=== PATIENT | female | born 1975 | race Caucasian/White ===

== ENCOUNTER 2021-01-04 06:41 | Emergency (ER) | payer BC, SELFPAY ==
--- NOTE | ~2021-01-04 | XR_ITS ---
EXAMINATION: CHEST 2 VIEWS CLINICAL INFORMATION: l sided pain . COMPARISON: 05/11/2015. TECHNIQUE: PA and lateral views of the chest obtained. FINDINGS: The lungs are well expanded. No focal infiltrate, effusion, edema, or pneumothorax. Cardiac and mediastinal silhouettes are within normal limits for technique. No acute bony abnormality seen XR/XR chest 2V IMPRESSION: No evidence of acute disease
[2021-01-04 07:05] VITALS: BP 138/81; PULSE 90; RESP 16; TEMP 36.8; O2SAT 100; BMI 29.2
--- NOTE | 2021-01-04 07:18 | ECG_ITS ---
Test Reason : PAIN Blood Pressure : / mmHG Vent. Rate : 074 BPM Atrial Rate : 074 BPM P-R Int : 132 ms QRS Dur : 086 ms QT Int : 368 ms P-R-T Axes : 061 -04 052 degrees QTc Int : 408 ms Normal sinus rhythm Normal ECG When compared with ECG of 31-MAR-2017 19:27, Vent. rate has decreased BY [address] no longer depressed in Inferior leads Referred By: Desiree Olivera Electronically Signed By:TOBY KAPLAN MD
--- NOTE | 2021-01-04 07:19 | ED.NECK ---
HPI - Neck Pain/Injury General Chief Complaint: Neck Pain/Injury Stated Complaint: neck/left side pain Time Seen by Provider: 01/04/21 07:18 Source: patient Mode of arrival: ambulatory Limitations: no limitations History of Present Illness HPI Narrative: 45 yo female hx of fibromyalgi and herniated disc in neck treated at [facility] pain management actually due for an injection today comes in with c/o L sided neck/shoulder going into chest pain that is reproduceable with palpation and movements, normally takes gabapentin denies new injury or trauma has had this pain before but it has not spread so far in the past MD complaint: neck pain and upper back pain Onset (ago): day(s) (last night) Place: home Radiation: left lateral, left shoulder, upper back and chest Severity: moderate Quality: aching and spasming Duration: constant Relieving factors: none Exacerbating factors: movement of extremity and movement of neck Context: other (hx of chronic neck pain) Associated symptoms: none Treatments prior to arrival: other (gabapentin) Related Data Previous Rx's Medication Instructions Recorded diazepam [Valium] 5 mg PO TID PRN #10 tab 01/04/21 lidocaine 1 patch TOPICAL DAILY PRN #10 ea 01/04/21 Allergies Allergy/AdvReac Type Severity Reaction Status Date / Time citalopram [CITALOPRAM] Allergy Intermediate BLOODY Unverified 06/17/20 15:05 STOOLS amoxicillin [AMOXICILLIN] Allergy Unknown PAIN Unverified 06/17/20 15:05 Review of Systems Review of Systems: Constitutional : No Weight loss, No Fever, No Chills, No Fatigue, No Malaise ENT/Mouth : No sore throat, No Rhinorrhea Eyes: No Eye Pain, No Swelling, No Redness Cardiovascular : pos Chest Pain, No SOB, No Dyspnea on Exertion, No Orthopnea, No Edema, No Palpitations Respiratory : No Cough, No Sputum, No Wheezing Gastrointestinal : No Nausea, No Vomiting, No Diarrhea, No Constipation, No abdominal Pain, No Hematochezia, No Melena Genitourinary : No Dysuria, No Urinary Frequency, No Hematuria, Musculoskeletal : pos joint pain, No Myalgias, No Joint Swelling Skin : No Skin Lesions, No rash Neuro : No Weakness, No Numbness, No Dizziness, No Headache Psych : No Anxiety/Panic, No Depression All other systems reviewed and are negative [facility] Past Medical History Attestation statement: The following information was validated with the patient. Medical History Fibromyalgia Herniated disc, cervical Social History Social History (Updated 01/04/21 @ 07:24 by Desiree Olivera DO) Use of substances other than those prescribed or required for medical reasons: No Advance Directives: Yes Advance Directives Information Provided: No Advance Directives on File: No Physical Exam Vital Signs: Vital Signs: Last Vital Signs Temp 98.2 F 01/04/21 07:05 Pulse 90 01/04/21 07:05 Resp 16 01/04/21 07:05 BP 138/81 01/04/21 07:05 Pulse Ox 100 01/04/21 07:05 Body Mass Index 29.2 Appearance: Alert. Oriented X3. No acute distress. Eyes: Pupils equal, round and reactive to light. ENT: Pharynx normal. Neck: Spasm and ttp along L trapezius and left lateral cervical area, + spurling maneuver L side CVS: Normal heart rate and rhythm. Pulses normal. Chest wall ttp along L ribs Respiratory: No respiratory distress. Breath sounds normal. Abdomen: Soft and nontender. Skin: Skin warm and dry. Normal skin color. Normal skin turgor. Extremities: No lower extremity edema. No calf ttp LUE NV intact, SILT throughout, 2+ radial pulse pain with ROM of arm Neuro: Oriented X 3. No motor deficit. No sensory deficit. Course Course Course Narrative: patient feels much better stable for DC MDM - Neck Pain/Injury MDM Narrative Medical decision making narrative: 45 yo female with fibromyalgia and cervical spine herniated disc here with L sided neck pain radiating down into the arm and chest - no associated dyspnea, n/v all of the pain is reproduceable and she is NV intact grossly in LUE - likely spasm - PO valium, EKG and CXR ordered, if negative stable for DC has clinic appointment for injection today at [facility] ECG Data Attestation: I personally reviewed and interpreted this ECG as follows: ECG interpretation date: 01/04/21 ECG interpretation time: 07:41 Interpretation: Rate: 74 Rhythm: NSR [place]: normal Normal P waves. Normal ZOE. Normal QRS complex. ST T wave : normal no ROMAIN qTC: normal prior studies: no acute ischemia The study has been interpreted contemporaneously by me. . Discharge Plan Discharge Clinical Impression: Cervical radiculopathy Strain of neck muscle Qualifiers: Encounter type: initial encounter Qualified Code(s): S16.1XXA - Strain of muscle, fascia and tendon at neck level, initial encounter Patient Disposition: Home, Self-Care Instructions: Cervical Radiculopathy (ED), Muscle Spasm (ED) Additional Instructions: return to ED for any worsening symptoms or concerns Prescriptions: New lidocaine 4 % adhesive patch,medicated 1 patch topical DAILY PRN (Reason: pain) Qty: 10 RF: 0 diazepam [Valium] 5 mg tablet 5 mg PO TID PRN (Reason: muscle spasm) Qty: 10 RF: 0
[2021-01-04] MEDS: Lidocaine 4 % Patch ADH..PATCH 1 PATCH TRANSDERMA (07:24)
[2021-01-04] MEDS: diazePAM 5 MG TABLET PO (07:25)
== END 2021-01-04 08:23 | disposition home or self-care (01) ==
PROVIDERS: Emergency Provider Emergency Medicine; PCP Internal Medicine
DX: S16.1XXA Strain of muscle, fascia and tendon at neck level, initial encounter (principal); M25.512 Pain in left shoulder; M54.12 Radiculopathy, cervical region; M54.5 Low back pain; M54.2 Cervicalgia; X58.XXXA Exposure to other specified factors, initial encounter; Y93.9 Activity, unspecified; Y92.9 Unspecified place or not applicable; Y99.9 Unspecified external cause status; Z79.899 Other long term (current) drug therapy
CPT/HCPCS: 71046; 93005; 99283

== ENCOUNTER 2021-09-05 11:11 | Outpatient (REF) | payer BC, SELFPAY ==
[2021-09-05 11:58] LABS: COVID-19 Test Negative (Negative); IDNOW Serial# 9DD0AD1C
== END 2021-09-05 11:12 | disposition home or self-care (01) ==
LOC: HO.LAB 11:11
PROVIDERS: Visit Provider Internal Medicine
DX: Z20.822 Contact with and (suspected) exposure to COVID-19 (principal)
CPT/HCPCS: 36415; 87635; C9803

== ENCOUNTER 2021-09-14 19:21 | Emergency (ER) | payer OTHER, SELFPAY ==
[2021-09-14 19:44] VITALS: BP 144/91; PULSE 91; RESP 18; TEMP 36.6; O2SAT 98; BMI 29.0
--- NOTE | 2021-09-14 20:43 | ED_ITS ---
HPI - URI/Sore Throat General Chief Complaint: Upper Respiratory Symptoms Stated Complaint: Covid symptoms Time Seen by Provider: 09/14/21 20:36 Source: patient Mode of arrival: ambulatory Limitations: no limitations History of Present Illness HPI Narrative: 46 y/o female with history of migraines presents to the ER with generalized headache, body aches and nausea that started today. She lives at home with her 2 sons who were just found to be COVID positive. Her headache today started like her regular migraine headaches and she took her subcutaneous migraine medication. There was no improvement in her headache and continued to get worse. She then developed some upper body aches and nausea and had chills. She is worried that she may have COVID. She is fully vaccinated. She has no respiratory symptoms or fevers. She denies any vision changes but she reports some photophobia which is typical of her regular migraines. She has not vomited and has no abdominal pain. MD elicited complaint: other (headache) Pertinent past history: other (History of migraines) Onset (ago): hour(s) Consistency: constant Severity: severe Able to tolerate fluids by mouth: Yes Exacerbating factors: changing head position and other (In light) Relieving factors: nothing Context: sick contacts Associated symptoms: chills, myalgias, headache and nausea Treatments prior to arrival: other (Prescription migraine medication) Related Data Previous Rx's Medication Instructions Recorded diazepam 5 mg tablet (Valium) 5 mg PO TID PRN #10 tab 01/04/21 lidocaine 4 % topical patch 1 patch TOPICAL DAILY PRN #10 ea 01/04/21 cyclobenzaprine 10 mg tablet 10 mg PO TID PRN #8 tab 09/14/21 Allergies Allergy/AdvReac Type Severity Reaction Status Date / Time citalopram [CITALOPRAM] Allergy Intermediate BLOODY Unverified 06/17/20 15:05 STOOLS amoxicillin [AMOXICILLIN] Allergy Unknown PAIN Unverified 06/17/20 15:05 Review of Systems Review of Systems: Constitutional: No Fever, No Chills ENT/Mouth: No sore throat, No Rhinorrhea, No Swallowing Difficulty Eyes: No vision changes Cardiovascular: No Chest Pain, No SOB Respiratory: No Cough, No Sputum, No Wheezing, No dyspnea Gastrointestinal: + Nausea, No Vomiting, No Diarrhea, No abdominal Pain Genitourinary: No Dysuria, No Urinary Frequency, No Hematuria Musculoskeletal: No joint pain, + Myalgias Skin: No Skin Lesions, No rash Neuro: No Weakness, No Numbness, No Dizziness, + Headache Psych: + Anxiety/Panic, No Depression Heme/Lymph: No Bruising, No Lymphadenopathy PMFSH Past Medical History Medical History Fibromyalgia Herniated disc, cervical Social History Social History (Updated 01/04/21 @ 07:24 by Desiree Olivera DO) Advance Directives: No Advance Directives Information Provided: No Physical Exam Vital Signs: Vital Signs: Last Vital Signs Temp 98 F 09/14/21 19:44 Pulse 91 09/14/21 19:44 Resp 18 09/14/21 19:44 BP 144/91 H 09/14/21 19:44 Pulse Ox 98 09/14/21 19:44 BMI result Body Mass Index 29.0 Appearance: Alert. Oriented X3. No acute distress. Eyes: Pupils equal, round and reactive to light. EOMI, no nystagmus ENT: Pharynx normal. Neck: Normal inspection. Neck supple. Bilateral soft tissue tenderness and spasm. no nuchal rigidity CVS: Normal heart rate and rhythm. Pulses normal. Respiratory: No respiratory distress. Breath sounds normal. Abdomen: Soft and nontender. +BS x4 Skin: Skin warm and dry. Normal skin color. Normal skin turgor. No rashes. Extremities: No lower extremity edema. Neuro: Oriented X 3. No motor deficit. No sensory deficit. Course Course Course Narrative: 46-year-old female presents to the ER with headache, body aches, nausea, chills in setting of being exposed to her sons who she lives with have COVID. She is fully vaccinated. Her vital signs are normal. Her exam is benign. She has some soft tissue tenderness of her neck and upper back. No meningeal signs. No fevers. She is asking for Motrin for her headache. Will assess for COVID-19. Reevaluation(s) Reevaluation #1: Her rapid COVID test was negative. Still very highly suspicious for COVID so will also send a PCR test. She was counseled that even if she is negative today his initial remain negative from the disease. Her headache is improved with Motrin and she is asking for something for her neck and upper back aches and pains. She has some spasms on exam so will give a low- dose muscle relaxer for brief course to help with this. She was counseled on getting retested for COVID if her symptoms persist and following up with her primary care doctor. At this time she is stable for discharge home. Will call if her PCR is positive. Patient agrees with plan MDM - URI/Sore Throat Lab Data Labs: Lab Results 09/14/21 Range/Units 20:40 COVID-19 (CIELO) Negative (Negative) COVID-19 Clin Com See Note Discharge Plan Discharge Clinical Impression: Migraine Qualifiers: Migraine type: unspecified Status migrainosus presence: without status mi grainosus Intractability: not intractable Qualified Code(s): G43.909 - Migraine, unspecified, not intractable, without status migrainosus Patient Disposition: Home, Self-Care Instructions: Migraine Headache (ED) Additional Instructions: Your rapid COVID test was negative today. A PCR COVID test was also sent, if this is positive we will call you this evening. Continue your home medication for your migraine. Recommend Excedrin migraine as well. Rest and stay hydrated. Recommend getting retested for COVID in the next 5 days to ensure your remain negative. Prescriptions: New cyclobenzaprine 10 mg tablet 10 mg PO TID PRN (Reason: muscle spasm) Qty: 8 RF: 0 No Action lidocaine 4 % adhesive patch,medicated 1 patch topical DAILY PRN (Reason: pain) Qty: 10 RF: 0 diazepam [Valium] 5 mg tablet 5 mg PO TID PRN (Reason: muscle spasm) Qty: 10 RF: 0 Interventions: ED Discharge Assessment Last Done: 09/14/21 21:36
[2021-09-14 21:11] LABS: COVID-19 Test Negative (Negative)
[2021-09-14] MEDS: Ibuprofen 600 MG TABLET PO (21:24)
[2021-09-14 22:20] LABS: Influenza A PCR NEGATIVE (Negative); Influenza B PCR NEGATIVE (Negative); Resp Syncy Virus RNA Qual PCR NEGATIVE (Negative); SARS COV2 PCR INHOUSE NEGATIVE (Negative)
== END 2021-09-14 22:50 | disposition home or self-care (01) ==
PROVIDERS: Physician Assistant; Emergency Provider Emergency Medicine; PCP Internal Medicine
DX: G43.909 Migraine, unspecified, not intractable, without status migrainosus (principal); Z20.822 Contact with and (suspected) exposure to COVID-19
CPT/HCPCS: 0241U; 36415; 87635; 99283; 99284

== ENCOUNTER 2022-02-17 10:29 | Outpatient (REF) | payer OTHER, SELFPAY ==
[2022-02-17 11:06] LABS: COVID-19 Test Negative (Negative); IDNOW Serial# 08D9AD1C
== END 2022-02-17 10:30 | disposition home or self-care (01) ==
LOC: HO.LAB 10:29
PROVIDERS: Visit Provider Internal Medicine
DX: Z20.822 Contact with and (suspected) exposure to COVID-19 (principal)
CPT/HCPCS: 87635; C9803

== ENCOUNTER 2022-03-24 15:28 | Emergency (ER) | payer OTHER, SELFPAY ==
--- NOTE | ~2022-03-24 | CT_ITS ---
EXAMINATION: CT HEAD WITHOUT CONTRAST CLINICAL INFORMATION: Headache and facial paresthesias COMPARISON: None TECHNIQUE: Contiguous axial imaging was performed from the skull base to vertex without intravenous administration of contrast. This CT examination was performed using dose optimization techniques as appropriate, variously including the following: *Automated exposure control *Adjustment of mA and/or kV according to patient size (this includes techniques or standardized protocols for targeted exams where dose is matched to indication/reason for exam; i.e. extremities or head) *Use of iterative reconstruction technique DLP: 625 mGy-cm FINDINGS: There is no evidence of acute intracranial hemorrhage or territorial infarction. No abnormal mass effect or midline shift is seen. David to white matter differentiation is well preserved. No extra-axial fluid collections are identified. The ventricles are normal in size. There is no abnormal attenuation within the brain parenchyma. The osseous structures and soft tissues are normal. The mastoid air cells and visualized portions of the paranasal sinuses are well aerated. CT/CT head/brain wo con IMPRESSION: No acute intracranial pathology.
[2022-03-24 15:30] VITALS: BP 154/94; PULSE 100; RESP 18; TEMP 36.6; O2SAT 100; BMI 29.0
--- NOTE | 2022-03-24 16:10 | ED_ITS ---
HPI - Headache General Chief Complaint: Headache Stated Complaint: Head numbness on R side Time Seen by Provider: 03/24/22 16:09 Source: patient and old records reviewed Mode of arrival: ambulatory Limitations: no limitations History of Present Illness HPI Narrative: 46 yo female hx of chronic migraines on ubrelvy not on DOAC here with c/o of MD elicited complaint: headache (R sided headache x 1 week and facial parasthesias that started this AM upon waking) Pertinent past history: migraines Onset (ago): week(s) (1 week paroxysmal facial pain and 1 day of R sided facial numbness) Onset description: gradually Location: right and temporal Severity: moderate Quality & Timing: sharp, intermittent and different than previous headaches Exacerbating factors: none Relieving factors: nothing Context: occurred at rest Associated symptoms: other (feels patch of R cheek area is numb as well) Treatments prior to arrival: none Related Data Previous Rx's Medication Instructions Recorded diazepam 5 mg tablet (Valium) 5 mg PO TID PRN muscle spasm #10 01/04/21 tabs lidocaine 4 % topical patch 1 patch topical DAILY PRN pain #10 01/04/21 ea cyclobenzaprine 10 mg tablet 10 mg PO TID PRN muscle spasm #8 09/14/21 tabs gabapentin 300 mg capsule 300 mg PO DAILY #10 caps 03/24/22 prednisone 20 mg tablet 40 mg PO DAILY 4 days #8 tabs 03/24/22 Allergies Allergy/AdvReac Type Severity Reaction Status Date / Time citalopram [CITALOPRAM] Allergy Intermediate BLOODY Unverified 06/17/20 15:05 STOOLS amoxicillin [AMOXICILLIN] Allergy Unknown PAIN Unverified 06/17/20 15:05 Review of Systems Review of Systems: Constitutional : No Fever, No Chills, No Fatigue ENT/Mouth : No sore throat, No Rhinorrhea Eyes: No Eye Pain, No Swelling, No Redness Cardiovascular : No Chest Pain, No SOB, No Dyspnea on Exertion Respiratory : No Cough, No Sputum Gastrointestinal : No Nausea, No Vomiting, No Diarrhea, No abdominal Pain Genitourinary : No Dysuria, No Urinary Frequency, No Hematuria, Musculoskeletal : No joint pain, No Myalgias, No Joint Swelling Skin : No Skin Lesions, No rash Neuro : No Weakness, pos Numbness, No Dizziness, positive Headache Psych : No Anxiety/Panic, No Depression Heme/Lymph: No Bruising, No Bleeding,No Lymphadenopathy Endocrine : No Polyuria, No Polydipsia All other systems reviewed and are negative [facility] Past Medical History Attestation statement: The following information was validated with the patient. Medical History Fibromyalgia Herniated disc, cervical Migraine Social History Social History (Updated 03/24/22 @ 16:11 by Desiree Olivera DO) Alcohol intake: never Patient Tobacco Use Status: Never used Tobacco Use of substances other than those prescribed or required for medical reasons: No Advance Directives: No Advance Directives Information Provided: No Physical Exam Vital Signs: Vital Signs: Last Vital Signs Temp 98.3 F 03/24/22 16:45 Pulse 92 03/24/22 16:45 Resp 16 03/24/22 16:45 BP 155/87 H 03/24/22 16:45 Pulse Ox 99 03/24/22 16:45 O2 Del Method 03/24/22 16:45 BMI result Body Mass Index 29.0 Appearance: Alert. Oriented X3. No acute distress. Eyes: Pupils equal, round and reactive to light. ENT: Pharynx normal. R TM normal, R TMJ is sore and tender to touch reproduces pain, inside of mouth is normal, temporal artery is normal. Neck: Normal inspection. Neck supple. no meningeal signs CVS: Normal heart rate and rhythm. Pulses normal. Respiratory: No respiratory distress. Breath sounds normal. Abdomen: Soft and non-tender. Skin: Skin warm and dry. Normal skin color. Normal skin turgor. Extremities: No lower extremity edema. No calf ttp Neuro: Oriented X 3. No motor deficit. No sensory deficit. reports some sensor y deficits on R side of upper cheek area Course Course Course Narrative: workup negative possible TMJ vs trigeminal neuralgia will start on gabapentin 300mg in AM as well as prednisone - stable for DC MDM - Headache MDM Narrative Medical decision making narrative: 46 yo female with hx of fibromyalgia and migraines here with c/o R sided sharp paroxysmal sharp pain R side of head not typical of her migraines x 1 week, then woke up this AM with R sided facial numbess - denies trauma, dental work, infection. Possible TMJ, trigeminal neuralgia, complex migraine, sinus infection, doubt vasculitis. CT head for mass/sinusitis, basic labs. Dispo per results and findings. Lab Data Result diagrams: 03/24/22 16:34 03/24/22 16:34 Labs: Lab Results 03/24/22 03/24/22 03/24/22 Range/Units 16:34 16:34 16:34 WBC 6.9 (4.8-10.8) X10*3/uL RBC 4.72 (4.20-5.50) X10*6/uL Hgb 12.1 (12.0-16.0) g/dl Hct 38.5 (37.0-47.0) % MCV 81.6 (80.0-98.0) fL MCH 25.6 L (27.0-33.0) pg MCHC 31.4 (31.0-35.0) g/dl RDW 14.0 (11.0-16.0) % Plt Count 244 (160-400) X10*3/uL MPV 10.6 (9.4-12.3) fL Immature Gran % (Auto) 0.7 H (0.0-0.4) % Neut % (Auto) 64.8 (45-73) % Lymph % (Auto) 27.4 (20-40) % Sampson % (Auto) 5.6 (2-11) % Eos % (Auto) 1.4 (0-4) % Baso % (Auto) 0.1 (0-2) % Lymph # (Auto) 1.9 (1.2-4.9) X10*3/uL Sampson # (Auto) 0.4 (0.1-1.2) X10*3/uL Eos # (Auto) 0.1 (0.0-0.4) X10*3/uL Baso # (Auto) 0.0 (0.0-0.2) X10*3/uL Abs Immat Gran (auto) 0.05 H (0.00-0.03) X10*3/uL Absolute Neuts (auto) 4.5 (2.0-8.3) x10*3/uL Absolute Nucleated RBC 0.000 (0.0-0.012) X10*3/uL Nucleated RBC % (auto) 0.0 (0.0-0.2) /100WBC ESR 10 (0-20) MM/HR Sodium 138 (135-145) mmol/L Potassium 3.6 (3.3-5.1) mmol/L Chloride 104 (96-108) mmol/L Carbon Dioxide 26 (22-29) mmol/L Anion Gap 12 (12-20) BUN 10 (9-16) mg/dL Creatinine 0.91 (0.5-1.4) mg/dL Estim Creat Clear Calc 84.9 Estimated GFR > 60 Random Glucose 139 H (60-115) mg/dL Calcium 9.2 (8.4-10.2) mg/dL Discharge Plan Discharge Clinical Impression: Headache, Facial paresthesia Patient Disposition: Home, Self-Care Instructions: Acute Headache (ED), Paresthesia (ED) Additional Instructions: return to ED for any worsening symptoms or concerns FINDINGS: There is no evidence of acute intracranial hemorrhage or territorial infarction. No abnormal mass effect or midline shift is seen. David to white matter differentiation is well preserved. No extra-axial fluid collections are identified. The ventricles are normal in size. There is no abnormal attenuation within the brain parenchyma. The osseous structures and soft tissues are normal. The mastoid air cells and visualized portions of the paranasal sinuses are well aerated. ? CT/CT head/brain wo con IMPRESSION: No acute intracranial pathology. Prescriptions: New prednisone 20 mg tablet 40 mg PO DAILY 4 Days Qty: 8 0RF gabapentin 300 mg capsule 300 mg PO DAILY Qty: 10 0RF Rx Instructions: take in AM No Action lidocaine 4 % adhesive patch,medicated 1 patch topical DAILY PRN (Reason: pain) Qty: 10 0RF Rx Instructions: may leave on for up to 12 hrs diazepam [Valium] 5 mg tablet 5 mg PO TID PRN (Reason: muscle spasm) Qty: 10 0RF cyclobenzaprine 10 mg tablet 10 mg PO TID PRN (Reason: muscle spasm) Qty: 8 0RF Referrals: Mack Banda MD [Primary Care Provider] - 3 days
[2022-03-24 16:40] LABS: MANUAL DIFF FLAG NO
[2022-03-24 16:45] VITALS: BP 155/87; PULSE 92; RESP 16; TEMP 36.8; O2SAT 99
[2022-03-24 16:59] LABS: Anion Gap 12 (12-20); Blood Urea Nitrogen 10 mg/dL (9-16); Calcium 9.2 mg/dL (8.4-10.2); Carbon Dioxide 26 mmol/L (22-29); Chloride 104 mmol/L (96-108); Creatinine Clr Calc Pharmacy 84.9; Estimated Glomerular Filt Rate > 60; Glucose Random 139 mg/dL (60-115); Potassium 3.6 mmol/L (3.3-5.1); Sodium 138 mmol/L (135-145)
[2022-03-24 17:00] LABS: Basophils Percent Auto 0.1 % (0-2); Eosinophils Absolute Auto 0.1 X10*3/uL (0.0-0.4); Eosinophils Percent Auto 1.4 % (0-4); Hematocrit 38.5 % (37.0-47.0); Hemoglobin 12.1 g/dl (12.0-16.0); Imm Gran Abs Auto 0.05 X10*3/uL (0.00-0.03); Imm Gran Pct Auto 0.7 % (0.0-0.4); Lymphocytes Absolute Auto 1.9 X10*3/uL (1.2-4.9); Lymphocytes Percent Auto 27.4 % (20-40); Mean Corpuscular HGB Conc 31.4 g/dl (31.0-35.0); Mean Corpuscular Hemoglobin 25.6 pg (27.0-33.0); Mean Corpuscular Volume 81.6 fL (80.0-98.0); Mean Platelet Volume 10.6 fL (9.4-12.3); Monocytes Absolute Auto 0.4 X10*3/uL (0.1-1.2); Monocytes Percent Auto 5.6 % (2-11); Neutrophils Absolute Auto 4.5 x10*3/uL (2.0-8.3); Neutrophils Percent Auto 64.8 % (45-73); Platelet Count 244 X10*3/uL (160-400); Red Blood Count 4.72 X10*6/uL (4.20-5.50); White Blood Count 6.9 X10*3/uL (4.8-10.8)
[2022-03-24 17:36] LABS: Erythrocyte Sedimentation Rate 10 MM/HR (0-20)
[2022-03-25 21:12] LABS: Lyme Abs Screen <0.90 index
== END 2022-03-24 18:03 | disposition home or self-care (01) ==
PROVIDERS: Emergency Provider Emergency Medicine; PCP Internal Medicine
DX: R51.9 Headache, unspecified (principal); R20.2 Paresthesia of skin; Z79.899 Other long term (current) drug therapy
CPT/HCPCS: 36415; 70450; 80048; 85025; 85652; 86617; 86618; 99284

== ENCOUNTER 2022-10-18 00:52 | Emergency (ER) | payer OTHER, SELFPAY ==
[2022-10-18 01:02] VITALS: BP 103/39; BP 116/70; PULSE 105; PULSE 83; RESP 18; TEMP 36.4; O2SAT 100; O2SAT 98; BMI 29.0
--- OUTSIDE RECORDS SUMMARY | 2022-10-18 01:10 | XMS_ITS | Continuity of Care Document ---
:1975 Author Organization [facility] Address [address] [place] [address]- Care Team Providers Name Role Phone Mack Banda MD Primary Care Physician Encounter [facility] Date(s): 02/14/22 - 02/21/22 [facility] [address] [place] [address]- Encounter Diagnosis RTI (respiratory tract infection) (Discharge Diagnosis) - 02/14/22 Exposure to COVID-19 virus (Discharge Diagnosis) - 02/14/22 Attending Physician: Mack Banda MD Allergies, Adverse Reactions, Alerts Substance Reaction Severity Status mirtazapine Active citalopram Active Cats Active Dogs Active Immunizations Given and Recorded Vaccine Date Status Refusal Reason SARS-CoV-2 (COVID-19) mRNA-1273 vaccine 02/21/21 Recorded SARS-CoV-2 (COVID-19) mRNA-1273 vaccine 01/24/21 Recorded Influenza Virus Vaccine (oldterm) 07/24/20 Recorded Influenza Virus Vaccine (oldterm) 09/18/19 Recorded influenza virus vaccine, inactivated1 07/21/18 Recorded influenza virus vaccine, inactivated 07/24/17 Recorded influenza virus vaccine, inactivated2 05/09/16 Recorded influenza virus vaccine, inactivated3 06/21/15 Recorded influenza virus vaccine, inactivated4 08/10/14 Recorded influenza virus vaccine, inactivated5 07/07/13 Recorded influenza virus vaccine, inactivated6 07/01/12 Given tetanus/diphtheria/pertussis, acel(Tdap) 10/09/13 Given FluLaval (oldterm) 08/29/11 Given Hepatitis B Vaccine (old term) 09/18/08 Given Hepatitis B Vaccine (old term)7 04/10/08 Given Hepatitis B Vaccine (old term) 03/11/08 Given Tetanus Toxoid Vaccine (oldterm) 10/01/03 Given 1Location History: [facility] [id number] Comment: [05/10/2016] RECIEVED AT [facility] AMOS [id number] Comment: [07/21/2015] at [id number] Comment: [12/08/2014] pt received at [id number] History: [facility] employer, [employer] [id number] Note: [facility] [id number] Note: #2 Medications Acetaminophen = 1,000 mg, By Mouth, 2 times a day, PRN Pain, 0 Refills, Maintenance, 09/17/18 16:04:26 EST Start Date: 09/17/18 Status: Orderedcetirizine 10 mg oral tablet 1 tablet, By Mouth, Daily, # 90 tablet, 1 Refills, 11/25/21 10:17:00 EST, [facility] #[id number], 167.64, cm, 11/08/21 16:30:00 EST, Height, 80.2, kg, 04/19/21 6:20:00 EDT, Dry Weight Start Date: 11/25/21 Status: Orderedduloxetine 60 mg oral enteric coated capsule 1 capsule = 60 mg, By Mouth, 2 times a day, # 180 capsule, 1 Refills, Maintenance, 07/26/21 11:03:00EDT, EC Capsule, [facility] #[id number], 167.64, cm, 07/11/21 16:24:00 EDT, Height, 80.2, kg, 04/19/21 6:20:00 EDT, Dry Weight Start Date: 07/26/21 Status: OrderedEmgality Prefilled Pen 120 mg/mL subcutaneous solution = 120 mg, Subcutaneous Infusion, Every 28 days, # 1 each, 11 Refills, Maintenance, 01/31/21 7:27:00 EDT, [facility] #[id number], 166, cm, 12/31/20 8:54:00 EDT, Height Start Date: 01/31/21 Status: Orderedfluconazole 150 mg oral tablet 1 tablet = 150 mg, By Mouth, Once, # 1 tablet, 0 Refills, Soft Stop, 02/20/22 11:33:00 EDT, Tablet, [facility] #[id number], Partial fill upon patient request if the prescription is for a schedule II opioid drug., 167.64, cm, 11/08/21 16:30:00 EST... Start Date: 02/20/22 Status: Orderedgabapentin 300 mg oral capsule 2, capsule, By Mouth, Daily at bedtime, # 180 capsule, Refills 1, Tot. Refills 1, Maintenance, 01/18/22 15:08:00 EDT, Route to Pharmacy Electronically, [facility] #[id number], 167.64, cm, 11/08/2215:30:00 EST, Height, 80.2, kg, 04/19/21 6:20:00... Start Date: 01/18/22 Status: OrderedLORazepam 0.5 mg oral tablet See Instructions, TAKE 1 TABLET BY MOUTH DAILY AT BEDTIME, # 30 tablet, 0 Refills, Maintenance, 10/18/21 15:26:00 EST, [facility] #[id number], 167.64, cm, 07/11/21 16:24:00 EDT, Height, 80.2, kg, 04/19/21 6:20:00 EDT, Dry Weight Start Date: 10/18/21 Status: OrderedLORazepam 0.5 mg oral tablet 1 tablet = 0.5 mg, By Mouth, Daily at bedtime, # 30 tablet, 0 Refills, Maintenance, 02/17/22 11:55:00 EDT, [facility] #[id number], Partial fill upon patient request if the prescription is for a schedule II opioid drug., 167.64, cm, 11/08/21 16:30... Start Date: 02/17/22 Status: Orderedomeprazole 20 mg oral delayed release tablet 1 tablet = 20 mg, By Mouth, Daily in AM, 30 minutes prior first meal of day, # 30 tablet, 1 Refills,Maintenance, 03/01/21 16:21:00 EDT, EC Tablet, [facility] #[id number], Partial fill upon patient request if the prescription is for a schedule II... Start Date: 03/01/21 Status: OrderedtiZANidine 2 mg oral capsule 1 capsule = 2 mg, By Mouth, Daily at bedtime, # 30 capsule, 2 Refills, Maintenance, 12/07/21 10:59:00 EST, [facility] #[id number], Partial fill upon patient request if the prescription is for a schedule II opioid drug., 167.64, cm, 11/08/21 16:30... Start Date: 12/07/21 Status: OrderedUbrelvy 50 mg oral tablet 1 tablet = 50 mg, By Mouth, Once, PRN as needed for migraine headache, may repeat dose in 2 hours ifneeded, # 2 tablet, 11 Refills, Soft Stop, 06/17/21 14:54:00 EDT, Tablet, [facility] #[id number], Partial fill upon patient request if the prescr... Start Date: 06/17/21 Status: Ordered Problem List Condition Effective Dates Status Health Status Informant Adenoma of right adrenal gland neg Active labs 2017(Confirmed)1 Anxiety(Confirmed) Active [place] cardiac risk <10% in next 04/13/21 Active 10 years 2.0%(Confirmed) Cervical disc disease C6-7 MRI Active 2020/C5-7 (two level) ACDF.(Confirmed) Fibromyalgia(Confirmed) Active Impingement syndrome, shoulder, 09/17/18 Active left(Confirmed) Insomnia(Confirmed) Active Lumbar disc disease(Confirmed)2, 3 Active Depression, major,(Confirmed) Active Migraine failed(Confirmed)4 11/19/08 Active Vitamin D deficiency(Confirmed) Active 1normal renin/jeremiah/neg [id number] noted followed by neurosurgery Dr. Woodall. no surgery advised at this [id number] spine sports; mri [id number] given,comprehensive Diagnosis Diagnosis Type Effective Dates Health Status Clinical In formant Service RTI (respiratory Discharge 02/14/22 tract infection) Diagnosis Exposure to Discharge 02/14/22 COVID-19 virus Diagnosis Social History Social History Type Response Smoking Status Never smoker; Tobacco user i n household: No entered on: 12/08/14 Sex Female
--- OUTSIDE RECORDS SUMMARY | 2022-10-18 01:10 | XMS_ITS | Continuity of Care Document ---
:1975 Author Organization [facility] Address [address] [place] [address]- Care Team Providers Name Role Phone Solo MENDEZ, Mack Boyd Primary Care Physician Encounter [facility] Date(s): 11/29/20 - 12/29/20 [facility] [address] [place] [address]- Allergies, Adverse Reactions, Alerts Substance Reaction Severity Status mirtazapine Active citalopram Active Cats Active Dogs Active Immunizations Given and Recorded Vaccine Date Status Refusal Reason Influenza Virus Vaccine (oldterm) 07/24/20 Recorded Influenza [...] Toxoid Vaccine (oldterm) 10/01/03 Given 1Location History: [id number] Comment: [05/10/2016] [facility]IEVED AT [facility] [id number] Comment: [07/21/2015] at [id number] Comment: [12/08/2014] pt received at [id number] History: [facility] employer, magdalena solomon6Admin Note: [facility] [id number] Note: #2 Medications Acetaminophen = 1,000 mg, By Mouth, 2 times a day, PRN Pain, 0 Refills, Maintenance, 09/17/18 16:04:26 EST Start Date: 09/17/18 Status: Orderedcetirizine 10 mg oral tablet 1 tablet, By Mouth, Daily, # 90 tablet, 1 Refills, Maintenance, 10/16/20 11:32:00 EST, [facility] #[id number], 166, cm, 10/11/20 9:24:00 EST, Height Start Date: 10/16/20 Status: Orderedduloxetine 60 mg oral enteric coated capsule 1 capsule = 60 mg, By Mouth, 2 times a day, # 180 capsule, 1 Refills, Maintenance, 10/05/20 7:18:00 EST, EC Capsule, [facility], 166, cm, 09/30/20 15:22:00 EST, Height Start Date: 10/05/20 Status: OrderedEmgality Prefilled Pen 120 mg/mL subcutaneous solution = 120 mg, Subcutaneous Infusion, Every 28 days, # 1 each, 0 Refills, Maintenance, 12/17/20 15:18:00 EDT, [facility] #[id number], 166, cm, 12/17/20 14:53:00 EDT, Height Start Date: 12/17/20 Status: Orderedferrous sulfate 325 mg oral enteric coated tablet 325 mg, 1, tablet, By Mouth, 3 times a day, may take with food to minimize abdominal discomfort marielle wells, # 90 tablet, Refills 3, Tot. Refills 3, Maintenance, 10/11/20 17:24:00 EST, Route to Pharmacy Electronically, [facility] Start Date: 10/11/20 Status: Orderedgabapentin 300 mg oral capsule 600 mg, 2, capsule, By Mouth, Daily at bedtime, at bed, # 60 each, Refills 2, Tot. Refills 2, Maintenance, 12/17/20 15:08:00 EDT, Route to Pharmacy Electronically, [facility] #[id number], 166, cm,12/17/20 14:53:00 EDT, Height Start Date: 12/17/20 Status: Orderedibuprofen 600 mg oral tablet 600 mg, 1, tablet, By Mouth, 2 times a day, Refills 0, Maintenance, 12/05/19 11:08:00 EST Start Date: 12/05/19 Status: Orderedtopiramate 25 mg oral capsule 1 capsule = 25 mg, By Mouth, Daily at bedtime, # 60 capsule, 5 Refills, Maintenance, 09/05/20 15:41:00 EST, [facility] #[id number], 168, cm, 08/16/20 8:23:00 EST, Height Start Date: 09/05/20 Status: OrderedtraZODone 50 mg oral tablet 25 mg, 0.5, tablet, By Mouth, 2 times a day, # 90 tablet, Refills 1, Tot. Refills 1, Maintenance, 10/05/20 7:19:00 EST, Route to Pharmacy Electronically, [facility], 166, cm, 09/30/20 15:22:00 EST, Height Start Date: 10/05/20 Status: OrderedUbrelvy 50 mg oral tablet 1 tablet = 50 mg, By Mouth, Once, PRN as needed for migraine headache, may repeat dose in 2 hours ifneeded, # 10 tablet, 1 Refills, Soft Stop, 12/17/20 15:22:00 EDT, Tablet, [facility] #[id number], 166, cm, 12/17/20 14:53:00 EDT, Height Start Date: 12/17/20 Status: OrderedVitamin D3 5000 intl units oral capsule See Instructions, 1 capsule By Mouth twice per week, # 50 capsule, 0 Refills, Maintenance, 03/02/20 9:02:00 EDT, Capsule, [facility] #[id number], 168, cm, 12/05/19 10:30:00 EST, Height Start Date: 03/02/20 Status: Ordered Problem List Condition Effective Dates Status Health Status Informant Adenoma of right adrenal Active gland(Confirmed)1 Anxiety(Confirmed) Active Fibromyalgia(Confirmed) Active Impingement syndrome, shoulder, 09/17/18 Active left(Confirmed) Insomnia(Confirmed) Active Lumbar disc disease(Confirmed)2, 3 Active Iron deficiency anemia(Confirmed) 10/09/20 Active Depression, major, in Active remission(Confirmed) Migraine failed dukloxetine gabapentin 11/19/08 Active TCA(Confirmed)4 Lesion of nasal septum rt;refer Active dermatology(Confirmed) Cervicalgia(Confirmed) Active NSAID long-term use(Confirmed) Active Vitamin D deficiency(Confirmed) Active 1normal renin/jeremiah/neg [id number] noted followed by neurosurgery Dr. Woodall. no surgery advised at this [id number] spine sports; mri [id number] given,comprehensive Social History Social History Type Response Smoking Status Never smoker; Tobacco user i n household: No entered on: 12/08/14 Sex Female
--- OUTSIDE RECORDS SUMMARY | 2022-10-18 01:10 | XMS_ITS | Continuity of Care Document ---
:[address] [facility] Address [address] [place] [address]- Care Team Providers Name Role Phone Solo MENDEZ, Mack Boyd Primary Care Physician Encounter [facility] Date(s): 04/13/21 - 04/20/21 [facility] [address] [place] [address]- Encounter Diagnosis Preop examination (Discharge Diagnosis) - 04/11/21 Cervical disc disease C6-7 MRI 2020 (Discharge Diagnosis) - 04/11/21 Depression, major, (Discharge Diagnosis) - 04/11/21 Migraine failed dukloxetine gabapentin TCA (Discharge Diagnosis) - 04/11/21 Fibromyalgia (Discharge Diagnosis) - 04/11/21 [place] cardiac risk <10% in next 10 years 2.0% (Discharge Diagnosis) - 04/13/21 Impaired fasting glucose (Discharge Diagnosis) - 04/13/21 Attending Physician: Mack Banda MD Referring Physician: Elijah Lynn MD Allergies, Adverse Reactions, Alerts Substance Reaction [...] Vaccine (oldterm) 10/01/03 Given 1Location History: [facility] [id number] Comment: [05/10/2016] RECIEVED AT [facility] [id number] Comment: [07/21/2015] at [id number] Comment: [12/08/2014] pt received at [id number] History: [facility] employer, [employer]ena solomon6Admin Note: [facility] [id number] Note: #2 Medications Acetaminophen = 1,000 mg, By Mouth, 2 times a day, PRN Pain, 0 Refills, Maintenance, 09/17/18 16:04:26 EST Start Date: 09/17/18 Status: Orderedacetaminophen-oxyCODONE 325 mg-5 mg oral tablet 1, tablet, By Mouth, Every 4 hours, PRN, Not to exceed 4 GM of Tylenol per 24 hour period for 7 days, # 42 tablet, Refills 0, Tot. Refills 0, Acute, Pain , Moderate, 04/27/21 9:03:00 EDT, 04/20/21 9:03:00 EDT, Print Requisition, Tablet, Partial fill u... Start Date: 04/20/21 Stop Date: 04/27/21 Status: Orderedcetirizine 10 mg oral tablet 1 tablet, By Mouth, Daily, # 90 tablet, 1 Refills, Maintenance, 03/21/21 7:23:00 EDT, [facility] #[id number], 167.64, cm, 03/18/21 6:28:00 EDT, Height, 80, kg, 03/18/21 6:28:00 EDT, Dry Weight Start Date: 03/21/21 Status: Orderedduloxetine 60 mg oral enteric coated capsule 1 capsule = 60 mg, By Mouth, 2 times a day, # 180 capsule, 1 Refills, Maintenance, 10/05/20 7:18:00 EST, EC Capsule, [facility], 166, cm, 09/30/20 15:22:00 EST, Height Start Date: 10/05/20 Status: OrderedEmgality Prefilled Pen 120 mg/mL subcutaneous solution = 120 mg, Subcutaneous Infusion, Every 28 days, # 1 each, 11 Refills, Maintenance, 01/31/21 7:27:00 EDT, [facility] #[id number], 166, cm, 12/31/20 8:54:00 EDT, Height Start Date: 01/31/21 Status: Orderedgabapentin 300 mg oral capsule 600 mg, 2, capsule, By Mouth, Daily at bedtime, at bed, # 60 each, Refills 2, Tot. Refills 2, Maintenance, 12/17/20 15:08:00 EDT, Route to Pharmacy Electronically, [facility] #[id number], 166, cm,12/17/20 14:53:00 EDT, Height Start Date: 12/17/20 Status: Orderedomeprazole 20 mg oral delayed release tablet 1 tablet = 20 mg, By Mouth, Daily in AM, 30 minutes prior first meal of day, # 30 tablet, 1 Refills,Maintenance, 03/01/21 16:21:00 EDT, EC Tablet, [facility] #[id number], Partial fill upon patient request if the prescription is for a schedule II... Start Date: 03/01/21 Status: OrderedtiZANidine 2 mg oral tablet 2 mg, 1, tablet, By Mouth, Every 8 hours, PRN, not to exceed 3 doses/day, # 42 tablet, Refills 0, Tot. Refills 0, Maintenance, as needed for muscle spasm, 04/20/21 9:02:00 EDT, Print Requisition, Partial fill upon patient request if the prescription i... Start Date: 04/20/21 Status: OrderedtraZODone 50 mg oral tablet 25 mg, 0.5, tablet, By Mouth, Daily at bedtime, # 15 tablet, Refills 0, Maintenance, 04/01/21 8:45:00 EDT, Partial fill upon patient request if the prescription is for a schedule II opioid drug. Start Date: 04/01/21 Status: Ordered Problem List Condition Effective Dates Status Health Status Informant Adenoma of right adrenal Active gland(Confirmed)1 Anxiety(Confirmed) Active [place] cardiac risk <10% in next 04/13/21 Active 10 years 2.0%(Confirmed) Cervical disc disease C6-7 MRI Active 2020(Confirmed) Fibromyalgia(Confirmed) Active Impingement syndrome, shoulder, 09/17/18 Active left(Confirmed) Insomnia(Confirmed) Active Lumbar disc disease(Confirmed)2, 3 Active Depression, major,(Confirmed) Active Migraine failed dukloxetine gabapentin 11/19/08 Active TCA(Confirmed)4 Lesion of nasal septum rt;refer Active dermatology(Confirmed) Vitamin D deficiency(Confirmed) Active 1normal renin/jeremiha/neg [id number] noted followed by neurosurgery Dr. Woodall. no surgery advised at this [id number] spine sports; mri [id number] given,comprehensive Diagnosis Diagnosis Type Effective Dates Health Clinical Infor mant Status Service Preop examination Discharge 04/11/21 Diagnosis Cervical disc Discharge 04/11/21 disease C6-7 MRI Diagnosis 2020 Depression, major, Discharge 04/11/21 Diagnosis Migraine failed Discharge 04/11/21 dukloxetine Diagnosis gabapentin TCA Fibromyalgia Discharge 04/11/21 Diagnosis [place] cardiac Discharge 04/13/21 risk <10% in next Diagnosis 10 years 2.0% Impaired fasting Discharge 04/13/21 glucose Diagnosis Procedures Procedure Date Related Diagnosis Body Site Status MRI of cervical spine C6-7 disc1 02/11/21 Completed Electrocardiogram;report Normal 01/04/21 Completed sinus(no tracing received) 1IMPRESSION: Disc protrusion at C6-C7 has increased from prior and there is now moderate spinal canal stenosis at this level. However, there is no definite new nerve root impingement. Vital Signs Most recent to oldest [Reference Range]: 1 2 Height 167.64 cm 167.64 cm (04/13/21 1:16 PM) (04/13/21 12:48 PM) Weight 82.0 kg (04/13/21 12:48 PM) Oxygen Saturation [94-100 %] 98 % (04/13/21 12:48 PM) Pulse Rate [55-90 bpm] 88 bpm (04/13/21 12:48 PM) Body Mass Index [18.5-24.99] 29.18 *H* (04/13/21 12:48 PM) Blood Pressure [90-138/55-84 mm Hg] 110/82 mm Hg 128/ 86 mm Hg (04/13/21 1:16 PM) (04/13/21 12:48 PM) Respiratory Rate [16-30 br/min] 12 br/min *L* (04/13/21 12:48 PM) Blood pressure sites Arm, left Arm, left (04/13/21 1:16 PM) (04/13/21 12:48 PM) Social History Social History Type Response Smoking Status Never smoker; Tobacco user i n household: No entered on: 12/08/14 Sex Female
--- OUTSIDE RECORDS SUMMARY | 2022-10-18 01:10 | XMS_ITS | Continuity of Care Document ---
:1975 Author Organization [facility] [place] Address [address] [place] [address]- Care Team Providers Name Role Phone Mack Banda MD Primary Care Physician Encounter [facility] Date(s): 10/11/20 - 10/18/20 [facility] [place] [address] [place] [address]- Encounter Diagnosis Iron deficiency anemia (Discharge Diagnosis) - 10/11/20 Attending Physician: Mack Banda MD Allergies, Adverse [...] Toxoid Vaccine (oldterm) 10/01/03 Given 1Location History: [facility] [id number] Comment: [05/10/2016] RECIEVED AT [facility] [id number] Comment: [07/21/2015] at [id number] Comment: [12/08/2014] pt received at [id number] History: [facility] [facility] employer, [employer]ena solomon6Admin Note: [facility] [id number] Note: #2 Medications Acetaminophen = 1,000 mg, By Mouth, 2 times a day, PRN Pain, 0 Refills, Maintenance, 09/17/18 16:04:26 EST Start Date: 09/17/18 Status: Orderedcetirizine 10 mg oral tablet 1 tablet, By Mouth, Daily, # 90 tablet, 1 Refills, Maintenance, 10/16/20 11:32:00 EST, [email or web address] #[id number], 166, cm, 10/11/20 9:24:00 EST, Height Start Date: 10/16/20 Status: Orderedduloxetine 60 mg oral enteric coated capsule 1 capsule = 60 mg, By Mouth, 2 times a day, # 180 capsule, 1 Refills, Maintenance, 10/05/20 7:18:00 EST, EC Capsule, [facility], 166, cm, 09/30/20 15:22:00 EST, Height Start Date: 10/05/20 Status: Orderedferrous sulfate 325 mg oral enteric coated tablet 325 mg, 1, tablet, By Mouth, 3 times a day, may take with food to minimize abdominal discomfort takesip mihir wells, # 90 tablet, Refills 3, Tot. Refills 3, Maintenance, 10/11/20 17:24:00 EST, Route to Pharmacy Electronically, [email or web address]... Start Date: 10/11/20 Status: Orderedgabapentin 300 mg oral capsule 300 mg, 1, capsule, By Mouth, Daily, at bed, # 30 each, Refills 2, Tot. Refills 2, Maintenance, 10/05/20 7:19:00 EST, Route to Pharmacy Electronically, [facility], 166, cm, 09/30/20 15:22:00 EST, Height Start Date: 10/05/20 Status: Orderedibuprofen 600 mg oral tablet 600 mg, 1, tablet, By Mouth, 2 times a day, Refills 0, Maintenance, 12/05/19 11:08:00 EST Start Date: 12/05/19 Status: Orderedtopiramate 25 mg oral capsule 2 capsule, By Mouth, Daily at bedtime, # 60 capsule, 5 Refills, Maintenance, 09/05/20 15:41:00 EST, [facility] #[id number], 168, cm, 08/16/20 8:23:00 EST, Height Start Date: 09/05/20 Status: OrderedtraZODone 50 mg oral tablet 25 mg, 0.5, tablet, By Mouth, 2 times a day, # 90 tablet, Refills 1, Tot. Refills 1, Maintenance, 10/05/20 7:19:00 EST, Route to Pharmacy Electronically, [facility], 166, cm, 09/30/20 15:22:00 EST, Height Start Date: 10/05/20 Status: OrderedVitamin D3 5000 intl units oral capsule See Instructions, 1 capsule By Mouth twice per week, # 50 capsule, 0 Refills, Maintenance, 03/02/20 9:02:00 EDT, Capsule, [email or web address] #[id number], 168, cm, 12/05/19 10:30:00 EST, Height Start Date: 03/02/20 Status: Ordered Problem List Condition Effective Dates Status Health Status Informant Adenoma of right adrenal Active gland(Confirmed)1 Anxiety(Confirmed) Active Fibromyalgia(Confirmed) Active Impingement syndrome, shoulder, 09/17/18 Active left(Confirmed) Insomnia(Confirmed) Active Lumbar disc disease(Confirmed)2, 3 Active Iron deficiency anemia(Confirmed) 10/09/20 Active Depression, major, in Active remission(Confirmed) Migraine(Confirmed)4 11/19/08 Active Lesion of nasal septum rt;refer Active dermatology(Confirmed) Cervicalgia(Confirmed) Active NSAID long-term use(Confirmed) Active Vitamin D deficiency(Confirmed) Active 1normal renin/jeremiah/neg [id number] noted followed by neurosurgery Dr. Woodall. no surgery advised at this [id number] spine sports; mri [id number] given,comprehensive Diagnosis Diagnosis Type Effective Dates Health Clinical Infor mant Status Service Iron deficiency Discharge 10/11/20 anemia Diagnosis Vital Signs Most recent to oldest [Reference Range]: 1 Height 166 cm (10/11/20 9:24 AM) Social History Social History Type Response Smoking Status Never smoker; Tobacco user i n household: No entered on: 12/08/14 Sex Female
--- OUTSIDE RECORDS SUMMARY | 2022-10-18 01:10 | XMS_ITS | Continuity of Care Document ---
:[address] [facility] Adult Address [address] [place] [address]- Care Team Providers Name Role Phone Mack Banda MD Primary Care Physician En[place] [facility] [place](s): 01/30/20 - 02/06/20 [facility] Adult [address] [place] [address]- [facility] Attending Physician: Mack Banda MD Allergies, Adverse Reactions, Alerts Substance Reaction Severity Status mirtazapine Active citalopram Active Immunizations Given and Recorded Vaccine Date Status Refusal Reason Influenza Virus Vaccine (oldterm) 09/18/19 Recorded influenza [...] Vaccine (oldterm) 10/01/03 Given 1Location History: [facility] [id number] Comment: [05/10/2016] RECIEVED AT [facility] [id number] Comment: [07/21/2015] at [id number] Comment: [12/08/2014] pt received at [id number] History: [facility] employer, [employer]6Admin Note: [facility] [id number] Note: #2 Medications Acetaminophen = 1,000 mg, By Mouth, 2 times a day, PRN Pain, 0 Refills, Maintenance, 09/17/18 16:04:26 EST Start Date: 09/17/18 Status: Orderedcetirizine 10 mg oral tablet 1 tablet = 10 mg, By Mouth, Daily, # 90 tablet, 1 Refills, Maintenance, 10/08/19 14:04:00 EST, Tablet, [facility] [address], 168, cm, 07/09/19 14:49:00 EDT, Height Start Date: 10/08/19 Status: Orderedduloxetine 60 mg oral enteric coated capsule 1 capsule = 60 mg, By Mouth, 2 times a day, # 180 capsule, 1 Refills, Maintenance, 12/05/19 11:05:00EST, EC Capsule, [facility] #[id number], 168, cm, 12/05/19 10:30:00 EST, Height Start Date: 12/05/19 Status: Orderedgabapentin 300 mg oral capsule 600 mg, 2, capsule, By Mouth, Daily at bedtime, # 180 capsule, Refills 1, Tot. Refills 1, Maintenance, 12/05/19 11:05:00 EST, Route to Pharmacy Electronically, [facility] #[id number], 168, cm, 12/05/19 10:30:00 EST, Height Start Date: 12/05/19 Status: OrderedIbuprofen 200 mg, By Mouth, Every 4 hours, PRN, Refills 0, Maintenance, Pain , Severe, 07/09/19 14:50:15 EDT Start Date: 07/09/19 Status: Orderedibuprofen 600 mg oral tablet 600 mg, 1, tablet, By Mouth, 2 times a day, Refills 0, Maintenance, 12/05/19 11:08:00 EST Start Date: 12/05/19 Status: Orderedloratadine 10 mg oral tablet 10 mg, 1, tablet, By Mouth, Daily, PRN, # 10 tablet, Refills 0, Maintenance, Other, 11/27/18 13:13:19 EST Start Date: 11/27/18 Stop Date: 12/07/18 Status: OrderedRhinocort Aqua 32 mcg/inh nasal spray 2 sprays, Nares, Both, Daily in AM, # 9 mL, 5 Refills, Maintenance, 06/06/17 11:14:50 Start Date: 06/06/17 Status: OrderedtraZODone 50 mg oral tablet 25 mg, 0.5, tablet, By Mouth, 2 times a day, # 90 tablet, Refills 1, Tot. Refills 1, Maintenance, 04/10/20 11:00:00 EDT, Route to Pharmacy Electronically, [facility] #[id number], 168, cm, 12/04/2009:30:00 EST, Height Start Date: 04/10/20 Status: OrderedValium 5 mg oral tablet See Instructions, 1 tab PO @ HS the night before Procedure and 1 tab 1 hr. prior to procedure, # 2 tablet, Refills 0, Tot. Refills 0, Maintenance, 12/04/19 16:29:00 EST, Instructions Replace Required Details, Route to Pharmacy Electronically, [facility]. Start Date: 12/04/19 Status: OrderedVitamin D3 5000 intl units oral capsule See Instructions, 1 capsule By Mouth twice per week, 0 Refills, Maintenance, 12/04/17 10:48:05 EST Start Date: 12/04/17 Status: Ordered Problem List Condition Effective Dates Status Health Status Informant Adenoma of right adrenal Active gland(Confirmed)1 Anxiety(Confirmed) Active Stiffness of joints of both Active hands(Confirmed) Fibromyalgia(Confirmed) Active Impingement syndrome, shoulder, 09/17/18 Active left(Confirmed) Insomnia(Confirmed) Active Lumbar disc disease(Confirmed)2, 3 Active Depression, major, in Active remission(Confirmed) Migraine(Confirmed)4 11/19/08 Active Lesion of nasal septum rt;refer Active dermatology(Confirmed) Cervicalgia(Confirmed) Active NSAID long-term use(Confirmed) Active Vitamin D deficiency(Confirmed) Active 1normal renin/jeremiah/neg [id number] noted followed by neurosurgery Dr. Woodall. no surgery advised at this [id number] spine sports; mri [id number] given,comprehensive Social History Social History Type Response Smoking Status Never smoker; Tobacco user i n household: No entered on: 12/08/14 Sex Female
--- OUTSIDE RECORDS SUMMARY | 2022-10-18 01:10 | XMS_ITS | Continuity of Care Document ---
:1975 Author Organization [facility] Address [address] [place] [address]- Care Team Providers Name Role Phone Solo MENDEZ, Mack Boyd Primary Care Physician Encounter [facility] Date(s): 03/14/22 - 04/13/22 [facility] [address] [place] [address]- Allergies, Adverse Reactions, Alerts Substance Reaction Severity [...] Vaccine (oldterm) 10/01/03 Given 1Location History: [facility] [id number] Comment: [05/10/2016] [facility] [id number] Comment: [07/21/2015] at [id number] Comment: [12/08/2014] pt received at [id number] History: [facility] employer, [employer]6Admin Note: [facility] [id number] Note: #2 Medications Acetaminophen = 1,000 mg, By Mouth, 2 times a day, PRN Pain, 0 Refills, Maintenance, 09/17/18 16:04:26 EST Start Date: 09/17/18 Status: Orderedcetirizine 10 mg oral tablet 1 tablet, By Mouth, Daily, # 90 tablet, 1 Refills, 02/26/22 13:25:00 EDT, [facility] #[id number], 167.64, cm, 11/08/21 16:30:00 EST, Height, 80.2, kg, 04/19/21 6:20:00 EDT, Dry Weight Start Date: 02/26/22 Status: Orderedduloxetine 60 mg oral enteric coated capsule 1 capsule = 60 mg, By Mouth, 2 times a day, # 60 capsule, 1 Refills, Maintenance, 03/22/22 8:34:00 EDT, EC Capsule, [facility] #[id number], 167.64, cm, 11/08/21 16:30:00 EST, Height, 80.2, kg, 04/19/21 6:20:00 EDT, Dry Weight Start Date: 03/22/22 Status: OrderedEmgality Prefilled Pen 120 mg/mL subcutaneous solution = 120 mg, Subcutaneous Infusion, Every 28 days, # 1 each, 11 Refills, Maintenance, 01/31/21 7:27:00 EDT, [facility] #[id number], 166, cm, 12/31/20 8:54:00 EDT, Height Start Date: 01/31/21 Status: Orderedfluconazole 150 mg oral tablet 1 tablet = 150 mg, By Mouth, Once, # 1 tablet, 0 Refills, Soft Stop, 02/20/22 11:33:00 EDT, Tablet, [facility] #[id number], Partial fill upon patient request if the prescription is for a schedule II opioid drug., 167.64, cm, 11/08/21 16:30:00 EST... Start Date: 02/20/22 Status: Orderedgabapentin 300 mg oral capsule See Instructions, Take 1 capsule in AM, 1 at 3PM and 2 capsules at bedtime, # 120 tablet, Refills 1,Tot. Refills 1, Maintenance, 03/29/22 9:45:00 EDT, Instructions Replace Required Details, Route to Pharmacy Electronically, [facility] #[id number]... Start Date: 03/29/22 Status: OrderedLORazepam 0.5 mg oral tablet 1 tablet = 0.5 mg, By Mouth, Daily at bedtime, # 30 tablet, 0 Refills, Maintenance, 03/15/22 11:57:00 EDT, [facility] #[id number], 167.64, cm, 11/08/21 16:30:00 EST, Height, 80.2, kg, 04/19/21 6:20:00 EDT, Dry Weight Start Date: 03/15/22 Status: Orderedomeprazole 20 mg oral delayed release tablet 1 tablet = 20 mg, By Mouth, Daily in AM, 30 minutes prior first meal of day, # 30 tablet, 1 Refills,Maintenance, 03/01/21 16:21:00 EDT, EC Tablet, [facility] #[id number], Partial fill upon patient request if the prescription is for a schedule II... Start Date: 03/01/21 Status: OrderedtiZANidine 2 mg oral capsule 1 capsule = 2 mg, By Mouth, Daily at bedtime, # 30 capsule, 2 Refills, Maintenance, 02/28/22 11:07:00 EDT, [facility] #[id number], Partial fill upon patient request if the prescription is for a schedule II opioid drug., 167.64, cm, 11/08/21 16:30... Start Date: 02/28/22 Status: OrderedUbrelvy 50 mg oral tablet 1 tablet = 50 mg, By Mouth, Once, PRN as needed for migraine headache, may repeat dose in 2 hours ifneeded, # 2 tablet, 11 Refills, Soft Stop, 06/17/21 14:54:00 EDT, Tablet, [facility] #[id number], Partial fill upon patient request if the prescr... Start Date: 06/17/21 Status: Ordered Problem List Condition Effective Dates Status Health Status Informant Adenoma of right adrenal gland neg Active labs 2017(Confirmed)1 Anxiety(Confirmed) Active [place] cardiac risk <10% in next 04/13/21 Active 10 years 2.0%(Confirmed) Cervical disc disease C6-7 MRI Active 2020/C5-7 (two level) ACDF.(Confirmed) Fibromyalgia(Confirmed) Active Impingement syndrome, shoulder, 09/17/18 Active left(Confirmed) Insomnia(Confirmed) Active Lumbar disc disease(Confirmed)2, 3 Active Depression, major,(Confirmed) Active Chronic Migraines(Confirmed)4 11/19/08 Active Vitamin D deficiency(Confirmed) Active 1normal renin/jeremiah/neg [id number] noted followed by neurosurgery Dr. Woodall. no surgery advised at this [id number] spine sports; mri cblrdhh9xvatots given,comprehensive Social History Social History Type Response Smoking Status Never smoker; Tobacco user i n household: No entered on: 12/08/14 Sex Female
--- OUTSIDE RECORDS SUMMARY | 2022-10-18 01:10 | XMS_ITS | Continuity of Care Document ---
:1975 Author Organization [facility] Address [address] [place] [address]- Care Team Providers Name Role Phone Solo MENDEZ, Mack Boyd Primary Care Physician [place] [facility] [place]22 - 02/01/22 [facility] [address] [place] [address]- Attending Physician: Srikanth Romero Admitting Physician: Srikanth Romero Referring Physician: AdmtrSrikanth Allergies, Adverse Reactions, Alerts Substance Reaction Severity [...] Vaccine (oldterm) 10/01/03 Given 1Location History: [facility] AmosUzx0Lkoxmf Comment: [05/10/2016] RECIEVED AT [facility] [id number] Comment: [07/21/2015] at [id number] Comment: [12/08/2014] pt received at [id number] History: [facility] employer, [employer]6Admin Note: [facility] [id number] Note: #2 Medications Acetaminophen = 1,000 mg, By Mouth, 2 times a day, PRN Pain, 0 Refills, Maintenance, 09/17/18 16:04:26 EST Start Date: 09/17/18 Status: Orderedcetirizine 10 mg oral tablet 1 tablet, By Mouth, Daily, # 90 tablet, 1 Refills, 11/25/21 10:17:00 EST, [facility] #[id number], 167.64, cm, 11/08/21 16:30:00 EST, Height, 80.2, kg, 04/19/21 6:20:00 EDT, Dry Weight Start Date: 11/25/21 Status: Orderedduloxetine 60 mg oral enteric coated capsule 1 capsule = 60 mg, By Mouth, 2 times a day, # 180 capsule, 1 Refills, Maintenance, 07/26/21 11:03:00EDT, EC Capsule, [facility] #[id number], 167.64, cm, 07/11/21 16:24:00 EDT, Height, 80.2, kg, 04/19/21 6:20:00 EDT, Dry Weight Start Date: 07/26/21 Status: OrderedEmgality Prefilled Pen 120 mg/mL subcutaneous solution = 120 mg, Subcutaneous Infusion, Every 28 days, # 1 each, 11 Refills, Maintenance, 01/31/21 7:27:00 EDT, [facility] #[id number], 166, cm, 12/31/20 8:54:00 EDT, Height Start Date: 01/31/21 Status: Orderedgabapentin 300 mg oral capsule 2, capsule, By Mouth, Daily at bedtime, # 180 capsule, Refills 1, Tot. Refills 1, Maintenance, 01/18/22 15:08:00 EDT, Route to Pharmacy Electronically, [facility] #[id number], 167.64, cm, 11/08/2215:30:00 EST, Height, 80.2, kg, 04/19/21 6:20:00... Start Date: 01/18/22 Status: OrderedLORazepam 0.5 mg oral tablet 1 tablet = 0.5 mg, By Mouth, Daily at bedtime, # 30 tablet, 0 Refills, Maintenance, 01/18/22 15:08:00 EDT, [facility] #[id number], Partial fill upon patient request if the prescription is for a schedule II opioid drug., 167.64, cm, 11/08/21 16:30... Start Date: 01/18/22 Status: OrderedLORazepam 0.5 mg oral tablet See Instructions, TAKE 1 TABLET BY MOUTH DAILY AT BEDTIME, # 30 tablet, 0 Refills, Maintenance, 10/18/21 15:26:00 EST, [facility] #[id number], 167.64, cm, 07/11/21 16:24:00 EDT, Height, 80.2, kg, 04/19/21 6:20:00 EDT, Dry Weight Start Date: 10/18/21 Status: Orderedomeprazole 20 mg oral delayed release tablet 1 tablet = 20 mg, By Mouth, Daily in AM, 30 minutes prior first meal of day, # 30 tablet, 1 Refills,Maintenance, 03/01/21 16:21:00 EDT, EC Tablet, [facility] #[id number], Partial fill upon patient request if the prescription is for a schedule II... Start Date: 03/01/21 Status: OrderedtiZANidine 2 mg oral capsule 1 capsule = 2 mg, By Mouth, Daily at bedtime, # 30 capsule, 2 Refills, Maintenance, 12/07/21 10:59:00 EST, [facility] #[id number], Partial fill upon patient request if the prescription is for a schedule II opioid drug., 167.64, cm, 11/08/21 16:30... Start Date: 12/07/21 Status: OrderedUbrelvy 50 mg oral tablet 1 tablet = 50 mg, By Mouth, Once, PRN as needed for migraine headache, may repeat dose in 2 hours ifneeded, # 2 tablet, 11 Refills, Soft Stop, 06/17/21 14:54:00 EDT, Tablet, [facility] #[id number], Partial fill upon patient request if the prescr... Start Date: 06/17/21 Status: Ordered Problem List Condition Effective Dates Status Health Status Informant Adenoma of right adrenal gland neg Active labs 2017(Confirmed)1 Anxiety(Confirmed) Active [place] cardiac risk <10% in next 04/13/21 Active 10 years 2.0%(Confirmed) Cervical disc disease C6-7 MRI Active 2020/C5-7 (two level) ACDF.(Confirmed) Fibromyalgia(Confirmed) Active Impingement syndrome, shoulder, 09/17/18 Active left(Confirmed) Insomnia(Confirmed) Active Lumbar disc disease(Confirmed)2, 3 Active Depression, major,(Confirmed) Active Migraine failed(Confirmed)4 11/19/08 Active Vitamin D deficiency(Confirmed) Active 1normal renin/jeremiah/neg [id number] noted followed by neurosurgery Dr. Woodall. no surgery advised at this ukpy5dnmgqz spine sports; mri qsbobzn6yrymshm given,comprehensive Social History Social History Type Response Smoking Status Never smoker; Tobacco user i n household: No entered on: 12/08/14 Sex Female
--- OUTSIDE RECORDS SUMMARY | 2022-10-18 01:10 | XMS_ITS | Continuity of Care Document ---
:1975 Author Organization [facility] Adult Address [address] [place] [address]- Care Team Providers Name Role Phone Solo MENDEZ, Mack Boyd Primary Care Physician Encounter [facility] Date(s): 12/20/20 - 01/19/21 [facility] [address] [place] [address]- Allergies, Adverse Reactions, Alerts Substance Reaction Severity [...] Vaccine (oldterm) 10/01/03 Given 1Location History: [facility] [id number] Comment: [05/10/2016] RECIEVED AT [facility] [id number] Comment: [07/21/2015] at [id number] Comment: [12/08/2014] pt received at [id number] History: [facility] employer, [employer]6Admin Note: [facility] [id number] Note: #2 Medications Acetaminophen = 1,000 mg, By Mouth, 2 times a day, PRN Pain, 0 Refills, Maintenance, 09/17/18 16:04:26 EST Start Date: 09/17/18 Status: Orderedcetirizine 10 mg oral tablet 1 tablet, By Mouth, Daily, # 90 tablet, 1 Refills, Maintenance, 10/16/20 11:32:00 EST, [facility] #[id number], 166, cm, 10/11/20 9:24:00 EST, Height Start Date: 10/16/20 Status: Orderedduloxetine 60 mg oral enteric coated capsule 1 capsule = 60 mg, By Mouth, 2 times a day, # 180 capsule, 1 Refills, Maintenance, 10/05/20 7:18:00 EST, EC Capsule, [facility], 166, cm, 09/30/20 15:22:00 EST, Height Start Date: 10/05/20 Status: OrderedEmgality Prefilled Pen 120 mg/mL subcutaneous solution = 120 mg, Subcutaneous Infusion, Every 28 days, # 1 each, 0 Refills, Maintenance, 12/17/20 15:18:00 EDT, [facility] #[id number], 166, cm, 12/17/20 14:53:00 EDT, Height Start Date: 12/17/20 Status: Orderedferrous sulfate 325 mg oral enteric coated tablet 325 mg, 1, tablet, By Mouth, 3 times a day, may take with food to minimize abdominal discomfort marielle wells, # 90 tablet, Refills 3, Tot. Refills 3, Maintenance, 10/11/20 17:24:00 EST, Route to Pharmacy Electronically, [facility]... Start Date: 10/11/20 Status: Orderedgabapentin 300 mg oral capsule 600 mg, 2, capsule, By Mouth, Daily at bedtime, at bed, # 60 each, Refills 2, Tot. Refills 2, Maintenance, 12/17/20 15:08:00 EDT, Route to Pharmacy Electronically, [facility] #[id number], 166, cm,12/17/20 14:53:00 EDT, Height Start Date: 12/17/20 Status: Orderedibuprofen 600 mg oral tablet 600 mg, 1, tablet, By Mouth, 2 times a day, Refills 0, Maintenance, 12/05/19 11:08:00 EST Start Date: 12/05/19 Status: OrderedSUMAtriptan 100 mg oral tablet See Instructions, PRN for migraine headache, 1 tablet By Mouth Daily may repeat dose in 2 hours if needed, # 9 tablet, 0 Refills, Maintenance, 01/11/21 8:43:00 EDT, Tablet, [facility] #[id number],Partial fill upon patient request if the prescri... Start Date: 01/11/21 Status: OrderedtraZODone 50 mg oral tablet 25 mg, 0.5, tablet, By Mouth, 2 times a day, # 90 tablet, Refills 1, Tot. Refills 1, Maintenance, 10/05/20 7:19:00 EST, Route to Pharmacy Electronically, [facility], 166, cm, 09/30/20 15:22:00 EST, Height Start Date: 10/05/20 Status: OrderedVitamin D3 5000 intl units oral capsule See Instructions, 1 capsule By Mouth twice per week, # 50 capsule, 0 Refills, Maintenance, 03/02/20 9:02:00 EDT, Capsule, [facility] #[id number], 168, cm, 12/05/19 10:30:00 EST, Height Start [...] Active Vitamin D deficiency(Confirmed) Active 1normal renin/jeremiah/neg [id number] noted followed by neurosurgery Dr. Woodall. no surgery advised at this lgiu9bxdzfk spine sports; mri opdxsaj0knlrahq given,comprehensive Social History Social History Type Response Smoking Status Never smoker; Tobacco user i n household: No entered on: 12/08/14 Sex Female
--- OUTSIDE RECORDS SUMMARY | 2022-10-18 01:10 | XMS_ITS | Continuity of Care Document ---
:1975 Author Organization [facility] Adult Address [address] [place] [address]- Care Team Providers Name Role Phone Solo MENDEZ, Mack Boyd Primary Care Physician Encounter [facility] Date(s): 03/24/22 - 04/23/22 [facility] [address] [place] [address]- Allergies, Adverse Reactions, Alerts Substance Reaction Severity [...] Vaccine (oldterm) 10/01/03 Given 1Location History: [facility] [id number] Comment: [05/10/2016] [facility] [id number] Comment: [07/21/2015] at [id number] Comment: [12/08/2014] pt received at [id number] History: [facility] employer, [employer]6Admin Note: [facility] [id number] Note: #2 Medications Acetaminophen = 1,000 mg, By Mouth, 2 times a day, PRN Pain, 0 Refills, Maintenance, 09/17/18 16:04:26 EST Start Date: 09/17/18 Status: Orderedcetirizine 10 mg oral tablet 1 tablet, By Mouth, Daily, # 90 tablet, 1 Refills, 02/26/22 13:25:00 EDT, [facility] #[id number], 167.64, cm, 11/08/21 16:30:00 EST, Height, 80.2, kg, 04/19/21 6:20:00 EDT, Dry Weight Start Date: 02/26/22 Status: Orderedduloxetine 60 mg oral enteric coated capsule 1 capsule = 60 mg, By Mouth, 2 times a day, # 60 capsule, 1 Refills, Maintenance, 03/22/22 8:34:00 EDT, EC Capsule, [facility] #[id number], 167.64, cm, 11/08/21 16:30:00 EST, Height, 80.2, kg, 04/19/21 6:20:00 EDT, Dry Weight Start Date: 03/22/22 Status: OrderedEmgality Prefilled Pen 120 mg/mL subcutaneous solution = 120 mg, Subcutaneous Infusion, Every 28 days, # 1 each, 11 Refills, Maintenance, 01/31/21 7:27:00 EDT, [facility] #[id number], 166, cm, 12/31/20 8:54:00 EDT, Height Start Date: 01/31/21 Status: Orderedfluconazole 150 mg oral tablet 1 tablet = 150 mg, By Mouth, Once, # 1 tablet, 0 Refills, Soft Stop, 02/20/22 11:33:00 EDT, Tablet, [facility] #[id number], Partial fill upon patient request if the prescription is for a schedule II opioid drug., 167.64, cm, 11/08/21 16:30:00 EST... Start Date: 02/20/22 Status: Orderedgabapentin 300 mg oral capsule See Instructions, Take 1 capsule in AM, 1 at 3PM and 2 capsules at bedtime, # 120 tablet, Refills 1,Tot. Refills 1, Maintenance, 03/29/22 9:45:00 EDT, Instructions Replace Required Details, Route to Pharmacy Electronically, [facility] #[id number]... Start Date: 03/29/22 Status: OrderedLORazepam 0.5 mg oral tablet 1 tablet = 0.5 mg, By Mouth, Daily at bedtime, # 30 tablet, 0 Refills, Maintenance, 04/18/22 13:22:00 EDT, [facility] #[id number], 167.64, cm, 03/29/22 9:37:00 EDT, Height, 80.2, kg, 04/19/21 6:20:00 EDT, Dry Weight Start Date: 04/18/22 Status: Orderedomeprazole 20 mg oral delayed release tablet 1 tablet = 20 mg, By Mouth, Daily in AM, 30 minutes prior first meal of day, # 30 tablet, 1 Refills,Maintenance, 03/01/21 16:21:00 EDT, EC Tablet, [facility] #[id number], Partial fill upon patient request if the prescription is for a schedule II... Start Date: 03/01/21 Status: OrderedtiZANidine 2 mg oral capsule 1 capsule = 2 mg, By Mouth, Daily at bedtime, # 30 capsule, 2 Refills, Maintenance, 04/18/22 13:24:00 EDT, [facility] #[id number], Partial fill upon patient request if the prescription is for a schedule II opioid drug., 167.64, cm, 03/29/22 9:37:... Start Date: 04/18/22 Status: OrderedUbrelvy 50 mg oral tablet 1 tablet = 50 mg, By Mouth, Once, PRN as needed for migraine headache, may repeat dose in 2 hours ifneeded, # 2 tablet, 11 Refills, Soft Stop, 06/17/21 14:54:00 EDT, Tablet, [facility] #[id number], Partial fill upon patient request if the prescr... Start Date: 06/17/21 Status: Ordered Problem List Condition Effective Dates Status Health Status Informant Adenoma of right adrenal gland neg Active labs 2017(Confirmed)1 Anxiety(Confirmed) Active [place] cardiac risk <10% in next 04/13/21 Active 10 years 2.0%(Confirmed) Cervical disc disease C6-7 MRI Active 2020/C5-7 (two level) ACDF.(Confirmed) Fibromyalgia(Confirmed) Active Impingement syndrome, shoulder, 09/17/18 Active left(Confirmed) Insomnia(Confirmed) Active Lumbar disc disease(Confirmed)2, 3 Active Depression, major,(Confirmed) Active Chronic Migraines(Confirmed)4 11/19/08 Active Vitamin D deficiency(Confirmed) Active 1normal renin/jeremiah/neg eecuzzxrgxhjbl2UMK noted followed by neurosurgery Dr. Woodall. no surgery advised at this wipw2sfnwhx spine sports; mri vgzraia7fiiybwb given,comprehensive Social History Social History Type Response Smoking Status Never smoker; Tobacco user i n household: No entered on: 12/08/14 Sex Female
--- OUTSIDE RECORDS SUMMARY | 2022-10-18 01:11 | XMS_ITS | Continuity of Care Document ---
:1975 Author Organization [facility] Adult Address [address] [place] [address]- Care Team Providers Name Role Phone Solo MENDEZ, Mack Boyd Primary Care Physician Encounter [facility] [place] Date(s): 03/29/22 - 04/28/22 [facility] Adult [address] [place] [address]- Attending Physician: Admtr, Ar8 Allergies, Adverse Reactions, Alerts Substance Reaction Severity [...] Vaccine (oldterm) 10/01/03 Given 1[facility]: [id number] Comment: [05/10/2016] RECIEVED AT [facility] [id number] Comment: [07/21/2015] at nagf9Dymhat Comment: [12/08/2014] pt received at pqst6Rfturuzc History: [facility] employer, magdalena solomon6Admin Note: [employer] [id number] Note: #2 Medications Acetaminophen = 1,000 mg, By Mouth, 2 times a day, PRN Pain, 0 Refills, Maintenance, 09/17/18 16:04:26 EST Start Date: 09/17/18 Status: Orderedcetirizine 10 mg oral tablet 1 tablet, By Mouth, Daily, # 90 tablet, 1 Refills, 02/26/22 13:25:00 EDT, [facility] #[id number], 167.64, cm, 11/08/21 16:30:00 EST, Height, 80.2, kg, 04/19/21 6:20:00 EDT, Dry Weight Start Date: 02/26/22 Status: Orderedduloxetine 60 mg oral enteric coated capsule 1 capsule = 60 mg, By Mouth, 2 times a day, # 60 capsule, 1 Refills, Maintenance, 03/22/22 8:34:00 EDT, EC Capsule, [facility] #[id number], 167.64, cm, 11/08/21 16:30:00 EST, Height, 80.2, kg, 04/19/21 6:20:00 EDT, Dry Weight Start Date: 03/22/22 Status: OrderedEmgality Prefilled Pen 120 mg/mL subcutaneous solution = 120 mg, Subcutaneous Infusion, Every 28 days, # 1 each, 11 Refills, Maintenance, 01/31/21 7:27:00 EDT, [facility] #[id number], 166, cm, 12/31/20 8:54:00 EDT, Height Start Date: 01/31/21 Status: Orderedfluconazole 150 mg oral tablet 1 tablet = 150 mg, By Mouth, Once, # 1 tablet, 0 Refills, Soft Stop, 02/20/22 11:33:00 EDT, Tablet, [facility] #[id number], Partial fill upon patient request if the prescription is for a schedule II opioid drug., 167.64, cm, 11/08/21 16:30:00 EST... Start Date: 02/20/22 Status: Orderedgabapentin 300 mg oral capsule See Instructions, Take 1 capsule in AM, 1 at 3PM and 2 capsules at bedtime, # 120 tablet, Refills 1,Tot. Refills 1, Maintenance, 03/29/22 9:45:00 EDT, Instructions Replace Required Details, Route to Pharmacy Electronically, [facility] #[id number]... Start Date: 03/29/22 Status: OrderedLORazepam 0.5 mg oral tablet 1 tablet = 0.5 mg, By Mouth, Daily at bedtime, # 30 tablet, 0 Refills, Maintenance, 04/18/22 13:22:00 EDT, [facility] #[id number], 167.64, cm, 03/29/22 9:37:00 EDT, Height, 80.2, kg, 04/19/21 6:20:00 EDT, Dry Weight Start Date: 04/18/22 Status: Orderedomeprazole 20 mg oral delayed release tablet 1 tablet = 20 mg, By Mouth, Daily in AM, 30 minutes prior first meal of day, # 30 tablet, 1 Refills,Maintenance, 03/01/21 16:21:00 EDT, EC Tablet, [facility] #[id number], Partial fill upon patient request if the prescription is for a schedule II... Start Date: 03/01/21 Status: OrderedtiZANidine 2 mg oral capsule 1 capsule = 2 mg, By Mouth, Daily at bedtime, # 30 capsule, 2 Refills, Maintenance, 04/18/22 13:24:00 EDT, [facility] #[id number], Partial fill upon patient request if the prescription is for a schedule II opioid drug., 167.64, cm, 03/29/22 9:37:... Start Date: 04/18/22 Status: OrderedUbrelvy 50 mg oral tablet 1 tablet = 50 mg, By Mouth, Once, PRN as needed for migraine headache, may repeat dose in 2 hours ifneeded, # 2 tablet, 11 Refills, Soft Stop, 06/17/21 14:54:00 EDT, Tablet, [facility] #[id number], Partial fill upon patient request if the prescr... Start Date: 06/17/21 Status: Ordered Problem List Condition Effective Dates Status Health Status Informant Adenoma of right adrenal gland neg Active labs 2017(Confirmed)1 Anxiety(Confirmed) Active [place] cardiac risk <10% in next 04/13/21 Active 10 years 2.0%(Confirmed) Cervical disc disease C6-7 MRI Active 2020/C5-7 (two level) ACDF.(Confirmed) Fibromyalgia(Confirmed) Active Impingement syndrome, shoulder, 09/17/18 Active left(Confirmed) Insomnia(Confirmed) Active Lumbar disc disease(Confirmed)2, 3 Active Depression, major,(Confirmed) Active Chronic Migraines(Confirmed)4 11/19/08 Active Vitamin D deficiency(Confirmed) Active 1normal renin/jeremiah/neg [id number] noted followed by neurosurgery Dr. Woodall. no surgery advised at this xmsq9qcklxd spine sports; mri wscpeaz9wowzuho given,comprehensive Procedures Procedure Date Related Diagnosis Body Site Status CT of brain nad 03/24/22 Completed Reference laboratory1 03/24/22 Comple stacy 1labs White count 6.9 hemoglobin 12.1 platelet count 244 sed rate 10 sodium 138 potassium 3.6 chloride 104 bicarb 26 BUN 10 creatinine 0.9 random glucose 139 calcium 9.2 Social History Social History Type Response Smoking Status Never smoker; Tobacco user i n household: No entered on: 12/08/14 Sex Female
--- OUTSIDE RECORDS SUMMARY | 2022-10-18 01:11 | XMS_ITS | Continuity of Care Document ---
:1975 Author Organization [facility] Adult Address [address] [place] [address]- Care Team Providers Name Role Phone Solo MENDEZ, Mack Boyd Primary Care Physician Encounter [facility] [place] Date(s): 10/05/20 - 11/04/20 [facility] Adult [address] [place] [address]- Allergies, Adverse Reactions, Alerts Substance Reaction Severity [...] Vaccine (oldterm) 10/01/03 Given 1[facility] History: [facility] [id number] Comment: [05/10/2016] [facility] [id number] Comment: [07/21/2015] at tzys1Bidnig Comment: [12/08/2014] pt received at ewhj9Hanmcpsd History: [facility]ena cosme be8Yfwen [facility]: #2 Medications Acetaminophen = 1,000 mg, By Mouth, 2 times a day, PRN Pain, 0 Refills, Maintenance, 09/17/18 16:04:26 EST Start Date: 09/17/18 Status: Orderedcetirizine 10 mg oral tablet 1 tablet, By Mouth, Daily, # 90 tablet, 1 Refills, Maintenance, 10/16/20 11:32:00 EST, [facility] #[id number], 166, cm, 10/11/20 9:24:00 EST, Height Start Date: 10/16/20 Status: Orderedduloxetine 60 mg oral enteric coated capsule 1 capsule = 60 mg, By Mouth, 2 times a day, # 180 capsule, 1 Refills, Maintenance, 10/05/20 7:18:00 EST, EC Capsule, [facility], 166, cm, 09/30/20 15:22:00 EST, Height Start Date: 10/05/20 Status: Orderedferrous sulfate 325 mg oral enteric coated tablet 325 mg, 1, tablet, By Mouth, 3 times a day, may take with food to minimize abdominal discomfort takesip mihir jing priscilla, # 90 tablet, Refills 3, Tot. Refills 3, Maintenance, 10/11/20 17:24:00 EST, Route to Pharmacy Electronically, [facility]... Start Date: 10/11/20 Status: Orderedgabapentin 300 mg oral capsule 300 mg, 1, capsule, By Mouth, Daily, at bed, # 30 each, Refills 2, Tot. Refills 2, Maintenance, 10/05/20 7:19:00 EST, Route to Pharmacy Electronically, [facility], 166, cm, 09/30/20 15:22:00 EST, Height Start Date: 10/05/20 Status: Orderedibuprofen 600 mg oral tablet 600 mg, 1, tablet, By Mouth, 2 times a day, Refills 0, Maintenance, 12/05/19 11:08:00 EST Start Date: 12/05/19 Status: Orderedtopiramate 25 mg oral capsule 2 capsule, By Mouth, Daily at bedtime, # 60 capsule, 5 Refills, Maintenance, 09/05/20 15:41:00 EST, [facility] #[id number], 168, cm, 08/16/20 8:23:00 EST, Height Start Date: 09/05/20 Status: OrderedtraZODone 50 mg oral tablet 25 mg, 0.5, tablet, By Mouth, 2 times a day, # 90 tablet, Refills 1, Tot. Refills 1, Maintenance, 10/05/20 7:19:00 EST, Route to Pharmacy Electronically, [facility], 166, cm, 09/30/20 15:22:00 EST, Height Start Date: 10/05/20 Status: OrderedVitamin D3 5000 intl units oral capsule See Instructions, 1 capsule By Mouth twice per week, # 50 capsule, 0 Refills, Maintenance, 03/02/20 9:02:00 EDT, Capsule, [facility] #[id number], 168, cm, 12/05/19 10:30:00 EST, Height Start [...] Active Vitamin D deficiency(Confirmed) Active 1normal renin/jeremiah/neg syoadsanfkwlsd9QEI noted followed by neurosurgery Dr. Woodall. no surgery advised at this [id number] spine sports; mri ynrfzfw3qzarwhn given,comprehensive Social History Social History Type Response Smoking Status Never smoker; Tobacco user i n household: No entered on: 12/08/14 Sex Female
--- OUTSIDE RECORDS SUMMARY | 2022-10-18 01:11 | XMS_ITS | Continuity of Care Document ---
:1975 Author Organization [facility] Adult Address [address] [place] [address]- Care Team Providers Name Role Phone Solo MENDEZ, Mack Boyd Primary Care Physician Encounter [facility] Date(s): 04/22/21 - 05/22/21 [facility] Adult [address] [place] [address]- Allergies, Adverse Reactions, Alerts Substance Reaction Severity [...] Vaccine (oldterm) 10/01/03 Given 1Location History: [facility] AmosWjr6Fezpds Comment: [05/10/2016] [facility] [id number] Comment: [07/21/2015] at rwfz1Wwjaex Comment: [12/08/2014] pt received at bkpf6Phnkxcda History: [facility] employer, magdalena solomon6Admin Note: [facility] wafickfm0Hhvrp Note: #2 Medications Acetaminophen = 1,000 mg, By Mouth, 2 times a day, PRN Pain, 0 Refills, Maintenance, 09/17/18 16:04:26 EST Start Date: 09/17/18 Status: Orderedcetirizine 10 mg oral tablet 1 tablet, By Mouth, Daily, # 90 tablet, 1 Refills, Maintenance, 03/21/21 7:23:00 EDT, [id number], 167.64, cm, 03/18/21 6:28:00 EDT, Height, 80, kg, 03/18/21 6:28:00 EDT, Dry Weight Start Date: 03/21/21 Status: Orderedduloxetine 60 mg oral enteric coated capsule 1 capsule = 60 mg, By Mouth, 2 times a day, # 180 capsule, 1 Refills, Maintenance, 10/05/20 7:18:00 EST, EC Capsule, [facility], 166, cm, 09/30/20 15:22:00 EST, Height Start Date: 10/05/20 Status: OrderedEmgality Prefilled Pen 120 mg/mL subcutaneous solution = 120 mg, Subcutaneous Infusion, Every 28 days, # 1 each, 11 Refills, Maintenance, 01/31/21 7:27:00 EDT, [facility] #[id number], 166, cm, 12/31/20 8:54:00 EDT, Height Start Date: 01/31/21 Status: Orderedgabapentin 300 mg oral capsule 2, capsule, By Mouth, Daily at bedtime, # 180 capsule, Refills 0, Tot. Refills 0, Maintenance, 04/25/21 15:03:00 EDT, Route to Pharmacy Electronically, [facility] #[id number], 167.64, cm, :36:00 EDT, Height, 80.2, kg, 04/19/21 6:20:00 E... Start Date: 04/25/21 Status: OrderedMedrol Dosepak 4 mg oral tablet 1 pack/packet, By Mouth, Once, # 21 tablet, 0 Refills, Soft Stop, 04/25/21 17:26:00 EDT, Tablet, [facility] #[id number], Partial fill upon patient request if the prescription is for a schedule II opioid drug., 167.64, cm, 04/20/21 7:36:00 EDT, He... Start Date: 04/25/21 Status: Orderedomeprazole 20 mg oral delayed release tablet 1 tablet = 20 mg, By Mouth, Daily in AM, 30 minutes prior first meal of day, # 30 tablet, 1 Refills,Maintenance, 03/01/21 16:21:00 EDT, EC Tablet, [facility] #[id number], Partial fill upon patient request if the [...] tablet, Refills 1, Tot. Refills 1, Maintenance, 04/22/21 11:43:00 EDT, Route to Pharmacy Electronically, [facility] #[id number], 167.64, cm, 04/20/21 7:36:00 EDT, Height, 80.2, kg, 04/19/21 6:20:0... Start Date: 04/22/21 Status: OrderedtraZODone 50 mg oral tablet 25 mg, 0.5, tablet, By Mouth, Daily at bedtime, # 15 tablet, Refills 0, Maintenance, 04/01/21 8:45:00 EDT, Partial fill upon patient request if the prescription is for a schedule II opioid drug. Start Date: 04/01/21 Status: Ordered Problem List Condition Effective Dates Status Health Status Informant Adenoma of right adrenal Active gland(Confirmed)1 Anxiety(Confirmed) Active [place] cardiac risk <10% in next 04/13/21 Active 10 years 2.0%(Confirmed) Cervical disc disease C6-7 MRI Active 2020/C5-7 (two level) ACDF.(Confirmed) Fibromyalgia(Confirmed) Active Impingement syndrome, shoulder, 09/17/18 Active left(Confirmed) Insomnia(Confirmed) Active Lumbar disc disease(Confirmed)2, 3 Active Depression, major,(Confirmed) Active Migraine failed dukloxetine gabapentin 11/19/08 Active TCA(Confirmed)4 Lesion of nasal septum rt;refer Active dermatology(Confirmed) Vitamin D deficiency(Confirmed) Active 1normal renin/jeremiah/neg jesdwhumfjugxr9ASN noted followed by neurosurgery Dr. Woodall. no surgery advised at this kfgf7yaumhv spine sports; mri fjtenwm2aaonhln given,comprehensive Social History Social History Type Response Smoking Status Never smoker; Tobacco user i n household: No entered on: 12/08/14 Sex Female
--- OUTSIDE RECORDS SUMMARY | 2022-10-18 01:11 | XMS_ITS | Continuity of Care Document ---
:1975 Author Organization [facility] Address [address] [place] [address]- Care Team Providers Name Role Phone Solo MENDEZ, Mack Boyd Primary Care Physician [place] [facility] [place] - 10/03/19 [facility] [address] [place] [address]- [facility] Attending Physician: Madhavi Batista MD Admitting Physician: Madhavi Batista MD Allergies, Adverse Reactions, Alerts Substance Reaction [...] Vaccine (oldterm) 10/01/03 Given 1[facility] History[facility] Pqc0Oykufn Comment: [05/10/2016] [facility] [id number] Comment: [07/21/2015] at xuhk9Ddlnzn Comment: [12/08/2014] pt received at prri0Rbapuzsm History: [facility] employer, magdalena solomon6Admin Note: [facility] hcwpwnwt5Clfhl Note: #2 Medications Acetaminophen = 1,000 mg, By Mouth, 2 times a day, 0 Refills, Maintenance, 09/17/18 16:04:26 EST Start Date: 09/17/18 Status: Orderedduloxetine 60 mg oral enteric coated capsule 1 capsule = 60 mg, By Mouth, 2 times a day, # 180 capsule, 1 Refills, Maintenance, 04/16/19 11:00:52EDT, [facility] Caps[facility] Start Date: 04/16/19 Status: Orderedgabapentin 300 mg oral capsule 600 mg, 2, capsule, By Mouth, Daily at bedtime, # 180 capsule, Refills 1, Tot. Refills 1, Maintenance, 04/16/19 11:02:58 EDT, Route to Pharmacy Electronically, [id number], [facility] Start Date: 04/16/19 Status: OrderedIbuprofen 200 mg, By Mouth, Every 4 hours, PRN, Refills 0, Maintenance, Pain , Severe, 07/09/19 14:50:15 EDT Start Date: 07/09/19 Status: Orderedloratadine 10 mg oral tablet 10 [...] tablet, By Mouth, 2 times a day, for 90 days, # 90 tablet, Refills 1, Tot. Refills 1, Hard Stop 10/13/19 11:00:52 EST, 04/16/19 11:00:52 EDT, [facility] to Pharmacy Electronically, [facility] [address] Start Date: 04/16/19 Stop Date: 10/13/19 Status: OrderedtraZODone 50 mg oral tablet 25 mg, 0.5, tablet, By Mouth, 2 times a day, # 90 tablet, Refills 1, Tot. Refills 1, Maintenance, 10/13/19 11:00:00 EST, Route to Pharmacy Electronically, [facility] [address] [facility], 168, cm, 07/09/19 14:49:00 EDT, Height Start Date: 10/13/19 Stop Date: 04/10/20 Status: OrderedValium 5 mg oral tablet See Instructions, 1 tab PO @ HS the night before Procedure and 1 tab 1 hr. prior to procedure, # 2 tablet, Refills 0, Tot. Refills 0, Maintenance, 07/03/19 15:51:00 EDT, Instructions Replace Required Details, Route to Pharmacy Electronically, [facility] Start Date: 07/03/19 Status: OrderedVitamin D3 5000 intl units oral [...] Active Lumbar disc disease(Confirmed)2, 3 Active Depression, major(Confirmed) Active Migraine(Confirmed)4 11/19/08 Active Lesion of nasal septum rt;refer Active dermatology(Confirmed) Cervicalgia(Confirmed) Active Vitamin D deficiency(Confirmed) Active 1normal renin/jeremiah/neg ceociszsrybpsb0ZSJ noted followed by neurosurgery Dr. Woodall. no surgery advised at this jpvq7hxrefa spine sports; mri soijtta9xybdrur given,comprehensive Social History Social History Type Response Smoking Status Never smoker; Tobacco user i n household: No entered on: 12/08/14 Sex Female
--- OUTSIDE RECORDS SUMMARY | 2022-10-18 01:11 | XMS_ITS | Continuity of Care Document ---
:1975 Author Organization [facility] Adult Address [address] [place] [address]- Care Team Providers Name Role Phone Solo MENDEZ, Mack Boyd Primary Care Physician Encounter [facility] [place] Date(s): 05/08/22 - 06/07/22 [facility] Adult [address] [place] [address]- Attending Physician: Admtr, Ar8 Allergies, Adverse Reactions, [...] Vaccine (oldterm) 10/01/03 Given 1Location History: [facility] Ewc9Hcvcte Comment: [05/10/2016] REC[facility]ED AT [facility] [id number] Comment: [07/21/2015] at [id number] Comment: [12/08/2014] pt received at hofh8Ybhvojrc History: [facility] employer, magdalena solomon6Admin Note: [facility] uwsditsb2Ztvrw Note: #2 Medications Acetaminophen = 1,000 mg, By Mouth, 2 times a day, PRN Pain, 0 Refills, Maintenance, 09/17/18 16:04:26 EST Start Date: 09/17/18 Status: Orderedcetirizine 10 mg oral tablet 1 tablet, By Mouth, Daily, # 90 tablet, 1 Refills, 02/26/22 13:25:00 EDT, [facility] #[id number], 167.64, cm, 11/08/21 16:30:00 EST, Height, 80.2, kg, 04/19/21 6:20:00 EDT, Dry Weight Start Date: 02/26/22 Status: Orderedduloxetine 60 mg oral enteric coated capsule 1 capsule = 60 mg, By Mouth, 2 times a day, # 60 capsule, 1 Refills, Maintenance, 03/22/22 8:34:00 EDT, EC Capsule, [facility] #[id number], 167.64, cm, 11/08/21 16:30:00 EST, Height, 80.2, kg, 04/19/21 6:20:00 EDT, Dry Weight Start Date: 03/22/22 Status: Orderedgabapentin 300 mg oral capsule See Instructions, Take 1 capsule in AM, 1 at 3PM and 2 capsules at bedtime, # 120 tablet, Refills 1,Tot. Refills 1, Maintenance, 03/29/22 9:45:00 EDT, Instructions Replace Required Details, Route to Pharmacy Electronically, [facility] #[id number]... Start Date: 03/29/22 Status: OrderedLORazepam 0.5 mg oral tablet 1 tablet = 0.5 mg, By Mouth, Daily at bedtime, # 30 tablet, 2 Refills, Maintenance, 05/15/22 15:39:00 EDT, [facility] #[id number], 167.64, cm, 03/29/22 9:37:00 EDT, Height, 80.2, kg, 04/19/21 6:20:00 EDT, Dry Weight Start Date: 05/15/22 Status: Orderedomeprazole 20 mg oral delayed release tablet 1 tablet = 20 mg, By Mouth, Daily in AM, 30 minutes prior first meal of day, # 30 tablet, 1 Refills,Maintenance, 03/01/21 16:21:00 EDT, EC Tablet, [facility] #[id number], Partial fill upon patient request if the prescription is for a schedule II... Start Date: 03/01/21 Status: OrderedtiZANidine 2 mg oral capsule 1 capsule = 2 mg, By Mouth, Daily at bedtime, # 30 capsule, 2 Refills, Maintenance, 04/18/22 13:24:00 EDT, [facility] #[id number], Partial fill upon patient request if the prescription is for a schedule II opioid drug., 167.64, cm, 03/29/22 9:37:... Start Date: 04/18/22 Status: OrderedUbrelvy 50 mg oral tablet 1 tablet = 50 mg, By Mouth, Once, PRN as needed for migraine headache, may repeat dose in 2 hours ifneeded, # 2 tablet, 11 Refills, Soft Stop, 06/17/21 14:54:00 EDT, Tablet, [facility] #[id number], Partial fill upon patient request if the prescr... Start Date: 06/17/21 Status: Ordered Problem List Condition Effective Dates Status Health Status Informant Adenoma of right adrenal gland neg Active labs 2017(Confirmed)1 Anxiety(Confirmed) Active [place] cardiac risk <10% in next 04/13/21 Active 10 years 2.0%(Confirmed) Cervical disc disease C6-7 MRI Active 2020/C5-7 (two level) ACDF.(Confirmed) Fibromyalgia(Confirmed) Active Impingement syndrome, shoulder, 09/17/18 Active left(Confirmed) Insomnia(Confirmed) Active Lumbar disc disease(Confirmed)2, 3 Active Depression, major,(Confirmed) Active Chronic Migraines(Confirmed)4 11/19/08 Active Vitamin D deficiency(Confirmed) Active 1normal renin/jeremiah/neg lgeeaksjjqroxb2BVO noted followed by neurosurgery Dr. Woodall. no surgery advised at this akey1qdspkr spine sports; mri euokwhd3osfxgfb given,comprehensive Procedures Procedure Date Related Diagnosis Body [...] household: No entered on: 12/08/14 Sex Female Care Team PersonnelName: Solo MENDEZ, Mack Boyd Address: [address] [place] [phone]-
--- OUTSIDE RECORDS SUMMARY | 2022-10-18 01:11 | XMS_ITS | Continuity of Care Document ---
:1975 Author Organization [facility] Address [address] [place] [address], [address] [place] [address]- Care Team Providers Name Role Phone Solo MENDEZ, Mack Boyd Primary Care Physician Encounter [facility] [place] [place] Date(s): 09/30/20 - 10/30/20 [facility] [address] [facility], [address] [place] [email or web address] Attending Physician: Srikanth Romero Admitting Physician: Srikanth [...] Vaccine (oldterm) 10/01/03 Given 1Location History: [facility] AmosSdx1Elmgzi Comment: [05/10/2016] RECIEVED AT [facility] ULZYGHZH3Fpohrb Comment: [07/21/2015] at vynt0Mxkfkq Comment: [12/08/2014] pt received at acxj9Zdbpyeue History: [facility] employer, magdalena solomon6Admin Note: [employer] ojrxirje1Rsfoa Note: #2 Medications Acetaminophen = 1,000 mg, By Mouth, 2 times a day, PRN Pain, 0 Refills, Maintenance, 09/17/18 16:04:26 EST Start Date: 09/17/18 Status: Orderedcetirizine 10 mg oral tablet 1 tablet, By Mouth, Daily, # 90 tablet, 1 Refills, Maintenance, 10/16/20 11:32:00 EST, [facility] #[id number], 166, cm, 10/11/20 9:24:00 EST, Height Start Date: 10/16/20 Status: Orderedduloxetine 60 mg oral enteric coated capsule 1 capsule = 60 mg, By Mouth, 2 times a day, # 180 capsule, 1 Refills, Maintenance, 10/05/20 7:18:00 EST, EC Capsule, [facility], 166, cm, 09/30/20 15:22:00 EST, Height Start Date: 10/05/20 Status: Orderedferrous sulfate 325 mg oral enteric coated tablet 325 mg, 1, tablet, By Mouth, 3 times a day, may take with food to minimize abdominal discomfort takesip mihir jing beckeranil, # 90 tablet, Refills 3, Tot. Refills 3, Maintenance, 10/11/20 17:24:00 EST, Route to Pharmacy Electronically, [facility] Start Date: 10/11/20 Status: Orderedgabapentin 300 mg oral capsule 300 mg, 1, capsule, By Mouth, Daily, at bed, # 30 each, Refills 2, Tot. Refills 2, Maintenance, 10/05/20 7:19:00 EST, Route to Pharmacy Electronically, [facility], 166, cm, 09/30/20 15:22:00 EST, Height Start Date: 10/05/20 Status: Orderedibuprofen 600 mg oral tablet 600 mg, 1, tablet, By Mouth, 2 times a day, Refills 0, Maintenance, 12/05/19 11:08:00 EST Start Date: 12/05/19 Status: Orderedtopiramate 25 mg oral capsule 2 capsule, By Mouth, Daily at bedtime, # 60 capsule, 5 Refills, Maintenance, 09/05/20 15:41:00 EST, [facility] #[id number], 168, cm, 08/16/20 8:23:00 EST, Height Start Date: 09/05/20 Status: OrderedtraZODone 50 mg oral tablet 25 mg, 0.5, tablet, By Mouth, 2 times a day, # 90 tablet, Refills 1, Tot. Refills 1, Maintenance, 10/05/20 7:19:00 EST, Route to Pharmacy Electronically, [facility], 166, cm, 09/30/20 15:22:00 EST, Height Start Date: 10/05/20 Status: OrderedVitamin D3 5000 intl units oral capsule See Instructions, 1 capsule By Mouth twice per week, # 50 capsule, 0 Refills, Maintenance, 03/02/20 9:02:00 EDT, Capsule, [facility] #[id number], 168, cm, 12/05/19 10:30:00 EST, Height Start [...] Active Vitamin D deficiency(Confirmed) Active 1normal renin/jeremiah/neg rdoajuthclehtz2MPC noted followed by neurosurgery Dr. Woodall. no surgery advised at this altv9wrjikt spine sports; mri ocrknto3odaacwm given,comprehensive Social History Social History Type Response Smoking Status Never smoker; Tobacco user i n household: No entered on: 12/08/14 Sex Female
--- OUTSIDE RECORDS SUMMARY | 2022-10-18 01:11 | XMS_ITS | Continuity of Care Document ---
:1975 Author Organization [address], [address] [place] [address]- Care Team Providers Name Role Phone Solo MENDEZ, Mack Boyd Primary Care Physician En[place] [facility] [place](s): 05/16/21 - 06/15/[address], [address] [place] [address]- Attending Physician: Srikanth Romero Admitting Physician: Srikanth [...] Vaccine (oldterm) 10/01/03 Given 1Location History: [facility] AmosOgr7Fffsup Comment: [05/10/2016] RECIEVED AT [facility]OS [id number] Comment: [07/21/2015] at [id number] Comment: [12/08/2014] pt received at [id number] History: [facility] employer, magdalena solomon6Admin Note: [facility] [id number] Note: #2 Medications Acetaminophen = 1,000 mg, By Mouth, 2 times a day, PRN Pain, 0 Refills, Maintenance, 09/17/18 16:04:26 EST Start Date: 09/17/18 Status: Orderedcetirizine 10 mg oral tablet 1 tablet, By Mouth, Daily, # 90 tablet, 1 Refills, Maintenance, 03/21/21 7:23:00 EDT, [id number], 167.64, cm, 03/18/21 6:28:00 EDT, Height, 80, kg, 03/18/21 6:28:00 EDT, Dry Weight Start Date: 03/21/21 Status: Orderedduloxetine 60 mg oral enteric coated capsule 1 capsule = 60 mg, By Mouth, 2 times a day, # 180 capsule, 1 Refills, Maintenance, 10/05/20 7:18:00 EST, EC Capsule, [facility], 166, cm, 09/30/20 15:22:00 EST, Height Start Date: 10/05/20 Status: OrderedEmgality Prefilled Pen 120 mg/mL subcutaneous solution = 120 mg, Subcutaneous Infusion, Every 28 days, # 1 each, 11 Refills, Maintenance, 01/31/21 7:27:00 EDT, [facility] #[id number], 166, cm, 12/31/20 8:54:00 EDT, Height Start Date: 01/31/21 Status: Orderedgabapentin 300 mg oral capsule 2, capsule, By Mouth, Daily at bedtime, # 180 capsule, Refills 0, Tot. Refills 0, Maintenance, 04/25/21 15:03:00 EDT, Route to Pharmacy Electronically, [facility] #[id number], 167.64, cm, 07/21/217:36:00 EDT, Height, 80.2, kg, 04/19/21 6:20:00 E... Start Date: 04/25/21 Status: OrderedLORazepam 0.5 mg oral tablet 1 tablet = 0.5 mg, By Mouth, Daily at bedtime, # 30 tablet, 0 Refills, Maintenance, 06/09/21 10:53:00 EDT, [facility] #[id number], Partial fill upon patient request if the prescription is for a schedule II opioid drug., 167.64, cm, 06/09/21 10:30... Start Date: 06/09/21 Status: Orderedomeprazole 20 mg oral delayed release tablet 1 tablet = 20 mg, By Mouth, Daily in AM, 30 minutes prior first meal of day, # 30 tablet, 1 Refills,Maintenance, 03/01/21 16:21:00 EDT, EC Tablet, [facility] #[id number], Partial fill upon patient request if the [...] the prescription i... Start Date: 04/20/21 Status: Ordered Problem List Condition Effective Dates Status Health Status Informant Adenoma of right adrenal Active gland(Confirmed)1 Anxiety(Confirmed) Active [place] cardiac risk <10% in next 04/13/21 Active 10 years 2.0%(Confirmed) Cervical disc disease C6-7 MRI Active 2020/C5-7 (two level) ACDF.(Confirmed) Fibromyalgia(Confirmed) Active Impingement syndrome, shoulder, 09/17/18 Active left(Confirmed) Insomnia(Confirmed) Active Lumbar disc disease(Confirmed)2, 3 Active Depression, major,(Confirmed) Active Migraine failed dukloxetine gabapentin 11/19/08 Active TCA(Confirmed)4 Lesion of nasal septum rt;refer Active dermatology(Confirmed) Vitamin D deficiency(Confirmed) Active 1normal renin/jeremiah/neg [id number] noted followed by neurosurgery Dr. Talisha. no surgery advised at this [id number] spine sports; mri dwlcdwd5rasxkae given,comprehensive Social History Social History Type Response Smoking Status Never smoker; Tobacco user i n household: No entered on: 12/08/14 Sex Female
--- OUTSIDE RECORDS SUMMARY | 2022-10-18 01:11 | XMS_ITS | Continuity of Care Document ---
:1975 Author Organization [facility] Address [address] [place] [address]- Care Team Providers Name Role Phone Solo MENDEZ, Mack Boyd Primary Care Physician [place] [facility] [place](s): 05/12/20 - 06/11/20 [facility] [address] [place] [address]- [facility] Allergies, Adverse Reactions, Alerts Substance Reaction Severity [...] Vaccine (oldterm) 10/01/03 Given 1Location History: [facility]Ptioiu Comment: [05/10/2016] RECIEVED AT [facility] [place] [id number] Comment: [07/21/2015] at [id number] Comment: [12/08/2014] pt received at [id number] History: [facility] employer, [employer]dalena solomon6Admin Note: [facility] [id number] Note: #2 Medications Acetaminophen = 1,000 mg, By Mouth, 2 times a day, PRN Pain, 0 Refills, Maintenance, 09/17/18 16:04:26 EST Start Date: 09/17/18 Status: Orderedcetirizine 10 mg oral tablet 1 tablet = 10 mg, By Mouth, Daily, # 90 tablet, 1 Refills, Maintenance, 10/08/19 14:04:00 EST, Tablet, [facility] [address], 168, cm, 07/09/19 14:49:00 EDT, Height Start Date: 10/08/19 Status: Orderedduloxetine 60 mg oral enteric coated capsule 1 capsule = 60 mg, By Mouth, 2 times a day, # 180 capsule, 1 Refills, Maintenance, 04/13/20 11:50:00EDT, EC Capsule, [facility] #[id number], 168, cm, 03/19/20 9:21:00 EDT, Height Start Date: 04/13/20 Status: Orderedgabapentin 300 mg oral capsule 300 mg, 1, capsule, By Mouth, Daily, at bed, # 30 each, Refills 2, Tot. Refills 2, Maintenance, 04/13/20 13:38:00 EDT, Route to Pharmacy Electronically, [facility] #[id number], 168, cm, 03/19/20 9:21:00 EDT, Height Start Date: 04/13/20 Status: Orderedibuprofen 600 mg oral tablet 600 mg, 1, tablet, By Mouth, 2 times a day, Refills 0, Maintenance, 12/05/19 11:08:00 EST Start Date: 12/05/19 Status: OrderedRhinocort Aqua 32 mcg/inh nasal spray 2 sprays, Nares, Both, Daily in AM, # 9 mL, 5 Refills, Maintenance, 06/06/17 11:14:50 Start Date: 06/06/17 Status: Orderedtopiramate 25 mg oral capsule 1 capsule = 25 mg, By Mouth, Daily at bedtime, # 60 capsule, 1 Refills, Maintenance, 05/13/20 13:31:00 EDT, Capsule, [facility] #[id number], 168, cm, 05/13/20 13:13:00 EDT, Height Start Date: 05/13/20 Status: OrderedtraZODone 50 mg oral tablet 25 mg, 0.5, tablet, By Mouth, 2 times a day, # 90 tablet, Refills 1, Tot. Refills 1, Maintenance, 04/10/20 11:00:00 EDT, Route to Pharmacy Electronically, [facility] #[id number], 168, cm, 12/04/2009:30:00 EST, Height Start Date: 04/10/20 Status: OrderedUbrelvy 50 mg oral tablet 1 tablet = 50 mg, By Mouth, Once, PRN as needed for migraine headache, may repeat dose in 2 hours ifneeded, # 10 tablet, 2 Refills, Soft Stop, 05/13/20 15:21:00 EDT, Tablet, [facility] #[id number], 168, cm, 05/13/20 13:13:00 EDT, Height Start Date: 05/13/20 Status: OrderedVitamin D3 5000 intl units oral capsule See Instructions, 1 capsule By Mouth twice per week, # 50 capsule, 0 Refills, Maintenance, 03/02/20 9:02:00 EDT, Capsule, [facility] #[id number], 168, cm, 12/05/19 10:30:00 EST, Height Start [...] Active Vitamin D deficiency(Confirmed) Active 1normal renin/jeremiah/neg sajvqllvfuolzf7RJY noted followed by neurosurgery Dr. Woodall. no surgery advised at this [id number] spine sports; mri upzxkiy0fypubji given,comprehensive Social History Social History Type Response Smoking Status Never smoker; Tobacco user i n household: No entered on: 12/08/14 Sex Female
--- OUTSIDE RECORDS SUMMARY | 2022-10-18 01:11 | XMS_ITS | Continuity of Care Document ---
:1975 Author Organization [facility] Address [address] [place] [address]- Care Team Providers Name Role Phone Solo MENDEZ, Mack Boyd Primary Care Physician Encounter [facility] Date(s): 03/02/22 - 04/01/22 [facility] [address] [place] [address]- Allergies, Adverse Reactions, Alerts Substance Reaction Severity [...] Vaccine (oldterm) 10/01/03 Given 1Location History: [facility] AmosXdo9Msidwr Comment: [05/10/2016] RECIEVED AT [facility] [id number] Comment: [07/21/2015] at [id number] Comment: [12/08/2014] pt received at [id number] History: [facility] employer, magdalena solomon6Admin Note: [facility] [id number] Note: #2 Medications Acetaminophen = 1,000 mg, By Mouth, 2 times a day, PRN Pain, 0 Refills, Maintenance, 09/17/18 16:04:26 EST Start Date: 09/17/18 Status: Orderedcetirizine 10 mg oral tablet 1 tablet, By Mouth, Daily, # 90 tablet, 1 Refills, 02/26/22 13:25:00 EDT, [facility] #[id number], 167.64, cm, 11/08/21 16:30:00 EST, Height, 80.2, kg, 04/19/21 6:20:00 EDT, Dry Weight Start Date: 02/26/22 Status: Orderedduloxetine 60 mg oral enteric coated capsule 1 capsule = 60 mg, By Mouth, 2 times a day, # 60 capsule, 1 Refills, Maintenance, 03/22/22 8:34:00 EDT, EC Capsule, [facility] #[id number], 167.64, cm, 11/08/21 16:30:00 EST, Height, 80.2, kg, 04/19/21 6:20:00 EDT, Dry Weight Start Date: 03/22/22 Status: OrderedEmgality Prefilled Pen 120 mg/mL subcutaneous solution = 120 mg, Subcutaneous Infusion, Every 28 days, # 1 each, 11 Refills, Maintenance, 01/31/21 7:27:00 EDT, [facility] #[id number], 166, cm, 12/31/20 8:54:00 EDT, Height Start Date: 01/31/21 Status: Orderedfluconazole 150 mg oral tablet 1 tablet = 150 mg, By Mouth, Once, # 1 tablet, 0 Refills, Soft Stop, 02/20/22 11:33:00 EDT, Tablet, [facility] #[id number], Partial fill upon patient request if the prescription is for a schedule II opioid drug., 167.64, cm, 11/08/21 16:30:00 EST... Start Date: 02/20/22 Status: Orderedgabapentin 300 mg oral capsule See Instructions, Take 1 capsule in AM, 1 at 3PM and 2 capsules at bedtime, # 120 tablet, Refills 1,Tot. Refills 1, Maintenance, 03/29/22 9:45:00 EDT, Instructions Replace Required Details, Route to Pharmacy Electronically, [facility][id number]... Start Date: 03/29/22 Status: OrderedLORazepam 0.5 mg oral tablet 1 tablet = 0.5 mg, By Mouth, Daily at bedtime, # 30 tablet, 0 Refills, Maintenance, 03/15/22 11:57:00 EDT, [facility] #[id number], 167.64, cm, 11/08/21 16:30:00 EST, Height, 80.2, kg, 04/19/21 6:20:00 EDT, Dry Weight Start Date: 03/15/22 Status: Orderedomeprazole 20 mg oral delayed release tablet 1 tablet = 20 mg, By Mouth, Daily in AM, 30 minutes prior first meal of day, # 30 tablet, 1 Refills,Maintenance, 03/01/21 16:21:00 EDT, EC Tablet, [facility] #[id number], Partial fill upon patient request if the prescription is for a schedule II... Start Date: 03/01/21 Status: OrderedtiZANidine 2 mg oral capsule 1 capsule = 2 mg, By Mouth, Daily at bedtime, # 30 capsule, 2 Refills, Maintenance, 02/28/22 11:07:00 EDT, [facility] #[id number], Partial fill upon patient request if the prescription is for a schedule II opioid drug., 167.64, cm, 11/08/21 16:30... Start Date: 02/28/22 Status: OrderedUbrelvy 50 mg oral tablet 1 tablet = 50 mg, By Mouth, Once, PRN as needed for migraine headache, may repeat dose in 2 hours ifneeded, # 2 tablet, 11 Refills, Soft Stop, 06/17/21 14:54:00 EDT, Tablet, [facility] #[id number], Partial fill upon patient request if the prescr... Start Date: 06/17/21 Status: Ordered Problem List Condition Effective Dates Status Health Status Informant Acute COVID-19(Confirmed) 02/22/22 Active Adenoma of right adrenal gland neg Active labs 2017(Confirmed)1 Anxiety(Confirmed) Active [place] cardiac risk <10% in next 04/13/21 Active 10 years 2.0%(Confirmed) Cervical disc disease C6-7 MRI Active 2020/C5-7 (two level) ACDF.(Confirmed) Fibromyalgia(Confirmed) Active Impingement syndrome, shoulder, 09/17/18 Active left(Confirmed) Insomnia(Confirmed) Active Lumbar disc disease(Confirmed)2, 3 Active Depression, major,(Confirmed) Active Migraine failed(Confirmed)4 11/19/08 Active Vitamin D deficiency(Confirmed) Active 1normal renin/jeremiah/neg [id number] noted followed by neurosurgery Dr. Woodall. no surgery advised at this oekc3bmytom spine sports; mri mcycrqb2ljomysm given,comprehensive Social History Social History Type Response Smoking Status Never smoker; Tobacco user i n household: No entered on: 12/08/14 Sex Female
--- OUTSIDE RECORDS SUMMARY | 2022-10-18 01:11 | XMS_ITS | Continuity of Care Document ---
:1975 Author Organization [facility] Address [address] [place] [address]- Care Team Providers Name Role Phone Solo MENDEZ, Mack Boyd Primary Care Physician Encounter [facility] Date(s): 06/17/21 - 07/17/21 [facility] [address] [place] [address]- Allergies, Adverse Reactions, Alerts Substance Reaction Severity [...] Vaccine (oldterm) 10/01/03 Given 1Location History: [facility] AmosNrf7Jxxnmj Comment: [05/10/2016] RECIEVED AT [facility] [id number] Comment: [07/21/2015] at [id number] Comment: [12/08/2014] pt received at [id number] History: [facility] employer, [employer]dalena solomon6Admin Note: [facility] [id number] Note: #2 Medications Acetaminophen = 1,000 mg, By Mouth, 2 times a day, PRN Pain, 0 Refills, Maintenance, 09/17/18 16:04:26 EST Start Date: 09/17/18 Status: Orderedcetirizine 10 mg oral tablet 1 tablet, By Mouth, Daily, # 90 tablet, 1 Refills, Maintenance, 03/21/21 7:23:00 EDT, [id number], 167.64, cm, 03/18/21 6:28:00 EDT, Height, 80, kg, 03/18/21 6:28:00 EDT, Dry Weight Start Date: 03/21/21 Status: Orderedduloxetine 60 mg oral enteric coated capsule 1 capsule = 60 mg, By Mouth, 2 times a day, # 180 capsule, 1 Refills, Maintenance, 10/05/20 7:18:00 EST, EC Capsule, [facility], 166, cm, 09/30/20 15:22:00 EST, Height Start Date: 10/05/20 Status: OrderedEmgality Prefilled Pen 120 mg/mL subcutaneous solution = 120 mg, Subcutaneous Infusion, Every 28 days, # 1 each, 11 Refills, Maintenance, 01/31/21 7:27:00 EDT, [facility] #[id number], 166, cm, 12/31/20 8:54:00 EDT, Height Start Date: 01/31/21 Status: Orderedgabapentin 300 mg oral capsule 2, capsule, By Mouth, Daily at bedtime, # 180 capsule, Refills 0, Tot. Refills 0, Maintenance, 04/25/21 15:03:00 EDT, Route to Pharmacy Electronically, [facility] #[id number], 167.64, cm, 217:36:00 EDT, Height, 80.2, kg, 04/19/21 6:20:00 E... Start Date: 04/25/21 Status: OrderedLORazepam 0.5 mg oral tablet 1 tablet = 0.5 mg, By Mouth, Daily at bedtime, # 30 tablet, 0 Refills, Maintenance, 07/14/21 12:03:00 EDT, [facility] #[id number], Partial fill upon patient request if the prescription is for a schedule II opioid drug., 167.64, cm, 07/11/21 16:24... Start Date: 07/14/21 Status: Orderedomeprazole 20 mg oral delayed release tablet 1 tablet = 20 mg, By Mouth, Daily in AM, 30 minutes prior first meal of day, # 30 tablet, 1 Refills,Maintenance, 03/01/21 16:21:00 EDT, EC Tablet, [facility] #[id number], Partial fill upon patient request if the [...] the prescription i... Start Date: 04/20/21 Status: OrderedUbrelvy 50 mg oral tablet 1 tablet = 50 mg, By Mouth, Once, PRN as needed for migraine headache, may repeat dose in 2 hours ifneeded, # 2 tablet, 11 Refills, Soft Stop, 06/17/21 14:54:00 EDT, Tablet, [facility] #[id number], Partial fill upon patient request if the prescr... Start Date: 06/17/21 Status: Ordered Problem List Condition Effective Dates Status Health Status Informant Adenoma of right adrenal Active gland(Confirmed)1 Anxiety(Confirmed) Active [place] cardiac risk <10% in next 04/13/21 Active 10 years 2.0%(Confirmed) Cervical disc disease C6-7 MRI Active 2020/C5-7 (two level) ACDF.(Confirmed) Fibromyalgia(Confirmed) Active Impingement syndrome, shoulder, 09/17/18 Active left(Confirmed) Insomnia(Confirmed) Active Lumbar disc disease(Confirmed)2, 3 Active Depression, major,(Confirmed) Active Migraine failed dukloxetine gabapentin 11/19/08 Active TCA(Confirmed)4 Lesion of nasal septum rt;refer Active dermatology(Confirmed) Vitamin D deficiency(Confirmed) Active 1normal renin/jeremiah/neg tsutcigqmtkkfa4ZWQ noted followed by neurosurgery Dr. Woodall. no surgery advised at this [id number] spine sports; mri xbqnquz4ikhdhsg given,comprehensive Social History Social History Type Response Smoking Status Never smoker; Tobacco user i n household: No entered on: 12/08/14 Sex Female
--- OUTSIDE RECORDS SUMMARY | 2022-10-18 01:11 | XMS_ITS | Continuity of Care Document ---
:1975 Author Organization [facility] Address [address] [place] [address]- Care Team Providers Name Role Phone Solo MENDEZ, Mack Boyd Primary Care Physician Encounter [facility] Date(s): 07/26/21 - 08/25/21 [facility] [address] [place] [address]- Allergies, Adverse Reactions, Alerts Substance Reaction Severity [...] Vaccine (oldterm) 10/01/03 Given 1Location History: [facility] AmosJrh2Oijabr Comment: [05/10/2016] RECIEVED AT [facility] [id number] Comment: [07/21/2015] at [id number] Comment: [12/08/2014] pt received at [id number] History: [facility] employer, [employer]dalena solomon6Admin Note: [facility] [id number] Note: #2 Medications Acetaminophen = 1,000 mg, By Mouth, 2 times a day, PRN Pain, 0 Refills, Maintenance, 09/17/18 16:04:26 EST Start Date: 09/17/18 Status: Orderedcetirizine 10 mg oral tablet 1 tablet, By Mouth, Daily, # 90 tablet, 1 Refills, [facility] #[id number], 167.64, cm, 07/11/2116:24:00 EDT, Height, 80.2, kg, 04/19/21 6:20:00 EDT, Dry Weight Start Date: 07/26/21 Status: Orderedduloxetine 60 mg oral enteric coated capsule 1 capsule = 60 mg, By Mouth, 2 times a day, # 180 capsule, 1 Refills, Maintenance, 07/26/21 11:03:00EDT, EC Capsule, [facility] #[id number], 167.64, cm, 07/11/21 16:24:00 EDT, Height, 80.2, kg, 04/19/21 6:20:00 EDT, Dry Weight Start Date: 07/26/21 Status: OrderedEmgality Prefilled Pen 120 mg/mL subcutaneous solution = 120 mg, Subcutaneous Infusion, Every 28 days, # 1 each, 11 Refills, Maintenance, 01/31/21 7:27:00 EDT, [facility] #[id number], 166, cm, 12/31/20 8:54:00 EDT, Height Start Date: 01/31/21 Status: Orderedgabapentin 300 mg oral capsule 2, capsule, By Mouth, Daily at bedtime, # 180 capsule, Refills 0, Route to Pharmacy Electronically, [facility] #[id number], 167.64, cm, 07/11/21 16:24:00 EDT, Height, 80.2, kg, 04/19/21 6:20:00 EDT, Dry Weight Start Date: 07/26/21 Status: OrderedLORazepam 0.5 mg oral tablet 1 tablet = 0.5 mg, By Mouth, Daily at bedtime, # 30 tablet, 0 Refills, Maintenance, 08/10/21 13:57:00 EST, [facility] #[id number], Partial fill upon patient request if the prescription is for a schedule II opioid drug., 167.64, cm, 07/11/21 16:24... Start Date: 08/10/21 Status: Orderedomeprazole 20 mg oral delayed release tablet 1 tablet = 20 mg, By Mouth, Daily in AM, 30 minutes prior first meal of day, # 30 tablet, 1 Refills,Maintenance, 03/01/21 16:21:00 EDT, EC Tablet, [facility] #[id number], Partial fill upon patient request if the [...] Refills, Soft Stop, 06/17/21 14:54:00 EDT, Tablet, [facility] #[id number], Partial fill upon patient request if the prescr... Start Date: 06/17/21 Status: Ordered Problem List Condition Effective Dates Status Health Status Informant Adenoma of right adrenal Active gland(Confirmed)1 Anxiety(Confirmed) Active [place] cardiac risk <10% in next 04/13/21 Active 10 years 2.0%(Confirmed) Cervical disc disease C6-7 MRI Active 2020/C5-7 (two level) ACDF.(Confirmed) Fibromyalgia(Confirmed) Active Impingement syndrome, shoulder, 09/17/18 Active left(Confirmed) Insomnia(Confirmed) Active Lumbar disc disease(Confirmed)2, 3 Active Depression, major,(Confirmed) Active Migraine failed dukloxetine gabapentin 11/19/08 Active TCA(Confirmed)4 Lesion of nasal septum rt;refer Active dermatology(Confirmed) Vitamin D deficiency(Confirmed) Active 1normal renin/jeremiah/neg gunvpbbudmklun8QMP noted followed by neurosurgery Dr. Woodall. no surgery advised at this [id number] spine sports; mri wmpsmyk9amwohxg given,comprehensive Social History Social History Type Response Smoking Status Never smoker; Tobacco user i n household: No entered on: 12/08/14 Sex Female
--- OUTSIDE RECORDS SUMMARY | 2022-10-18 01:11 | XMS_ITS | Continuity of Care Document ---
:1975 Author Organization [facility] Adult Address [address] [place] [address]- Care Team Providers Name Role Phone Solo MENDEZ, Mack Boyd Primary Care Physician Encounter [facility] Date(s): 04/13/21 - 05/13/21 [facility] [address] [place] [address]- Attending Physician: Admtr, Ar8 Allergies, Adverse Reactions, [...] Vaccine (oldterm) 10/01/03 Given 1Location History: [facility] AmosZxs2Vizhfq Comment: [05/10/2016] RECIEVED AT [facility] [id number] Comment: [07/21/2015] at [id number] Comment: [12/08/2014] pt received at nhbv2Ykaygwpq History: [facility] employer, [employer]ena solomon6Admin Note: [facility] [id number] Note: #2 Medications Acetaminophen = 1,000 mg, By Mouth, 2 times a day, PRN Pain, 0 Refills, Maintenance, 09/17/18 16:04:26 EST Start Date: 09/17/18 Status: Orderedcetirizine 10 mg oral tablet 1 tablet, By Mouth, Daily, # 90 tablet, 1 Refills, Maintenance, 03/21/21 7:23:00 EDT, [facility][id number], 167.64, cm, 03/18/21 6:28:00 EDT, Height, 80, [...] each, 11 Refills, Maintenance, 01/31/21 7:27:00 EDT, [facility] #[id number], 166, cm, 12/31/20 8:54:00 EDT, Height Start Date: 01/31/21 Status: Orderedgabapentin 300 mg oral capsule 2, capsule, By Mouth, Daily at bedtime, # 180 capsule, Refills 0, Tot. Refills 0, Maintenance, 04/25/21 15:03:00 EDT, Route to Pharmacy Electronically, [facility] #[id number], 167.64, cm, :36:00 EDT, Height, 80.2, kg, 04/19/21 6:20:00 E... Start Date: 04/25/21 Status: OrderedMedrol Dosepak 4 mg oral tablet 1 pack/packet, By Mouth, Once, # 21 tablet, 0 Refills, Soft Stop, 04/25/21 17:26:00 EDT, Tablet, [facility] #[id number], Partial fill upon patient request if the prescription is for a schedule II opioid drug., 167.64, cm, 04/20/21 7:36:00 EDT, He... Start Date: 04/25/21 Status: Orderedomeprazole 20 mg oral delayed release tablet 1 tablet = 20 mg, By Mouth, Daily in AM, 30 minutes prior first meal of day, # 30 tablet, 1 Refills,Maintenance, 03/01/21 16:21:00 EDT, EC Tablet, [facility] #[id number], Partial fill upon patient request if the [...] 04/22/21 11:43:00 EDT, Route to Pharmacy Electronically, [facility] #[id number], 167.64, cm, 04/20/21 7:36:00 EDT, Height, 80.2, [...] of right adrenal Active gland(Confirmed)1 Anxiety(Confirmed) Active [place] cardiac risk <10% in next 04/13/21 Active 10 years 2.0%(Confirmed) Cervical disc disease C6-7 MRI Active 2020/C5-7 (two level) ACDF.(Confirmed) Fibromyalgia(Confirmed) Active Impingement syndrome, shoulder, 09/17/18 Active left(Confirmed) Insomnia(Confirmed) Active Lumbar disc disease(Confirmed)2, 3 Active Depression, major,(Confirmed) Active Migraine failed dukloxetine gabapentin 11/19/08 Active TCA(Confirmed)4 Lesion of nasal septum rt;refer Active dermatology(Confirmed) Vitamin D deficiency(Confirmed) Active 1normal renin/jeremiah/neg [id number] noted followed by neurosurgery Dr. Woodall. no surgery advised at this [id number] spine sports; mri jgfxyjg2wgsyikk given,comprehensive Social History Social History Type Response Smoking Status Never smoker; Tobacco user i n household: No entered on: 12/08/14 Sex Female
--- OUTSIDE RECORDS SUMMARY | 2022-10-18 01:11 | XMS_ITS | Continuity of Care Document ---
:1975 Author Organization [facility] Adult Address [address] [place] [address]- Care Team Providers Name Role Phone Solo MENDEZ, Mack Boyd Primary Care Physician [facility]counter [facility] Date(s): 04/22/21 - 05/22/21 [facility] Adult [address] [place] [address]- Allergies, Adverse Reactions, Alerts Substance Reaction Severity [...] Vaccine (oldterm) 10/01/03 Given 1Location History: [facility] [id number] Comment: [05/10/2016] RECIEVED AT [facility] [id number] Comment: [07/21/2015] at [id number] Comment: [12/08/2014] pt received at [id number] History: [facility] [employer] employer, magdalena solomon6Admin Note: [facility] [id number] Note: #2 Medications Acetaminophen = 1,000 mg, By Mouth, 2 times a day, PRN Pain, 0 Refills, Maintenance, 09/17/18 16:04:26 EST Start Date: 09/17/18 Status: Orderedcetirizine 10 mg oral tablet 1 tablet, By Mouth, Daily, # 90 tablet, 1 Refills, Maintenance, 03/21/21 7:23:00 EDT, [facility] #[id number], 167.64, cm, 03/18/21 6:28:00 EDT, Height, 80, kg, 03/18/21 6:28:00 EDT, Dry Weight Start Date: 03/21/21 Status: Orderedduloxetine 60 mg oral enteric coated capsule 1 capsule = 60 mg, By Mouth, 2 times a day, # 180 capsule, 1 Refills, Maintenance, 10/05/20 7:18:00 EST, EC Capsule, [facility], 166, cm, 09/30/20 15:22:00 EST, Height Start Date: 10/05/20 Status: OrderedEmgality Prefilled Pen 120 mg/mL subcutaneous solution = 120 mg, Subcutaneous Infusion, Every 28 days, # 1 each, 11 Refills, Maintenance, 01/31/21 7:27:00 EDT, [facility] #[id number], 166, cm, 12/31/20 8:54:00 EDT, Height Start Date: 01/31/21 Status: Orderedgabapentin 300 mg oral capsule 2, capsule, By Mouth, Daily at bedtime, # 180 capsule, Refills 0, Tot. Refills 0, Maintenance, 04/25/21 15:03:00 EDT, Route to Pharmacy Electronically, [facility] #[id number], 167.64, cm, 217:36:00 EDT, Height, 80.2, kg, 04/19/21 6:20:00 E... Start Date: 04/25/21 Status: OrderedMedrol Dosepak 4 mg oral tablet 1 pack/packet, By Mouth, Once, # 21 tablet, 0 Refills, Soft Stop, 04/25/21 17:26:00 EDT, Tablet, [facility] #[id number], Partial fill upon patient request if the prescription is for a schedule II opioid drug., 167.64, cm, 04/20/21 7:36:00 EDT, He... Start Date: 04/25/21 Status: Orderedomeprazole 20 mg oral delayed release tablet 1 tablet = 20 mg, By Mouth, Daily in AM, 30 minutes prior first meal of day, # 30 tablet, 1 Refills,Maintenance, 03/01/21 16:21:00 EDT, EC Tablet, [facility] #[id number], Partial fill upon patient request if the [...] 04/22/21 11:43:00 EDT, Route to Pharmacy Electronically, [facility] #[id number], 167.64, cm, 04/20/21 7:36:00 EDT, Height, 80.2, [...] of right adrenal Active gland(Confirmed)1 Anxiety(Confirmed) Active [place] cardiac risk <10% in next 04/13/21 Active 10 years 2.0%(Confirmed) Cervical disc disease C6-7 MRI Active 2020/C5-7 (two level) ACDF.(Confirmed) Fibromyalgia(Confirmed) Active Impingement syndrome, shoulder, 09/17/18 Active left(Confirmed) Insomnia(Confirmed) Active Lumbar disc disease(Confirmed)2, 3 Active Depression, major,(Confirmed) Active Migraine failed dukloxetine gabapentin 11/19/08 Active TCA(Confirmed)4 Lesion of nasal septum rt;refer Active dermatology(Confirmed) Vitamin D deficiency(Confirmed) Active 1normal renin/jeremiah/neg uiylmohkxdieyx1TPO noted followed by neurosurgery Dr. Woodall. no surgery advised at this [id number] spine sports; mri cqkltso1wvtmwez given,comprehensive Social History Social History Type Response Smoking Status Never smoker; Tobacco user i n household: No entered on: 12/08/14 Sex Female
--- OUTSIDE RECORDS SUMMARY | 2022-10-18 01:11 | XMS_ITS | Continuity of Care Document ---
:1975 Author Organization [facility] Adult Address [address] [place] [address]- Care Team Providers Name Role Phone Solo MENDEZ, Mack Boyd Primary Care Physician Encounter [facility] Date(s): 09/20/20 - 10/20/20 [facility] Adult [address] [place] [address]- Allergies, Adverse Reactions, Alerts Substance Reaction Severity [...] Vaccine (oldterm) 10/01/03 Given 1[facility] History: [id number] Comment: [05/10/2016] [facility] [id number] Comment: [07/21/2015] at [id number] Comment: [12/08/2014] pt received at [id number] History: [facility] employermagdalena ma6Admin Note[facility] Note: #2 Medications Acetaminophen = 1,000 mg, By Mouth, 2 times a day, PRN Pain, 0 Refills, Maintenance, 09/17/18 16:04:26 EST Start Date: 09/17/18 Status: Orderedcetirizine 10 mg oral tablet 1 tablet, By Mouth, Daily, # 90 tablet, 1 Refills, Maintenance, 10/16/20 11:32:00 EST, [facility] #[id number], 166, cm, 10/11/20 9:24:00 EST, Height Start Date: 10/16/20 Status: Orderedduloxetine 60 mg oral enteric coated capsule 1 capsule = 60 mg, By Mouth, 2 times a day, # 180 capsule, 1 Refills, Maintenance, 10/05/20 7:18:00 EST, EC Capsule, [facility], 166, cm, 09/30/20 15:22:00 EST, Height Start Date: 10/05/20 Status: Orderedferrous sulfate 325 mg oral enteric coated tablet 325 mg, 1, tablet, By Mouth, 3 times a day, may take with food to minimize abdominal discomfort takesip orange jing eugeniopor, # 90 tablet, Refills 3, Tot. Refills 3, Maintenance, 10/11/20 17:24:00 EST, Route to Pharmacy Electronically, [facility]... Start Date: 10/11/20 Status: Orderedgabapentin 300 mg oral capsule 300 mg, 1, capsule, By Mouth, Daily, at bed, # 30 each, Refills 2, Tot. Refills 2, Maintenance, 10/05/20 7:19:00 EST, Route to Pharmacy Electronically, [facility], 166, cm, 09/30/20 15:22:00 EST, Height Start Date: 10/05/20 Status: Orderedibuprofen 600 mg oral tablet 600 mg, 1, tablet, By Mouth, 2 times a day, Refills 0, Maintenance, 12/05/19 11:08:00 EST Start Date: 12/05/19 Status: Orderedtopiramate 25 mg oral capsule 2 capsule, By Mouth, Daily at bedtime, # 60 capsule, 5 Refills, Maintenance, 09/05/20 15:41:00 EST, [facility] #[id number], 168, cm, 08/16/20 8:23:00 EST, Height Start Date: 09/05/20 Status: OrderedtraZODone 50 mg oral tablet 25 mg, 0.5, tablet, By Mouth, 2 times a day, # 90 tablet, Refills 1, Tot. Refills 1, Maintenance, 10/05/20 7:19:00 EST, Route to Pharmacy Electronically, [facility], 166, cm, 09/30/20 15:22:00 EST, Height Start Date: 10/05/20 Status: OrderedVitamin D3 5000 intl units oral capsule See Instructions, 1 capsule By Mouth twice per week, # 50 capsule, 0 Refills, Maintenance, 03/02/20 9:02:00 EDT, Capsule, [facility] #[id number], 168, cm, 12/05/19 10:30:00 EST, Height Start [...] Active Vitamin D deficiency(Confirmed) Active 1normal renin/jeremiah/neg rzldkzhyshnfba1LAI noted followed by neurosurgery Dr. Woodall. no surgery advised at this [id number] spine sports; mri narfggt3rotjrvv given,comprehensive Social History Social History Type Response Smoking Status Never smoker; Tobacco user i n household: No entered on: 12/08/14 Sex Female
--- OUTSIDE RECORDS SUMMARY | 2022-10-18 01:11 | XMS_ITS | Continuity of Care Document ---
:1975 Author Organization [address], [address] [place] [address]- Care Team Providers Name Role Phone Mack Banda MD Primary Care Physician Encounter [facility] Date(s): 05/16/21 - 05/23/[address], [address] [place] [address]- Attending Physician: Elijah Lynn MD Referring Physician: Mack Banda MD Allergies, Adverse Reactions, [...] Vaccine (oldterm) 10/01/03 Given 1Location History: [facility] AmosDck3Uetngt Comment: [05/10/2016] RECIEVED AT [facility] [id number] Comment: [07/21/2015] at [id number] Comment: [12/08/2014] pt received at [id number] History: [facility] employer, magdalena solomon6Admin Note: [facility] cxyvydsa3Rzgbp Note: #2 Medications Acetaminophen = 1,000 mg, By Mouth, 2 times a day, PRN Pain, 0 Refills, Maintenance, 09/17/18 16:04:26 EST Start Date: 09/17/18 Status: Orderedcetirizine 10 mg oral tablet 1 tablet, By Mouth, Daily, # 90 tablet, 1 Refills, Maintenance, 03/21/21 7:23:00 EDT, [facility][id number], 167.64, cm, 03/18/21 6:28:00 EDT, Height, 80, kg, 03/18/21 6:28:00 EDT, Dry Weight Start Date: 03/21/21 Status: Orderedduloxetine 60 mg oral enteric coated capsule 1 capsule = 60 mg, By Mouth, 2 times a day, # 180 capsule, 1 Refills, Maintenance, 10/05/20 7:18:00 EST, EC Capsule, [facility], 166, cm, 09/30/20 15:22:00 EST, Height Start Date: 10/05/20 Status: OrderedEmgality Prefilled Pen 120 mg/mL subcutaneous solution = 120 mg, Subcutaneous Infusion, Every 28 days, # 1 each, 11 Refills, Maintenance, 01/31/21 7:27:00 EDT, [facility] #[id number], 166, cm, 12/31/20 8:54:00 EDT, Height Start Date: 01/31/21 Status: Orderedgabapentin 300 mg oral capsule 2, capsule, By Mouth, Daily at bedtime, # 180 capsule, Refills 0, Tot. Refills 0, Maintenance, 04/25/21 15:03:00 EDT, Route to Pharmacy Electronically, [facility] #[id number], 167.64, cm, :36:00 EDT, Height, 80.2, kg, 04/19/21 6:20:00 E... Start Date: 04/25/21 Status: OrderedMedrol Dosepak 4 mg oral tablet 1 pack/packet, By Mouth, Once, # 21 tablet, 0 Refills, Soft Stop, 04/25/21 17:26:00 EDT, Tablet, [facility] #[id number], Partial fill upon patient request if the prescription is for a schedule II opioid drug., 167.64, cm, 04/20/21 7:36:00 EDT, He... Start Date: 04/25/21 Status: Orderedomeprazole 20 mg oral delayed release tablet 1 tablet = 20 mg, By Mouth, Daily in AM, 30 minutes prior first meal of day, # 30 tablet, 1 Refills,Maintenance, 03/01/21 16:21:00 EDT, EC Tablet, [facility] #[id number], Partial fill upon patient request if the [...] 04/22/21 11:43:00 EDT, Route to Pharmacy Electronically, [facility] #[id number], 167.64, cm, 04/20/21 7:36:00 EDT, Height, 80.2, [...] of right adrenal Active gland(Confirmed)1 Anxiety(Confirmed) Active [place] cardiac risk <10% in next 04/13/21 Active 10 years 2.0%(Confirmed) Cervical disc disease C6-7 MRI Active 2020/C5-7 (two level) ACDF.(Confirmed) Fibromyalgia(Confirmed) Active Impingement syndrome, shoulder, 09/17/18 Active left(Confirmed) Insomnia(Confirmed) Active Lumbar disc disease(Confirmed)2, 3 Active Depression, major,(Confirmed) Active Migraine failed dukloxetine gabapentin 11/19/08 Active TCA(Confirmed)4 Lesion of nasal septum rt;refer Active dermatology(Confirmed) Vitamin D deficiency(Confirmed) Active 1normal renin/jeremiah/neg annrqeshugczpt0LOG noted followed by neurosurgery Dr. Woodall. no surgery advised at this [id number] spine sports; mri rwogsnk8oovepiv given,comprehensive Vital Signs Most recent to oldest [Reference Range]: 1 Height 167.64 cm (05/16/21 11:02 AM) Weight 81.8 kg (05/16/21 11:02 AM) Body Mass Index [18.5-24.99] 29.11 *H* (05/16/21 11:02 AM) Social History Social History Type Response Smoking Status Never smoker; Tobacco user i n household: No entered on: 12/08/14 Sex Female
--- OUTSIDE RECORDS SUMMARY | 2022-10-18 01:11 | XMS_ITS | Continuity of Care Document ---
:1975 Author Organization [facility] Adult Address [address] [place] [address]- Care Team Providers Name Role Phone Solo MENDEZ, Mack Boyd Primary Care Physician [facility] Date(s): 06/07/21 - 07/07/21 [facility] Adult [address] [place] [address]- Allergies, Adverse Reactions, Alerts Substance Reaction Severity [...] Vaccine (oldterm) 10/01/03 Given 1Location History: [facility] AmosMxc9Btmyhq Comment: [05/10/2016] RECIEVED AT [facility] [id number] Comment: [07/21/2015] at [id number] Comment: [12/08/2014] pt received at [id number] History: [facility] [employer] [facility] employer, magdalena solomon6Admin Note: [facility] jvvjapzu8Arlpu Note: #2 Medications Acetaminophen = 1,000 mg, By Mouth, 2 times a day, PRN Pain, 0 Refills, Maintenance, 09/17/18 16:04:26 EST Start Date: 09/17/18 Status: Orderedcetirizine 10 mg oral tablet 1 tablet, By Mouth, Daily, # 90 tablet, 1 Refills, Maintenance, 03/21/21 7:23:00 EDT, [facility] #[id number], 167.64, cm, 03/18/21 6:28:00 EDT, Height, 80, kg, 03/18/21 6:28:00 EDT, Dry Weight Start Date: 03/21/21 Status: Orderedduloxetine 60 mg oral enteric coated capsule 1 capsule = 60 mg, By Mouth, 2 times a day, # 180 capsule, 1 Refills, Maintenance, 10/05/20 7:18:00 EST, EC Capsule, [facility], 166, cm, 09/30/20 15:22:00 EST, Height Start Date: 10/05/20 Status: OrderedEmgality Prefilled Pen 120 mg/mL subcutaneous solution = 120 mg, Subcutaneous Infusion, Every 28 days, # 1 each, 11 Refills, Maintenance, 01/31/21 7:27:00 EDT, [facility] #[id number], 166, cm, 12/31/20 8:54:00 EDT, Height Start Date: 01/31/21 Status: Orderedgabapentin 300 mg oral capsule 2, capsule, By Mouth, Daily at bedtime, # 180 capsule, Refills 0, Tot. Refills 0, Maintenance, 04/25/21 15:03:00 EDT, Route to Pharmacy Electronically, [facility] #[id number], 167.64, cm, 217:36:00 EDT, Height, 80.2, kg, 04/19/21 6:20:00 E... Start Date: 04/25/21 Status: OrderedLORazepam 0.5 mg oral tablet 1 tablet = 0.5 mg, By Mouth, Daily at bedtime, # 30 tablet, 0 Refills, Maintenance, 06/09/21 10:53:00 EDT, [facility] #[id number], Partial fill upon patient request if the prescription is for a schedule II opioid drug., 167.64, cm, 06/09/21 10:30... Start Date: 06/09/21 Status: Orderedomeprazole 20 mg oral delayed release tablet 1 tablet = 20 mg, By Mouth, Daily in AM, 30 minutes prior first meal of day, # 30 tablet, 1 Refills,Maintenance, 03/01/21 16:21:00 EDT, EC Tablet, [facility] #[id number], Partial fill upon patient request if the [...] Refills, Soft Stop, 06/17/21 14:54:00 EDT, Tablet, [facility] #[id number], Partial fill upon patient request if the prescr... Start Date: 06/17/21 Status: Ordered Problem List Condition Effective Dates Status Health Status Informant Adenoma of right adrenal Active gland(Confirmed)1 Anxiety(Confirmed) Active [place] cardiac risk <10% in next 04/13/21 Active 10 years 2.0%(Confirmed) Cervical disc disease C6-7 MRI Active 2020/C5-7 (two level) ACDF.(Confirmed) Fibromyalgia(Confirmed) Active Impingement syndrome, shoulder, 09/17/18 Active left(Confirmed) Insomnia(Confirmed) Active Lumbar disc disease(Confirmed)2, 3 Active Depression, major,(Confirmed) Active Migraine failed dukloxetine gabapentin 11/19/08 Active TCA(Confirmed)4 Lesion of nasal septum rt;refer Active dermatology(Confirmed) Vitamin D deficiency(Confirmed) Active 1normal renin/jeremiah/neg maxhcpianyjspp5PDG noted followed by neurosurgery Dr. Woodall. no surgery advised at this [id number] spine sports; mri irygpls0ltebvfy given,comprehensive Social History Social History Type Response Smoking Status Never smoker; Tobacco user i n household: No entered on: 12/08/14 Sex Female
--- OUTSIDE RECORDS SUMMARY | 2022-10-18 01:11 | XMS_ITS | Continuity of Care Document ---
:1975 Author Organization [facility] Address [address] [place] [address]- Care Team Providers Name Role Phone Mack Banda MD Primary Care Physician Encounter [facility] Date(s): 06/08/20 - 06/15/20 [facility] [address] [place] [address]- [facility] Encounter Diagnosis Migraine (Discharge Diagnosis) - 06/08/20 Lumbar disc disease (Discharge Diagnosis) - 06/08/20 Depression, major, in remission (Discharge Diagnosis) - 06/08/20 Insomnia (Discharge Diagnosis) - 06/08/20 Fibromyalgia (Discharge Diagnosis) - 06/08/20 Attending Physician: Yamilet Frank NP Referring Physician: Mack Banda MD Allergies, Adverse [...] Vaccine (oldterm) 10/01/03 Given 1Location History: [facility] AmosEqd0Rkdktp Comment: [05/10/2016] RECIEVED AT [facility] [id number] Comment: [07/21/2015] at [id number] Comment: [12/08/2014] pt received at [id number] History: [facility] employer, magdalena solomon6Admin Note: [facility] suehgpds1Jpoiz Note: #2 Medications Acetaminophen = 1,000 mg, By Mouth, 2 times a day, PRN Pain, 0 Refills, Maintenance, 09/17/18 16:04:26 EST Start Date: 09/17/18 Status: Orderedcetirizine 10 mg oral tablet 1 tablet = 10 mg, By Mouth, Daily, # 90 tablet, 1 Refills, Maintenance, 10/08/19 14:04:00 EST, Tablet, [facility] [address], 168, cm, 07/09/19 14:49:00 EDT, Height Start Date: 10/08/19 Status: Orderedduloxetine 60 mg oral enteric coated capsule 1 capsule = 60 mg, By Mouth, 2 times a day, # 180 capsule, 1 Refills, Maintenance, 04/13/20 11:50:00EDT, EC Capsule, [facility] #[id number], 168, cm, 03/19/20 9:21:00 EDT, Height Start Date: 04/13/20 Status: Orderedgabapentin 300 mg oral capsule 300 mg, 1, capsule, By Mouth, Daily, at bed, # 30 each, Refills 2, Tot. Refills 2, Maintenance, 04/13/20 13:38:00 EDT, Route to Pharmacy Electronically, [facility] #[id number], 168, cm, 03/19/20 9:21:00 EDT, Height Start [...] 1 Refills, Maintenance, 05/13/20 13:31:00 EDT, Capsule, [facility] #[id number], 168, cm, 05/13/20 13:13:00 EDT, Height Start Date: 05/13/20 Status: OrderedtraZODone 50 mg oral tablet 25 mg, 0.5, tablet, By Mouth, 2 times a day, # 90 tablet, Refills 1, Tot. Refills 1, Maintenance, 06/14/20 7:53:00 EDT, Route to Pharmacy Electronically, [facility] #[id number], 168, cm, 06/08/20 11:03:00 EDT, Height Start Date: 06/14/20 Status: OrderedUbrelvy 50 mg oral tablet 1 tablet = 50 mg, By Mouth, Once, PRN as needed for migraine headache, may repeat dose in 2 hours ifneeded, # 10 tablet, 2 Refills, Soft Stop, 05/13/20 15:21:00 EDT, Tablet, [facility] #[id number], 168, cm, 05/13/20 13:13:00 EDT, Height Start Date: 05/13/20 Status: OrderedVitamin D3 5000 intl units oral capsule See Instructions, 1 capsule By Mouth twice per week, # 50 capsule, 0 Refills, Maintenance, 03/02/20 9:02:00 EDT, Capsule, [facility] #[id number], 168, cm, 12/05/19 10:30:00 EST, Height Start [...] Active Vitamin D deficiency(Confirmed) Active 1normal renin/jeremiah/neg anmpvxfaigcsib3YNP noted followed by neurosurgery Dr. Woodall. no surgery advised at this cpxt3iykkil spine sports; mri ejuxyko6gdofkuf given,comprehensive Diagnosis Diagnosis Type Effective Dates Health Clinical Infor mant Status Service Migraine Discharge 06/08/20 Diagnosis Lumbar disc disease Discharge 06/08/20 Diagnosis Depression, major, Discharge 06/08/20 in remission Diagnosis Insomnia Discharge 06/08/20 Diagnosis Fibromyalgia Discharge 06/08/20 Diagnosis Vital Signs Most recent to oldest [Reference Range]: 1 Height 168 cm (06/08/20 11:03 AM) Weight 80.1 kg (06/08/20 11:03 AM) Oxygen Saturation [94-100 %] 99 % (06/08/20 11:03 AM) Pulse Rate [55-90 bpm] 100 bpm *H* (06/08/20 11:03 AM) Body Mass Index [18.5-24.99] 28.38 *H* (06/08/20 11:03 AM) Blood Pressure [90-138/55-84 mm Hg] 118/66 mm Hg (06/08/20 11:03 AM) Blood pressure sites Arm, right (06/08/20 11:03 AM) Temperature Route Oral (06/08/20 11:03 AM) Weight Obtained Via Standing scale (06/08/20 11:03 AM) Social History Social History Type Response Smoking Status Never smoker; Tobacco user i n household: No entered on: 12/08/14 Sex Female
--- OUTSIDE RECORDS SUMMARY | 2022-10-18 01:11 | XMS_ITS | Continuity of Care Document ---
:1975 Author Organization [facility] Address [address] [place] [address]- Care Team Providers Name Role Phone Mack Banda MD Primary Care Physician Encounter [facility] Date(s): 03/01/21 - 03/08/21 [facility] [address] [place] [address]- Encounter Diagnosis Migraine failed dukloxetine gabapentin TCA (Discharge Diagnosis) - 03/01/21 Depression, major, (Discharge Diagnosis) - 03/01/21 Fibromyalgia (Discharge Diagnosis) - 03/01/21 Cervicalgia (Discharge Diagnosis) - 03/01/21 Gastroesophageal reflux disease with hiatal hernia (Discharge Diagnosis) - 03/01/21 Attending Physician: Mack Banda MD Allergies, Adverse [...] Vaccine (oldterm) 10/01/03 Given 1Location History: [facility] [id number] Comment: [05/10/2016] RECIEVED AT [facility] [id number] Comment: [07/21/2015] at [id number] Comment: [12/08/2014] pt received at [id number] History: [facility] [employer] employer, [employer]omon6Admin Note: [facility] [id number] Note: #2 Medications Acetaminophen = 1,000 mg, By Mouth, 2 times a day, PRN Pain, 0 Refills, Maintenance, 09/17/18 16:04:26 EST Start Date: 09/17/18 Status: Orderedcetirizine 10 mg oral tablet 1 tablet, By Mouth, Daily, # 90 tablet, 1 Refills, Maintenance, 10/16/20 11:32:00 EST, [facility] #[id number], 166, cm, 10/11/20 9:24:00 EST, Height Start Date: 10/16/20 Status: Orderedduloxetine 60 mg oral enteric coated capsule 1 capsule = 60 mg, By Mouth, 2 times a day, # 180 capsule, 1 Refills, Maintenance, 10/05/20 7:18:00 EST, EC Capsule, [facility], 166, cm, 09/30/20 15:22:00 EST, Height Start Date: 10/05/20 Status: OrderedEmgality Prefilled Pen 120 mg/mL subcutaneous solution = 120 mg, Subcutaneous Infusion, Every 28 days, # 1 each, 11 Refills, Maintenance, 01/31/21 7:27:00 EDT, [facility] #[id number], 166, cm, 12/31/20 8:54:00 EDT, Height Start Date: 01/31/21 Status: Orderedferrous sulfate 325 mg oral enteric coated tablet 325 mg, 1, tablet, By Mouth, 3 times a day, may take with food to minimize abdominal discomfort marielle wells, # 90 tablet, Refills 3, Tot. Refills 3, Maintenance, 10/11/20 17:24:00 EST, Route to Pharmacy Electronically, [facility]... Start Date: 10/11/20 Status: Orderedgabapentin 300 mg oral capsule 600 mg, 2, capsule, By Mouth, Daily at bedtime, at bed, # 60 each, Refills 2, Tot. Refills 2, Maintenance, 12/17/20 15:08:00 EDT, Route to Pharmacy Electronically, [facility] #[id number], 166, cm,12/17/20 14:53:00 EDT, Height Start Date: 12/17/20 Status: Orderedibuprofen 600 mg oral tablet 600 mg, 1, tablet, By Mouth, 2 times a day, Refills 0, Maintenance, 12/05/19 11:08:00 EST Start Date: 12/05/19 Status: Orderedomeprazole 20 mg oral delayed release tablet 1 tablet = 20 mg, By Mouth, Daily in AM, 30 minutes prior first meal of day, # 30 tablet, 1 Refills,Maintenance, 03/01/21 16:21:00 EDT, EC Tablet, [facility] #[id number], Partial fill upon patient request if the prescription is for a schedule II... Start Date: 03/01/21 Status: OrderedtraZODone 50 mg oral tablet 25 mg, 0.5, tablet, By Mouth, 2 times a day, # 90 tablet, Refills 1, Tot. Refills 1, Maintenance, 10/05/20 7:19:00 EST, Route to Pharmacy Electronically, [facility], 166, cm, 09/30/20 15:22:00 EST, Height Start Date: 10/05/20 Status: OrderedVitamin C By Mouth, Daily, 0 Refills, Maintenance, 03/01/21 15:42:00 EDT, Partial fill upon patient request ifthe prescription is for a schedule II opioid drug. Start Date: 03/01/21 Status: OrderedZOLMitriptan 2.5 mg oral tablet 1 tablet = 2.5 mg, By Mouth, Daily, PRN for migraine headache, may repeat dose after 2 hours up to amaximum of 1, # 6 tablet, 0 Refills, Maintenance, 03/01/21 16:04:00 EDT, Tablet, [facility] #[id number], Partial fill upon patient request if the... Start Date: 03/01/21 Status: Ordered Problem List Condition Effective Dates Status Health Status Informant Adenoma of right adrenal Active gland(Confirmed)1 Anxiety(Confirmed) Active Fibromyalgia(Confirmed) Active Impingement syndrome, shoulder, 09/17/18 Active left(Confirmed) Insomnia(Confirmed) Active Lumbar disc disease(Confirmed)2, 3 Active Iron deficiency anemia(Confirmed) 10/09/20 Active Depression, major,(Confirmed) Active Migraine failed dukloxetine gabapentin 11/19/08 Active TCA(Confirmed)4 Lesion of nasal septum rt;refer Active dermatology(Confirmed) Cervicalgia(Confirmed) Active NSAID long-term use(Confirmed) Active Vitamin D deficiency(Confirmed) Active 1normal renin/jeremiah/neg [id number] noted followed by neurosurgery Dr. Woodall. no surgery advised at this lzmr5jfledw spine sports; mri tdjabgh5repnugn given,comprehensive Diagnosis Diagnosis Type Effective Health Clinical Informant Dates Status Service Migraine failed Discharge 03/01/21 dukloxetine gabapentin Diagnosis TCA Depression, major, Discharge 03/01/21 Diagnosis Fibromyalgia Discharge 03/01/21 Diagnosis Cervicalgia Discharge 03/01/21 Diagnosis Gastroesophageal Discharge 03/01/21 reflux disease with Diagnosis hiatal hernia Vital Signs Most recent to oldest [Reference Range]: 1 Height 167.6 cm (03/01/21 3:40 PM) Weight 82.7 kg (03/01/21 3:40 PM) Oxygen Saturation [94-100 %] 99 % (03/01/21 3:40 PM) Pulse Rate [55-90 bpm] 96 bpm *H* (03/01/21 3:40 PM) Body Mass Index [18.5-24.99] 29.44 *H* (03/01/21 3:40 PM) Blood Pressure [90-138/55-84 mm Hg] 134/86 mm Hg (03/01/21 3:40 PM) Respiratory Rate [16-30 br/min] 16 br/min (03/01/21 3:40 PM) Blood pressure sites Arm, left (03/01/21 3:40 PM) Social History Social History Type Response Smoking Status Never smoker; Tobacco user i n household: No entered on: 12/08/14 Sex Female
--- OUTSIDE RECORDS SUMMARY | 2022-10-18 01:11 | XMS_ITS | Continuity of Care Document ---
:1975 Author Organization [facility] Address [address] [place] [address]- Care Team Providers Name Role Phone Mack Banda MD Primary Care Physician Encounter [facility] Date(s): 12/17/20 - 12/24/20 [facility] [address] [place] [address]- Encounter Diagnosis Annual physical exam (Discharge Diagnosis) - 12/17/20 Depression, major, in remission (Discharge Diagnosis) - 12/19/20 Fibromyalgia (Discharge Diagnosis) - 12/19/20 Migraine (Discharge Diagnosis) - 12/19/20 Vitamin D deficiency (Discharge Diagnosis) - 12/19/20 Insomnia (Discharge Diagnosis) - 12/19/20 Iron deficiency anemia (Discharge Diagnosis) - 12/19/20 Attending Physician: Yamilet Frank NP Referring Physician: [...] Vaccine (oldterm) 10/01/03 Given 1Location History: [facility] [id number] Comment: [05/10/2016] RECIEVED AT [facility] [id number] Comment: [07/21/2015] at [id number] Comment: [12/08/2014] pt received at [id number] History: [facility] employer, [employer]dalena solomon6Admin Note: [facility] [id number] Note: #2 Medications Acetaminophen = 1,000 mg, By Mouth, 2 times a day, PRN Pain, 0 Refills, Maintenance, 09/17/18 16:04:26 EST Start Date: 09/17/18 Status: Orderedcetirizine 10 mg oral tablet 1 tablet, By Mouth, Daily, # 90 tablet, 1 Refills, Maintenance, 10/16/20 11:32:00 EST, [facility] #[id number], 166, cm, 10/11/20 9:24:00 EST, Height Start [...] each, 0 Refills, Maintenance, 12/17/20 15:18:00 EDT, [facility] #[id number], 166, cm, 12/17/20 14:53:00 EDT, Height Start Date: 12/17/20 Status: Orderedferrous sulfate 325 mg oral enteric coated tablet 325 mg, 1, tablet, By Mouth, 3 times a day, may take with food to minimize abdominal discomfort takesip mihir wells, # 90 tablet, Refills 3, Tot. Refills 3, Maintenance, 10/11/20 17:24:00 EST, Route to Pharmacy Electronically, [facility]... Start Date: 10/11/20 Status: Orderedgabapentin 300 mg oral capsule 600 mg, 2, capsule, By Mouth, Daily at bedtime, at bed, # 60 each, Refills 2, Tot. Refills 2, Maintenance, 12/17/20 15:08:00 EDT, Route to Pharmacy Electronically, [facility] #[id number], 166, cm,12/17/20 14:53:00 EDT, Height Start Date: 12/17/20 Status: Orderedibuprofen 600 mg oral tablet 600 mg, 1, tablet, By Mouth, 2 times a day, Refills 0, Maintenance, 12/05/19 11:08:00 EST Start Date: 12/05/19 Status: Orderedtopiramate 25 mg oral capsule 1 capsule = 25 mg, By Mouth, Daily at bedtime, # 60 capsule, 5 Refills, Maintenance, 09/05/20 15:41:00 EST, [facility] #[id number], 168, cm, 08/16/20 8:23:00 EST, Height Start Date: 09/05/20 Status: OrderedtraZODone 50 mg oral tablet 25 mg, 0.5, tablet, By Mouth, 2 times a day, # 90 tablet, Refills 1, Tot. Refills 1, Maintenance, 10/05/20 7:19:00 EST, Route to Pharmacy Electronically, [facility], 166, cm, 09/30/20 15:22:00 EST, Height Start Date: 10/05/20 Status: OrderedUbrelvy 50 mg oral tablet 1 tablet = 50 mg, By Mouth, Once, PRN as needed for migraine headache, may repeat dose in 2 hours ifneeded, # 10 tablet, 1 Refills, Soft Stop, 12/17/20 15:22:00 EDT, Tablet, [facility] #[id number], 166, cm, 12/17/20 14:53:00 EDT, Height Start Date: 12/17/20 Status: OrderedVitamin D3 5000 intl units oral capsule See Instructions, 1 capsule By Mouth twice per week, # 50 capsule, 0 Refills, Maintenance, 03/02/20 9:02:00 EDT, Capsule, [facility] #[id number], 168, cm, 12/05/19 10:30:00 EST, Height Start [...] Active Vitamin D deficiency(Confirmed) Active 1normal renin/jeremiah/neg [id number] noted followed by neurosurgery Dr. Woodall. no surgery advised at this sexk6wgertw spine sports; mri lzkxccg5xvazkyr given,comprehensive Diagnosis Diagnosis Type Effective Dates Health Clinical Infor mant Status Service Annual physical Discharge 12/17/20 exam Diagnosis Depression, major, Discharge 12/19/20 in remission Diagnosis Fibromyalgia Discharge 12/19/20 Diagnosis Migraine Discharge 12/19/20 Diagnosis Vitamin D Discharge 12/19/20 deficiency Diagnosis Insomnia Discharge 12/19/20 Diagnosis Iron deficiency Discharge 12/19/20 anemia Diagnosis Vital Signs Most recent to oldest [Reference Range]: 1 Height 166 cm (12/17/20 2:53 PM) Weight 83.5 kg (12/17/20 2:53 PM) Oxygen Saturation [94-100 %] 98 % (12/17/20 2:53 PM) Pulse Rate [55-90 bpm] 82 bpm (12/17/20 2:53 PM) Body Mass Index [18.5-24.99] 30.3 *>HHI* (12/17/20 2:53 PM) Blood Pressure [90-138/55-84 mm Hg] 122/76 mm Hg (12/17/20 2:53 PM) Respiratory Rate [16-30 br/min] 16 br/min (12/17/20 2:53 PM) Temperature [96.8-100.4 DegF] 98.3 DegF (12/17/20 2:53 PM) Mode of Delivery (Oxygen) Room air (12/17/20 2:53 PM) Blood pressure sites Arm, left (12/17/20 2:53 PM) Temperature Route Oral (12/17/20 2:53 PM) Weight Obtained Via Standing scale (12/17/20 2:53 PM) Social History Social History Type Response Smoking Status Never smoker; Tobacco user i n household: No entered on: 12/08/14 Sex Female
--- OUTSIDE RECORDS SUMMARY | 2022-10-18 01:12 | XMS_ITS | Continuity of Care Document ---
:1975 Author Organization [facility] Address [address] [place] [address]- Care Team Providers Name Role Phone Solo MENDEZ, Mack Boyd Primary Care Physician Encounter [facility] Date(s): 02/18/20 - 02/25/20 [facility] [address] [place] [address]- [facility] Encounter Diagnosis Viral illness (Discharge Diagnosis) - 02/18/20 Sore throat (Discharge Diagnosis) - 02/18/20 Attending Physician: Christine García NP Allergies, Adverse Reactions, Alerts Substance Reaction Severity [...] Vaccine (oldterm) 10/01/03 Given 1Location History: [id number] Comment: [05/10/2016] RECIEVED AT [employer] Wangluotianxia [id number] Comment: [07/21/2015] at [id number] Comment: [12/08/2014] pt received at [id number] History: [facility] employer, [employer]6Admin Note: [facility] [id number] Note: #2 Medications Acetaminophen = 1,000 mg, By Mouth, 2 times a day, PRN Pain, 0 Refills, Maintenance, 09/17/18 16:04:26 EST Start Date: 09/17/18 Status: Orderedcetirizine 10 mg oral tablet 1 tablet = 10 mg, By Mouth, Daily, # 90 tablet, 1 Refills, Maintenance, 10/08/19 14:04:00 EST, Tablet, [facility] [address], 168, cm, 07/09/19 14:49:00 EDT, Height Start Date: 10/08/19 Status: Orderedduloxetine 60 mg oral enteric coated capsule 1 capsule = 60 mg, By Mouth, 2 times a day, # 180 capsule, 1 Refills, Maintenance, 12/05/19 11:05:00EST, EC Capsule, [facility] #[id number], 168, cm, 12/05/19 10:30:00 EST, Height Start Date: 12/05/19 Status: Orderedgabapentin 300 mg oral capsule 600 mg, 2, capsule, By Mouth, Daily at bedtime, # 180 capsule, Refills 1, Tot. Refills 1, Maintenance, 12/05/19 11:05:00 EST, Route to Pharmacy Electronically, [facility] #[id number], 168, cm, 12/05/19 10:30:00 EST, Height Start [...] 04/10/20 11:00:00 EDT, Route to Pharmacy Electronically, [facility] #[id number], 168, cm, 12/04/2009:30:00 EST, Height Start Date: 04/10/20 Status: OrderedValium 5 mg oral tablet See Instructions, 1 tab PO @ HS the night before Procedure and 1 tab 1 hr. prior to procedure, # 2 tablet, Refills 0, Tot. Refills 0, Maintenance, 12/04/19 16:29:00 EST, Instructions Replace Required Details, Route to Pharmacy Electronically, [facility] Start Date: 12/04/19 Status: OrderedVitamin D3 5000 [...] dermatology(Confirmed) Cervicalgia(Confirmed) Active NSAID long-term use(Confirmed) Active Sore throat(Confirmed) Active Viral illness(Confirmed) Active Vitamin D deficiency(Confirmed) Active 1normal renin/jeremiah/neg vnzijuoqgtjbyi7SUF noted followed by neurosurgery Dr. Woodall. no surgery advised at this ygxl0rgrlal spine sports; mri mgfqbnn0qhiabuo given,comprehensive Diagnosis Diagnosis Type Effective Dates Health Status Clinical In formant Service Viral illness Discharge 02/18/20 Diagnosis Sore throat Discharge 02/18/20 Diagnosis Social History Social History Type Response Smoking Status Never smoker; Tobacco user i n household: No entered on: 12/08/14 Sex Female
--- OUTSIDE RECORDS SUMMARY | 2022-10-18 01:12 | XMS_ITS | Continuity of Care Document ---
:1975 Author Organization [facility] Address [address] [place] [address]- Care Team Providers Name Role Phone Solo MENDEZ, Mack Boyd Primary Care Physician Encounter [facility] Date(s): 02/15/21 - 03/17/21 [facility] [address] [place] [address]- Allergies, Adverse Reactions, Alerts Substance Reaction Severity [...] Vaccine (oldterm) 10/01/03 Given 1Location History: [facility] AmosBfk8Tlbujy Comment: [05/10/2016] RECIEVED AT [facility] [id number] Comment: [07/21/2015] at [id number] Comment: [12/08/2014] pt received at [id number] History: [facility] employer, [employer]6Admin Note: [facility] [id number] Note: #2 Medications Acetaminophen = 1,000 mg, By Mouth, 2 times a day, PRN Pain, 0 Refills, Maintenance, 09/17/18 16:04:26 EST Start Date: 09/17/18 Status: Orderedcetirizine 10 mg oral tablet 1 tablet, By Mouth, Daily, # 90 tablet, 1 Refills, Maintenance, 10/16/20 11:32:00 EST, [facility] #[id number], 166, cm, 10/11/20 9:24:00 EST, Height Start Date: 10/16/20 Status: Orderedduloxetine 60 mg oral enteric coated capsule 1 capsule = 60 mg, By Mouth, 2 times a day, # 180 capsule, 1 Refills, Maintenance, 10/05/20 7:18:00 EST, EC Capsule, [facility], 166, cm, 09/30/20 15:22:00 EST, Height Start Date: 10/05/20 Status: OrderedEmgality Prefilled Pen 120 mg/mL subcutaneous solution = 120 mg, Subcutaneous Infusion, Every 28 days, # 1 each, 11 Refills, Maintenance, 01/31/21 7:27:00 EDT, [facility] #[id number], 166, cm, 12/31/20 8:54:00 EDT, Height Start Date: 01/31/21 Status: Orderedferrous sulfate 325 mg oral enteric coated tablet 325 mg, 1, tablet, By Mouth, 3 times a day, may take with food to minimize abdominal discomfort takesip mihir wells, # 90 tablet, Refills 3, Tot. Refills 3, Maintenance, 10/11/20 17:24:00 EST, Route to Pharmacy Electronically, [facility]... Start Date: 10/11/20 Status: Orderedgabapentin 300 mg oral capsule 600 mg, 2, capsule, By Mouth, Daily at bedtime, at bed, # 60 each, Refills 2, Tot. Refills 2, Maintenance, 12/17/20 15:08:00 EDT, Route to Pharmacy Electronically, [facility] #[id number], 166, cm,12/17/20 14:53:00 EDT, Height Start Date: [...] 1 Refills,Maintenance, 03/01/21 16:21:00 EDT, EC Tablet, [facility] #[id number], Partial fill upon patient request if the prescription is for a schedule II... Start Date: 03/01/21 Status: OrderedtraZODone 50 mg oral tablet 25 mg, 0.5, tablet, By Mouth, 2 times a day, # 90 tablet, Refills 1, Tot. Refills 1, Maintenance, 10/05/20 7:19:00 EST, Route to Pharmacy Electronically, [facility], 166, cm, 09/30/20 15:22:00 EST, Height [...] 0 Refills, Maintenance, 03/01/21 16:04:00 EDT, Tablet, [facility] #[id number], Partial fill upon patient request if the... [...] Active Vitamin D deficiency(Confirmed) Active 1normal renin/jeremiah/neg mebfuikmjzpxtv6FXC noted followed by neurosurgery Dr. Woodall. no surgery advised at this mmgn0iggkwl spine sports; mri yjafjdo8fyqxkja given,comprehensive Social History Social History Type Response Smoking Status Never smoker; Tobacco user i n household: No entered on: 12/08/14 Sex Female
--- OUTSIDE RECORDS SUMMARY | 2022-10-18 01:12 | XMS_ITS | Continuity of Care Document ---
:1975 Author Organization [facility] Address [address] [place] [address]- Care Team Providers Name Role Phone Solo MENDEZ, Mack Boyd Primary Care Physician Encounter [facility] Date(s): 02/26/22 - 03/28/22 [facility] [address] [place] [address]- Encounter Diagnosis Fibromyalgia (Discharge Diagnosis) - 02/28/22 Allergies, Adverse Reactions, Alerts Substance Reaction Severity [...] Vaccine (oldterm) 10/01/03 Given 1Location History: [facility] [id number] Comment: [05/10/2016] RECIEVED AT [facility] [id number] Comment: [07/21/2015] at [id number] Comment: [12/08/2014] pt received at [id number] History: [facility] employer, [employer]6Admin Note: [facility] [id number] Note: #2 Medications Acetaminophen = 1,000 mg, By Mouth, 2 times a day, PRN Pain, 0 Refills, Maintenance, 09/17/18 16:04:26 EST Start Date: 09/17/18 Status: Orderedcetirizine 10 mg oral tablet 1 tablet, By Mouth, Daily, # 90 tablet, 1 Refills, 02/26/22 13:25:00 EDT, [facility] #[id number], 167.64, cm, 11/08/21 16:30:00 EST, Height, 80.2, kg, 04/19/21 6:20:00 EDT, Dry Weight Start Date: 02/26/22 Status: Orderedduloxetine 60 mg oral enteric coated capsule 1 capsule = 60 mg, By Mouth, 2 times a day, # 60 capsule, 1 Refills, Maintenance, 03/22/22 8:34:00 EDT, EC Capsule, [facility] #[id number], 167.64, cm, 11/08/21 16:30:00 EST, Height, 80.2, kg, 04/19/21 6:20:00 EDT, Dry Weight Start Date: 03/22/22 Status: OrderedEmgality Prefilled Pen 120 mg/mL subcutaneous solution = 120 mg, Subcutaneous Infusion, Every 28 days, # 1 each, 11 Refills, Maintenance, 01/31/21 7:27:00 EDT, [facility] #[id number], 166, cm, 12/31/20 8:54:00 EDT, Height Start Date: 01/31/21 Status: Orderedfluconazole 150 mg oral tablet 1 tablet = 150 mg, By Mouth, Once, # 1 tablet, 0 Refills, Soft Stop, 02/20/22 11:33:00 EDT, Tablet, [facility] #[id number], Partial fill upon patient request if the prescription is for a schedule II opioid drug., 167.64, cm, 11/08/21 16:30:00 EST... Start Date: 02/20/22 Status: Orderedgabapentin 300 mg oral capsule 2, capsule, By Mouth, Daily at bedtime, # 180 capsule, Refills 1, Tot. Refills 1, Maintenance, 01/18/22 15:08:00 EDT, Route to Pharmacy Electronically, [facility] #[id number], 167.64, cm, 11/08/2215:30:00 EST, Height, 80.2, kg, 04/19/21 6:20:00... Start Date: 01/18/22 Status: OrderedLORazepam 0.5 mg oral tablet 1 tablet = 0.5 mg, By Mouth, Daily at bedtime, # 30 tablet, 0 Refills, Maintenance, 03/15/22 11:57:00 EDT, [facility] #[id number], 167.64, cm, 11/08/21 16:30:00 EST, Height, 80.2, kg, 04/19/21 6:20:00 EDT, Dry Weight Start Date: 03/15/22 Status: Orderedomeprazole 20 mg oral delayed release tablet 1 tablet = 20 mg, By Mouth, Daily in AM, 30 minutes prior first meal of day, # 30 tablet, 1 Refills,Maintenance, 03/01/21 16:21:00 EDT, EC Tablet, [facility] #[id number], Partial fill upon patient request if the prescription is for a schedule II... Start Date: 03/01/21 Status: OrderedtiZANidine 2 mg oral capsule 1 capsule = 2 mg, By Mouth, Daily at bedtime, # 30 capsule, 2 Refills, Maintenance, 02/28/22 11:07:00 EDT, [facility] #[id number], Partial fill upon patient request if the prescription is for a schedule II opioid drug., 167.64, cm, 11/08/21 16:30... Start Date: 02/28/22 Status: OrderedUbrelvy 50 mg oral tablet 1 tablet = 50 mg, By Mouth, Once, PRN as needed for migraine headache, may repeat dose in 2 hours ifneeded, # 2 tablet, 11 Refills, Soft Stop, 06/17/21 14:54:00 EDT, Tablet, [facility] #[id number], Partial fill upon patient request if the prescr... Start Date: 06/17/21 Status: Ordered Problem List Condition Effective Dates Status Health Status Informant Acute COVID-19(Confirmed) 02/22/22 Active Adenoma of right adrenal gland neg Active labs 2017(Confirmed)1 Anxiety(Confirmed) Active [place] cardiac risk <10% in next 04/13/21 Active 10 years 2.0%(Confirmed) Cervical disc disease C6-7 MRI Active 2020/C5-7 (two level) ACDF.(Confirmed) Fibromyalgia(Confirmed) Active Impingement syndrome, shoulder, 09/17/18 Active left(Confirmed) Insomnia(Confirmed) Active Lumbar disc disease(Confirmed)2, 3 Active Depression, major,(Confirmed) Active Migraine failed(Confirmed)4 11/19/08 Active Vitamin D deficiency(Confirmed) Active 1normal renin/jeremiah/neg [id number] noted followed by neurosurgery Dr. Woodall. no surgery advised at this ocza8zyzpng spine sports; mri hapitus0wlzmhlg given,comprehensive Diagnosis Diagnosis Type Effective Dates Health Status Clinical In formant Service Fibromyalgia Discharge 02/28/22 Non-Specified Diagnosis Social History Social History Type Response Smoking Status Never smoker; Tobacco user i n household: No entered on: 12/08/14 Sex Female
--- OUTSIDE RECORDS SUMMARY | 2022-10-18 01:12 | XMS_ITS | Continuity of Care Document ---
:1975 Author Organization [facility] [place] [facility] Address [address] [place] [address]- Care Team Providers Name Role Phone Anais MENDEZ, Jose Miguel Morgan Primary Care Physician [facility] Date[facility]): 08/[facility]/22 - 09/21/22 [facility] [place] [facility] [address] [place] [address]- Allergies, Adverse Reactions, Alerts Substance Reaction Severity Status mirtazapine Active citalopram Active Cats Active Dogs Active Immunizations Given and Recorded Vaccine Date Status Refusal Reason influenza virus vaccine, inactivated1 08/07/22 Given influenza virus vaccine, inactivated2 07/21/18 Recorded influenza virus vaccine, inactivated 07/24/17 Recorded influenza virus vaccine, inactivated3 05/09/16 Recorded influenza virus vaccine, inactivated4 06/21/15 Recorded influenza virus vaccine, inactivated5 08/10/14 Recorded influenza virus vaccine, inactivated6 07/07/13 Recorded influenza virus vaccine, inactivated7 07/01/12 Given SARS-CoV-2 (COVID-19) mRNA-1273 vaccine 02/21/21 Recorded SARS-CoV-2 (COVID-19) mRNA-1273 vaccine 01/24/21 Recorded Influenza Virus Vaccine (oldterm) 07/24/20 Recorded Influenza Virus Vaccine (oldterm) 09/18/19 Recorded tetanus/diphtheria/pertussis, acel(Tdap) 10/09/13 Given FluLaval (oldterm) 08/29/11 Given Hepatitis B Vaccine (old term) 09/18/08 Given Hepatitis B Vaccine (old term)8 04/10/08 Given Hepatitis B Vaccine (old term) 03/11/08 Given Tetanus Toxoid Vaccine (oldterm) 10/01/03 Given 1Result Comment: [facility]-[id number] History: [facility]6Sfvuuk Comment: [05/10/2016] RECIEVED AT [facility] RAMAN4Result Comment: [07/21/2015] at work5 Result Comment: [12/08/2014] pt received at bpsa0Vqktqebn History: [facility] employer, [employer] [id number] Note: [facility] employer8 Admin Note: #2 Medications Acetaminophen = 1,000 mg, By Mouth, 2 times a day, PRN Pain, 0 Refills, Maintenance, 09/17/18 16:04:26 EST Start Date: 09/17/18 Status: Orderedcetirizine 10 mg oral tablet 1 tablet, By Mouth, Daily, # 90 tablet, 1 Refills, 06/26/22 13:49:00 EDT, [facility] #[id number], 167.64, cm, 03/29/22 9:37:00 EDT, Height, 80.2, kg, 04/19/21 6:20:00 EDT, Dry Weight Start Date: 06/26/22 Status: Orderedduloxetine 60 mg oral enteric coated capsule 1 capsule = 60 mg, By Mouth, 2 times a day, # 60 capsule, 1 Refills, Maintenance, 09/06/22 9:31:00 EST, EC Capsule, [facility]/pharmacy #[id number], 167.64, cm, 08/07/22 14:32:00 EST, Height, 80.2, kg, 04/19/21 6:20:00 EDT, Dry Weight Start Date: 09/06/22 Status: Orderedgabapentin 300 mg oral capsule See Instructions, Take 1 capsule in AM, 1 at 3PM and 2 capsules at bedtime, # 120 tablet, Refills 1,Tot. Refills 1, Maintenance, 07/06/22 12:17:00 EDT, Instructions Replace Required Details, Route to Pharmacy Electronically, [facility][id number]... Start Date: 07/06/22 Status: OrderedLORazepam 0.5 mg oral tablet 1 tablet = 0.5 mg, By Mouth, Daily at bedtime, # 30 tablet, 2 Refills, Maintenance, 08/21/22 6:30:00EST, [facility]/pharmacy #[id number], 167.64, cm, 08/07/22 14:32:00 EST, Height, 80.2, kg, 04/19/21 6:20:00 EDT, Dry Weight Start Date: 08/21/22 Status: OrderedNuLYTELY with Flavor Packs oral powder for reconstitution 240 mL, By Mouth, Every 10 minutes, split prep method, take 1st half of prep evening before procedure, 2nd half 6 hrs prior to procedure., # 1 each, 0 Refills, Maintenance, 01/01/23 17:00:00 EDT, REC Powder, [facility]/pharmacy #[id number], test date 01/02 . C... Start Date: 01/01/23 Status: OrderedtiZANidine 2 mg oral capsule 1 capsule = 2 mg, By Mouth, Daily at bedtime, # 30 capsule, 2 Refills, Maintenance, 08/21/22 6:28:00EST, [facility]/pharmacy #[id number], Partial fill upon patient request if the prescription is for a schedule II opioid drug., 167.64, cm, 08/07/22 14:32:00 EST, H... Start Date: 08/21/22 Status: OrderedUbrelvy 50 mg oral tablet 1 tablet = 50 mg, By Mouth, Once, PRN as needed for migraine headache, may repeat dose in 2 hours ifneeded, # 30 tablet, 11 Refills, Soft Stop, 06/26/22 13:48:00 EDT, Tablet, [facility] #[id number], Partial fill upon patient request if the presc... Start Date: 06/26/22 Status: Ordered Problem List Condition Confirmation Course Effective Dates Status Health Stat us Informant Adenoma of right Confirmed Active adrenal gland neg labs Anxiety Confirmed Active [place] cardiac Confirmed 04/13/21 Active risk <10% in next 10 years 2.0% Cervical disc Confirmed Active disease C6-7 MRI 2020/C5-7 (two level) ACDF. Fibromyalgia Confirmed Active Impingement Confirmed 09/17/18 Active syndrome, shoulder, left Insomnia Confirmed Active Lumbar disc Confirmed Active disease2, 3 Depression, major, Confirmed Active Chronic Migraines4 Confirmed 11/19/08 Active Vitamin D Confirmed Active deficiency 1normal renin/jeremiah/neg jdfkuhnszevbzt9LBL noted followed by neurosurgery Dr. Woodall. no surgery advised at this nbid1motqxw spine sports; mri hakzbnu1pzyynqw given,comprehensive Social History Social History Type Response Smoking Status Never smoker; Tobacco user i n household: No entered on: 12/08/14 Sex Female Patient Care team information Care Team PersonnelName: Daja Vanegas RN Position: [facility] RN Member Role: Primary Care Nurse Name: Yamilet Frank NP Position: [facility] PCO Associate Professional Member Role: [employer] Provider Address: Address: [address] [place] [address]- Name: Jose Miguel Manzo MD Position: [facility] Primary Care Physician Member Role: PCP Address: Address: [address] [place] [id number]- Care Team Related PersonsName: CORY AYALA Address: home [address] [place] [address] Name: ROBERT AYALA Address: [address] [place] [address]
--- OUTSIDE RECORDS SUMMARY | 2022-10-18 01:12 | XMS_ITS | Continuity of Care Document ---
:1975 Author Organization [facility] Address [address] [place] [address]- Care Team Providers Name Role Phone Solo MENDEZ, Mack Boyd Primary Care Physician [facility] Date(s): 03/27/22 - 04/26/22 [facility] [address] [place] [address]- Allergies, Adverse Reactions, Alerts Substance Reaction Severity [...] Vaccine (oldterm) 10/01/03 Given 1Location History: [facility] AmosJim9Unatzp Comment: [05/10/2016] REC[facility]EVED AT [facility] [id number] Comment: [07/21/2015] at [id number] Comment: [12/08/2014] pt received at [id number] History: [facility] [employer] employer, [employer]6Admin Note: [facility] vxpxqwnx7Qslmd Note: #2 Medications Acetaminophen = 1,000 mg, By Mouth, 2 times a day, PRN Pain, 0 Refills, Maintenance, 09/17/18 16:04:26 EST Start Date: 09/17/18 Status: Orderedcetirizine 10 mg oral tablet 1 tablet, By Mouth, Daily, # 90 tablet, 1 Refills, 02/26/22 13:25:00 EDT, [facility] #[id number], 167.64, cm, 11/08/21 16:30:00 EST, Height, 80.2, kg, 04/19/21 6:20:00 EDT, Dry Weight Start Date: 02/26/22 Status: Orderedduloxetine 60 mg oral enteric coated capsule 1 capsule = 60 mg, By Mouth, 2 times a day, # 60 capsule, 1 Refills, Maintenance, 03/22/22 8:34:00 EDT, EC Capsule, [facility] #[id number], 167.64, cm, 11/08/21 16:30:00 EST, Height, 80.2, kg, 04/19/21 6:20:00 EDT, Dry Weight Start Date: 03/22/22 Status: OrderedEmgality Prefilled Pen 120 mg/mL subcutaneous solution = 120 mg, Subcutaneous Infusion, Every 28 days, # 1 each, 11 Refills, Maintenance, 01/31/21 7:27:00 EDT, [facility] #[id number], 166, cm, 12/31/20 8:54:00 EDT, Height Start Date: 01/31/21 Status: Orderedfluconazole 150 mg oral tablet 1 tablet = 150 mg, By Mouth, Once, # 1 tablet, 0 Refills, Soft Stop, 02/20/22 11:33:00 EDT, Tablet, [facility] #[id number], Partial fill upon patient request if the prescription is for a schedule II opioid drug., 167.64, cm, 11/08/21 16:30:00 EST... Start Date: 02/20/22 Status: Orderedgabapentin 300 mg oral capsule See Instructions, Take 1 capsule in AM, 1 at 3PM and 2 capsules at bedtime, # 120 tablet, Refills 1,Tot. Refills 1, Maintenance, 03/29/22 9:45:00 EDT, Instructions Replace Required Details, Route to Pharmacy Electronically, [facility] #[id number]... Start Date: 03/29/22 Status: OrderedLORazepam 0.5 mg oral tablet 1 tablet = 0.5 mg, By Mouth, Daily at bedtime, # 30 tablet, 0 Refills, Maintenance, 04/18/22 13:22:00 EDT, [facility] #[id number], 167.64, cm, 03/29/22 9:37:00 EDT, Height, 80.2, kg, 04/19/21 6:20:00 EDT, Dry Weight Start Date: 04/18/22 Status: Orderedomeprazole 20 mg oral delayed release tablet 1 tablet = 20 mg, By Mouth, Daily in AM, 30 minutes prior first meal of day, # 30 tablet, 1 Refills,Maintenance, 03/01/21 16:21:00 EDT, EC Tablet, [facility] #[id number], Partial fill upon patient request if the prescription is for a schedule II... Start Date: 03/01/21 Status: OrderedtiZANidine 2 mg oral capsule 1 capsule = 2 mg, By Mouth, Daily at bedtime, # 30 capsule, 2 Refills, Maintenance, 04/18/22 13:24:00 EDT, [facility] #[id number], Partial fill upon patient request if the prescription is for a schedule II opioid drug., 167.64, cm, 03/29/22 9:37:... Start Date: 04/18/22 Status: OrderedUbrelvy 50 mg oral tablet 1 tablet = 50 mg, By Mouth, Once, PRN as needed for migraine headache, may repeat dose in 2 hours ifneeded, # 2 tablet, 11 Refills, Soft Stop, 06/17/21 14:54:00 EDT, Tablet, [facility] #[id number], Partial fill upon patient request if the prescr... Start Date: 06/17/21 Status: Ordered Problem List Condition Effective Dates Status Health Status Informant Adenoma of right adrenal gland neg Active labs 2017(Confirmed)1 Anxiety(Confirmed) Active [place] cardiac risk <10% in next 04/13/21 Active 10 years 2.0%(Confirmed) Cervical disc disease C6-7 MRI Active 2020/C5-7 (two level) ACDF.(Confirmed) Fibromyalgia(Confirmed) Active Impingement syndrome, shoulder, 09/17/18 Active left(Confirmed) Insomnia(Confirmed) Active Lumbar disc disease(Confirmed)2, 3 Active Depression, major,(Confirmed) Active Chronic Migraines(Confirmed)4 11/19/08 Active Vitamin D deficiency(Confirmed) Active 1normal renin/jeremiah/neg mqctctbxktqkre1PMN noted followed by neurosurgery Dr. Woodall. no surgery advised at this pwof0ychfmg spine sports; mri itgmyuk7kxhzdaq given,comprehensive Social History Social History Type Response Smoking Status Never smoker; Tobacco user i n household: No entered on: 12/08/14 Sex Female
--- OUTSIDE RECORDS SUMMARY | 2022-10-18 01:12 | XMS_ITS | Continuity of Care Document ---
:1975 Author Organization [facility] Address Unavailable , Care Team Providers Name Role Phone Solo MENDEZ, Mack Boyd Primary Care Physician [facility] Date[facility]s): 12/20/21 - 01/19/22 [facility] Allergies, Adverse Reactions, Alerts Substance Reaction Severity [...] Vaccine (oldterm) 10/01/03 Given 1Location History: [facility]0Eakqim Comment: [05/10/2016] RECIEVED AT [employer] [id number] Comment: [07/21/2015] at lrhs2Rejicb Comment: [12/08/2014] pt received at aggp1Shmvolpp History: [facility] / [employer] employer, [employer] sol[employer]6Admin Note: [facility] ohoimdhs7Kpzzs Note: #2 Medications Acetaminophen = 1,000 mg, By Mouth, 2 times a day, PRN Pain, 0 Refills, Maintenance, 09/17/18 16:04:26 EST Start Date: 09/17/18 Status: Orderedcetirizine 10 mg oral tablet 1 tablet, By Mouth, Daily, # 90 tablet, 1 Refills, 11/25/21 10:17:00 EST, [facility] #[id number], 167.64, cm, 11/08/21 16:30:00 EST, Height, 80.2, kg, 04/19/21 6:20:00 EDT, Dry Weight Start Date: 11/25/21 Status: Orderedduloxetine 60 mg oral enteric coated capsule 1 capsule = 60 mg, By Mouth, 2 times a day, # 180 capsule, 1 Refills, Maintenance, 07/26/21 11:03:00EDT, EC Capsule, [facility] #[id number], 167.64, cm, 07/11/21 16:24:00 EDT, Height, 80.2, kg, 04/19/21 6:20:00 EDT, Dry Weight Start Date: 07/26/21 Status: OrderedEmgality Prefilled Pen 120 mg/mL subcutaneous solution = 120 mg, Subcutaneous Infusion, Every 28 days, # 1 each, 11 Refills, Maintenance, 01/31/21 7:27:00 EDT, [facility] #[id number], 166, cm, 12/31/20 8:54:00 EDT, Height Start Date: 01/31/21 Status: Orderedgabapentin 300 mg oral capsule 2, capsule, By Mouth, Daily at bedtime, # 180 capsule, Refills 1, Tot. Refills 1, Maintenance, 01/18/22 15:08:00 EDT, Route to Pharmacy Electronically, [facility] #[id number], 167.64, cm, 11/08/2215:30:00 EST, Height, 80.2, kg, 04/19/21 6:20:00... Start Date: 01/18/22 Status: OrderedLORazepam 0.5 mg oral tablet 1 tablet = 0.5 mg, By Mouth, Daily at bedtime, # 30 tablet, 0 Refills, Maintenance, 01/18/22 15:08:00 EDT, [facility] #[id number], Partial fill upon patient request if the prescription is for a schedule II opioid drug., 167.64, cm, 11/08/21 16:30... Start Date: 01/18/22 Status: OrderedLORazepam 0.5 mg oral tablet See Instructions, TAKE 1 TABLET BY MOUTH DAILY AT BEDTIME, # 30 tablet, 0 Refills, Maintenance, 10/18/21 15:26:00 EST, [facility] #[id number], 167.64, cm, 07/11/21 16:24:00 EDT, Height, 80.2, kg, 04/19/21 6:20:00 EDT, Dry Weight Start Date: 10/18/21 Status: Orderedomeprazole 20 mg oral delayed release tablet 1 tablet = 20 mg, By Mouth, Daily in AM, 30 minutes prior first meal of day, # 30 tablet, 1 Refills,Maintenance, 03/01/21 16:21:00 EDT, EC Tablet, [facility] #[id number], Partial fill upon patient request if the prescription is for a schedule II... Start Date: 03/01/21 Status: OrderedtiZANidine 2 mg oral capsule 1 capsule = 2 mg, By Mouth, Daily at bedtime, # 30 capsule, 2 Refills, Maintenance, 12/07/21 10:59:00 [facility] #[id number], Partial fill upon patient request if the prescription is for a schedule II opioid drug., 167.64, cm, 11/08/21 16:30... Start Date: 12/07/21 Status: OrderedUbrelvy 50 mg oral tablet 1 tablet = 50 mg, By Mouth, Once, PRN as needed for migraine headache, may repeat dose in 2 hours ifneeded, # 2 tablet, 11 Refills, Soft Stop, 06/17/21 14:54:00 EDT, Tablet, [facility] #[id number], Partial fill upon patient request if the prescr... Start Date: 06/17/21 Status: Ordered Problem List Condition Effective Dates Status Health Status Informant Adenoma of right adrenal gland neg Active labs 2018(Confirmed)1 Anxiety(Confirmed) Active [place] cardiac risk <10% in next 04/13/21 Active 10 years 2.0%(Confirmed) Cervical disc disease C6-7 MRI Active 2020/C5-7 (two level) ACDF.(Confirmed) Fibromyalgia(Confirmed) Active Impingement syndrome, shoulder, 09/17/18 Active left(Confirmed) Insomnia(Confirmed) Active Lumbar disc disease(Confirmed)2, 3 Active Depression, major,(Confirmed) Active Migraine failed(Confirmed)4 11/19/08 Active Vitamin D deficiency(Confirmed) Active 1normal renin/jeremiah/neg tmgjnwzezcdbgy2GHD noted followed by neurosurgery Dr. Woodall. no surgery advised at this xtry7huulah spine sports; mri qrkiibm5oxcskuj given,comprehensive Social History Social History Type Response Smoking Status Never smoker; Tobacco user i n household: No entered on: 12/08/14 Sex Female
--- OUTSIDE RECORDS SUMMARY | 2022-10-18 01:12 | XMS_ITS | Continuity of Care Document ---
:1975 Author Organization [facility] Address [address] [place] [address]- Care Team Providers Name Role Phone Solo MENDEZ, Mack Boyd Primary Care Physician Encounter [facility] [place] Date[place]s): 03/21/21 - 04/20/21 [facility] [address] [place] [id number] Attending Physician: Srikanth Romero Admitting Physician: AdmtrSrikanth Referring Physician: Admtr, ArKathia Allergies, Adverse Reactions, Alerts Substance Reaction Severity [...] Vaccine (oldterm) 10/01/03 Given 1Location History: [facility]0Uljucy Comment: [05/10/2016] RECIEVED AT [facility] [id number] Comment: [07/21/2015] at rath2Dhudat Comment: [12/08/2014] pt received at ejbh1Alteninw History: [facility] employer, [employer]6Admin Note: [facility] klzeewjm8Hwoys Note: #2 Medications Acetaminophen = 1,000 mg, [...] tablet, 1 Refills, Maintenance, 03/21/21 7:23:00 EDT, [id number], 167.64, cm, 03/18/21 6:28:00 EDT, Height, 80, kg, 03/18/21 6:28:00 EDT, Dry Weight Start Date: 03/21/21 Status: Orderedduloxetine 60 mg oral enteric coated capsule 1 capsule = 60 mg, By Mouth, 2 times a day, # 180 capsule, 1 Refills, Maintenance, 10/05/20 7:18:00 EST, EC Capsule, [facility], 166, cm, 09/30/20 15:22:00 EST, Height Start Date: 10/05/20 Status: OrderedEmgality Prefilled Pen 120 mg/mL subcutaneous solution = 120 mg, Subcutaneous Infusion, Every 28 days, # 1 each, 11 Refills, Maintenance, 01/31/21 7:27:00 EDT, [facility] #[id number], 166, cm, 12/31/20 8:54:00 EDT, Height Start Date: 01/31/21 Status: Orderedgabapentin 300 mg oral capsule 600 mg, 2, capsule, By Mouth, Daily at bedtime, at bed, # 60 each, Refills 2, Tot. Refills 2, Maintenance, 12/17/20 15:08:00 EDT, [id number], 166, cm,12/17/20 14:53:00 EDT, Height Start Date: 12/17/20 Status: Orderedomeprazole 20 mg oral delayed release tablet 1 tablet = 20 mg, By Mouth, Daily in AM, 30 minutes prior first meal of day, # 30 tablet, 1 Refills,Maintenance, 03/01/21 16:21:00 EDT, EC Tablet, [facility] #[id number], Partial fill upon patient request if the [...] of right adrenal Active gland(Confirmed)1 Anxiety(Confirmed) Active [place] cardiac risk <10% in next 04/13/21 Active 10 years 2.0%(Confirmed) Cervical disc disease C6-7 MRI Active 2020(Confirmed) Fibromyalgia(Confirmed) Active Impingement syndrome, shoulder, 09/17/18 Active left(Confirmed) Insomnia(Confirmed) Active Lumbar disc disease(Confirmed)2, 3 Active Depression, major,(Confirmed) Active Migraine failed dukloxetine gabapentin 2/19/09 Active TCA(Confirmed)4 Lesion of nasal septum rt;refer Active dermatology(Confirmed) Vitamin D deficiency(Confirmed) Active 1normal renin/jeremiah/neg gzufgjunwnekkd0DUR noted followed by neurosurgery Dr. Woodall. no surgery advised at this mnvb4exlzua spine sports; mri iceilhp2hvkpifo given,comprehensive Social History Social History Type Response Smoking Status Never smoker; Tobacco user i n household: No entered on: 12/08/14 Sex Female
--- OUTSIDE RECORDS SUMMARY | 2022-10-18 01:12 | XMS_ITS | Continuity of Care Document ---
:1975 Author Organization [facility] Address [address] [place] [address]- Care Team Providers Name Role Phone Solo MENDEZ, Mack Boyd Primary Care Physician [facility]s): 08/26[facility]21 - 09/25/21 [facility] [address] [place] [address]- Allergies, Adverse Reactions, Alerts Substance Reaction Severity [...] Vaccine (oldterm) 10/01/03 Given 1Location History: [facility] AmosPgz1Amqhar Comment: [05/10/2016] REC[facility]EVED AT [facility] [id number] Comment: [07/21/2015] at clut3Gshoai Comment: [12/08/2014] pt received at vaim5Hiwzoiur History: [facility] employer, [employer]6Admin Note: [facility] pakxjenw7Ddhqz Note: #2 Medications Acetaminophen = 1,000 mg, By Mouth, 2 times a day, PRN Pain, 0 Refills, Maintenance, 09/17/18 16:04:26 EST Start Date: 09/17/18 Status: Orderedcetirizine 10 mg oral tablet 1 tablet, By Mouth, Daily, # 90 tablet, 1 Refills, [facility] #[id number], 167.64, cm, 07/11/2116:24:00 EDT, Height, 80.2, kg, 04/19/21 6:20:00 EDT, Dry Weight Start Date: 07/26/21 Status: Orderedduloxetine 60 mg oral enteric coated capsule 1 capsule = 60 mg, By Mouth, 2 times a day, # 180 capsule, 1 Refills, Maintenance, 07/26/21 11:03:00EDT, EC Capsule, [facility] #[id number], 167.64, cm, 07/11/21 16:24:00 EDT, Height, 80.2, kg, 04/19/21 6:20:00 EDT, Dry Weight Start Date: 07/26/21 Status: OrderedEmgality Prefilled Pen 120 mg/mL subcutaneous solution = 120 mg, Subcutaneous Infusion, Every 28 days, # 1 each, 11 Refills, Maintenance, 01/31/21 7:27:00 EDT, [facility] #[id number], 166, cm, 12/31/20 8:54:00 EDT, Height Start Date: 01/31/21 Status: Orderedgabapentin 300 mg oral capsule 2, capsule, By Mouth, Daily at bedtime, # 180 capsule, Refills 0, Tot. Refills 0, 08/26/21 11:00:00 EST, Route to Pharmacy Electronically, [facility] #[id number], 167.64, cm, 07/11/21 16:24:00 EDT, Height, 80.2, kg, 04/19/21 6:20:00 EDT, Dry Weight Start Date: 08/26/21 Status: OrderedLORazepam 0.5 mg oral tablet 1 tablet = 0.5 mg, By Mouth, Daily at bedtime, # 30 tablet, 0 Refills, Maintenance, 09/15/21 11:32:00 EST, [facility] #[id number], Partial fill upon patient request if the prescription is for a schedule II opioid drug., 167.64, cm, 07/11/21 16:24... Start Date: 09/15/21 Status: Orderedomeprazole 20 mg oral delayed release tablet 1 tablet = 20 mg, By Mouth, Daily in AM, 30 minutes prior first meal of day, # 30 tablet, 1 Refills,Maintenance, 03/01/21 16:21:00 EDT, EC Tablet, [facility] #[id number], Partial fill upon patient request if the [...] Refills, Soft Stop, 06/17/21 14:54:00 EDT, Tablet, [facility] #[id number], Partial fill upon patient request if the prescr... Start Date: 06/17/21 Status: Ordered Problem List Condition Effective Dates Status Health Status Informant Adenoma of right adrenal Active gland(Confirmed)1 Anxiety(Confirmed) Active [place] cardiac risk <10% in next 04/13/21 Active 10 years 2.0%(Confirmed) Cervical disc disease C6-7 MRI Active 2020/C5-7 (two level) ACDF.(Confirmed) Fibromyalgia(Confirmed) Active Impingement syndrome, shoulder, 09/17/18 Active left(Confirmed) Insomnia(Confirmed) Active Lumbar disc disease(Confirmed)2, 3 Active Depression, major,(Confirmed) Active Migraine failed dukloxetine gabapentin 11/19/08 Active TCA(Confirmed)4 Lesion of nasal septum rt;refer Active dermatology(Confirmed) Vitamin D deficiency(Confirmed) Active 1normal renin/jeremiah/neg foostqegwgrckf7OJB noted followed by neurosurgery Dr. Woodall. no surgery advised at this tkul0eugspa spine sports; mri stdduen2wqrtvcd given,comprehensive Social History Social History Type Response Smoking Status Never smoker; Tobacco user i n household: No entered on: 12/08/14 Sex Female
--- OUTSIDE RECORDS SUMMARY | 2022-10-18 01:12 | XMS_ITS | Continuity of Care Document ---
:1975 Author Organization [facility] Adult Address [address] [place] [address]- Care Team Providers Name Role Phone Solo MENDEZ, Mack Boyd Primary Care Physician [facility] Date(s): 10/26/20 - 11/25/20 [facility] [address] [place] [address]- Allergies, Adverse Reactions, Alerts Substance Reaction Severity [...] Vaccine (oldterm) 10/01/03 Given 1Location History: [id number] Comment: [05/10/2016] RECIEVED AT [facility] [employer] [id number] Comment: [07/21/2015] at [id number] Comment: [12/08/2014] pt received at [id number] History: [facility] employer, magdalena solomon6Admin Note: [facility] cwmukduq1Zagkn Note: #2 Medications Acetaminophen = 1,000 mg, By Mouth, 2 times a day, PRN Pain, 0 Refills, Maintenance, 09/17/18 16:04:26 EST Start Date: 09/17/18 Status: Orderedcetirizine 10 mg oral tablet 1 tablet, By Mouth, Daily, # 90 tablet, 1 Refills, Maintenance, 10/16/20 11:32:00 EST, [facility] #[id number], 166, cm, 10/11/20 9:24:00 EST, Height Start Date: 10/16/20 Status: Orderedduloxetine 60 mg oral enteric coated capsule 1 capsule = 60 mg, By Mouth, 2 times a day, # 180 capsule, 1 Refills, Maintenance, 10/05/20 7:18:00 EST, EC Capsule, [facility], 166, cm, 09/30/20 15:22:00 EST, Height Start Date: 10/05/20 Status: Orderedferrous sulfate 325 mg oral enteric coated tablet 325 mg, 1, tablet, By Mouth, 3 times a day, may take with food to minimize abdominal discomfort takesip mihir wells, # 90 tablet, Refills 3, Tot. Refills 3, Maintenance, 10/11/20 17:24:00 EST, Route to Pharmacy Electronically, [facility]... Start Date: 10/11/20 Status: Orderedgabapentin 300 mg oral capsule 300 mg, 1, capsule, By Mouth, Daily, at bed, # 30 each, Refills 2, Tot. Refills 2, Maintenance, 10/05/20 7:19:00 EST, Route to Pharmacy Electronically, [facility], 166, cm, 09/30/20 15:22:00 EST, Height Start Date: 10/05/20 Status: Orderedibuprofen 600 mg oral tablet 600 mg, 1, tablet, By Mouth, 2 times a day, Refills 0, Maintenance, 12/05/19 11:08:00 EST Start Date: 12/05/19 Status: Orderedtopiramate 25 mg oral capsule 2 capsule, By Mouth, Daily at bedtime, # 60 capsule, 5 Refills, Maintenance, 09/05/20 15:41:00 EST, [facility] #[id number], 168, cm, 08/16/20 8:23:00 EST, Height Start Date: 09/05/20 Status: OrderedtraZODone 50 mg oral tablet 25 mg, 0.5, tablet, By Mouth, 2 times a day, # 90 tablet, Refills 1, Tot. Refills 1, Maintenance, 10/05/20 7:19:00 EST, Route to Pharmacy Electronically, [facility], 166, cm, 09/30/20 15:22:00 EST, Height Start Date: 10/05/20 Status: OrderedVitamin D3 5000 intl units oral capsule See Instructions, 1 capsule By Mouth twice per week, # 50 capsule, 0 Refills, Maintenance, 03/02/20 9:02:00 EDT, Capsule, [facility] #[id number], 168, cm, 12/05/19 10:30:00 EST, Height Start [...] Active Vitamin D deficiency(Confirmed) Active 1normal renin/jeremiah/neg [id number] noted followed by neurosurgery Dr. Woodall. no surgery advised at this [id number] spine sports; mri eufuvyd2vhxljop given,comprehensive Social History Social History Type Response Smoking Status Never smoker; Tobacco user i n household: No entered on: 12/08/14 Sex Female
--- OUTSIDE RECORDS SUMMARY | 2022-10-18 01:12 | XMS_ITS | Continuity of Care Document ---
:1975 Author Organization [facility] [place] Address [address] [place] [address]- Care Team Providers Name Role Phone Solo MENDEZ, Mack Boyd Primary Care Physician En[place] [facility] Date(s): 09/13/20 - 10/13/20 [facility] [place] [address] [place] [address]- Allergies, Adverse Reactions, Alerts Substance Reaction Severity [...] Vaccine (oldterm) 10/01/03 Given 1Location History: [id number] Comment: [05/10/2016] [facility] [id number] Comment: [07/21/2015] at [id number] Comment: [12/08/2014] pt received at [id number] History: [facility] employmagdalena cosme [id number] Note: [facility] Note: #2 Medications Acetaminophen = 1,000 mg, By Mouth, 2 times a day, PRN Pain, 0 Refills, Maintenance, 09/17/18 16:04:26 EST Start Date: 09/17/18 Status: Orderedcetirizine 10 mg oral tablet 1 tablet, By Mouth, Daily, # 90 tablet, 0 Refills, Maintenance, 08/09/20 8:05:00 EST, [id number], 168, cm, 06/08/20 11:03:00 EDT, Height Start Date: 08/09/20 Status: Orderedduloxetine 60 mg oral enteric coated capsule 1 capsule = 60 mg, By Mouth, 2 times a day, # 180 capsule, 1 Refills, Maintenance, 10/05/20 7:18:00 EST, EC Capsule, [facility], 166, cm, 09/30/20 15:22:00 EST, Height Start Date: 10/05/20 Status: Orderedferrous sulfate 325 mg oral enteric coated tablet 325 mg, 1, tablet, By Mouth, 3 times a day, may take with food to minimize abdominal discomfort takesip mihir jing priscilla, # 90 tablet, Refills 3, Tot. Refills 3, Maintenance, 10/11/20 17:24:00 EST, Route to Pharmacy Electronically, [facility] Start Date: 10/11/20 Status: Orderedgabapentin 300 mg oral capsule 300 mg, 1, capsule, By Mouth, Daily, at bed, # 30 each, Refills 2, Tot. Refills 2, Maintenance, 10/05/20 7:19:00 EST, Route to Pharmacy Electronically, [facility], 166, cm, 09/30/20 15:22:00 EST, Height Start Date: 10/05/20 Status: Orderedibuprofen 600 mg oral tablet 600 mg, 1, tablet, By Mouth, 2 times a day, Refills 0, Maintenance, 12/05/19 11:08:00 EST Start Date: 12/05/19 Status: Orderedtopiramate 25 mg oral capsule 2 capsule, By Mouth, Daily at bedtime, # 60 capsule, 5 Refills, Maintenance, 09/05/20 15:41:00 EST, [facility] #[id number], 168, cm, 08/16/20 8:23:00 EST, Height Start Date: 09/05/20 Status: OrderedtraZODone 50 mg oral tablet 25 mg, 0.5, tablet, By Mouth, 2 times a day, # 90 tablet, Refills 1, Tot. Refills 1, Maintenance, 10/05/20 7:19:00 EST, Route to Pharmacy Electronically, [facility], 166, cm, 09/30/20 15:22:00 EST, Height Start Date: 10/05/20 Status: OrderedVitamin D3 5000 intl units oral capsule See Instructions, 1 capsule By Mouth twice per week, # 50 capsule, 0 Refills, Maintenance, 03/02/20 9:02:00 EDT, Capsule, [facility] #[id number], 168, cm, 12/05/19 10:30:00 EST, Height Start [...] Active Vitamin D deficiency(Confirmed) Active 1normal renin/jeremiah/neg gmdsbthkxxhaqa1ZHV noted followed by neurosurgery Dr. Woodall. no surgery advised at this tyyu4xrwozb spine sports; mri dhcrqla9xevmfey given,comprehensive Social History Social History Type Response Smoking Status Never smoker; Tobacco user i n household: No entered on: 12/08/14 Sex Female
--- OUTSIDE RECORDS SUMMARY | 2022-10-18 01:12 | XMS_ITS | Continuity of Care Document ---
:1975 Author Organization [facility] Address [address] [place] [address]- Care Team Providers Name Role Phone Solo MENDEZ, Mack Boyd Primary Care Physician [facility]counter [facility] Date(s): 03/18/21 - 03/18/[address] [address] Discharge Disposition: A-D/C Home Attending Physician: Sebastian Allison MD Admitting Physician: Sebastian Allison MD Referring Physician: Sebastian Allison MD Allergies, Adverse Reactions, Alerts Substance Reaction [...] Vaccine (oldterm) 10/01/03 Given 1Location History: [facility] Oab9Xmzjil Comment: [05/10/2016] RECIEVED AT [facility] [id number] Comment: [07/21/2015] at [id number] Comment: [12/08/2014] pt received at [id number] History: [facility] employer, magdalena [id number] Note: [facility] ufnxywoc2Wzrji Note: #2 Medications Acetaminophen = 1,000 mg, By Mouth, 2 times a day, PRN Pain, 0 Refills, Maintenance, 09/17/18 16:04:26 EST Start Date: 09/17/18 Status: Orderedcetirizine 10 mg oral tablet 1 tablet, By Mouth, Daily, # 90 tablet, 1 Refills, Maintenance, 10/16/20 11:32:00 EST, [facility] #[id number], 166, cm, 10/11/20 9:24:00 EST, Height Start [...] each, 11 Refills, Maintenance, 01/31/21 7:27:00 EDT, [facility] #[id number], 166, cm, 12/31/20 8:54:00 EDT, Height Start Date: 01/31/21 Status: Orderedferrous sulfate 325 mg oral enteric coated tablet 325 mg, 1, tablet, By Mouth, 3 times a day, may take with food to minimize abdominal discomfort takesip mihir wells, # 90 tablet, Refills 3, Tot. Refills 3, Maintenance, 10/11/20 17:24:00 EST, Route to Pharmacy Electronically, [facility] Start Date: 10/11/20 Status: Orderedgabapentin 300 mg oral capsule 600 mg, 2, capsule, By Mouth, Daily at bedtime, at bed, # 60 each, Refills 2, Tot. Refills 2, Maintenance, 12/17/20 15:08:00 EDT, Route to Pharmacy Electronically, [facility] #[id number], 166, cm,12/17/20 14:53:00 EDT, Height Start Date: [...] 1 Refills,Maintenance, 03/01/21 16:21:00 EDT, EC Tablet, [facility] #[id number], Partial fill upon patient request if the [...] 0 Refills, Maintenance, 03/01/21 16:04:00 EDT, Tablet, [facility] #[id number], Partial fill upon patient request if the... [...] Active Vitamin D deficiency(Confirmed) Active 1normal renin/jeremiah/neg rxahdwfldhjydg1CIH noted followed by neurosurgery Dr. Woodall. no surgery advised at this eugj1bppebx spine sports; mri nielacr3tobnama given,comprehensive Vital Signs Most recent to oldest 1 2 3 [Reference Range]: Height 167.64 cm 167.64 cm (03/18/21 6:28 AM) (03/04/21 5:09 PM) Weight 80 kg 81.82 kg (03/18/21 6:28 AM) (03/04/21 5:09 PM) Oxygen Saturation [94-100 100 % 100 % 100 % %] (03/18/21 9:00 AM) (03/18/21 8:45 AM) (03/18/21 8:3 0 AM) Pulse Rate [55-90 bpm] 87 bpm (03/18/21 6:28 AM) Body Mass Index 28.47 29.11 [18.5-24.99] *H* *H* (03/18/21 6:28 AM) (03/04/21 5:09 PM) Blood Pressure 112/56 mm Hg 120/60 mm Hg 127/56 mm Hg [90-138/55-84 mm Hg] (03/18/21 9:00 AM) (03/18/21 8:45 AM) ( 1 8:30 AM) Respiratory Rate [16-30 13 br/min 13 br/min 13 br/mi n br/min] *L* *L* *L* (03/18/21 9:00 AM) (03/18/21 8:45 AM) (03/18/21 8:3 0 AM) Temperature [96.8-100.4 98 DegF 97 DegF 97.4 Deg F DegF] (03/18/21 9:00 AM) (03/18/21 8:15 AM) (03/18/21 6:2 8 AM) Liters per Minute 3 L/min 4 L/min 5 L/min (03/18/21 8:45 AM) (03/18/21 8:30 AM) (03/18/21 8:1 5 AM) Mode of Delivery (Oxygen) Room air Simple face mask Simpl e face mask (03/18/21 9:00 AM) (03/18/21 8:45 AM) (03/18/21 8:3 0 AM) Blood pressure sites Arm, left Arm, left Arm, left (03/18/21 9:00 AM) (03/18/21 8:45 AM) (03/18/21 8:3 0 AM) Temperature Route Temporal Temporal Temporal (03/18/21 9:00 AM) (03/18/21 8:15 AM) (03/18/21 6:2 8 AM) Dry Weight 80 kg 81.82 kg (03/18/21 6:28 AM) (03/04/21 5:09 PM) Weight Obtained Via Standing scale (03/18/21 6:28 AM) Dry Weight Obtained Via Standing scale Patient/family stated (03/18/21 6:28 AM) (03/04/21 5:09 PM) Social History Social History Type Response Smoking Status Never smoker; Tobacco user i n household: No entered on: 12/08/14 Sex Female
--- OUTSIDE RECORDS SUMMARY | 2022-10-18 01:12 | XMS_ITS | Continuity of Care Document ---
:1975 Author Organization [facility] Address [address] [place] [address]- Care Team Providers Name Role Phone Solo MENDEZ, Mack Boyd Primary Care Physician [facility] Date(s): 01/04/21 - 02/03/21 [facility] [address] [place] [address] Allergies, Adverse Reactions, Alerts Substance Reaction Severity Status mirtazapine Active citalopram Active Cats Active Dogs Active Immunizations Given and Recorded Vaccine Date Status Refusal Reason SARS-CoV-2 (COVID-19) mRNA-1273 vaccine 01/24/21 Recorded Influenza [...] Vaccine (oldterm) 10/01/03 Given 1Location History: [facility] AmosNdc1Yiowgl Comment: [05/10/2016] RECIEVED AT [employer] [id number] Comment: [07/21/2015] at zkop5Sfljis Comment: [12/08/2014] pt received at styh4Qerschkt History: [facility] employer, magdalena solomon6Admin Note: [facility] phagtcwk8Yvxsz Note: #2 Medications Acetaminophen = 1,000 mg, By Mouth, 2 times a day, PRN Pain, 0 Refills, Maintenance, 09/17/18 16:04:26 EST Start Date: 09/17/18 Status: Orderedcetirizine 10 mg oral tablet 1 tablet, By Mouth, Daily, # 90 tablet, 1 Refills, Maintenance, 10/16/20 11:32:00 EST, [facility] #[id number], 166, cm, 10/11/20 9:24:00 EST, Height Start Date: 10/16/20 Status: Orderedduloxetine 60 mg oral enteric coated capsule 1 capsule = 60 mg, By Mouth, 2 times a day, # 180 capsule, 1 Refills, Maintenance, 10/05/20 7:18:00 EST, EC Capsule, [facility], 166, cm, 09/30/20 15:22:00 EST, Height Start Date: 10/05/20 Status: OrderedEmgality Prefilled Pen 120 mg/mL subcutaneous solution = 120 mg, Subcutaneous Infusion, Every 28 days, # 1 each, 11 Refills, Maintenance, 01/31/21 7:27:00 EDT, [facility] #[id number], 166, cm, 12/31/20 8:54:00 EDT, Height Start Date: 01/31/21 Status: Orderedferrous sulfate 325 mg oral enteric coated tablet 325 mg, 1, tablet, By Mouth, 3 times a day, may take with food to minimize abdominal discomfort takesip mihir wells, # 90 tablet, Refills 3, Tot. Refills 3, Maintenance, 10/11/20 17:24:00 EST, Route to Pharmacy Electronically, [facility]... Start Date: 10/11/20 Status: Orderedgabapentin 300 mg oral capsule 600 mg, 2, capsule, By Mouth, Daily at bedtime, at bed, # 60 each, Refills 2, Tot. Refills 2, Maintenance, 12/17/20 15:08:00 EDT, Route to Pharmacy Electronically, [facility] #[id number], 166, cm,12/17/20 14:53:00 EDT, Height Start Date: [...] 0 Refills, Maintenance, 01/11/21 8:43:00 EDT, Tablet, [facility] #[id number],Partial fill upon patient request if the prescri... Start Date: 01/11/21 Status: OrderedtraZODone 50 mg oral tablet 25 mg, 0.5, tablet, By Mouth, 2 times a day, # 90 tablet, Refills 1, Tot. Refills 1, Maintenance, 10/05/20 7:19:00 EST, Route to Pharmacy Electronically, [facility], 166, cm, 09/30/20 15:22:00 EST, Height Start Date: 10/05/20 Status: OrderedVitamin D3 5000 intl units oral capsule See Instructions, 1 capsule By Mouth twice per week, # 50 capsule, 0 Refills, Maintenance, 03/02/20 9:02:00 EDT, Capsule, [facility] #[id number], 168, cm, 12/05/19 10:30:00 EST, Height Start [...] Active Vitamin D deficiency(Confirmed) Active 1normal renin/jeremiah/neg losibquoyfbdnu6SYB noted followed by neurosurgery Dr. Woodall. no surgery advised at this zudv7dpmgjb spine sports; mri eywmogh4inbnern given,comprehensive Social History Social History Type Response Smoking Status Never smoker; Tobacco user i n household: No entered on: 12/08/14 Sex Female
--- OUTSIDE RECORDS SUMMARY | 2022-10-18 01:12 | XMS_ITS | Continuity of Care Document ---
:1975 Author Organization [facility] Address [address] [place] [address]- Care Team Providers Name Role Phone Mack Banda MD Primary Care Physician Encounter [facility] Date(s): 07/11/21 - 07/18/21 [facility] [address] [place] [address]- Encounter Diagnosis Major depression in full remission (Discharge Diagnosis) - 07/11/21 Attending Physician: Mack Banda MD Allergies, Adverse [...] Vaccine (oldterm) 10/01/03 Given 1Location History: [facility] Qaj3Tenzev Comment: [05/10/2016] RECIEVED AT [facility] [id number] Comment: [07/21/2015] at qeyz3Xnesqz Comment: [12/08/2014] pt received at zkat0Eucxeobk History: [facility] employer, magdalena solomon6Admin Note: [facility] bmkjjpsq2Kigzr Note: #2 Medications Acetaminophen = 1,000 mg, By Mouth, 2 times a day, PRN Pain, 0 Refills, Maintenance, 09/17/18 16:04:26 EST Start Date: 09/17/18 Status: Orderedcetirizine 10 mg oral tablet 1 tablet, By Mouth, Daily, # 90 tablet, 1 Refills, Maintenance, 03/21/21 7:23:00 EDT, [id number], 167.64, cm, 03/18/21 6:28:00 EDT, Height, 80, [...] each, 11 Refills, Maintenance, 01/31/21 7:27:00 EDT, [facility] #[id number], 166, cm, 12/31/20 8:54:00 EDT, Height Start Date: 01/31/21 Status: Orderedgabapentin 300 mg oral capsule 2, capsule, By Mouth, Daily at bedtime, # 180 capsule, Refills 0, Tot. Refills 0, Maintenance, 04/25/21 15:03:00 EDT, Route to Pharmacy Electronically, [facility] #[id number], 167.64, cm, 07/21/217:36:00 EDT, Height, 80.2, kg, 04/19/21 6:20:00 E... Start Date: 04/25/21 Status: OrderedLORazepam 0.5 mg oral tablet 1 tablet = 0.5 mg, By Mouth, Daily at bedtime, # 30 tablet, 0 Refills, Maintenance, 07/14/21 12:03:00 EDT, [facility] #[id number], Partial fill upon patient request if the prescription is for a schedule II opioid drug., 167.64, cm, 07/11/21 16:24... Start Date: 07/14/21 Status: Orderedomeprazole 20 mg oral delayed release tablet 1 tablet = 20 mg, By Mouth, Daily in AM, 30 minutes prior first meal of day, # 30 tablet, 1 Refills,Maintenance, 03/01/21 16:21:00 EDT, EC Tablet, [facility] #[id number], Partial fill upon patient request if the [...] Refills, Soft Stop, 06/17/21 14:54:00 EDT, Tablet, [facility] #[id number], Partial fill upon patient request if the prescr... 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 Woodall. no surgery advised at this lppw6vjeutw spine sports; mri bpvflya3fgrwipw given,comprehensive Diagnosis Diagnosis Type Effective Dates Health Clinical Infor mant Status Service Major depression Discharge 07/11/21 in full remission Diagnosis Vital Signs Most recent to oldest [Reference Range]: 1 Height 167.64 cm (07/11/21 4:24 PM) Social History Social History Type Response Smoking Status Never smoker; Tobacco user i n household: No entered on: 12/08/14 Sex Female
--- OUTSIDE RECORDS SUMMARY | 2022-10-18 01:12 | XMS_ITS | Continuity of Care Document ---
:1975 Author Organization [facility] Address [address] [place] [address]- Care Team Providers Name Role Phone Mack Banda MD Primary Care Physician Encounter [facility] Date(s): 01/31/21 - 04/20/21 [facility] [address] [place] [id number] Attending Physician: Neisha Gmaa MD Admitting Physician: Neisha Gama MD Referring Physician: Mack Banda MD Allergies, [...] Vaccine (oldterm) 10/01/03 Given 1Location History: [facility] AmosNlp1Uwnfqf Comment: [05/10/2016] RECIEVED AT [facility] [id number] Comment: [07/21/2015] at irip3Nlosnh Comment: [12/08/2014] pt received at gtqc1Bhsxnmgi History: [facility] employer, magdalena solomon6Admin Note: [facility] jahzydlq4Hfxce Note: #2 Medications Acetaminophen = 1,000 mg, [...] tablet, 1 Refills, Maintenance, 03/21/21 7:23:00 EDT, [facility][id number], 167.64, cm, 03/18/21 6:28:00 EDT, Height, 80, kg, 03/18/21 6:28:00 EDT, Dry Weight Start Date: 03/21/21 Status: Orderedduloxetine 60 mg oral enteric coated capsule 1 capsule = 60 mg, By Mouth, 2 times a day, # 180 capsule, 1 Refills, Maintenance, 10/05/20 7:18:00 EST, EC Capsule, [facility], 166, cm, 09/30/20 15:22:00 EST, Height Start Date: 10/05/20 Status: OrderedEmgality Prefilled Pen 120 mg/mL subcutaneous solution = 120 mg, Subcutaneous Infusion, Every 28 days, # 1 each, 11 Refills, Maintenance, 01/31/21 7:27:00 EDT, [facility] #[id number], 166, cm, 12/31/20 8:54:00 EDT, Height Start Date: 01/31/21 Status: Orderedgabapentin 300 mg oral capsule 600 mg, 2, capsule, By Mouth, Daily at bedtime, at bed, # 60 each, Refills 2, Tot. Refills 2, Maintenance, 12/17/20 15:08:00 EDT, Route to Pharmacy Electronically, [facility] #[id number], 166, cm,12/17/20 14:53:00 EDT, Height Start Date: 12/17/20 Status: Orderedomeprazole 20 mg oral delayed release tablet 1 tablet = 20 mg, By Mouth, Daily in AM, 30 minutes prior first meal of day, # 30 tablet, 1 Refills,Maintenance, 03/01/21 16:21:00 EDT, EC Tablet, [facility] #[id number], Partial fill upon patient request if the [...] of right adrenal Active gland(Confirmed)1 Anxiety(Confirmed) Active [place] cardiac risk <10% in next 04/13/21 Active 10 years 2.0%(Confirmed) Cervical disc disease C6-7 MRI Active 2020(Confirmed) Fibromyalgia(Confirmed) Active Impingement syndrome, shoulder, 09/17/18 Active left(Confirmed) Insomnia(Confirmed) Active Lumbar disc disease(Confirmed)2, 3 Active Depression, major,(Confirmed) Active Migraine failed dukloxetine gabapentin 11/19/08 Active TCA(Confirmed)4 Lesion of nasal septum rt;refer Active dermatology(Confirmed) Vitamin D deficiency(Confirmed) Active 1normal renin/jeremiah/neg lwoftejkjqxtiy8UYI noted followed by neurosurgery Dr. Woodall. no surgery advised at this pgjw1yavsyx spine sports; mri uohqfjg6vpvinlz given,comprehensive Social History Social History Type Response Smoking Status Never smoker; Tobacco user i n household: No entered on: 12/08/14 Sex Female
--- OUTSIDE RECORDS SUMMARY | 2022-10-18 01:12 | XMS_ITS | Continuity of Care Document ---
:1975 Author Organization [facility] Address [address] [place] [address]- Care Team Providers Name Role Phone Solo MENDEZ, Mack Boyd Primary Care Physician Encounter [facility] [place] Date(s): 05/13/20 - 06/12/20 [facility] [address] [place] [address]- [facility] Allergies, Adverse Reactions, Alerts Substance Reaction [...] Vaccine (oldterm) 10/01/03 Given 1Location History: [facility]5Hioaci Comment: [05/10/2016] RECIEVED AT [employer] [id number] Comment: [07/21/2015] at [id number] Comment: [12/08/2014] pt received at [id number] History: [facility] employer, magdalena solomon6Admin Note: [facility] jxsawnkr7Pyiwl Note: #2 Medications Acetaminophen = 1,000 mg, By Mouth, 2 times a day, PRN Pain, 0 Refills, Maintenance, 09/17/18 16:04:26 EST Start Date: 09/17/18 Status: Orderedcetirizine 10 mg oral tablet 1 tablet = 10 mg, By Mouth, Daily, # 90 tablet, 1 Refills, Maintenance, 10/08/19 14:04:00 EST, Tablet, [facility] [address], 168, cm, 07/09/19 14:49:00 EDT, Height Start Date: 10/08/19 Status: Orderedduloxetine 60 mg oral enteric coated capsule 1 capsule = 60 mg, By Mouth, 2 times a day, # 180 capsule, 1 Refills, Maintenance, 04/13/20 11:50:00EDT, EC Capsule, [facility] #[id number], 168, cm, 03/19/20 9:21:00 EDT, Height Start Date: 04/13/20 Status: Orderedgabapentin 300 mg oral capsule 300 mg, 1, capsule, By Mouth, Daily, at bed, # 30 each, Refills 2, Tot. Refills 2, Maintenance, 04/13/20 13:38:00 EDT, Route to Pharmacy Electronically, [facility] #[id number], 168, cm, 03/19/20 9:21:00 EDT, Height Start [...] 1 Refills, Maintenance, 05/13/20 13:31:00 EDT, Capsule, [facility] #[id number], 168, cm, 05/13/20 13:13:00 EDT, Height Start Date: 05/13/20 Status: OrderedtraZODone 50 mg oral tablet 25 mg, 0.5, tablet, By Mouth, 2 times a day, # 90 tablet, Refills 1, Tot. Refills 1, Maintenance, 04/10/20 11:00:00 EDT, Route to Pharmacy Electronically, [facility] #[id number], 168, cm, 12/04/2009:30:00 EST, Height Start Date: 04/10/20 Status: OrderedUbrelvy 50 mg oral tablet 1 tablet = 50 mg, By Mouth, Once, PRN as needed for migraine headache, may repeat dose in 2 hours ifneeded, # 10 tablet, 2 Refills, Soft Stop, 05/13/20 15:21:00 EDT, Tablet, [facility] #[id number], 168, cm, 05/13/20 13:13:00 EDT, Height Start Date: 05/13/20 Status: OrderedVitamin D3 5000 intl units oral capsule See Instructions, 1 capsule By Mouth twice per week, # 50 capsule, 0 Refills, Maintenance, 03/02/20 9:02:00 EDT, Capsule, [facility] #[id number], 168, cm, 12/05/19 10:30:00 EST, Height Start [...] Active Vitamin D deficiency(Confirmed) Active 1normal renin/jeremiah/neg hkzhqhsyqnvvrk8DLE noted followed by neurosurgery Dr. Woodall. no surgery advised at this [id number] spine sports; mri urputtn7mgzyrvn given,comprehensive Social History Social History Type Response Smoking Status Never smoker; Tobacco user i n household: No entered on: 12/08/14 Sex Female
--- OUTSIDE RECORDS SUMMARY | 2022-10-18 01:12 | XMS_ITS | Continuity of Care Document ---
:1975 Author Organization [facility] [place] Address [address] [place] [address]- Care Team Providers Name Role Phone Solo MENDEZ, Mack Boyd Primary Care Physician Encounter [facility] Date(s): 10/11/20 - 11/10/20 [facility] [place] [address] [place] [address]- Attending Physician: Admtr, Ar8 Allergies, Adverse Reactions, [...] Vaccine (oldterm) 10/01/03 Given 1Location History: [facility] [id number] Comment: [05/10/2016] RECIEVED AT [employer] [id number] Comment: [07/21/2015] at [id number] Comment: [12/08/2014] pt received at [id number] History: [facility] employer, magdalena solomon6Admin Note: [facility] lusubiwu2Uchxk Note: #2 Medications Acetaminophen = 1,000 mg, By Mouth, 2 times a day, PRN Pain, 0 Refills, Maintenance, 09/17/18 16:04:26 EST Start Date: 09/17/18 Status: Orderedcetirizine 10 mg oral tablet 1 tablet, By Mouth, Daily, # 90 tablet, 1 Refills, Maintenance, 10/16/20 11:32:00 EST, [facility] #[id number], 166, cm, 10/11/20 9:24:00 EST, Height Start Date: 10/16/20 Status: Orderedduloxetine 60 mg oral enteric coated capsule 1 capsule = 60 mg, By Mouth, 2 times a day, # 180 capsule, 1 Refills, Maintenance, 10/05/20 7:18:00 EST, EC Capsule, [facility], 166, cm, 09/30/20 15:22:00 EST, Height Start Date: 10/05/20 Status: Orderedferrous sulfate 325 mg oral enteric coated tablet 325 mg, 1, tablet, By Mouth, 3 times a day, may take with food to minimize abdominal discomfort takesip mihir wells, # 90 tablet, Refills 3, Tot. Refills 3, Maintenance, 10/11/20 17:24:00 EST, Route to Pharmacy Electronically, [facility]... Start Date: 10/11/20 Status: Orderedgabapentin 300 mg oral capsule 300 mg, 1, capsule, By Mouth, Daily, at bed, # 30 each, Refills 2, Tot. Refills 2, Maintenance, 10/05/20 7:19:00 EST, Route to Pharmacy Electronically, [facility], 166, cm, 09/30/20 15:22:00 EST, Height Start Date: 10/05/20 Status: Orderedibuprofen 600 mg oral tablet 600 mg, 1, tablet, By Mouth, 2 times a day, Refills 0, Maintenance, 12/05/19 11:08:00 EST Start Date: 12/05/19 Status: Orderedtopiramate 25 mg oral capsule 2 capsule, By Mouth, Daily at bedtime, # 60 capsule, 5 Refills, Maintenance, 09/05/20 15:41:00 EST, [facility] #[id number], 168, cm, 08/16/20 8:23:00 EST, Height Start Date: 09/05/20 Status: OrderedtraZODone 50 mg oral tablet 25 mg, 0.5, tablet, By Mouth, 2 times a day, # 90 tablet, Refills 1, Tot. Refills 1, Maintenance, 10/05/20 7:19:00 EST, Route to Pharmacy Electronically, [facility], 166, cm, 09/30/20 15:22:00 EST, Height Start Date: 10/05/20 Status: OrderedVitamin D3 5000 intl units oral capsule See Instructions, 1 capsule By Mouth twice per week, # 50 capsule, 0 Refills, Maintenance, 03/02/20 9:02:00 EDT, Capsule, [facility] #[id number], 168, cm, 12/05/19 10:30:00 EST, Height Start [...] Active Vitamin D deficiency(Confirmed) Active 1normal renin/jeremiah/neg [id number] noted followed by neurosurgery Dr. Woodall. no surgery advised at this icic7pjhgpu spine sports; mri iimpaov7aoqqbxu given,comprehensive Social History Social History Type Response Smoking Status Never smoker; Tobacco user i n household: No entered on: 12/08/14 Sex Female
--- OUTSIDE RECORDS SUMMARY | 2022-10-18 01:12 | XMS_ITS | Continuity of Care Document ---
:1975 Author Organization [facility] Address [address] [place] [address], [address] [address]- Care Team Providers Name Role Phone Mack Banda MD Primary Care Physician Encounter 02/11/20 - 05/12/20 [facility] [address], [address] [address]- [facility] Attending Physician: Mack Banda MD Admitting Physician: Mack Banda MD Referring Physician: Mack Banda MD Allergies, [...] Vaccine (oldterm) 10/01/03 Given 1Location History: [facility] Hax7Teodhh Comment: [05/10/2016] RECIEVED AT [facility] [id number] Comment: [07/21/2015] at [id number] Comment: [12/08/2014] pt received at [id number] History: [facility] employer, magdalena solomon6Admin Note: [facility] sazwelvb9Unfxe Note: #2 Medications Acetaminophen = 1,000 mg, By Mouth, 2 times a day, PRN Pain, 0 Refills, Maintenance, 09/17/18 16:04:26 EST Start Date: 09/17/18 Status: Orderedcetirizine 10 mg oral tablet 1 tablet = 10 mg, By Mouth, Daily, # 90 tablet, 1 Refills, Maintenance, 10/08/19 14:04:00 EST, Tablet, [facility] - [address], 168, cm, 07/09/19 14:49:00 EDT, Height Start Date: 10/08/19 Status: Orderedduloxetine 60 mg oral enteric coated capsule 1 capsule = 60 mg, By Mouth, 2 times a day, # 180 capsule, 1 Refills, Maintenance, 04/13/20 11:50:00EDT, EC Capsule, [facility] #[id number], 168, cm, 03/19/20 9:21:00 EDT, Height Start Date: 04/13/20 Status: Orderedgabapentin 300 mg oral capsule 600 mg, 2, capsule, By Mouth, Daily at bedtime, # 180 capsule, Refills 2, Tot. Refills 2, Maintenance, 04/13/20 13:38:00 EDT, Route to Pharmacy Electronically, [facility] #[id number], 168, cm, 03/19/20 9:21:00 EDT, Height Start Date: 04/13/20 Status: OrderedIbuprofen 200 mg, By Mouth, Every [...] 04/10/20 11:00:00 EDT, Route to Pharmacy Electronically, [facility] #[id number], 168, cm, 12/04/2009:30:00 EST, Height Start Date: 04/10/20 Status: OrderedValium 5 mg oral tablet See Instructions, 1 tab PO @ HS the night before Procedure and 1 tab 1 hr. prior to procedure, # 2 tablet, Refills 0, Tot. Refills 0, Maintenance, 12/04/19 16:29:00 EST, Instructions Replace Required Details, Route to Pharmacy Electronically, [facility]... Start Date: 12/04/19 Status: OrderedVitamin D3 5000 intl units oral capsule See Instructions, 1 capsule By Mouth twice per week, # 50 capsule, 0 Refills, Maintenance, 03/02/20 9:02:00 EDT, Capsule, [facility] #[id number], 168, cm, 12/05/19 10:30:00 EST, Height Start [...] Active Vitamin D deficiency(Confirmed) Active 1normal renin/jeremiah/neg qoforvrktruvwl2HSO noted followed by neurosurgery Dr. Woodall. no surgery advised at this bpbm4dlolxf spine sports; mri bwiyjcn1aevtiva given,comprehensive Social History Social History Type Response Smoking Status Never smoker; Tobacco user i n household: No entered on: 12/08/14 Sex Female
--- OUTSIDE RECORDS SUMMARY | 2022-10-18 01:12 | XMS_ITS | Continuity of Care Document ---
:1975 Author Organization [address], [address] [place] [address]- Care Team Providers Name Role Phone Solo MENDEZ, Mack Boyd Primary Care Physician Encounter [facility] Date(s): 01/31/21 - 03/02/[address], [address] [place] [address]- Allergies, Adverse Reactions, Alerts Substance Reaction Severity [...] Vaccine (oldterm) 10/01/03 Given 1Location History: [facility] AmosAdb5Hyesst Comment: [05/10/2016] [facility]ED AT [facility] [id number] Comment: [07/21/2015] at [id number] Comment: [12/08/2014] pt received at [id number] History: [facility] employer, magdalena solomon6Admin Note: [facility] ikcxlboe1Stspl Note: #2 Medications Acetaminophen = 1,000 mg, By Mouth, 2 times a day, PRN Pain, 0 Refills, Maintenance, 09/17/18 16:04:26 EST Start Date: 09/17/18 Status: Orderedcetirizine 10 mg oral tablet 1 tablet, By Mouth, Daily, # 90 tablet, 1 Refills, Maintenance, 10/16/20 11:32:00 EST, [facility] #[id number], 166, cm, 10/11/20 9:24:00 EST, Height Start Date: 10/16/20 Status: Orderedduloxetine 60 mg oral enteric coated capsule 1 capsule = 60 mg, By Mouth, 2 times a day, # 180 capsule, 1 Refills, Maintenance, 10/05/20 7:18:00 EST, EC Capsule, [facility], 166, cm, 09/30/20 15:22:00 EST, Height Start Date: 10/05/20 Status: OrderedEmgality Prefilled Pen 120 mg/mL subcutaneous solution = 120 mg, Subcutaneous Infusion, Every 28 days, # 1 each, 11 Refills, Maintenance, 01/31/21 7:27:00 EDT, [facility] #[id number], 166, cm, 12/31/20 8:54:00 EDT, Height Start Date: 01/31/21 Status: Orderedferrous sulfate 325 mg oral enteric coated tablet 325 mg, 1, tablet, By Mouth, 3 times a day, may take with food to minimize abdominal discomfort karstenip mihir wells, # 90 tablet, Refills 3, Tot. Refills 3, Maintenance, 10/11/20 17:24:00 EST, Route to Pharmacy Electronically, [facility] Start Date: 10/11/20 Status: Orderedgabapentin 300 mg oral capsule 600 mg, 2, capsule, By Mouth, Daily at bedtime, at bed, # 60 each, Refills 2, Tot. Refills 2, Maintenance, 12/17/20 15:08:00 EDT, Route to Pharmacy Electronically, [facility] #[id number], 166, cm,12/17/20 14:53:00 EDT, Height Start Date: [...] 1 Refills,Maintenance, 03/01/21 16:21:00 EDT, EC Tablet, [facility] #[id number], Partial fill upon patient request if the prescription is for a schedule II... Start Date: 03/01/21 Status: OrderedtraZODone 50 mg oral tablet 25 mg, 0.5, tablet, By Mouth, 2 times a day, # 90 tablet, Refills 1, Tot. Refills 1, Maintenance, 10/05/20 7:19:00 EST, Route to Pharmacy Electronically, [facility], 166, cm, 09/30/20 15:22:00 EST, Height Start Date: 10/05/20 Status: OrderedVitamin C By Mouth, Daily, 0 Refills, Maintenance, 03/01/21 15:42:00 EDT, Partial fill upon patient request ifthe prescription is for a schedule II opioid drug. Start Date: 03/01/21 Status: OrderedVitamin D3 5000 intl units oral capsule See Instructions, 1 capsule By Mouth twice per week, # 50 capsule, 0 Refills, Maintenance, 03/02/20 9:02:00 EDT, Capsule, [facility] #[id number], 168, cm, 12/05/19 10:30:00 EST, Height Start Date: 03/02/20 Status: OrderedZOLMitriptan 2.5 mg oral tablet 1 tablet = 2.5 mg, By Mouth, Daily, PRN for migraine headache, may repeat dose after 2 hours up to amaximum of 1, # 6 tablet, 0 Refills, Maintenance, 03/01/21 16:04:00 EDT, Tablet, [facility] #[id number], Partial fill upon patient request if the... [...] Active Vitamin D deficiency(Confirmed) Active 1normal renin/jeremiah/neg evegnwemhfafdl8USQ noted followed by neurosurgery Dr. Woodall. no surgery advised at this tczz3phsdha spine sports; mri bpbzoff2vijwrsa given,comprehensive Social History Social History Type Response Smoking Status Never smoker; Tobacco user i n household: No entered on: 12/08/14 Sex Female
--- OUTSIDE RECORDS SUMMARY | 2022-10-18 01:12 | XMS_ITS | Continuity of Care Document ---
:1975 Author Organization [facility] Address [address] [place] [address]- Care Team Providers Name Role Phone Solo MENDEZ, Mack Boyd Primary Care Physician Encounter [facility] [place] [place] Date(s): 05/26/20 - 06/25/20 [facility] [address] [place] [address]- [facility] Allergies, Adverse Reactions, Alerts Substance Reaction Severity [...] Vaccine (oldterm) 10/01/03 Given 1Location History: [facility]ih4Sqxndh Comment: [05/10/2016] RECIEVED AT [employer] [id number] Comment: [07/21/2015] at [id number] Comment: [12/08/2014] pt received at roxq7Bnkcqurw History: [facility] employer, magdalena solomon6Admin Note: [facility] [id number] Note: #2 Medications Acetaminophen = 1,000 mg, By Mouth, 2 times a day, PRN Pain, 0 Refills, Maintenance, 09/17/18 16:04:26 EST Start Date: 09/17/18 Status: Orderedcetirizine 10 mg oral tablet 1 tablet = 10 mg, By Mouth, Daily, # 90 tablet, 1 Refills, Maintenance, 10/08/19 14:04:00 EST, Tablet, [facility] [address], 168, cm, 07/09/19 14:49:00 EDT, Height Start Date: 10/08/19 Status: Orderedduloxetine 60 mg oral enteric coated capsule 1 capsule = 60 mg, By Mouth, 2 times a day, # 180 capsule, 1 Refills, Maintenance, 04/13/20 11:50:00EDT, EC Capsule, [facility] #[id number], 168, cm, 03/19/20 9:21:00 EDT, Height Start Date: 04/13/20 Status: Orderedgabapentin 300 mg oral capsule 300 mg, 1, capsule, By Mouth, Daily, at bed, # 30 each, Refills 2, Tot. Refills 2, Maintenance, 04/13/20 13:38:00 EDT, Route to Pharmacy Electronically, [facility] #[id number], 168, cm, 03/19/20 9:21:00 EDT, Height Start [...] 1 Refills, Maintenance, 05/13/20 13:31:00 EDT, Capsule, [facility] #[id number], 168, cm, 05/13/20 13:13:00 EDT, Height Start Date: 05/13/20 Status: OrderedtraZODone 50 mg oral tablet 25 mg, 0.5, tablet, By Mouth, 2 times a day, # 90 tablet, Refills 1, Tot. Refills 1, Maintenance, 06/14/20 7:53:00 EDT, Route to Pharmacy Electronically, [facility] #[id number], 168, cm, 06/08/20 11:03:00 EDT, Height Start Date: 06/14/20 Status: OrderedUbrelvy 50 mg oral tablet 1 tablet = 50 mg, By Mouth, Once, PRN as needed for migraine headache, may repeat dose in 2 hours ifneeded, # 10 tablet, 2 Refills, Soft Stop, 05/13/20 15:21:00 EDT, Tablet, [facility] #55601, 168, cm, 05/13/20 13:13:00 EDT, Height Start Date: 05/13/20 Status: OrderedVitamin D3 5000 intl units oral capsule See Instructions, 1 capsule By Mouth twice per week, # 50 capsule, 0 Refills, Maintenance, 03/02/20 9:02:00 EDT, Capsule, [facility] #[id number], 168, cm, 12/05/19 10:30:00 EST, Height Start [...] Active Vitamin D deficiency(Confirmed) Active 1normal renin/jeremiah/neg yekphlmptaycdl7KDU noted followed by neurosurgery Dr. Woodall. no surgery advised at this trrm7fayfne spine sports; mri nkthiyy9htkugkd given,comprehensive Social History Social History Type Response Smoking Status Never smoker; Tobacco user i n household: No entered on: 12/08/14 Sex Female
--- OUTSIDE RECORDS SUMMARY | 2022-10-18 01:13 | XMS_ITS | Continuity of Care Document ---
:1975 Author Organization [facility] Address [address] [place] [address]- Care Team Providers Name Role Phone Mack Banda MD Primary Care Physician Encounter [facility] Date(s): 12/05/19 - 12/12/19 [facility] [address] [place] [address]- [facility] Encounter Diagnosis Annual physical exam (Discharge Diagnosis) - 12/05/19 Depression, major, in remission (Discharge Diagnosis) - 12/05/19 Anxiety (Discharge Diagnosis) - 12/05/19 Vitamin D deficiency (Discharge Diagnosis) - 12/05/19 Insomnia (Discharge Diagnosis) - 12/05/19 Overweight (Discharge Diagnosis) - 12/06/19 Acute bronchospasm (Discharge Diagnosis) - 12/06/19 Fibromyalgia (Discharge Diagnosis) - 12/05/19 Attending Physician: Yamilet Frank NP Referring Physician: [...] Vaccine (oldterm) 10/01/03 Given 1Location History: [facility] AmosIjx8Vgckol Comment: [05/10/2016] RECIEVED AT [facility] [id number] Comment: [07/21/2015] at [id number] Comment: [12/08/2014] pt received at qwnl5Hsekfnie History: [facility] [place] employer, magdalena [id number] Note: [facility] mpqycqca8Zutcw Note: #2 Medications Acetaminophen = 1,000 mg, By Mouth, 2 times a day, PRN Pain, 0 Refills, Maintenance, 09/17/18 16:04:26 EST Start Date: 09/17/18 Status: Orderedcetirizine 10 mg oral tablet 1 tablet = 10 mg, By Mouth, Daily, # 90 tablet, 1 Refills, Maintenance, 10/08/19 14:04:00 EST, Tablet, [facility] - [address] [place] [address] ST, 168, cm, 07/09/19 14:49:00 EDT, Height Start Date: 10/08/19 Status: Orderedduloxetine 60 mg oral enteric coated capsule 1 capsule = 60 mg, By Mouth, 2 times a day, # 180 capsule, 1 Refills, Maintenance, 12/05/19 11:05:00EST, EC Capsule, [facility] #[id number], 168, cm, 12/05/19 10:30:00 EST, Height Start Date: 12/05/19 Status: Orderedgabapentin 300 mg oral capsule 600 mg, 2, capsule, By Mouth, Daily at bedtime, # 180 capsule, Refills 1, Tot. Refills 1, Maintenance, 12/05/19 11:05:00 EST, Route to Pharmacy Electronically, [facility] #[id number], 168, cm, 12/05/19 10:30:00 EST, Height Start [...] 04/10/20 11:00:00 EDT, Route to Pharmacy Electronically, [facility] #[id number], 168, cm, 12/04/2009:30:00 EST, Height Start Date: 04/10/20 Status: OrderedValium 5 mg oral tablet See Instructions, 1 tab PO @ HS the night before Procedure and 1 tab 1 hr. prior to procedure, # 2 tablet, Refills 0, Tot. Refills 0, Maintenance, 12/04/19 16:29:00 EST, Instructions Replace Required Details, Route to Pharmacy Electronically, [facility] Start Date: 12/04/19 Status: OrderedVitamin D3 5000 [...] Active Vitamin D deficiency(Confirmed) Active 1normal renin/jeremiah/neg mrgbrvxmbfwbxj0BPW noted followed by neurosurgery Dr. Woodall. no surgery advised at this beue7lfsrdt spine sports; mri cplbzyy8srcthhh given,comprehensive Diagnosis Diagnosis Type Effective Dates Health Clinical Infor mant Status Service Annual physical Discharge 12/05/19 exam Diagnosis Depression, major, Discharge 12/05/19 in remission Diagnosis Vitamin D Discharge 12/05/19 deficiency Diagnosis Fibromyalgia Discharge 12/05/19 Diagnosis Insomnia Discharge 12/05/19 Diagnosis Anxiety Discharge 12/05/19 Diagnosis Acute bronchospasm Discharge 12/06/19 Diagnosis Overweight Discharge 12/06/19 Diagnosis Vital Signs Most recent to oldest [Reference Range]: 1 Height 168 cm (12/05/19 10:30 AM) Weight 78.0 kg (12/05/19 10:30 AM) Oxygen Saturation [94-100 %] 98 % (12/05/19 10:30 AM) Pulse Rate [55-90 bpm] 88 bpm (12/05/19 10:30 AM) Body Mass Index [18.5-24.99] 27.64 *H* (12/05/19 10:30 AM) Blood Pressure [90-138/55-84 mm Hg] 110/78 mm Hg (12/05/19 10:30 AM) Respiratory Rate [16-30 br/min] 18 br/min (12/05/19 10:30 AM) Temperature [96.8-100.4 DegF] 98.7 DegF (12/05/19 10:30 AM) Mode of Delivery (Oxygen) Room air (12/05/19 10:30 AM) Blood pressure sites Arm, right (12/05/19 10:30 AM) Temperature Route Oral (12/05/19 10:30 AM) Weight Obtained Via Standing scale (12/05/19 10:30 AM) Social History Social History Type Response Smoking Status Never smoker; Tobacco user i n household: No entered on: 12/08/14 Sex Female
--- OUTSIDE RECORDS SUMMARY | 2022-10-18 01:13 | XMS_ITS | Continuity of Care Document ---
:1975 Author Organization [address], [address] [place] [address]- Care Team Providers Name Role Phone Solo MENDEZ, Mack Boyd Primary Care Physician Encounter [facility] Date(s): 02/23/21 - 03/25/[address], [address] [place] [address]- Allergies, Adverse Reactions, Alerts Substance Reaction Severity [...] Vaccine (oldterm) 10/01/03 Given 1Location History: [facility] AmosZls4Nmxngs Comment: [05/10/2016] RECIEVED AT [facility] [id number] Comment: [07/21/2015] at [id number] Comment: [12/08/2014] pt received at mqlt1Kcsoobva History: [facility] employer, magdalena solomon6Admin Note: [facility] cqmsqcqq9Langt Note: #2 Medications Acetaminophen = 1,000 mg, By Mouth, 2 times a day, PRN Pain, 0 Refills, Maintenance, 09/17/18 16:04:26 EST Start Date: 09/17/18 Status: Orderedcetirizine 10 mg oral tablet 1 tablet, By Mouth, Daily, # 90 tablet, 1 Refills, Maintenance, 03/21/21 7:23:00 EDT, [facility] #[id number], 167.64, cm, 03/18/21 6:28:00 EDT, Height, 80, kg, 03/18/21 6:28:00 EDT, Dry Weight Start Date: 03/21/21 Status: Orderedduloxetine 60 mg oral enteric coated capsule 1 capsule = 60 mg, By Mouth, 2 times a day, # 180 capsule, 1 Refills, Maintenance, 10/05/20 7:18:00 EST, EC Capsule, [facility], 166, cm, 09/30/20 15:22:00 EST, Height Start Date: 10/05/20 Status: OrderedEmgality Prefilled Pen 120 mg/mL subcutaneous solution = 120 mg, Subcutaneous Infusion, Every 28 days, # 1 each, 11 Refills, Maintenance, 01/31/21 7:27:00 EDT, [facility] #[id number], 166, cm, 12/31/20 8:54:00 EDT, Height Start Date: 01/31/21 Status: Orderedferrous sulfate 325 mg oral enteric coated tablet 325 mg, 1, tablet, By Mouth, 3 times a day, may take with food to minimize abdominal discomfort takesip mihir wells, # 90 tablet, Refills 3, Tot. Refills 3, Maintenance, 10/11/20 17:24:00 EST, Route to Pharmacy Electronically, [facility]... Start Date: 10/11/20 Status: Orderedgabapentin 300 mg oral capsule 600 mg, 2, capsule, By Mouth, Daily at bedtime, at bed, # 60 each, Refills 2, Tot. Refills 2, Maintenance, 12/17/20 15:08:00 EDT, Route to Pharmacy Electronically, [facility] #[id number], 166, cm,12/17/20 14:53:00 EDT, Height Start Date: [...] 1 Refills,Maintenance, 03/01/21 16:21:00 EDT, EC Tablet, [facility] #[id number], Partial fill upon patient request if the prescription is for a schedule II... Start Date: 03/01/21 Status: OrderedtraZODone 50 mg oral tablet 25 mg, 0.5, tablet, By Mouth, 2 times a day, # 90 tablet, Refills 1, Tot. Refills 1, Maintenance, 10/05/20 7:19:00 EST, Route to Pharmacy Electronically, [facility], 166, cm, 09/30/20 15:22:00 EST, Height [...] 0 Refills, Maintenance, 03/01/21 16:04:00 EDT, Tablet, [facility] #[id number], Partial fill upon patient request if the... [...] Active Vitamin D deficiency(Confirmed) Active 1normal renin/jeremiah/neg [id number] noted followed by neurosurgery Dr. Woodall. no surgery advised at this [id number] spine sports; mri dszbgln4wbufzuw given,comprehensive Social History Social History Type Response Smoking Status Never smoker; Tobacco user i n household: No entered on: 12/08/14 Sex Female
--- OUTSIDE RECORDS SUMMARY | 2022-10-18 01:13 | XMS_ITS | Continuity of Care Document ---
:1975 Author Organization [facility] Address [address] [place] [address]- Care Team Providers Name Role Phone Solo MENDEZ, Mack Boyd Primary Care Physician Encounter [facility] R [id number] Date(s): 03/19/20 - 04/18/20 [facility] [address] [place] [address] [facility] Attending Physician: Srikanth Romero Admitting Physician: Srikanth Romero Referring Physician: AdmSrikanth jernigan Allergies, Adverse Reactions, Alerts Substance Reaction Severity [...] Vaccine (oldterm) 10/01/03 Given 1Location History: [facility] [id number] Comment: [05/10/2016] RECI[facility]ED AT [facility] [id number] Comment: [07/21/2015] at zzyj5Aohidm Comment: [12/08/2014] pt received at [id number] History: [facility] employer, magdalena solomon6Admin Note: [facility] otvelwyz6Gzooe Note: #2 Medications Acetaminophen = 1,000 mg, By Mouth, 2 times a day, PRN Pain, 0 Refills, Maintenance, 09/17/18 16:04:26 EST Start Date: 09/17/18 Status: Orderedcetirizine 10 mg oral tablet 1 tablet = 10 mg, By Mouth, Daily, # 90 tablet, 1 Refills, Maintenance, 10/08/19 14:04:00 EST, Tablet, [facility] [address] [facility], 168, cm, 07/09/19 14:49:00 EDT, Height Start Date: 10/08/19 Status: Orderedduloxetine 60 mg oral enteric coated capsule 1 capsule = 60 mg, By Mouth, 2 times a day, # 180 capsule, 1 Refills, Maintenance, 04/13/20 11:50:00EDT, EC Capsule, [facility] #[id number], 168, cm, 03/19/20 9:21:00 EDT, Height Start Date: 04/13/20 Status: Orderedgabapentin 300 mg oral capsule 600 mg, 2, capsule, By Mouth, Daily at bedtime, # 180 capsule, Refills 2, Tot. Refills 2, Maintenance, 04/13/20 13:38:00 EDT, Route to Pharmacy Electronically, [facility] #[id number], 168, cm, 03/19/20 9:21:00 EDT, Height Start [...] 04/10/20 11:00:00 EDT, Route to Pharmacy Electronically, [facility] #[id number], 168, cm, 12/04/2009:30:00 EST, Height Start Date: 04/10/20 Status: OrderedValium 5 mg oral tablet See Instructions, 1 tab PO @ HS the night before Procedure and 1 tab 1 hr. prior to procedure, # 2 tablet, Refills 0, Tot. Refills 0, Maintenance, 12/04/19 16:29:00 EST, Instructions Replace Required Details, Route to Pharmacy Electronically, [facility] Start Date: 12/04/19 Status: OrderedVitamin D3 5000 intl units oral capsule See Instructions, 1 capsule By Mouth twice per week, # 50 capsule, 0 Refills, Maintenance, 03/02/20 9:02:00 EDT, Capsule, [facility] #[id number], 168, cm, 12/05/19 10:30:00 EST, Height Start [...] Active Vitamin D deficiency(Confirmed) Active 1normal renin/jeremiah/neg ftgqqewghildte1POK noted followed by neurosurgery Dr. Woodall. no surgery advised at this [id number] spine sports; mri gdiagep3rhqhnmu given,comprehensive Social History Social History Type Response Smoking Status Never smoker; Tobacco user i n household: No entered on: 12/08/14 Sex Female
--- OUTSIDE RECORDS SUMMARY | 2022-10-18 01:13 | XMS_ITS | Continuity of Care Document ---
:1975 Author Organization [facility] Address [address] [place] [address]- Care Team Providers Name Role Phone Mack Banda MD Primary Care Physician Encounter [facility] Date(s): 05/13/20 - 05/20/20 [facility] [address] [place] [address]- [facility] Encounter Diagnosis Migraine (Discharge Diagnosis) - 05/13/20 Attending Physician: Mack Banda MD Allergies, Adverse [...] Vaccine (oldterm) 10/01/03 Given 1Location History: [facility] Fny7Jhljgm Comment: [05/10/2016] RECIEVED AT [facility] [id number] Comment: [07/21/2015] at [id number] Comment: [12/08/2014] pt received at jugq3Imbcupuh History: [facility] employer, magdalena solomon6Admin Note: [facility] btdtmugv7Uacwf Note: #2 Medications Acetaminophen = 1,000 mg, By Mouth, 2 times a day, PRN Pain, 0 Refills, Maintenance, 09/17/18 16:04:26 EST Start Date: 09/17/18 Status: Orderedcetirizine 10 mg oral tablet 1 tablet = 10 mg, By Mouth, Daily, # 90 tablet, 1 Refills, Maintenance, 10/08/19 14:04:00 EST, Tablet, [facility] [address], 168, cm, 07/09/19 14:49:00 EDT, Height Start Date: 10/08/19 Status: Orderedduloxetine 60 mg oral enteric coated capsule 1 capsule = 60 mg, By Mouth, 2 times a day, # 180 capsule, 1 Refills, Maintenance, 04/13/20 11:50:00EDT, EC Capsule, [facility] #[id number], 168, cm, 03/19/20 9:21:00 EDT, Height Start Date: 04/13/20 Status: Orderedgabapentin 300 mg oral capsule 300 mg, 1, capsule, By Mouth, Daily, at bed, # 30 each, Refills 2, Tot. Refills 2, Maintenance, 04/13/20 13:38:00 EDT, Route to Pharmacy Electronically, [facility] #[id number], 168, cm, 03/19/20 9:21:00 EDT, Height Start Date: 04/13/20 Status: OrderedIbuprofen 200 mg, By Mouth, Every 4 hours, PRN, Refills 0, Maintenance, Pain , Severe, 07/09/19 14:50:15 EDT Start Date: 07/09/19 Status: Orderedibuprofen 600 mg oral tablet 600 mg, 1, tablet, By Mouth, 2 times a day, Refills 0, Maintenance, 12/05/19 11:08:00 EST Start Date: 12/05/19 Status: OrderedMedrol 4 mg oral tablet 1 pack/packet, By Mouth, Once, # 21 tablet, 0 Refills, Soft Stop, 05/13/20 13:31:00 EDT, Tablet, [facility] #[id number], 168, cm, 05/13/20 13:13:00 EDT, Height Start Date: 05/13/20 Status: OrderedRhinocort Aqua 32 mcg/inh nasal spray 2 sprays, Nares, Both, Daily in AM, # 9 mL, 5 Refills, Maintenance, 06/06/17 11:14:50 Start Date: 06/06/17 Status: Orderedtopiramate 25 mg oral capsule 2 capsule = 50 mg, By Mouth, Daily at bedtime, # 60 capsule, 1 Refills, Maintenance, 05/13/20 13:31:00 EDT, Capsule, [facility] #[id number], 168, cm, 05/13/20 13:13:00 EDT, Height Start Date: 05/13/20 Status: OrderedtraZODone 50 mg oral tablet 25 mg, 0.5, tablet, By Mouth, 2 times a day, # 90 tablet, Refills 1, Tot. Refills 1, Maintenance, 04/10/20 11:00:00 EDT, Route to Pharmacy Electronically, [facility] #[id number], 168, cm, 12/04/2009:30:00 EST, Height Start Date: 04/10/20 Status: OrderedUbrelvy 50 mg oral tablet 1 tablet = 50 mg, By Mouth, Once, PRN as needed for migraine headache, may repeat dose in 2 hours ifneeded, # 10 tablet, 2 Refills, Soft Stop, 05/13/20 15:21:00 EDT, Tablet, [facility] #[id number], 168, cm, 05/13/20 13:13:00 EDT, Height Start Date: 05/13/20 Status: OrderedValium 5 mg oral tablet See Instructions, 1 tab PO @ HS the night before Procedure and 1 tab 1 hr. prior to procedure, # 2 tablet, Refills 0, Tot. Refills 0, Maintenance, 12/04/19 16:29:00 EST, Instructions Replace Required Details, Route to Pharmacy Electronically, [facility]... Start Date: 12/04/19 Status: OrderedVitamin D3 5000 intl units oral capsule See Instructions, 1 capsule By Mouth twice per week, # 50 capsule, 0 Refills, Maintenance, 03/02/20 9:02:00 EDT, Capsule, [facility] #[id number], 168, cm, 12/05/19 10:30:00 EST, Height Start [...] Active Vitamin D deficiency(Confirmed) Active 1normal renin/jeremiah/neg pmayxzvjktobml3ICB noted followed by neurosurgery Dr. Woodall. no surgery advised at this aekz4advqmr spine sports; mri ksrsfsm5dtjfvqm given,comprehensive Diagnosis Diagnosis Type Effective Dates Health Status Clinical Serv ice Informant Migraine Discharge 05/13/20 Diagnosis Vital Signs Most recent to oldest [Reference Range]: 1 Height 168 cm (05/13/20 1:13 PM) Weight 79.1 kg (05/13/20 1:13 PM) Oxygen Saturation [94-100 %] 95 % (05/13/20 1:13 PM) Pulse Rate [55-90 bpm] 102 bpm *H* (05/13/20 1:13 PM) Body Mass Index [18.5-24.99] 28.03 *H* (05/13/20 1:13 PM) Blood Pressure [90-138/55-84 mm Hg] 132/84 mm Hg (05/13/20 1:13 PM) Respiratory Rate [16-30 br/min] 16 br/min (05/13/20 1:13 PM) Temperature [96.8-100.4 DegF] 98.2 DegF (05/13/20 1:13 PM) Blood pressure sites Arm, left (05/13/20 1:13 PM) Temperature Route Oral (05/13/20 1:13 PM) Social History Social History Type Response Smoking Status Never smoker; Tobacco user i n household: No entered on: 12/08/14 Sex Female
--- OUTSIDE RECORDS SUMMARY | 2022-10-18 01:13 | XMS_ITS | Continuity of Care Document ---
:1975 Author Organization [facility] Address [address] [place] [address]- Care Team Providers Name Role Phone Solo MENDEZ, Mack Boyd Primary Care Physician Encounter [facility] Date(s): 09/20/20 - 10/20/20 [facility] [address] [place] [address]- Allergies, Adverse Reactions, Alerts Substance Reaction Severity [...] Vaccine (oldterm) 10/01/03 Given 1Location History: [facility]5Soaoih Comment: [05/10/2016] [facility] [id number] Comment: [07/21/2015] at [id number] Comment: [12/08/2014] pt received at bgzl2Mvrtsphe History: [facility] employermagdalena ma6Admin Note: [facility] Note: #2 Medications Acetaminophen = 1,000 mg, By Mouth, 2 times a day, PRN Pain, 0 Refills, Maintenance, 09/17/18 16:04:26 EST Start Date: 09/17/18 Status: Orderedcetirizine 10 mg oral tablet 1 tablet, By Mouth, Daily, # 90 tablet, 1 Refills, Maintenance, 10/16/20 11:32:00 EST, [facility] #[id number], 166, cm, 10/11/20 9:24:00 EST, Height Start [...] 10/11/20 17:24:00 EST, Route to Pharmacy Electronically, [facility]... Start Date: 10/11/20 Status: Orderedgabapentin 300 mg oral capsule 300 mg, 1, capsule, By Mouth, Daily, at bed, # 30 each, Refills 2, Tot. Refills 2, Maintenance, 10/05/20 7:19:00 EST, Route to Pharmacy Electronically, [facility], 166, cm, 09/30/20 15:22:00 EST, Height Start Date: 10/05/20 Status: Orderedibuprofen 600 mg oral tablet 600 mg, 1, tablet, By Mouth, 2 times a day, Refills 0, Maintenance, 12/05/19 11:08:00 EST Start Date: 12/05/19 Status: Orderedtopiramate 25 mg oral capsule 2 capsule, By Mouth, Daily at bedtime, # 60 capsule, 5 Refills, Maintenance, 09/05/20 15:41:00 EST, [facility] #[id number], 168, cm, 08/16/20 8:23:00 EST, Height Start Date: 09/05/20 Status: OrderedtraZODone 50 mg oral tablet 25 mg, 0.5, tablet, By Mouth, 2 times a day, # 90 tablet, Refills 1, Tot. Refills 1, Maintenance, 10/05/20 7:19:00 EST, Route to Pharmacy Electronically, [facility], 166, cm, 09/30/20 15:22:00 EST, Height Start Date: 10/05/20 Status: OrderedVitamin D3 5000 intl units oral capsule See Instructions, 1 capsule By Mouth twice per week, # 50 capsule, 0 Refills, Maintenance, 03/02/20 9:02:00 EDT, Capsule, [facility] #[id number], 168, cm, 12/05/19 10:30:00 EST, Height Start [...] Active Vitamin D deficiency(Confirmed) Active 1normal renin/jeremiah/neg aufmhtvggriobl5DMM noted followed by neurosurgery Dr. Woodall. no surgery advised at this nwct7jyfgyq spine sports; mri eionfnm0mmyxdoo given,comprehensive Social History Social History Type Response Smoking Status Never smoker; Tobacco user i n household: No entered on: 12/08/14 Sex Female
--- OUTSIDE RECORDS SUMMARY | 2022-10-18 01:13 | XMS_ITS | Continuity of Care Document ---
:1975 Author Organization [facility] Address [address] [place] [address]- Care Team Providers Name Role Phone Solo MENDEZ, Mack Boyd Primary Care Physician Encounter [facility] Date(s): 04/23/20 - 05/23/20 [facility] [address] [place] [address]- [facility] Allergies, Adverse Reactions, Alerts Substance Reaction Severity [...] Vaccine (oldterm) 10/01/03 Given 1Location History: [facility] Ixa4Rdwvip Comment: [05/10/2016] RECIEVED AT [facility] [id number] Comment: [07/21/2015] at rpvk1Bssoub Comment: [12/08/2014] pt received at dkdx2Mociedrs History: [facility] employer, magdalena solomon6Admin Note: [facility] gnbzthjf5Kyhdi Note: #2 Medications Acetaminophen = 1,000 mg, By Mouth, 2 times a day, PRN Pain, 0 Refills, Maintenance, 09/17/18 16:04:26 EST Start Date: 09/17/18 Status: Orderedcetirizine 10 mg oral tablet 1 tablet = 10 mg, By Mouth, Daily, # 90 tablet, 1 Refills, Maintenance, 10/08/19 14:04:00 EST, Tablet, [facility] [address], 168, cm, 07/09/19 14:49:00 EDT, Height Start Date: 10/08/19 Status: Orderedduloxetine 60 mg oral enteric coated capsule 1 capsule = 60 mg, By Mouth, 2 times a day, # 180 capsule, 1 Refills, Maintenance, 04/13/20 11:50:00EDT, EC Capsule, [facility] #[id number], 168, cm, 03/19/20 9:21:00 EDT, Height Start Date: 04/13/20 Status: Orderedgabapentin 300 mg oral capsule 300 mg, 1, capsule, By Mouth, Daily, at bed, # 30 each, Refills 2, Tot. Refills 2, Maintenance, 04/13/20 13:38:00 EDT, Route to Pharmacy Electronically, [facility] #[id number], 168, cm, 03/19/20 9:21:00 EDT, Height Start [...] Refills, Soft Stop, 05/13/20 13:31:00 EDT, Tablet, [facility] #[id number], 168, cm, 05/13/20 13:13:00 EDT, Height Start Date: 05/13/20 Status: OrderedRhinocort Aqua 32 mcg/inh nasal spray 2 sprays, Nares, Both, Daily in AM, # 9 mL, 5 Refills, Maintenance, 06/06/17 11:14:50 Start Date: 06/06/17 Status: Orderedtopiramate 25 mg oral capsule 2 capsule = 50 mg, By Mouth, Daily at bedtime, # 60 capsule, 1 Refills, Maintenance, 05/13/20 13:31:00 EDT, Capsule, [facility] #[id number], 168, cm, 05/13/20 13:13:00 EDT, Height Start Date: 05/13/20 Status: OrderedtraZODone 50 mg oral tablet 25 mg, 0.5, tablet, By Mouth, 2 times a day, # 90 tablet, Refills 1, Tot. Refills 1, Maintenance, 04/10/20 11:00:00 EDT, Route to Pharmacy Electronically, [facility] #[id number], 168, cm, 12/04/2009:30:00 EST, Height Start Date: 04/10/20 Status: OrderedUbrelvy 50 mg oral tablet 1 tablet = 50 mg, By Mouth, Once, PRN as needed for migraine headache, may repeat dose in 2 hours ifneeded, # 10 tablet, 2 Refills, Soft Stop, 05/13/20 15:21:00 EDT, Tablet, [facility] #[id number], 168, cm, 05/13/20 13:13:00 EDT, Height Start Date: 05/13/20 Status: OrderedValium 5 mg oral tablet See Instructions, 1 tab PO @ HS the night before Procedure and 1 tab 1 hr. prior to procedure, # 2 tablet, Refills 0, Tot. Refills 0, Maintenance, 12/04/19 16:29:00 EST, Instructions Replace Required Details, Route to Pharmacy Electronically, [facility] Start Date: 12/04/19 Status: OrderedVitamin D3 5000 intl units oral capsule See Instructions, 1 capsule By Mouth twice per week, # 50 capsule, 0 Refills, Maintenance, 03/02/20 9:02:00 EDT, Capsule, [facility][id number], 168, cm, 12/05/19 10:30:00 EST, Height Start [...] Active Vitamin D deficiency(Confirmed) Active 1normal renin/jeremiah/neg tofnjelfzpvzas8FRF noted followed by neurosurgery Dr. Woodall. no surgery advised at this akay9nvgogc spine sports; mri kulejaj2mvtpifp given,comprehensive Social History Social History Type Response Smoking Status Never smoker; Tobacco user i n household: No entered on: 12/08/14 Sex Female
--- OUTSIDE RECORDS SUMMARY | 2022-10-18 01:13 | XMS_ITS | Continuity of Care Document ---
:1975 Author Organization [facility] Address [address] [place] [address]- Care Team Providers Name Role Phone Solo MENDEZ, Mack Boyd Primary Care Physician Encounter [facility] Date(s): 02/23/22 - 03/25/22 [facility] [address] [place] [address]- Allergies, Adverse Reactions, Alerts Substance Reaction Severity [...] Vaccine (oldterm) 10/01/03 Given 1Location History: [facility] AmosCgy7Azmcda Comment: [05/10/2016] RECIEVED AT [facility] [id number] Comment: [07/21/2015] at [id number] Comment: [12/08/2014] pt received at emgr9Rvgtvptb History: [facility] employer, magdalena solomon6Admin Note: [facility] wppwsboo0Htedy Note: #2 Medications Acetaminophen = 1,000 mg, By Mouth, 2 times a day, PRN Pain, 0 Refills, Maintenance, 09/17/18 16:04:26 EST Start Date: 09/17/18 Status: Orderedcetirizine 10 mg oral tablet 1 tablet, By Mouth, Daily, # 90 tablet, 1 Refills, 02/26/22 13:25:00 EDT, [facility] #[id number], 167.64, cm, 11/08/21 16:30:00 EST, Height, 80.2, kg, 04/19/21 6:20:00 EDT, Dry Weight Start Date: 02/26/22 Status: Orderedduloxetine 60 mg oral enteric coated capsule 1 capsule = 60 mg, By Mouth, 2 times a day, # 60 capsule, 1 Refills, Maintenance, 03/22/22 8:34:00 EDT, EC Capsule, [facility] #[id number], 167.64, cm, 11/08/21 16:30:00 EST, Height, 80.2, kg, 04/19/21 6:20:00 EDT, Dry Weight Start Date: 03/22/22 Status: OrderedEmgality Prefilled Pen 120 mg/mL subcutaneous solution = 120 mg, Subcutaneous Infusion, Every 28 days, # 1 each, 11 Refills, Maintenance, 01/31/21 7:27:00 EDT, [facility] #[id number], 166, cm, 12/31/20 8:54:00 EDT, Height Start Date: 01/31/21 Status: Orderedfluconazole 150 mg oral tablet 1 tablet = 150 mg, By Mouth, Once, # 1 tablet, 0 Refills, Soft Stop, 02/20/22 11:33:00 EDT, Tablet, [facility] #[id number], Partial fill upon patient request if the prescription is for a schedule II opioid drug., 167.64, cm, 11/08/21 16:30:00 EST... Start Date: 02/20/22 Status: Orderedgabapentin 300 mg oral capsule 2, capsule, By Mouth, Daily at bedtime, # 180 capsule, Refills 1, Tot. Refills 1, Maintenance, 01/18/22 15:08:00 EDT, Route to Pharmacy Electronically, [facility] #[id number], 167.64, cm, 11/08/2215:30:00 EST, Height, 80.2, kg, 04/19/21 6:20:00... Start Date: 01/18/22 Status: OrderedLORazepam 0.5 mg oral tablet 1 tablet = 0.5 mg, By Mouth, Daily at bedtime, # 30 tablet, 0 Refills, Maintenance, 03/15/22 11:57:00 EDT, [facility] #[id number], 167.64, cm, 11/08/21 16:30:00 EST, Height, 80.2, kg, 04/19/21 6:20:00 EDT, Dry Weight Start Date: 03/15/22 Status: Orderedomeprazole 20 mg oral delayed release tablet 1 tablet = 20 mg, By Mouth, Daily in AM, 30 minutes prior first meal of day, # 30 tablet, 1 Refills,Maintenance, 03/01/21 16:21:00 EDT, EC Tablet, [facility] #[id number], Partial fill upon patient request if the prescription is for a schedule II... Start Date: 03/01/21 Status: OrderedtiZANidine 2 mg oral capsule 1 capsule = 2 mg, By Mouth, Daily at bedtime, # 30 capsule, 2 Refills, Maintenance, 02/28/22 11:07:00 EDT, [facility] #[id number], Partial fill upon patient request if the prescription is for a schedule II opioid drug., 167.64, cm, 11/08/21 16:30... Start Date: 02/28/22 Status: OrderedUbrelvy 50 mg oral tablet 1 tablet = 50 mg, By Mouth, Once, PRN as needed for migraine headache, may repeat dose in 2 hours ifneeded, # 2 tablet, 11 Refills, Soft Stop, 06/17/21 14:54:00 EDT, Tablet, [facility] #[id number], Partial fill upon patient request if the prescr... Start Date: 06/17/21 Status: Ordered Problem List Condition Effective Dates Status Health Status Informant Acute COVID-19(Confirmed) 02/22/22 Active Adenoma of right adrenal gland neg Active labs 2017(Confirmed)1 Anxiety(Confirmed) Active [place] cardiac risk <10% in next 04/13/21 Active 10 years 2.0%(Confirmed) Cervical disc disease C6-7 MRI Active 2020/C5-7 (two level) ACDF.(Confirmed) Fibromyalgia(Confirmed) Active Impingement syndrome, shoulder, 09/17/18 Active left(Confirmed) Insomnia(Confirmed) Active Lumbar disc disease(Confirmed)2, 3 Active Depression, major,(Confirmed) Active Migraine failed(Confirmed)4 11/19/08 Active Vitamin D deficiency(Confirmed) Active 1normal renin/jeremiah/neg eqlckbloyncxwm7NCO noted followed by neurosurgery Dr. Woodall. no surgery advised at this mlbe2blxcgp spine sports; mri syuweck4jjfadzy given,comprehensive Social History Social History Type Response Smoking Status Never smoker; Tobacco user i n household: No entered on: 12/08/14 Sex Female
--- OUTSIDE RECORDS SUMMARY | 2022-10-18 01:13 | XMS_ITS | Continuity of Care Document ---
:1975 Author Organization [facility] Adult Address [address] [place] [address]- Care Team Providers Name Role Phone Solo MENDEZ, Mack Boyd Primary Care Phys[place] [facility] [place]21 [facility] Adult [address] [place] [address]- Attending Physician: Admtr, Ar8 Allergies, Adverse Reactions, [...] Vaccine (oldterm) 10/01/03 Given 1Location History: [facility]Oj[facility] Comment: [05/10/2016] RECIEVED AT [facility] [id number] Comment: [07/21/2015] at ablu5Gremvo Comment: [12/08/2014] pt received at mnvd6Qgtcrieg History: [facility] [employer] employer, [employer]omon6Admin Note: [facility] lufkhoxe9Gcnvj Note: #2 Medications Acetaminophen = 1,000 mg, By Mouth, 2 times a day, PRN Pain, 0 Refills, Maintenance, 09/17/18 16:04:26 EST Start Date: 09/17/18 Status: Orderedcetirizine 10 mg oral tablet 1 tablet, By Mouth, Daily, # 90 tablet, 1 Refills, Maintenance, 03/21/21 7:23:00 EDT, [facility] #[id number], 167.64, cm, 03/18/21 6:28:00 EDT, Height, 80, [...] each, 11 Refills, Maintenance, 01/31/21 7:27:00 EDT, [facility] #[id number], 166, cm, 12/31/20 8:54:00 EDT, Height Start Date: 01/31/21 Status: Orderedferrous sulfate 325 mg oral enteric coated tablet 325 mg, 1, tablet, By Mouth, 3 times a day, may take with food to minimize abdominal discomfort takesip mihir wells, # 90 tablet, Refills 3, Tot. Refills 3, Maintenance, 10/11/20 17:24:00 EST, Route to Pharmacy Electronically, [facility]... Start Date: 10/11/20 Status: Orderedgabapentin 300 mg oral capsule 600 mg, 2, capsule, By Mouth, Daily at bedtime, at bed, # 60 each, Refills 2, Tot. Refills 2, Maintenance, 12/17/20 15:08:00 EDT, Route to Pharmacy Electronically, [facility] #[id number], 166, cm,12/17/20 14:53:00 EDT, Height Start Date: [...] 1 Refills,Maintenance, 03/01/21 16:21:00 EDT, EC Tablet, [facility] #[id number], Partial fill upon patient request if the [...] 0 Refills, Maintenance, 03/01/21 16:04:00 EDT, Tablet, [facility] #[id number], Partial fill upon patient request if the... [...] Active Vitamin D deficiency(Confirmed) Active 1normal renin/jeremiah/neg blmzsnkelikgiv5IKJ noted followed by neurosurgery Dr. Woodall. no surgery advised at this xnnw4hpkfoa spine sports; mri imuvosj6auncstj given,comprehensive Social History Social History Type Response Smoking Status Never smoker; Tobacco user i n household: No entered on: 12/08/14 Sex Female
--- OUTSIDE RECORDS SUMMARY | 2022-10-18 01:13 | XMS_ITS | Continuity of Care Document ---
:1975 Author Organization [facility] Adult Address [address] [place] [address]- Care Team Providers Name Role Phone Solo MENDEZ, Mack Boyd Primary Care Physician [place] [facility] [place]17[place]22 - 05/17/22 [facility] Adult [address] [place] [address]- Encounter Diagnosis Fibromyalgia (Discharge Diagnosis) - 04/18/22 Allergies, Adverse Reactions, Alerts Substance Reaction Severity [...] term) 03/11/08 Given Tetanus Toxoid Vaccine (oldterm) 1/1/04 Given 1Location History: [facility]Utjbvc Comment: [05/10/2016] RECIEVED AT [facility] [id number] Comment: [07/21/2015] at xplc7Gbtbxb Comment: [12/08/2014] pt received at skrz0Prqstzpg History: [facility] employer, [employer]6Admin Note: [facility] yudhapeg7Qecrk Note: #2 Medications Acetaminophen = 1,000 mg, By Mouth, 2 times a day, PRN Pain, 0 Refills, Maintenance, 09/17/18 16:04:26 EST Start Date: 09/17/18 Status: Orderedcetirizine 10 mg oral tablet 1 tablet, By Mouth, Daily, # 90 tablet, 1 Refills, 02/26/22 13:25:00 EDT, [facility] #[id number], 167.64, cm, 11/08/21 16:30:00 EST, Height, 80.2, kg, 04/19/21 6:20:00 EDT, Dry Weight Start Date: 02/26/22 Status: Orderedduloxetine 60 mg oral enteric coated capsule 1 capsule = 60 mg, By Mouth, 2 times a day, # 60 capsule, 1 Refills, Maintenance, 03/22/22 8:34:00 EDT, EC Capsule, [facility] #[id number], 167.64, cm, 11/08/21 16:30:00 EST, Height, 80.2, kg, 04/19/21 6:20:00 EDT, Dry Weight Start Date: 03/22/22 Status: Orderedgabapentin 300 mg oral capsule See Instructions, Take 1 capsule in AM, 1 at 3PM and 2 capsules at bedtime, # 120 tablet, Refills 1,Tot. Refills 1, Maintenance, 03/29/22 9:45:00 EDT, Instructions Replace Required Details, Route to Pharmacy Electronically, [facility] #[id number]... Start Date: 03/29/22 Status: OrderedLORazepam 0.5 mg oral tablet 1 tablet = 0.5 mg, By Mouth, Daily at bedtime, # 30 tablet, 2 Refills, Maintenance, 05/15/22 15:39:00 EDT, [facility] #[id number], 167.64, cm, 03/29/22 9:37:00 EDT, Height, 80.2, kg, 04/19/21 6:20:00 EDT, Dry Weight Start Date: 05/15/22 Status: Orderedomeprazole 20 mg oral delayed release tablet 1 tablet = 20 mg, By Mouth, Daily in AM, 30 minutes prior first meal of day, # 30 tablet, 1 Refills,Maintenance, 03/01/21 16:21:00 EDT, EC Tablet, [facility] #[id number], Partial fill upon patient request if the prescription is for a schedule II... Start Date: 03/01/21 Status: OrderedtiZANidine 2 mg oral capsule 1 capsule = 2 mg, By Mouth, Daily at bedtime, # 30 capsule, 2 Refills, Maintenance, 04/18/22 13:24:00 EDT, [facility] #[id number], Partial fill upon patient request if the prescription is for a schedule II opioid drug., 167.64, cm, 03/29/22 9:37:... Start Date: 04/18/22 Status: OrderedUbrelvy 50 mg oral tablet 1 tablet = 50 mg, By Mouth, Once, PRN as needed for migraine headache, may repeat dose in 2 hours ifneeded, # 2 tablet, 11 Refills, Soft Stop, 06/17/21 14:54:00 EDT, Tablet, [facility] #[id number], Partial fill upon patient request if the prescr... Start Date: 06/17/21 Status: Ordered Problem List Condition Effective Dates Status Health Status Informant Adenoma of right adrenal gland neg Active labs 2017(Confirmed)1 Anxiety(Confirmed) Active [place] cardiac risk <10% in next 04/13/21 Active 10 years 2.0%(Confirmed) Cervical disc disease C6-7 MRI Active 2020/C5-7 (two level) ACDF.(Confirmed) Fibromyalgia(Confirmed) Active Impingement syndrome, shoulder, 09/17/18 Active left(Confirmed) Insomnia(Confirmed) Active Lumbar disc disease(Confirmed)2, 3 Active Depression, major,(Confirmed) Active Chronic Migraines(Confirmed)4 11/19/08 Active Vitamin D deficiency(Confirmed) Active 1normal renin/jeremiah/neg lvzgauwxuypndf8CJK noted followed by neurosurgery Dr. Woodall. no surgery advised at this sdra3aqddat spine sports; mri ixrtivk4bhsbzub given,comprehensive Diagnosis Diagnosis Type Effective Dates Health Status Clinical In formant Service Fibromyalgia Discharge 04/18/22 Non-Specified Diagnosis Social History Social History Type Response Smoking Status Never smoker; Tobacco user i n household: No entered on: 12/08/14 Sex Female
--- OUTSIDE RECORDS SUMMARY | 2022-10-18 01:13 | XMS_ITS | Continuity of Care Document ---
:1975 Author Organization [facility] Adult Address [address] [place] [address]- Care Team Providers Name Role Phone Solo MENDEZ, Mack Boyd Primary Care Physician Encounter [facility] Date(s): 02/26/22 - 03/28/22 [facility] Adult [address] [place] [address]- Allergies, Adverse Reactions, Alerts Substance Reaction Severity [...] Vaccine (oldterm) 10/01/03 Given 1Location History: [facility] AmosZph6Qufqnu Comment: [05/10/2016] RECIEVED AT [facility] [id number] Comment: [07/21/2015] at ursw4Prmrrm Comment: [12/08/2014] pt received at iqeh4Rvnvtwxo History: [facility] employer, [employer]6Admin Note: [facility] fsijveur9Edess Note: #2 Medications Acetaminophen = 1,000 mg, By Mouth, 2 times a day, PRN Pain, 0 Refills, Maintenance, 09/17/18 16:04:26 EST Start Date: 09/17/18 Status: Orderedcetirizine 10 mg oral tablet 1 tablet, By Mouth, Daily, # 90 tablet, 1 Refills, 02/26/22 13:25:00 EDT, [facility] #[id number], 167.64, cm, 11/08/21 16:30:00 EST, Height, 80.2, kg, 04/19/21 6:20:00 EDT, Dry Weight Start Date: 02/26/22 Status: Orderedduloxetine 60 mg oral enteric coated capsule 1 capsule = 60 mg, By Mouth, 2 times a day, # 60 capsule, 1 Refills, Maintenance, 03/22/22 8:34:00 EDT, EC Capsule, [facility] #[id number], 167.64, cm, 11/08/21 16:30:00 EST, Height, 80.2, kg, 04/19/21 6:20:00 EDT, Dry Weight Start Date: 03/22/22 Status: OrderedEmgality Prefilled Pen 120 mg/mL subcutaneous solution = 120 mg, Subcutaneous Infusion, Every 28 days, # 1 each, 11 Refills, Maintenance, 01/31/21 7:27:00 EDT, [facility] #[id number], 166, cm, 12/31/20 8:54:00 EDT, Height Start Date: 01/31/21 Status: Orderedfluconazole 150 mg oral tablet 1 tablet = 150 mg, By Mouth, Once, # 1 tablet, 0 Refills, Soft Stop, 02/20/22 11:33:00 EDT, Tablet, [facility] #[id number], Partial fill upon patient request if the prescription is for a schedule II opioid drug., 167.64, cm, 11/08/21 16:30:00 EST... Start Date: 02/20/22 Status: Orderedgabapentin 300 mg oral capsule 2, capsule, By Mouth, Daily at bedtime, # 180 capsule, Refills 1, Tot. Refills 1, Maintenance, 01/18/22 15:08:00 EDT, Route to Pharmacy Electronically, [facility] #[id number], 167.64, cm, 11/08/2215:30:00 EST, Height, 80.2, kg, 04/19/21 6:20:00... Start Date: 01/18/22 Status: OrderedLORazepam 0.5 mg oral tablet 1 tablet = 0.5 mg, By Mouth, Daily at bedtime, # 30 tablet, 0 Refills, Maintenance, 03/15/22 11:57:00 EDT, [facility] #[id number], 167.64, cm, 11/08/21 16:30:00 EST, Height, 80.2, kg, 04/19/21 6:20:00 EDT, Dry Weight Start Date: 03/15/22 Status: Orderedomeprazole 20 mg oral delayed release tablet 1 tablet = 20 mg, By Mouth, Daily in AM, 30 minutes prior first meal of day, # 30 tablet, 1 Refills,Maintenance, 03/01/21 16:21:00 EDT, EC Tablet, [facility] #[id number], Partial fill upon patient request if the prescription is for a schedule II... Start Date: 03/01/21 Status: OrderedtiZANidine 2 mg oral capsule 1 capsule = 2 mg, By Mouth, Daily at bedtime, # 30 capsule, 2 Refills, Maintenance, 02/28/22 11:07:00 EDT, [facility] #[id number], Partial fill upon patient request if the prescription is for a schedule II opioid drug., 167.64, cm, 11/08/21 16:30... Start Date: 02/28/22 Status: OrderedUbrelvy 50 mg oral tablet 1 tablet = 50 mg, By Mouth, Once, PRN as needed for migraine headache, may repeat dose in 2 hours ifneeded, # 2 tablet, 11 Refills, Soft Stop, 06/17/21 14:54:00 EDT, Tablet, [facility] #[id number], Partial fill upon patient request if the prescr... Start Date: 06/17/21 Status: Ordered Problem List Condition Effective Dates Status Health Status Informant Acute COVID-19(Confirmed) 02/22/22 Active Adenoma of right adrenal gland neg Active labs 2017(Confirmed)1 Anxiety(Confirmed) Active [place] cardiac risk <10% in next 04/13/21 Active 10 years 2.0%(Confirmed) Cervical disc disease C6-7 MRI Active 2020/C5-7 (two level) ACDF.(Confirmed) Fibromyalgia(Confirmed) Active Impingement syndrome, shoulder, 09/17/18 Active left(Confirmed) Insomnia(Confirmed) Active Lumbar disc disease(Confirmed)2, 3 Active Depression, major,(Confirmed) Active Migraine failed(Confirmed)4 11/19/08 Active Vitamin D deficiency(Confirmed) Active 1normal renin/jeremiah/neg pmrgcwdkufypvg1NSO noted followed by neurosurgery Dr. Woodall. no surgery advised at this lidz6ykqkce spine sports; mri aiaxvoq1iyvyrio given,comprehensive Social History Social History Type Response Smoking Status Never smoker; Tobacco user i n household: No entered on: 12/08/14 Sex Female
--- OUTSIDE RECORDS SUMMARY | 2022-10-18 01:13 | XMS_ITS | Continuity of Care Document ---
:1975 Author Organization [facility] Adult Address [address] [place] [address]- Care Team Providers Name Role Phone Anais MENDEZ, Jose Miguel Morgan Primary Care Physician [place] [facility] [place] 08/17/22 - 09/16/22 [facility] Adult [address] [place] [address]- Encounter Diagnosis Fibromyalgia (Discharge Diagnosis) - 08/21/22 Allergies, Adverse Reactions, Alerts Substance Reaction Severity [...] Given Tetanus Toxoid Vaccine (oldterm) 1/1/04 Given 1Result Comment: [id number] History: [facility] AmosHdi3Mryzuq Comment: [05/10/2016] RECIEVED AT [facility] [id number] Comment: [07/21/2015] at work5 Result Comment: [12/08/2014] pt received at [id number] History: [facility] [employer] [facility] employer, [employer] ak7Vpgar Note: [facility] employer8 Admin Note: #2 Medications Acetaminophen = 1,000 mg, By Mouth, 2 times a day, PRN Pain, 0 Refills, Maintenance, 09/17/18 16:04:26 EST Start Date: 09/17/18 Status: Orderedcetirizine 10 mg oral tablet 1 tablet, By Mouth, Daily, # 90 tablet, 1 Refills, 06/26/22 13:49:00 EDT, [facility] #[id number], 167.64, cm, 03/29/22 9:37:00 EDT, Height, 80.2, kg, 04/19/21 6:20:00 EDT, Dry Weight Start Date: 06/26/22 Status: Orderedduloxetine 60 mg oral enteric coated capsule 1 capsule = 60 mg, By Mouth, 2 times a day, # 60 capsule, 1 Refills, Maintenance, 09/06/22 9:31:00 EST, EC Capsule, [facility] #[id number], 167.64, cm, 08/07/22 14:32:00 EST, Height, 80.2, kg, 04/19/21 6:20:00 EDT, Dry Weight Start Date: 09/06/22 Status: Orderedgabapentin 300 mg oral capsule See Instructions, Take 1 capsule in AM, 1 at 3PM and 2 capsules at bedtime, # 120 tablet, Refills 1,Tot. Refills 1, Maintenance, 07/06/22 12:17:00 EDT, Instructions Replace Required Details, Route to Pharmacy Electronically, [facility] #[id number]... Start Date: 07/06/22 Status: OrderedLORazepam 0.5 mg oral tablet 1 tablet = 0.5 mg, By Mouth, Daily at bedtime, # 30 tablet, 2 Refills, Maintenance, 08/21/22 6:30:00EST, [facility]/pharm[facility] #[id number], 167.64, cm, 08/07/22 14:32:00 EST, Height, 80.2, kg, 04/19/21 6:20:00 EDT, Dry Weight Start Date: 08/21/22 Status: OrderedNuLYTELY with Flavor Packs oral powder for reconstitution 240 mL, By Mouth, Every 10 minutes, split prep method, take 1st half of prep evening before procedure, 2nd half 6 hrs prior to procedure., # 1 each, 0 Refills, Maintenance, 01/01/23 17:00:00 EDT, REC Powder, [facility]/pharmacy #[id number], test date 01/02 . C... Start Date: 01/01/23 Status: OrderedtiZANidine 2 mg oral capsule 1 capsule = 2 mg, By Mouth, Daily at bedtime, # 30 capsule, 2 Refills, Maintenance, 08/21/22 6:28:00EST, [facility]/pharmacy #[id number], Partial fill upon patient request if the prescription is for a schedule II opioid drug., 167.64, cm, 08/07/22 14:32:00 EST, H... Start Date: 08/21/22 Status: OrderedUbrelvy 50 mg oral tablet 1 tablet = 50 mg, By Mouth, Once, PRN as needed for migraine headache, may repeat dose in 2 hours ifneeded, # 30 tablet, 11 Refills, Soft Stop, 06/26/22 13:48:00 EDT, Tablet, [facility] #[id number], Partial fill upon patient request if the presc... 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 Fibromyalgia Confirmed Active Impingement Confirmed 09/17/18 Active syndrome, shoulder, left Insomnia Confirmed Active Lumbar disc Confirmed Active disease2, 3 Depression, major, Confirmed Active Chronic Migraines4 Confirmed 11/19/08 Active Vitamin D Confirmed Active deficiency 1normal renin/jeremiah/neg oulqkvweicqedm8FCM noted followed by neurosurgery Dr. Woodall. no surgery advised at this cxoe9ryfifm spine sports; mri awbztti1wkbvhtj given,comprehensive Diagnosis Diagnosis Type Effective Dates Health Status Clinical In formant Service Fibromyalgia Discharge 08/21/22 Non-Specified Diagnosis Social History Social History Type Response Smoking Status Never smoker; Tobacco user i n household: No entered on: 12/08/14 Sex Female Patient Care team information Care Team PersonnelName: Guilherme PINZON, Daja Position: [facility] RN Member Role: Primary Care Nurse Name: Yamilet Frank NP Position: [facility] PCO Associate Professional Member Role: [employer] Provider Address: Address: [address] [place] [id number]- Name: Jose Miguel Manzo MD Position: [facility] Primary Care Physician Member Role: PCP Address: Address: [address] [place] [phone]- Care Team Related PersonsName: CORY AYALA Address: [address] [place] [address] Name: ROBERT AYALA Address: [address] [place] [address]
--- OUTSIDE RECORDS SUMMARY | 2022-10-18 01:13 | XMS_ITS | Continuity of Care Document ---
:1975 Author Organization [facility] Adult Address [address] [place] [address]- Care Team Providers Name Role Phone Mack Banda MD Primary Care Physician Encounter [facility] [place] Date(s): 11/08/21 - 11/15/21 [facility] Adult [address] [place] [address]- Encounter Diagnosis Depression, major, (Discharge Diagnosis) - 11/01/21 Fibromyalgia (Discharge Diagnosis) - 11/01/21 Migraine failed dukloxetine gabapentin TCA (Discharge Diagnosis) - 11/01/21 Vitamin D deficiency (Discharge Diagnosis) - 11/01/21 Attending Physician: Mack Banda MD Allergies, Adverse [...] Vaccine (oldterm) 10/01/03 Given 1Location History: [facility] Am[facility]ld6Fuvjpa Comment: [05/10/2016] RECIEVED AT [facility] [id number] Comment: [07/21/2015] at pkws3Pkausm Comment: [12/08/2014] pt received at [id number] History: [facility] employer, [employer]6Admin Note: [facility] ohnmgsym6Bfmzn Note: #2 Medications Acetaminophen = 1,000 mg, By Mouth, 2 times a day, PRN Pain, 0 Refills, Maintenance, 09/17/18 16:04:26 EST Start Date: 09/17/18 Status: Orderedcetirizine 10 mg oral tablet 1 tablet, By Mouth, Daily, # 90 tablet, 1 Refills, [facility] #[id number], 167.64, cm, 07/11/2116:24:00 EDT, Height, 80.2, kg, 04/19/21 6:20:00 EDT, Dry Weight Start Date: 07/26/21 Status: Orderedduloxetine 60 mg oral enteric coated capsule 1 capsule = 60 mg, By Mouth, 2 times a day, # 180 capsule, 1 Refills, Maintenance, 07/26/21 11:03:00EDT, EC Capsule, [facility] #[id number], 167.64, cm, 07/11/21 16:24:00 EDT, Height, 80.2, kg, 04/19/21 6:20:00 EDT, Dry Weight Start Date: 07/26/21 Status: OrderedEmgality Prefilled Pen 120 mg/mL subcutaneous solution = 120 mg, Subcutaneous Infusion, Every 28 days, # 1 each, 11 Refills, Maintenance, 01/31/21 7:27:00 EDT, [facility] #[id number], 166, cm, 12/31/20 8:54:00 EDT, Height Start Date: 01/31/21 Status: Orderedgabapentin 300 mg oral capsule 2, capsule, By Mouth, Daily at bedtime, # 180 capsule, Refills 0, Tot. Refills 0, 08/26/21 11:00:00 EST, Route to Pharmacy Electronically, [facility] #[id number], 167.64, cm, 07/11/21 16:24:00 EDT, Height, 80.2, kg, 04/19/21 6:20:00 EDT, Dry Weight Start Date: 08/26/21 Status: OrderedLORazepam 0.5 mg oral tablet 1 tablet = 0.5 mg, By Mouth, Daily at bedtime, # 30 tablet, 0 Refills, Maintenance, 09/15/21 11:32:00 EST, [facility] #[id number], Partial fill upon patient request if the prescription is for a schedule II opioid drug., 167.64, cm, 07/11/21 16:24... Start Date: 09/15/21 Status: OrderedLORazepam 0.5 mg oral tablet See Instructions, TAKE 1 TABLET BY MOUTH DAILY AT BEDTIME, # 30 tablet, 0 Refills, Maintenance, 10/18/21 15:26:00 EST, [facility] #[id number], 167.64, cm, 07/11/21 16:24:00 EDT, Height, 80.2, kg, 04/19/21 6:20:00 EDT, Dry Weight Start Date: 10/18/21 Status: Orderedomeprazole 20 mg oral delayed release tablet 1 tablet = 20 mg, By Mouth, Daily in AM, 30 minutes prior first meal of day, # 30 tablet, 1 Refills,Maintenance, 03/01/21 16:21:00 EDT, EC Tablet, [facility] #[id number], Partial fill upon patient request if the prescription is for a schedule II... Start Date: 03/01/21 Status: OrderedtiZANidine 2 mg oral capsule 1 capsule = 2 mg, By Mouth, Daily at bedtime, # 30 capsule, 0 Refills, Maintenance, 11/08/21 16:50:00 EST, [facility] #[id number], Partial fill upon patient request if the prescription is for a schedule II opioid drug., 167.64, cm, 11/08/21 16:30... Start Date: 11/08/21 Status: OrderedUbrelvy 50 mg oral tablet 1 tablet = 50 mg, By Mouth, Once, PRN as needed for migraine headache, may repeat dose in 2 hours ifneeded, # 2 tablet, 11 Refills, Soft Stop, 06/17/21 14:54:00 EDT, Tablet, [facility] #[id number], Partial fill upon patient request if the prescr... Start Date: 06/17/21 Status: Ordered Problem List Condition Effective Dates Status Health Status Informant Adenoma of right adrenal gland neg Active labs 2017(Confirmed)1 Anxiety(Confirmed) Active [place] cardiac risk <10% in next 04/13/21 Active 10 years 2.0%(Confirmed) Cervical disc disease C6-7 MRI Active 2020/C5-7 (two level) ACDF.(Confirmed) Fibromyalgia(Confirmed) Active Impingement syndrome, shoulder, 09/17/18 Active left(Confirmed) Insomnia(Confirmed) Active Lumbar disc disease(Confirmed)2, 3 Active Depression, major,(Confirmed) Active Migraine failed(Confirmed)4 11/19/08 Active Vitamin D deficiency(Confirmed) Active 1normal renin/jeremiah/neg hmkyninvcxdcql4TOG noted followed by neurosurgery Dr. Woodall. no surgery advised at this ikwc9dnhjpe spine sports; mri fgcdmwm3evrihhc given,comprehensive Diagnosis Diagnosis Type Effective Dates Health Clinical Infor mant Status Service Depression, major, Discharge 11/01/21 Diagnosis Fibromyalgia Discharge 11/01/21 Diagnosis Migraine failed Discharge 11/01/21 dukloxetine Diagnosis gabapentin TCA Vitamin D Discharge 11/01/21 deficiency Diagnosis Vital Signs Most recent to oldest [Reference Range]: 1 Height 167.64 cm (11/08/21 4:30 PM) Weight 82.3 kg (11/08/21 4:30 PM) Oxygen Saturation [94-100 %] 100 % (11/08/21 4:30 PM) Pulse Rate [55-90 bpm] 97 bpm *H* (11/08/21 4:30 PM) Body Mass Index [18.5-24.99] 29.28 *H* (11/08/21 4:30 PM) Blood Pressure [90-138/55-84 mm Hg] 140/87 mm Hg *H* (11/08/21 4:30 PM) Respiratory Rate [16-30 br/min] 16 br/min (11/08/21 4:30 PM) Temperature [96.8-100.4 DegF] 98.1 DegF (11/08/21 4:30 PM) Mode of Delivery (Oxygen) Room air (11/08/21 4:30 PM) Blood pressure sites Arm, left (11/08/21 4:30 PM) Temperature Route Oral (11/08/21 4:30 PM) Weight Obtained Via Standing scale (11/08/21 4:30 PM) Social History Social History Type Response Smoking Status Never smoker; Tobacco user i n household: No entered on: 12/08/14 Sex Female
--- OUTSIDE RECORDS SUMMARY | 2022-10-18 01:13 | XMS_ITS | Continuity of Care Document ---
:1975 Author Organization [facility] Adult Address [address] [place] [address]- Care Team Providers Name Role Phone Solo MENDEZ, Mack Boyd Primary Care Physician [place] [facility] [place]): [place] 04/[place]/22 [facility] [address] [place] [address]- Encounter Diagnosis Trigeminal neuralgia (Discharge Diagnosis) - 04/03/22 Attending Physician: Monika BISHOP, Yamilet Sunshine Allergies, Adverse Reactions, Alerts Substance Reaction Severity Status mirtazapine Active citalopram Active Dogs Active Cats Active Immunizations Given and Recorded Vaccine Date [...] Vaccine (oldterm) 10/01/03 Given 1Location History: [facility] [id number] Comment: [05/10/2016] RECIEVED AT [facility] [id number] Comment: [07/21/2015] at [id number] Comment: [12/08/2014] pt received at [id number] History: [facility] employer, magdalena solomon6Admin Note: [facility] [id number] Note: #2 Medications Acetaminophen = 1,000 mg, By Mouth, 2 times a day, PRN Pain, 0 Refills, Maintenance, 09/17/18 16:04:26 EST Start Date: 09/17/18 Status: Orderedcetirizine 10 mg oral tablet 1 tablet, By Mouth, Daily, # 90 tablet, 1 Refills, 02/26/22 13:25:00 EDT, [facility] #[id number], 167.64, cm, 11/08/21 16:30:00 EST, Height, 80.2, kg, 04/19/21 6:20:00 EDT, Dry Weight Start Date: 02/26/22 Status: Orderedduloxetine 60 mg oral enteric coated capsule 1 capsule = 60 mg, By Mouth, 2 times a day, # 60 capsule, 1 Refills, Maintenance, 03/22/22 8:34:00 EDT, EC Capsule, [facility] #[id number], 167.64, cm, 11/08/21 16:30:00 EST, Height, 80.2, kg, 04/19/21 6:20:00 EDT, Dry Weight Start Date: 03/22/22 Status: OrderedEmgality Prefilled Pen 120 mg/mL subcutaneous solution = 120 mg, Subcutaneous Infusion, Every 28 days, # 1 each, 11 Refills, Maintenance, 01/31/21 7:27:00 EDT, [facility] #[id number], 166, cm, 12/31/20 8:54:00 EDT, Height Start Date: 01/31/21 Status: Orderedfluconazole 150 mg oral tablet 1 tablet = 150 mg, By Mouth, Once, # 1 tablet, 0 Refills, Soft Stop, 02/20/22 11:33:00 EDT, Tablet, [facility] #[id number], Partial fill upon patient request if the prescription is for a schedule II opioid drug., 167.64, cm, 11/08/21 16:30:00 EST... Start Date: 02/20/22 Status: Orderedgabapentin 300 mg oral capsule See Instructions, Take 1 capsule in AM, 1 at 3PM and 2 capsules at bedtime, # 120 tablet, Refills 1,Tot. Refills 1, Maintenance, 03/29/22 9:45:00 EDT, Instructions Replace Required Details, Route to Pharmacy Electronically, [facility] #[id number]... Start Date: 03/29/22 Status: OrderedLORazepam 0.5 mg oral tablet 1 tablet = 0.5 mg, By Mouth, Daily at bedtime, # 30 tablet, 0 Refills, Maintenance, 03/15/22 11:57:00 EDT, [facility] #[id number], 167.64, cm, 11/08/21 16:30:00 EST, Height, 80.2, kg, 04/19/21 6:20:00 EDT, Dry Weight Start Date: 03/15/22 Status: Orderedomeprazole 20 mg oral delayed release tablet 1 tablet = 20 mg, By Mouth, Daily in AM, 30 minutes prior first meal of day, # 30 tablet, 1 Refills,Maintenance, 03/01/21 16:21:00 EDT, EC Tablet, [facility] #[id number], Partial fill upon patient request if the prescription is for a schedule II... Start Date: 03/01/21 Status: OrderedtiZANidine 2 mg oral capsule 1 capsule = 2 mg, By Mouth, Daily at bedtime, # 30 capsule, 2 Refills, Maintenance, 02/28/22 11:07:00 EDT, [facility] #[id number], Partial fill upon patient request if the prescription is for a schedule II opioid drug., 167.64, cm, 11/08/21 16:30... Start Date: 02/28/22 Status: OrderedUbrelvy 50 mg oral tablet 1 tablet = 50 mg, By Mouth, Once, PRN as needed for migraine headache, may repeat dose in 2 hours ifneeded, # 2 tablet, 11 Refills, Soft Stop, 06/17/21 14:54:00 EDT, Tablet, [facility] #[id number], Partial fill upon patient request if the prescr... Start Date: 06/17/21 Status: Ordered Problem List Condition Effective Dates Status Health Status Informant Adenoma of right adrenal gland neg Active labs 2017(Confirmed)1 Anxiety(Confirmed) Active [place] cardiac risk <10% in next 04/13/21 Active 10 years 2.0%(Confirmed) Cervical disc disease C6-7 MRI Active 2020/C5-7 (two level) ACDF.(Confirmed) Fibromyalgia(Confirmed) Active Impingement syndrome, shoulder, 09/17/18 Active left(Confirmed) Insomnia(Confirmed) Active Lumbar disc disease(Confirmed)2, 3 Active Depression, major,(Confirmed) Active Chronic Migraines(Confirmed)4 11/19/08 Active Vitamin D deficiency(Confirmed) Active 1normal renin/jeremiah/neg rxpjzbmlyaqzvq4HNM noted followed by neurosurgery Dr. Woodall. no surgery advised at this hgip2eaxvii spine sports; mri utbflzy4ahyniih given,comprehensive Diagnosis Diagnosis Type Effective Dates Health Clinical Infor mant Status Service Trigeminal Discharge 04/03/22 neuralgia Diagnosis Vital Signs Most recent to oldest [Reference Range]: 1 2 Height 167.64 cm 167.64 cm (03/29/22 9:37 AM) (03/29/22 9:20 AM) Weight 81.8 kg (03/29/22 9:20 AM) Oxygen Saturation [94-100 %] 99 % (03/29/22 9:20 AM) Pulse Rate [55-90 bpm] 84 bpm (03/29/22 9:20 AM) Body Mass Index [18.5-24.99] 29.11 *H* (03/29/22 9:20 AM) Blood Pressure [90-138/55-84 mm Hg] 112/80 mm Hg 140/ 90 mm Hg (03/29/22 9:37 AM) *H* (03/29/22 9:20 AM) Respiratory Rate [16-30 br/min] 16 br/min (03/29/22 9:20 AM) Mode of Delivery (Oxygen) Room air (03/29/22 9:20 AM) Blood pressure sites Arm, right Arm, right (03/29/22 9:37 AM) (03/29/22 9:20 AM) Weight Obtained Via Standing scale (03/29/22 9:20 AM) Social History Social History Type Response Smoking Status Never smoker; Tobacco user i n household: No entered on: 12/08/14 Sex Female
--- OUTSIDE RECORDS SUMMARY | 2022-10-18 01:13 | XMS_ITS | Continuity of Care Document ---
:1975 Author Organization [facility] Adult Address [address] [place] [address]- Care Team Providers Name Role Phone Solo MENDEZ, Mack Boyd Primary Care Physician Encounter [facility] Date(s): 02/22/21 - 03/24/21 [facility] [address] [place] [address]- Allergies, Adverse Reactions, Alerts Substance Reaction Severity [...] Vaccine (oldterm) 10/01/03 Given 1Location History: [facility] AmosEqc6Tkrcei Comment: [05/10/2016] RECIEVED AT [facility] [id number] Comment: [07/21/2015] at [id number] Comment: [12/08/2014] pt received at [id number] History: [facility] employer, magdalena solomon6Admin Note: [facility] [id number] Note: #2 Medications Acetaminophen = 1,000 mg, By Mouth, 2 times a day, PRN Pain, 0 Refills, Maintenance, 09/17/18 16:04:26 EST Start Date: 09/17/18 Status: Orderedcetirizine 10 mg oral tablet 1 tablet, By Mouth, Daily, # 90 tablet, 1 Refills, Maintenance, 03/21/21 7:23:00 EDT, [facility] #[id number], 167.64, cm, 03/18/21 6:28:00 EDT, Height, 80, kg, 03/18/21 6:28:00 EDT, Dry Weight Start Date: 03/21/21 Status: Orderedduloxetine 60 mg oral enteric coated capsule 1 capsule = 60 mg, By Mouth, 2 times a day, # 180 capsule, 1 Refills, Maintenance, 10/05/20 7:18:00 EST, EC Capsule, [facility], 166, cm, 09/30/20 15:22:00 EST, Height Start Date: 10/05/20 Status: OrderedEmgality Prefilled Pen 120 mg/mL subcutaneous solution = 120 mg, Subcutaneous Infusion, Every 28 days, # 1 each, 11 Refills, Maintenance, 01/31/21 7:27:00 EDT, [email or web address] #[id number], 166, cm, 12/31/20 8:54:00 EDT, Height Start Date: 01/31/21 Status: Orderedferrous sulfate 325 mg oral enteric coated tablet 325 mg, 1, tablet, By Mouth, 3 times a day, may take with food to minimize abdominal discomfort takesip mihir wells, # 90 tablet, Refills 3, Tot. Refills 3, Maintenance, 10/11/20 17:24:00 EST, Route to Pharmacy Electronically, [email or web address]... Start Date: 10/11/20 Status: Orderedgabapentin 300 mg oral capsule 600 mg, 2, capsule, By Mouth, Daily at bedtime, at bed, # 60 each, Refills 2, Tot. Refills 2, Maintenance, 12/17/20 15:08:00 EDT, Route to Pharmacy Electronically, [email or web address] #[id number], 166, cm,12/17/20 14:53:00 EDT, Height Start Date: [...] 1 Refills,Maintenance, 03/01/21 16:21:00 EDT, EC Tablet, [facility] #[id number], Partial fill upon patient request if the prescription is for a schedule II... Start Date: 03/01/21 Status: OrderedtraZODone 50 mg oral tablet 25 mg, 0.5, tablet, By Mouth, 2 times a day, # 90 tablet, Refills 1, Tot. Refills 1, Maintenance, 10/05/20 7:19:00 EST, Route to Pharmacy Electronically, [facility], 166, cm, 09/30/20 15:22:00 EST, Height Start [...] 0 Refills, Maintenance, 03/01/21 16:04:00 EDT, Tablet, [facility] #[id number], Partial fill upon patient request if the... [...] Active Vitamin D deficiency(Confirmed) Active 1normal renin/jeremiah/neg ockdcerbejymhx1WYW noted followed by neurosurgery Dr. Woodall. no surgery advised at this [id number] spine sports; mri lhrovee4jctfaty given,comprehensive Social History Social History Type Response Smoking Status Never smoker; Tobacco user i n household: No entered on: 12/08/14 Sex Female
--- OUTSIDE RECORDS SUMMARY | 2022-10-18 01:13 | XMS_ITS | Continuity of Care Document ---
:1975 Author Organization [facility] Address [address] [place] [address]- Care Team Providers Name Role Phone Solo MENDEZ, Mack Boyd Primary Care Physician [facility]counter [facility] Date(s): 07/26/21 - 08/25/21 [facility] [address] [place] [address]- Allergies, Adverse Reactions, Alerts Substance Reaction Severity [...] Vaccine (oldterm) 10/01/03 Given 1Location History: [facility] AmosNws9Ayiehk Comment: [05/10/2016] RECIEVED AT [facility] [id number] Comment: [07/21/2015] at [id number] Comment: [12/08/2014] pt received at [id number] History: [facility] employer, magdalena solomon6Admin Note: [facility] [id number] Note: #2 Medications Acetaminophen = 1,000 mg, By Mouth, 2 times a day, PRN Pain, 0 Refills, Maintenance, 09/17/18 16:04:26 EST Start Date: 09/17/18 Status: Orderedcetirizine 10 mg oral tablet 1 tablet, By Mouth, Daily, # 90 tablet, 1 Refills, [facility] #[id number], 167.64, cm, 07/11/2116:24:00 EDT, Height, 80.2, kg, 04/19/21 6:20:00 EDT, Dry Weight Start Date: 07/26/21 Status: Orderedduloxetine 60 mg oral enteric coated capsule 1 capsule = 60 mg, By Mouth, 2 times a day, # 180 capsule, 1 Refills, Maintenance, 07/26/21 11:03:00EDT, EC Capsule, [facility] #[id number], 167.64, cm, 07/11/21 16:24:00 EDT, Height, 80.2, kg, 04/19/21 6:20:00 EDT, Dry Weight Start Date: 07/26/21 Status: OrderedEmgality Prefilled Pen 120 mg/mL subcutaneous solution = 120 mg, Subcutaneous Infusion, Every 28 days, # 1 each, 11 Refills, Maintenance, 01/31/21 7:27:00 EDT, [facility] #[id number], 166, cm, 12/31/20 8:54:00 EDT, Height Start Date: 01/31/21 Status: Orderedgabapentin 300 mg oral capsule 2, capsule, By Mouth, Daily at bedtime, # 180 capsule, Refills 0, Route to Pharmacy Electronically, [facility] #[id number], 167.64, cm, 07/11/21 16:24:00 EDT, Height, 80.2, kg, 04/19/21 6:20:00 EDT, Dry Weight Start Date: 07/26/21 Status: OrderedLORazepam 0.5 mg oral tablet 1 tablet = 0.5 mg, By Mouth, Daily at bedtime, # 30 tablet, 0 Refills, Maintenance, 08/10/21 13:57:00 EST, [facility] #[id number], Partial fill upon patient request if the prescription is for a schedule II opioid drug., 167.64, cm, 07/11/21 16:24... Start Date: 08/10/21 Status: Orderedomeprazole 20 mg oral delayed release tablet 1 tablet = 20 mg, By Mouth, Daily in AM, 30 minutes prior first meal of day, # 30 tablet, 1 Refills,Maintenance, 03/01/21 16:21:00 EDT, EC Tablet, [facility] #[id number], Partial fill upon patient request if the [...] Refills, Soft Stop, 06/17/21 14:54:00 EDT, Tablet, [facility] #[id number], Partial fill upon patient request if the prescr... Start Date: 06/17/21 Status: Ordered Problem List Condition Effective Dates Status Health Status Informant Adenoma of right adrenal Active gland(Confirmed)1 Anxiety(Confirmed) Active [place] cardiac risk <10% in next 04/13/21 Active 10 years 2.0%(Confirmed) Cervical disc disease C6-7 MRI Active 2020/C5-7 (two level) ACDF.(Confirmed) Fibromyalgia(Confirmed) Active Impingement syndrome, shoulder, 09/17/18 Active left(Confirmed) Insomnia(Confirmed) Active Lumbar disc disease(Confirmed)2, 3 Active Depression, major,(Confirmed) Active Migraine failed dukloxetine gabapentin 11/19/08 Active TCA(Confirmed)4 Lesion of nasal septum rt;refer Active dermatology(Confirmed) Vitamin D deficiency(Confirmed) Active 1normal renin/jeremiah/neg nvuekjjvwlmnih8OMG noted followed by neurosurgery Dr. Woodall. no surgery advised at this [id number] spine sports; mri eytldjp5segrabk given,comprehensive Social History Social History Type Response Smoking Status Never smoker; Tobacco user i n household: No entered on: 12/08/14 Sex Female
--- OUTSIDE RECORDS SUMMARY | 2022-10-18 01:13 | XMS_ITS | Continuity of Care Document ---
:1975 Author Organization [facility] Adult Address [address] [place] [address]- Care Team Providers Name Role Phone Solo MENDEZ, Mack Boyd Primary Care Physician Encounter [facility] Date(s): 02/08/21 - 03/10/21 [facility] [address] [place] [address]- Allergies, Adverse Reactions, Alerts Substance Reaction Severity [...] Vaccine (oldterm) 10/01/03 Given 1Location History: [facility] AmosCzd2Ftwnmt Comment: [05/10/2016] RECIEVED AT [facility] [id number] Comment: [07/21/2015] at ozwt9Vioygh Comment: [12/08/2014] pt received at vcsg4Vxiwthac History: [facility] employer, magdalena solomon6Admin Note: [facility] yrqucdcn9Juexo Note: #2 Medications Acetaminophen = 1,000 mg, By Mouth, 2 times a day, PRN Pain, 0 Refills, Maintenance, 09/17/18 16:04:26 EST Start Date: 09/17/18 Status: Orderedcetirizine 10 mg oral tablet 1 tablet, By Mouth, Daily, # 90 tablet, 1 Refills, Maintenance, 10/16/20 11:32:00 EST, [facility] #[id number], 166, cm, 10/11/20 9:24:00 EST, Height Start Date: 10/16/20 Status: Orderedduloxetine 60 mg oral enteric coated capsule 1 capsule = 60 mg, By Mouth, 2 times a day, # 180 capsule, 1 Refills, Maintenance, 10/05/20 7:18:00 EST, EC Capsule, [facility], 166, cm, 09/30/20 15:22:00 EST, Height Start Date: 10/05/20 Status: OrderedEmgality Prefilled Pen 120 mg/mL subcutaneous solution = 120 mg, Subcutaneous Infusion, Every 28 days, # 1 each, 11 Refills, Maintenance, 01/31/21 7:27:00 EDT, [facility] #[id number], 166, cm, 12/31/20 8:54:00 EDT, Height Start Date: 01/31/21 Status: Orderedferrous sulfate 325 mg oral enteric coated tablet 325 mg, 1, tablet, By Mouth, 3 times a day, may take with food to minimize abdominal discomfort takesip mihir wells, # 90 tablet, Refills 3, Tot. Refills 3, Maintenance, 10/11/20 17:24:00 EST, Route to Pharmacy Electronically, [facility] Start Date: 10/11/20 Status: Orderedgabapentin 300 mg oral capsule 600 mg, 2, capsule, By Mouth, Daily at bedtime, at bed, # 60 each, Refills 2, Tot. Refills 2, Maintenance, 12/17/20 15:08:00 EDT, Route to Pharmacy Electronically, [facility] #[id number], 166, cm,12/17/20 14:53:00 EDT, Height Start Date: [...] 1 Refills,Maintenance, 03/01/21 16:21:00 EDT, EC Tablet, [facility] #[id number], Partial fill upon patient request if the prescription is for a schedule II... Start Date: 03/01/21 Status: OrderedtraZODone 50 mg oral tablet 25 mg, 0.5, tablet, By Mouth, 2 times a day, # 90 tablet, Refills 1, Tot. Refills 1, Maintenance, 10/05/20 7:19:00 EST, Route to Pharmacy Electronically, [facility], 166, cm, 09/30/20 15:22:00 EST, [...] 0 Refills, Maintenance, 03/01/21 16:04:00 EDT, Tablet, [facility] #[id number], Partial fill upon patient request if the... [...] Active Vitamin D deficiency(Confirmed) Active 1normal renin/jeremiah/neg [id number] noted followed by neurosurgery Dr. Woodall. no surgery advised at this pfig2cblfqb spine sports; mri skvojcx9nfloacl given,comprehensive Social History Social History Type Response Smoking Status Never smoker; Tobacco user i n household: No entered on: 12/08/14 Sex Female
--- OUTSIDE RECORDS SUMMARY | 2022-10-18 01:13 | XMS_ITS | Continuity of Care Document ---
:1975 Author Organization [address], [address] [place] [address]- Care Team Providers Name Role Phone Solo MENDEZ, Mack Boyd Primary Care Physician Encounter [facility] Date(s): 04/25/21 - 05/25/[address], [address] [place] [address]- Allergies, Adverse Reactions, Alerts Substance Reaction Severity [...] Vaccine (oldterm) 10/01/03 Given 1Location History: [facility] AmosRvq2Pfevvs Comment: [05/10/2016] RECIEVED AT [facility] [id number] Comment: [07/21/2015] at [id number] Comment: [12/08/2014] pt received at wjou5Guzxywos History: [facility] [employer] [facility] employer, [employer]ena solomon6Admin Note: [facility] ueairoqr9Enntf Note: #2 Medications Acetaminophen = 1,000 mg, By Mouth, 2 times a day, PRN Pain, 0 Refills, Maintenance, 09/17/18 16:04:26 EST Start Date: 09/17/18 Status: Orderedcetirizine 10 mg oral tablet 1 tablet, By Mouth, Daily, # 90 tablet, 1 Refills, Maintenance, 03/21/21 7:23:00 EDT, [facility] #[id number], 167.64, cm, 03/18/21 6:28:00 EDT, Height, 80, kg, 03/18/21 6:28:00 EDT, Dry Weight Start Date: 03/21/21 Status: Orderedduloxetine 60 mg oral enteric coated capsule 1 capsule = 60 mg, By Mouth, 2 times a day, # 180 capsule, 1 Refills, Maintenance, 10/05/20 7:18:00 EST, EC Capsule, [facility], 166, cm, 09/30/20 15:22:00 EST, Height Start Date: 10/05/20 Status: OrderedEmgality Prefilled Pen 120 mg/mL subcutaneous solution = 120 mg, Subcutaneous Infusion, Every 28 days, # 1 each, 11 Refills, Maintenance, 01/31/21 7:27:00 EDT, [facility] #[id number], 166, cm, 12/31/20 8:54:00 EDT, Height Start Date: 01/31/21 Status: Orderedgabapentin 300 mg oral capsule 2, capsule, By Mouth, Daily at bedtime, # 180 capsule, Refills 0, Tot. Refills 0, Maintenance, 04/25/21 15:03:00 EDT, Route to Pharmacy Electronically, [facility] #[id number], 167.64, cm, :36:00 EDT, Height, 80.2, kg, 04/19/21 6:20:00 E... Start Date: 04/25/21 Status: OrderedMedrol Dosepak 4 mg oral tablet 1 pack/packet, By Mouth, Once, # 21 tablet, 0 Refills, Soft Stop, 04/25/21 17:26:00 EDT, Tablet, [facility] #[id number], Partial fill upon patient request if the prescription is for a schedule II opioid drug., 167.64, cm, 04/20/21 7:36:00 EDT, He... Start Date: 04/25/21 Status: Orderedomeprazole 20 mg oral delayed release tablet 1 tablet = 20 mg, By Mouth, Daily in AM, 30 minutes prior first meal of day, # 30 tablet, 1 Refills,Maintenance, 03/01/21 16:21:00 EDT, EC Tablet, [facility] #[id number], Partial fill upon patient request if the [...] 04/22/21 11:43:00 EDT, Route to Pharmacy Electronically, [facility] #[id number], 167.64, cm, 04/20/21 7:36:00 EDT, Height, 80.2, [...] of right adrenal Active gland(Confirmed)1 Anxiety(Confirmed) Active [place] cardiac risk <10% in next 04/13/21 Active 10 years 2.0%(Confirmed) Cervical disc disease C6-7 MRI Active 2020/C5-7 (two level) ACDF.(Confirmed) Fibromyalgia(Confirmed) Active Impingement syndrome, shoulder, 09/17/18 Active left(Confirmed) Insomnia(Confirmed) Active Lumbar disc disease(Confirmed)2, 3 Active Depression, major,(Confirmed) Active 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 Woodall. no surgery advised at this vqpl8sbrehb spine sports; mri zmgzkef3buzdpwu given,comprehensive Social History Social History Type Response Smoking Status Never smoker; Tobacco user i n household: No entered on: 12/08/14 Sex Female
--- OUTSIDE RECORDS SUMMARY | 2022-10-18 01:13 | XMS_ITS | Continuity of Care Document ---
:1975 Author Organization [address], [address] [place] [address]- Care Team Providers Name Role Phone Mack Banda MD Primary Care Physician [place] [facility] [place] 03/02/[address], [address] [place] [address]- Attending Physician: Elijah Lynn MD Referring Physician: [...] Vaccine (oldterm) 10/01/03 Given 1Location History: [facility] AmosUrv2Wcexwx Comment: [05/10/2016] RECIEVED AT [facility] [id number] Comment: [07/21/2015] at mjzx8Ybxlvf Comment: [12/08/2014] pt received at tsgj5Pomfqxub History: [facility] employer, [employer]dalena solomon6Admin Note: [facility] sspmnlug5Sbzza Note: #2 Medications Acetaminophen = 1,000 mg, By Mouth, 2 times a day, PRN Pain, 0 Refills, Maintenance, 09/17/18 16:04:26 EST Start Date: 09/17/18 Status: Orderedcetirizine 10 mg oral tablet 1 tablet, By Mouth, Daily, # 90 tablet, 1 Refills, Maintenance, 10/16/20 11:32:00 EST, [facility] #[id number], 166, cm, 10/11/20 9:24:00 EST, Height Start Date: 10/16/20 Status: Orderedduloxetine 60 mg oral enteric coated capsule 1 capsule = 60 mg, By Mouth, 2 times a day, # 180 capsule, 1 Refills, Maintenance, 10/05/20 7:18:00 EST, EC Capsule, [facility], 166, cm, 09/30/20 15:22:00 EST, Height Start Date: 10/05/20 Status: OrderedEmgality Prefilled Pen 120 mg/mL subcutaneous solution = 120 mg, Subcutaneous Infusion, Every 28 days, # 1 each, 11 Refills, Maintenance, 01/31/21 7:27:00 EDT, [facility] #[id number], 166, cm, 12/31/20 8:54:00 EDT, Height Start Date: 01/31/21 Status: Orderedferrous sulfate 325 mg oral enteric coated tablet 325 mg, 1, tablet, By Mouth, 3 times a day, may take with food to minimize abdominal discomfort takesip mihir wells, # 90 tablet, Refills 3, Tot. Refills 3, Maintenance, 10/11/20 17:24:00 EST, Route to Pharmacy Electronically, [facility]... Start Date: 10/11/20 Status: Orderedgabapentin 300 mg oral capsule 600 mg, 2, capsule, By Mouth, Daily at bedtime, at bed, # 60 each, Refills 2, Tot. Refills 2, Maintenance, 12/17/20 15:08:00 EDT, Route to Pharmacy Electronically, [facility] #[id number], 166, cm,12/17/20 14:53:00 EDT, Height Start Date: [...] 1 Refills,Maintenance, 03/01/21 16:21:00 EDT, EC Tablet, [facility] #[id number], Partial fill upon patient request if the prescription is for a schedule II... Start Date: 03/01/21 Status: OrderedtraZODone 50 mg oral tablet 25 mg, 0.5, tablet, By Mouth, 2 times a day, # 90 tablet, Refills 1, Tot. Refills 1, Maintenance, 10/05/20 7:19:00 EST, Route to Pharmacy Electronically, [facility], 166, cm, 09/30/20 15:22:00 EST, [...] 0 Refills, Maintenance, 03/02/20 9:02:00 EDT, Capsule, [facility] #[id number], 168, cm, 12/05/19 10:30:00 EST, Height Start Date: 03/02/20 Status: OrderedZOLMitriptan 2.5 mg oral tablet 1 tablet = 2.5 mg, By Mouth, Daily, PRN for migraine headache, may repeat dose after 2 hours up to amaximum of 1, # 6 tablet, 0 Refills, Maintenance, 03/01/21 16:04:00 EDT, Tablet, [facility] #[id number], Partial fill upon patient request if the... [...] Active Vitamin D deficiency(Confirmed) Active 1normal renin/jeremiah/neg rhhdvjviwivvqp1EIA noted followed by neurosurgery Dr. Woodall. no surgery advised at this bnpv6qahsjo spine sports; mri xwgszoo5doadkaa given,comprehensive Vital Signs Most recent to oldest [Reference Range]: 1 Height 167.6 cm (02/23/21 2:56 PM) Weight 81.7 kg (02/23/21 2:56 PM) Body Mass Index [18.5-24.99] 29.09 *H* (02/23/21 2:56 PM) Social History Social History Type Response Smoking Status Never smoker; Tobacco user i n household: No entered on: 12/08/14 Sex Female
--- OUTSIDE RECORDS SUMMARY | 2022-10-18 01:13 | XMS_ITS | Continuity of Care Document ---
:1975 Author Organization [facility] Adult Address [address] [place] [address]- Care Team Providers Name Role Phone Solo MENDEZ, Mack Boyd Primary Care Physician [facility] Date[facility]): 04/17/22 - 05/17/22 [facility] [address] [place] [address]- Allergies, Adverse Reactions, Alerts Substance Reaction Severity [...] Vaccine (oldterm) 10/01/03 Given 1Location History: [facility] AmosAyr3Rqwibi Comment: [05/10/2016] [facility]ED AT [facility] [id number] Comment: [07/21/2015] at [id number] Comment: [12/08/2014] pt received at [id number] History: [facility] / [employer] employer, magdalena solomon6Admin Note: [facility] [id number] Note: #2 Medications Acetaminophen = 1,000 mg, By Mouth, 2 times a day, PRN Pain, 0 Refills, Maintenance, 09/17/18 16:04:26 EST Start Date: 09/17/18 Status: Orderedcetirizine 10 mg oral tablet 1 tablet, By Mouth, Daily, # 90 tablet, 1 Refills, 02/26/22 13:25:00 EDT, [facility] #[id number], 167.64, cm, 11/08/21 16:30:00 EST, Height, 80.2, kg, 04/19/21 6:20:00 EDT, Dry Weight Start Date: 02/26/22 Status: Orderedduloxetine 60 mg oral enteric coated capsule 1 capsule = 60 mg, By Mouth, 2 times a day, # 60 capsule, 1 Refills, Maintenance, 03/22/22 8:34:00 EDT, EC Capsule, [facility] #[id number], 167.64, cm, 11/08/21 16:30:00 EST, Height, 80.2, kg, 04/19/21 6:20:00 EDT, Dry Weight Start Date: 03/22/22 Status: Orderedgabapentin 300 mg oral capsule See Instructions, Take 1 capsule in AM, 1 at 3PM and 2 capsules at bedtime, # 120 tablet, Refills 1,Tot. Refills 1, Maintenance, 03/29/22 9:45:00 EDT, Instructions Replace Required Details, Route to Pharmacy Electronically, [facility] #[id number]... Start Date: 03/29/22 Status: OrderedLORazepam 0.5 mg oral tablet 1 tablet = 0.5 mg, By Mouth, Daily at bedtime, # 30 tablet, 2 Refills, Maintenance, 05/15/22 15:39:00 EDT, [facility] #[id number], 167.64, cm, 03/29/22 9:37:00 EDT, Height, 80.2, kg, 04/19/21 6:20:00 EDT, Dry Weight Start Date: 05/15/22 Status: Orderedomeprazole 20 mg oral delayed release tablet 1 tablet = 20 mg, By Mouth, Daily in AM, 30 minutes prior first meal of day, # 30 tablet, 1 Refills,Maintenance, 03/01/21 16:21:00 EDT, EC Tablet, [facility] #[id number], Partial fill upon patient request if the prescription is for a schedule II... Start Date: 03/01/21 Status: OrderedtiZANidine 2 mg oral capsule 1 capsule = 2 mg, By Mouth, Daily at bedtime, # 30 capsule, 2 Refills, Maintenance, 04/18/22 13:24:00 EDT, [facility] #[id number], Partial fill upon patient request if the prescription is for a schedule II opioid drug., 167.64, cm, 03/29/22 9:37:... Start Date: 04/18/22 Status: OrderedUbrelvy 50 mg oral tablet 1 tablet = 50 mg, By Mouth, Once, PRN as needed for migraine headache, may repeat dose in 2 hours ifneeded, # 2 tablet, 11 Refills, Soft Stop, 06/17/21 14:54:00 EDT, Tablet, [facility] #[id number], Partial fill upon patient request if the prescr... Start Date: 06/17/21 Status: Ordered Problem List Condition Effective Dates Status Health Status Informant Adenoma of right adrenal gland neg Active labs 2017(Confirmed)1 Anxiety(Confirmed) Active [place] cardiac risk <10% in next 04/13/21 Active 10 years 2.0%(Confirmed) Cervical disc disease C6-7 MRI Active 2020/C5-7 (two level) ACDF.(Confirmed) Fibromyalgia(Confirmed) Active Impingement syndrome, shoulder, 09/17/18 Active left(Confirmed) Insomnia(Confirmed) Active Lumbar disc disease(Confirmed)2, 3 Active Depression, major,(Confirmed) Active Chronic Migraines(Confirmed)4 11/19/08 Active Vitamin D deficiency(Confirmed) Active 1normal renin/jeremiah/neg [id number] noted followed by neurosurgery Dr. Woodall. no surgery advised at this [id number] spine sports; mri [id number] given,comprehensive Social History Social History Type Response Smoking Status Never smoker; Tobacco user i n household: No entered on: 12/08/14 Sex Female
--- OUTSIDE RECORDS SUMMARY | 2022-10-18 01:13 | XMS_ITS | Continuity of Care Document ---
:1975 Author Organization [facility] Adult Address [address] [place] [address]- Care Team Providers Name Role Phone Solo MENDEZ, Mack Boyd Primary Care Physician [facility] Date[facility]s): 11/17/20 - 12/17/20 [facility] [address] [place] [address]- Allergies, Adverse Reactions, Alerts Substance Reaction Severity [...] Vaccine (oldterm) 10/01/03 Given 1[facility] History: [facility] Comment: [05/10/2016] [facility] [id number] Comment: [07/21/2015] at [id number] Comment: [12/08/2014] pt received at [id number] History: [facility] employer, magdalena solomon6Admin Note: [facility] [id number] Note: #2 Medications Acetaminophen = 1,000 mg, By Mouth, 2 times a day, PRN Pain, 0 Refills, Maintenance, 09/17/18 16:04:26 EST Start Date: 09/17/18 Status: Orderedcetirizine 10 mg oral tablet 1 tablet, By Mouth, Daily, # 90 tablet, 1 Refills, Maintenance, 10/16/20 11:32:00 EST, [facility] #[id number], 166, cm, 10/11/20 9:24:00 EST, Height Start [...] each, 0 Refills, Maintenance, 12/17/20 15:18:00 EDT, [facility] #[id number], 166, cm, 12/17/20 14:53:00 EDT, Height Start Date: 12/17/20 Status: Orderedferrous sulfate 325 mg oral enteric coated tablet 325 mg, 1, tablet, By Mouth, 3 times a day, may take with food to minimize abdominal discomfort marielle wells, # 90 tablet, Refills 3, Tot. Refills 3, Maintenance, 10/11/20 17:24:00 EST, Route to Pharmacy Electronically, [facility] Start Date: 10/11/20 Status: Orderedgabapentin 300 mg oral capsule 600 mg, 2, capsule, By Mouth, Daily at bedtime, at bed, # 60 each, Refills 2, Tot. Refills 2, Maintenance, 12/17/20 15:08:00 EDT, Route to Pharmacy Electronically, [facility] #[id number], 166, cm,12/17/20 14:53:00 EDT, Height Start Date: 12/17/20 Status: Orderedibuprofen 600 mg oral tablet 600 mg, 1, tablet, By Mouth, 2 times a day, Refills 0, Maintenance, 12/05/19 11:08:00 EST Start Date: 12/05/19 Status: OrderedSumatriptan = 100 mg, Once, 0 Refills, Maintenance, 12/17/20 14:55:00 EDT, Partial fill upon patient request if the prescription is for a schedule II opioid drug. Start Date: 12/17/20 Status: Orderedtopiramate 25 mg oral capsule 1 capsule = 25 mg, By Mouth, Daily at bedtime, # 60 capsule, 5 Refills, Maintenance, 09/05/20 15:41:00 EST, [facility] #[id number], 168, cm, 08/16/20 8:23:00 EST, Height Start Date: 09/05/20 Status: OrderedtraZODone 50 mg oral tablet 25 mg, 0.5, tablet, By Mouth, 2 times a day, # 90 tablet, Refills 1, Tot. Refills 1, Maintenance, 10/05/20 7:19:00 EST, Route to Pharmacy Electronically, [facility], 166, cm, 09/30/20 15:22:00 EST, Height Start Date: 10/05/20 Status: OrderedUbrelvy 50 mg oral tablet 1 tablet = 50 mg, By Mouth, Once, PRN as needed for migraine headache, may repeat dose in 2 hours ifneeded, # 10 tablet, 1 Refills, Soft Stop, 12/17/20 15:22:00 EDT, Tablet, [facility] #[id number], 166, cm, 12/17/20 14:53:00 EDT, Height Start Date: 12/17/20 Status: OrderedVitamin D3 5000 intl units oral capsule See Instructions, 1 capsule By Mouth twice per week, # 50 capsule, 0 Refills, Maintenance, 03/02/20 9:02:00 EDT, Capsule, [facility] #[id number], 168, cm, 12/05/19 10:30:00 EST, Height Start [...] Active Vitamin D deficiency(Confirmed) Active 1normal renin/jeremiah/neg beerflwdjskvpf4DQK noted followed by neurosurgery Dr. Woodall. no surgery advised at this gnlc6vhkxlf spine sports; mri efxcuoj3jwfoddz given,comprehensive Social History Social History Type Response Smoking Status Never smoker; Tobacco user i n household: No entered on: 12/08/14 Sex Female
--- OUTSIDE RECORDS SUMMARY | 2022-10-18 01:14 | XMS_ITS | Continuity of Care Document ---
:1975 Author Organization [facility] Adult Address [address] [place] [address]- Care Team Providers Name Role Phone Solo MENDEZ, Mack Boyd Primary Care Physician [facility] Date(s): 02/07/22 - 03/09/22 [facility] [address] [place] [address]- Allergies, Adverse Reactions, Alerts Substance Reaction Severity [...] Vaccine (oldterm) 10/01/03 Given 1Location History: [facility] AmosQiv7Gikmrm Comment: [05/10/2016] RECIEVED AT [facility] [id number] Comment: [07/21/2015] at [id number] Comment: [12/08/2014] pt received at [id number] History: [facility] employer, [employer]dalena solomon6Admin Note: [facility] [id number] Note: #2 Medications Acetaminophen = 1,000 mg, By Mouth, 2 times a day, PRN Pain, 0 Refills, Maintenance, 09/17/18 16:04:26 EST Start Date: 09/17/18 Status: Orderedcetirizine 10 mg oral tablet 1 tablet, By Mouth, Daily, # 90 tablet, 1 Refills, 02/26/22 13:25:00 EDT, [facility] #[id number], 167.64, cm, 11/08/21 16:30:00 EST, Height, 80.2, kg, 04/19/21 6:20:00 EDT, Dry Weight Start Date: 02/26/22 Status: Orderedduloxetine 60 mg oral enteric coated capsule 1 capsule = 60 mg, By Mouth, 2 times a day, # 180 capsule, 1 Refills, Maintenance, 07/26/21 11:03:00EDT, EC Capsule, [facility] #[id number], 167.64, cm, 07/11/21 16:24:00 EDT, Height, 80.2, kg, 04/19/21 6:20:00 EDT, Dry Weight Start Date: 07/26/21 Status: OrderedEmgality Prefilled Pen 120 mg/mL subcutaneous solution = 120 mg, Subcutaneous Infusion, Every 28 days, # 1 each, 11 Refills, Maintenance, 01/31/21 7:27:00 EDT, [facility] #[id number], 166, cm, 12/31/20 8:54:00 EDT, Height Start Date: 01/31/21 Status: Orderedfluconazole 150 mg oral tablet 1 tablet = 150 mg, By Mouth, Once, # 1 tablet, 0 Refills, Soft Stop, 02/20/22 11:33:00 EDT, Tablet, [facility] #[id number], Partial fill upon patient request if the prescription is for a schedule II opioid drug., 167.64, cm, 11/08/21 16:30:00 EST... Start Date: 02/20/22 Status: Orderedgabapentin 300 mg oral capsule 2, capsule, By Mouth, Daily at bedtime, # 180 capsule, Refills 1, Tot. Refills 1, Maintenance, 01/18/22 15:08:00 EDT, Route to Pharmacy Electronically, [facility] #[id number], 167.64, cm, 11/08/2215:30:00 EST, Height, 80.2, kg, 04/19/21 6:20:00... Start Date: 01/18/22 Status: OrderedLORazepam 0.5 mg oral tablet See Instructions, TAKE 1 TABLET BY MOUTH DAILY AT BEDTIME, # 30 tablet, 0 Refills, Maintenance, 10/18/21 15:26:00 EST, [facility] #[id number], 167.64, cm, 07/11/21 16:24:00 EDT, Height, 80.2, kg, 04/19/21 6:20:00 EDT, Dry Weight Start Date: 10/18/21 Status: OrderedLORazepam 0.5 mg oral tablet 1 tablet = 0.5 mg, By Mouth, Daily at bedtime, # 30 tablet, 0 Refills, Maintenance, 02/17/22 11:55:00 EDT, [facility] #[id number], Partial fill upon patient request if the prescription is for a schedule II opioid drug., 167.64, cm, 11/08/21 16:30... Start Date: 02/17/22 Status: Orderedomeprazole 20 mg oral delayed release tablet 1 tablet = 20 mg, By Mouth, Daily in AM, 30 minutes prior first meal of day, # 30 tablet, 1 Refills,Maintenance, 03/01/21 16:21:00 EDT, EC Tablet, [facility] #[id number], Partial fill upon patient request if the prescription is for a schedule II... Start Date: 03/01/21 Status: OrderedtiZANidine 2 mg oral capsule 1 capsule = 2 mg, By Mouth, Daily at bedtime, # 30 capsule, 2 Refills, Maintenance, 02/28/22 11:07:00 EDT, [facility] #[id number], Partial fill upon patient request if the prescription is for a schedule II opioid drug., 167.64, cm, 11/08/21 16:30... Start Date: 02/28/22 Status: OrderedUbrelvy 50 mg oral tablet 1 tablet = 50 mg, By Mouth, Once, PRN as needed for migraine headache, may repeat dose in 2 hours ifneeded, # 2 tablet, 11 Refills, Soft Stop, 06/17/21 14:54:00 EDT, Tablet, [facility] #[id number], Partial fill upon patient request if the prescr... Start Date: 06/17/21 Status: Ordered Problem List Condition Effective Dates Status Health Status Informant Acute COVID-19(Confirmed) 02/22/22 Active Adenoma of right adrenal gland neg Active labs 2017(Confirmed)1 Anxiety(Confirmed) Active [place] cardiac risk <10% in next 04/13/21 Active 10 years 2.0%(Confirmed) Cervical disc disease C6-7 MRI Active 2020/C5-7 (two level) ACDF.(Confirmed) Fibromyalgia(Confirmed) Active Impingement syndrome, shoulder, 09/17/18 Active left(Confirmed) Insomnia(Confirmed) Active Lumbar disc disease(Confirmed)2, 3 Active Depression, major,(Confirmed) Active Migraine failed(Confirmed)4 11/19/08 Active Vitamin D deficiency(Confirmed) Active 1normal renin/jeremiah/neg bxlsipahmzvnbl9LCF noted followed by neurosurgery Dr. Woodall. no surgery advised at this omsh0aiqofg spine sports; mri xsjygxy1fpdizaw given,comprehensive Social History Social History Type Response Smoking Status Never smoker; Tobacco user i n household: No entered on: 12/08/14 Sex Female
--- OUTSIDE RECORDS SUMMARY | 2022-10-18 01:14 | XMS_ITS | Continuity of Care Document ---
:1975 Author Organization [facility] Adult Address [address] [place] [address]- Care Team Providers Name Role Phone Solo MENDEZ, Mack Boyd Primary Care Physician [facility] Date(s): 02/15/22 - 03/17/22 [facility] [address] [place] [address]- Allergies, Adverse Reactions, Alerts Substance Reaction Severity [...] Vaccine (oldterm) 10/01/03 Given 1Location History: [facility] AmosGiz6Senvhd Comment: [05/10/2016] RECIEVED AT [facility] [id number] Comment: [07/21/2015] at [id number] Comment: [12/08/2014] pt received at [id number] History: [employer] [facility] employer, [employer]ena solomon6Admin Note: [facility] [id number] Note: #2 Medications Acetaminophen = 1,000 mg, By Mouth, 2 times a day, PRN Pain, 0 Refills, Maintenance, 09/17/18 16:04:26 EST Start Date: 09/17/18 Status: Orderedcetirizine 10 mg oral tablet 1 tablet, By Mouth, Daily, # 90 tablet, 1 Refills, 02/26/22 13:25:00 EDT, [facility] #[id number], 167.64, cm, 11/08/21 16:30:00 EST, Height, 80.2, kg, 04/19/21 6:20:00 EDT, Dry Weight Start Date: 02/26/22 Status: Orderedduloxetine 60 mg oral enteric coated capsule 1 capsule = 60 mg, By Mouth, 2 times a day, # 180 capsule, 1 Refills, Maintenance, 07/26/21 11:03:00EDT, EC Capsule, [facility] #[id number], 167.64, cm, 07/11/21 16:24:00 EDT, Height, 80.2, kg, 04/19/21 6:20:00 EDT, Dry Weight Start Date: 07/26/21 Status: OrderedEmgality Prefilled Pen 120 mg/mL subcutaneous solution = 120 mg, Subcutaneous Infusion, Every 28 days, # 1 each, 11 Refills, Maintenance, 01/31/21 7:27:00 EDT, [facility] #[id number], 166, cm, 12/31/20 8:54:00 EDT, Height Start Date: 01/31/21 Status: Orderedfluconazole 150 mg oral tablet 1 tablet = 150 mg, By Mouth, Once, # 1 tablet, 0 Refills, Soft Stop, 02/20/22 11:33:00 EDT, Tablet, [facility] #[id number], Partial fill upon patient request if the prescription is for a schedule II opioid drug., 167.64, cm, 11/08/21 16:30:00 EST... Start Date: 02/20/22 Status: Orderedgabapentin 300 mg oral capsule 2, capsule, By Mouth, Daily at bedtime, # 180 capsule, Refills 1, Tot. Refills 1, Maintenance, 01/18/22 15:08:00 EDT, Route to Pharmacy Electronically, [facility] #[id number], 167.64, cm, 11/08/2215:30:00 EST, Height, 80.2, kg, 04/19/21 6:20:00... Start Date: 01/18/22 Status: OrderedLORazepam 0.5 mg oral tablet 1 tablet = 0.5 mg, By Mouth, Daily at bedtime, # 30 tablet, 0 Refills, Maintenance, 03/15/22 11:57:00 EDT, [facility] #[id number], 167.64, cm, 11/08/21 16:30:00 EST, Height, 80.2, kg, 04/19/21 6:20:00 EDT, Dry Weight Start Date: 03/15/22 Status: Orderedomeprazole 20 mg oral delayed release tablet 1 tablet = 20 mg, By Mouth, Daily in AM, 30 minutes prior first meal of day, # 30 tablet, 1 Refills,Maintenance, 03/01/21 16:21:00 EDT, EC Tablet, [facility] #[id number], Partial fill upon patient request if the prescription is for a schedule II... Start Date: 03/01/21 Status: OrderedtiZANidine 2 mg oral capsule 1 capsule = 2 mg, By Mouth, Daily at bedtime, # 30 capsule, 2 Refills, Maintenance, 02/28/22 11:07:00 EDT, [facility] #[id number], Partial fill upon patient request if the prescription is for a schedule II opioid drug., 167.64, cm, 11/08/21 16:30... Start Date: 02/28/22 Status: OrderedUbrelvy 50 mg oral tablet 1 tablet = 50 mg, By Mouth, Once, PRN as needed for migraine headache, may repeat dose in 2 hours ifneeded, # 2 tablet, 11 Refills, Soft Stop, 06/17/21 14:54:00 EDT, Tablet, [facility] #[id number], Partial fill upon patient request if the prescr... 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 Woodall. no surgery advised at this vjaw4ojmipv spine sports; mri yrsxmpx0lyedcam given,comprehensive Social History Social History Type Response Smoking Status Never smoker; Tobacco user i n household: No entered on: 12/08/14 Sex Female
--- OUTSIDE RECORDS SUMMARY | 2022-10-18 01:14 | XMS_ITS | Continuity of Care Document ---
:1975 Author Organization [facility] Adult Address [address] [place] [address]- Care Team Providers Name Role Phone Solo MENDEZ, Mack Boyd Primary Care Physician [place] [facility] [place] - 07[place]14/20 [facility] [address] [place] [address]- [facility] Allergies, Adverse Reactions, Alerts Substance Reaction Severity [...] Vaccine (oldterm) 10/01/03 Given 1Location History: [facility] Comment: [05/10/2016] RECIEVED AT [facility] [id number] Comment: [07/21/2015] at [id number] Comment: [12/08/2014] pt received at [id number] History: [facility] employer, [employer]ena solomon6Admin Note: [facility] [id number] Note: #2 Medications Acetaminophen = 1,000 mg, By Mouth, 2 times a day, PRN Pain, 0 Refills, Maintenance, 09/17/18 16:04:26 EST Start Date: 09/17/18 Status: Orderedcetirizine 10 mg oral tablet 1 tablet = 10 mg, By Mouth, Daily, # 90 tablet, 1 Refills, Maintenance, 10/08/19 14:04:00 EST, Tablet, [facility] [address], 168, cm, 07/09/19 14:49:00 EDT, Height Start Date: 10/08/19 Status: Orderedduloxetine 60 mg oral enteric coated capsule 1 capsule = 60 mg, By Mouth, 2 times a day, # 180 capsule, 1 Refills, Maintenance, 04/13/20 11:50:00EDT, EC Capsule, [facility] #[id number], 168, cm, 03/19/20 9:21:00 EDT, Height Start Date: 04/13/20 Status: Orderedgabapentin 300 mg oral capsule 300 mg, 1, capsule, By Mouth, Daily, at bed, # 30 each, Refills 2, Tot. Refills 2, Maintenance, 04/13/20 13:38:00 EDT, Route to Pharmacy Electronically, [facility] #[id number], 168, cm, 03/19/20 9:21:00 EDT, Height Start [...] 1 Refills, Maintenance, 05/13/20 13:31:00 EDT, Capsule, [facility] #[id number], 168, cm, 05/13/20 13:13:00 EDT, Height Start Date: 05/13/20 Status: OrderedtraZODone 50 mg oral tablet 25 mg, 0.5, tablet, By Mouth, 2 times a day, # 90 tablet, Refills 1, Tot. Refills 1, Maintenance, 06/14/20 7:53:00 EDT, Route to Pharmacy Electronically, [facility] #[id number], 168, cm, 06/08/20 11:03:00 EDT, Height Start Date: 06/14/20 Status: OrderedUbrelvy 50 mg oral tablet 1 tablet = 50 mg, By Mouth, Once, PRN as needed for migraine headache, may repeat dose in 2 hours ifneeded, # 10 tablet, 2 Refills, Soft Stop, 05/13/20 15:21:00 EDT, Tablet, [facility] #[id number], 168, cm, 05/13/20 13:13:00 EDT, Height Start Date: 05/13/20 Status: OrderedVitamin D3 5000 intl units oral capsule See Instructions, 1 capsule By Mouth twice per week, # 50 capsule, 0 Refills, Maintenance, 03/02/20 9:02:00 EDT, Capsule, [facility] #[id number], 168, cm, 12/05/19 10:30:00 EST, Height Start [...] Active Vitamin D deficiency(Confirmed) Active 1normal renin/jeremiah/neg afynndaafgvlxg9THA noted followed by neurosurgery Dr. Woodall. no surgery advised at this aqug4wmaqoz spine sports; mri ulyuiqz2eexzolx given,comprehensive Social History Social History Type Response Smoking Status Never smoker; Tobacco user i n household: No entered on: 12/08/14 Sex Female
--- OUTSIDE RECORDS SUMMARY | 2022-10-18 01:14 | XMS_ITS | Continuity of Care Document ---
:1975 Author Organization [facility] Address [address] [place] [address]- Care Team Providers Name Role Phone Solo MENDEZ, Mack Boyd Primary Care Physician En[place] [facility] [place]s): 08/16/20 - 09/15/20 [facility] [address] [place] [id number] Attending Physician: Srikanth Romero Admitting Physician: AdmtrSrikanth Referring Physician: AdmtrSrikanth Allergies, Adverse Reactions, Alerts [...] Vaccine (oldterm) 10/01/03 Given 1Location History: [facility] Comment: [05/10/2016] RECIEVED AT [facility] [id number] Comment: [07/21/2015] at [id number] Comment: [12/08/2014] pt received at [id number] History: [employer] employer, [employer]6Admin Note: [employer] [id number] Note: #2 Medications Acetaminophen = 1,000 mg, By Mouth, 2 times a day, PRN Pain, 0 Refills, Maintenance, 09/17/18 16:04:26 EST Start Date: 09/17/18 Status: Orderedcetirizine 10 mg oral tablet 1 tablet, By Mouth, Daily, # 90 tablet, 0 Refills, Maintenance, 08/09/20 8:05:00 EST, [id number], 168, cm, 06/08/20 11:03:00 EDT, Height Start Date: 08/09/20 Status: Ordereddiazepam 5 mg oral tablet See Instructions, 1 tab po 1 hr prior to procedure, may repeat x 1 if needed, # 2 tablet, Refills 0,Tot. Refills 0, Maintenance, 08/13/20 15:21:00 EST, Instructions Replace Required Details, Route to Pharmacy Electronically, [facility] #[id number]... Start Date: 08/13/20 Status: Orderedduloxetine 60 mg oral enteric coated capsule 1 capsule = 60 mg, By Mouth, 2 times a day, # 180 capsule, 1 Refills, Maintenance, 04/13/20 11:50:00EDT, EC Capsule, [facility] #[id number], 168, cm, 03/19/20 9:21:00 EDT, Height Start Date: 04/13/20 Status: Orderedgabapentin 300 mg oral capsule 300 mg, 1, capsule, By Mouth, Daily, at bed, # 30 each, Refills 2, Tot. Refills 2, Maintenance, 04/13/20 13:38:00 EDT, Route to Pharmacy Electronically, [facility] #[id number], 168, cm, 03/19/20 9:21:00 EDT, Height Start [...] capsule, 5 Refills, Maintenance, 09/05/20 15:41:00 EST, [facility] #[id number], 168, cm, 08/16/20 8:23:00 EST, Height Start Date: 09/05/20 Status: OrderedtraZODone 50 mg oral tablet 25 mg, 0.5, tablet, By Mouth, 2 times a day, # 90 tablet, Refills 1, Tot. Refills 1, Maintenance, 06/14/20 7:53:00 EDT, Route to Pharmacy Electronically, [facility] #[id number], 168, cm, 06/08/20 11:03:00 EDT, Height Start Date: 06/14/20 Status: OrderedUbrelvy 50 mg oral tablet 1 tablet = 50 mg, By Mouth, Once, PRN as needed for migraine headache, may repeat dose in 2 hours ifneeded, # 10 tablet, 2 Refills, Soft Stop, 05/13/20 15:21:00 EDT, Tablet, [facility] #[id number], 168, cm, 05/13/20 13:13:00 EDT, Height Start Date: 05/13/20 Status: OrderedVitamin D3 5000 intl units oral capsule See Instructions, 1 capsule By Mouth twice per week, # 50 capsule, 0 Refills, Maintenance, 03/02/20 9:02:00 EDT, Capsule, [facility] #[id number], 168, cm, 12/05/19 10:30:00 EST, Height Start [...] Active Vitamin D deficiency(Confirmed) Active 1normal renin/jeremiah/neg [id number] noted followed by neurosurgery Dr. Woodall. no surgery advised at this [id number] spine sports; mri xbzahjl3itatmfh given,comprehensive Social History Social History Type Response Smoking Status Never smoker; Tobacco user i n household: No entered on: 12/08/14 Sex Female
--- OUTSIDE RECORDS SUMMARY | 2022-10-18 01:14 | XMS_ITS | Continuity of Care Document ---
:1975 Author Organization [facility] Address [address] [place] [id number]- Care Team Providers Name Role Phone Anais MENDEZ, Jose Miguel Morgan Primary Care Physician [place] [facility] [place] 08/10/22 - 09/09/22 [facility] [address] [place] [address]- [place] Allergies, Adverse Reactions, Alerts Substance Reaction Severity [...] Toxoid Vaccine (oldterm) 10/01/03 Given 1Result Comment: [facility]-[id number] History: [facility] AmosNsu8Bfqcqi Comment: [05/10/2016] RECIEVED AT [facility] Comment: [07/21/2015] at work5 Result Comment: [12/08/2014] pt received at beyh1Vyuedyid History: [employer] employer, [employer]7Admin Note: [employer] employer8 Admin Note: #2 Medications Acetaminophen = 1,000 mg, By Mouth, 2 times a day, PRN Pain, 0 Refills, Maintenance, 09/17/18 16:04:26 EST Start Date: 09/17/18 Status: Orderedcetirizine 10 mg oral tablet 1 tablet, By Mouth, Daily, # 90 tablet, 1 Refills, 06/26/22 13:49:00 EDT, [facility] #[id number], 167.64, cm, 03/29/22 9:37:00 EDT, Height, 80.2, kg, 04/19/21 6:20:00 EDT, Dry Weight Start Date: 06/26/22 Status: Orderedduloxetine 60 mg oral enteric coated capsule 1 capsule = 60 mg, By Mouth, 2 times a day, # 60 capsule, 1 Refills, Maintenance, 09/06/22 9:31:00 EST, EC Capsule, [facility] #[id number], 167.64, cm, 08/07/22 14:32:00 EST, Height, 80.2, kg, 04/19/21 6:20:00 EDT, Dry Weight Start Date: 09/06/22 Status: Orderedgabapentin 300 mg oral capsule See Instructions, Take 1 capsule in AM, 1 at 3PM and 2 capsules at bedtime, # 120 tablet, Refills 1,Tot. Refills 1, Maintenance, 07/06/22 12:17:00 EDT, Instructions Replace Required Details, Route to Pharmacy Electronically, [facility] #[id number]... Start Date: 07/06/22 Status: OrderedLORazepam 0.5 mg oral tablet 1 tablet = 0.5 mg, By Mouth, Daily at bedtime, # 30 tablet, 2 Refills, Maintenance, 08/21/22 6:30:00EST, [facility] #[id number], 167.64, cm, 08/07/22 14:32:00 EST, Height, 80.2, kg, 04/19/21 6:20:00 EDT, Dry Weight Start Date: 08/21/22 Status: OrderedNuLYTELY with Flavor Packs oral powder for reconstitution 240 mL, By Mouth, Every 10 minutes, split prep method, take 1st half of prep evening before procedure, 2nd half 6 hrs prior to procedure., # 1 each, 0 Refills, Maintenance, 01/01/23 17:00:00 EDT, REC Powder, [facility]/pharmacy #[id number], test date 01/02 . C... Start Date: 01/01/23 Status: OrderedtiZANidine 2 mg oral capsule 1 capsule = 2 mg, By Mouth, Daily at bedtime, # 30 capsule, 2 Refills, Maintenance, 08/21/22 6:28:00EST, [facility]/pharmacy #[id number], Partial fill upon patient [...] Refills, Soft Stop, 06/26/22 13:48:00 EDT, Tablet, [facility] #[id number], Partial fill upon patient request if the presc... Start Date: 06/26/22 Status: Ordered Problem List Condition Confirmation Course Effective Dates Status Health Stat us Informant Adenoma of right Confirmed Active adrenal gland neg labs Anxiety Confirmed Active [employer] cardiac Confirmed 04/13/21 Active risk <10% in next 10 years 2.0% Cervical disc Confirmed Active disease C6-7 MRI 2020/C5-7 (two level) ACDF. Fibromyalgia Confirmed Active Impingement Confirmed 09/17/18 Active syndrome, shoulder, left Insomnia Confirmed Active Lumbar disc Confirmed Active disease2, 3 Depression, major, Confirmed Active Chronic Migraines4 Confirmed 11/19/08 Active Vitamin D Confirmed Active deficiency 1normal renin/jeremiah/neg ytypwumbkvxiqz2ZDM noted followed by neurosurgery Dr. Woodall. no surgery advised at this eqre4fqmcsy spine sports; mri ddzwfml9arqeezg given,comprehensive Social History Social History Type Response Smoking Status Never smoker; Tobacco user i n household: No entered on: 12/08/14 Sex Female Patient Care team information Care Team PersonnelName: Guilherme PINZON, Daja Position: [facility] RN Member Role: Primary Care Nurse Name: Monika BISHOP, Yamilet Sunshine Position: [facility] PCO Associate Professional Member Role: [employer] Provider Address: Address: [address] [place] [address] Name: Jose Miguel Manzo MD Position: [facility] Primary Care Physician Member Role: PCP Address: Address: [address] [place] [address] Care Team Related PersonsName: CORY AYALA Address: home [address] [place] [address] Name: ROBERT AYALA Address: [address] [place] [address]
--- OUTSIDE RECORDS SUMMARY | 2022-10-18 01:14 | XMS_ITS | Continuity of Care Document ---
:[address] [facility] Address [address] [place] [address]- Care Team Providers Name Role Phone Mack Banda MD Primary Care Physician En[place] [facility] [place] Date(s): 06/09/21 - 06/16/21 [facility] [address] [place] [address]- Encounter Diagnosis Mild major depression (Discharge Diagnosis) - 06/09/21 Attending Physician: Mack Banda MD Allergies, Adverse [...] Vaccine (oldterm) 10/01/03 Given 1Location History: [facility] Unw2Pjmxuz Comment: [05/10/2016] RECIEVED AT [facility] [id number] Comment: [07/21/2015] at [id number] Comment: [12/08/2014] pt received at [id number] History: [facility] [employer] [facility] [employer] employer, [employer]omon6Admin Note: [facility] [id number] Note: #2 Medications Acetaminophen = 1,000 mg, By Mouth, 2 times a day, PRN Pain, 0 Refills, Maintenance, 09/17/18 16:04:26 EST Start Date: 09/17/18 Status: Orderedcetirizine 10 mg oral tablet 1 tablet, By Mouth, Daily, # 90 tablet, 1 Refills, Maintenance, 03/21/21 7:23:00 EDT, [facility] #[id number], 167.64, cm, 03/18/21 6:28:00 EDT, Height, 80, [...] each, 11 Refills, Maintenance, 01/31/21 7:27:00 EDT, [facility] #[id number], 166, cm, 12/31/20 8:54:00 EDT, Height Start Date: 01/31/21 Status: Orderedgabapentin 300 mg oral capsule 2, capsule, By Mouth, Daily at bedtime, # 180 capsule, Refills 0, Tot. Refills 0, Maintenance, 04/25/21 15:03:00 EDT, Route to Pharmacy Electronically, [facility] #[id number], 167.64, cm, 217:36:00 EDT, Height, 80.2, kg, 04/19/21 6:20:00 E... Start Date: 04/25/21 Status: OrderedLORazepam 0.5 mg oral tablet 1 tablet = 0.5 mg, By Mouth, Daily at bedtime, # 30 tablet, 0 Refills, Maintenance, 06/09/21 10:53:00 EDT, [facility] #[id number], Partial fill upon patient request if the prescription is for a schedule II opioid drug., 167.64, cm, 06/09/21 10:30... Start Date: 06/09/21 Status: Orderedomeprazole 20 mg oral delayed release tablet 1 tablet = 20 mg, By Mouth, Daily in AM, 30 minutes prior first meal of day, # 30 tablet, 1 Refills,Maintenance, 03/01/21 16:21:00 EDT, EC Tablet, [facility] #[id number], Partial fill upon patient request if the [...] of right adrenal Active gland(Confirmed)1 Anxiety(Confirmed) Active [place] cardiac risk <10% in next 04/13/21 Active 10 years 2.0%(Confirmed) Cervical disc disease C6-7 MRI Active 2020/C5-7 (two level) ACDF.(Confirmed) Fibromyalgia(Confirmed) Active Impingement syndrome, shoulder, 09/17/18 Active left(Confirmed) Insomnia(Confirmed) Active Lumbar disc disease(Confirmed)2, 3 Active Depression, major,(Confirmed) Active Migraine failed dukloxetine gabapentin 11/19/08 Active TCA(Confirmed)4 Lesion of nasal septum rt;refer Active dermatology(Confirmed) Vitamin D deficiency(Confirmed) Active 1normal renin/jeremiah/neg gfpywdikomkxlq3PVG noted followed by neurosurgery Dr. Woodall. no surgery advised at this vjdy9rbjikb spine sports; mri hsihoxs9ezzhpol given,comprehensive Diagnosis Diagnosis Type Effective Dates Health Clinical Infor mant Status Service Mild major Discharge 06/09/21 depression Diagnosis Vital Signs Most recent to oldest [Reference Range]: 1 Height 167.64 cm (06/09/21 10:30 AM) Mode of Delivery (Oxygen) Room air (06/09/21 10:30 AM) Social History Social History Type Response Smoking Status Never smoker; Tobacco user i n household: No entered on: 12/08/14 Sex Female
--- OUTSIDE RECORDS SUMMARY | 2022-10-18 01:14 | XMS_ITS | Continuity of Care Document ---
:1975 Author Organization [facility] Address [address] [place] [address]- Care Team Providers Name Role Phone Solo MENDEZ, Mack Boyd Primary Care Physician [place] [facility] [place] 05/13/20 [facility] [address] [place] [address]- [facility] Allergies, Adverse Reactions, Alerts Substance Reaction Severity [...] Vaccine (oldterm) 10/01/03 Given 1Location History: [facility]Vhorpd Comment: [05/10/2016] RECIEVED AT [facility] [id number] Comment: [07/21/2015] at [id number] Comment: [12/08/2014] pt received at jtoq9Zmgohbof History: [facility] employer, [employer]omon6Admin Note: [facility] [id number] Note: #2 Medications Acetaminophen = 1,000 mg, By Mouth, 2 times a day, PRN Pain, 0 Refills, Maintenance, 09/17/18 16:04:26 EST Start Date: 09/17/18 Status: Orderedcetirizine 10 mg oral tablet 1 tablet = 10 mg, By Mouth, Daily, # 90 tablet, 1 Refills, Maintenance, 10/08/19 14:04:00 EST, Tablet, [facility] [address], 168, cm, 07/09/19 14:49:00 EDT, Height Start Date: 10/08/19 Status: Orderedduloxetine 60 mg oral enteric coated capsule 1 capsule = 60 mg, By Mouth, 2 times a day, # 180 capsule, 1 Refills, Maintenance, 04/13/20 11:50:00EDT, EC Capsule, [facility] #[id number], 168, cm, 03/19/20 9:21:00 EDT, Height Start Date: 04/13/20 Status: Orderedgabapentin 300 mg oral capsule 300 mg, 1, capsule, By Mouth, Daily, at bed, # 30 each, Refills 2, Tot. Refills 2, Maintenance, 04/13/20 13:38:00 EDT, Route to Pharmacy Electronically, [facility] #[id number], 168, cm, 03/19/20 9:21:00 EDT, Height Start [...] Refills, Soft Stop, 05/13/20 13:31:00 EDT, Tablet, [email or web address] #[id number], 168, cm, 05/13/20 13:13:00 EDT, Height Start Date: 05/13/20 Status: OrderedRhinocort Aqua 32 mcg/inh nasal spray 2 sprays, Nares, Both, Daily in AM, # 9 mL, 5 Refills, Maintenance, 06/06/17 11:14:50 Start Date: 06/06/17 Status: Orderedtopiramate 25 mg oral capsule 2 capsule = 50 mg, By Mouth, Daily at bedtime, # 60 capsule, 1 Refills, Maintenance, 05/13/20 13:31:00 EDT, Capsule, [facility] #[id number], 168, cm, 05/13/20 13:13:00 EDT, Height Start Date: 05/13/20 Status: OrderedtraZODone 50 mg oral tablet 25 mg, 0.5, tablet, By Mouth, 2 times a day, # 90 tablet, Refills 1, Tot. Refills 1, Maintenance, 04/10/20 11:00:00 EDT, Route to Pharmacy Electronically, [facility] #[id number], 168, cm, 12/04/2009:30:00 EST, Height Start Date: 04/10/20 Status: OrderedUbrelvy 50 mg oral tablet 1 tablet = 50 mg, By Mouth, Once, PRN as needed for migraine headache, may repeat dose in 2 hours ifneeded, # 10 tablet, 2 Refills, Soft Stop, 05/13/20 15:21:00 EDT, Tablet, [facility] #[id number], 168, cm, 05/13/20 13:13:00 EDT, Height Start Date: 05/13/20 Status: OrderedValium 5 mg oral tablet See Instructions, 1 tab PO @ HS the night before Procedure and 1 tab 1 hr. prior to procedure, # 2 tablet, Refills 0, Tot. Refills 0, Maintenance, 12/04/19 16:29:00 EST, Instructions Replace Required Details, Route to Pharmacy Electronically, [facility] Start Date: 12/04/19 Status: OrderedVitamin D3 5000 intl units oral capsule See Instructions, 1 capsule By Mouth twice per week, # 50 capsule, 0 Refills, Maintenance, 03/02/20 9:02:00 EDT, Capsule, [facility] #[id number], 168, cm, 12/05/19 10:30:00 EST, Height Start [...] Active Vitamin D deficiency(Confirmed) Active 1normal renin/jeremiah/neg qwembksebyisjd1CZP noted followed by neurosurgery Dr. Woodall. no surgery advised at this dwib6cwdxuq spine sports; mri estrxup7gargsqm given,comprehensive Social History Social History Type Response Smoking Status Never smoker; Tobacco user i n household: No entered on: 12/08/14 Sex Female
--- OUTSIDE RECORDS SUMMARY | 2022-10-18 01:14 | XMS_ITS | Continuity of Care Document ---
:1975 Author Organization [facility] Address [address] [place] [address]- Care Team Providers Name Role Phone Mack Banda MD Primary Care Physician [place] [facility] [place] - 02/03/[facility] [address] [place] [address] Attending Physician: Neisha Gama MD Admitting Physician: Neisha Gama MD Referring Physician: Mack Banda MD Allergies, Adverse Reactions, Alerts Substance Reaction Severity Status mirtazapine Active citalopram Active Cats Active Dogs Active Immunizations Given and Recorded Vaccine Date Status Refusal Reason SARS-CoV-2 (COVID-19) mRNA-1202 vaccine 01/24/21 Recorded Influenza Virus Vaccine (oldterm) [...] Vaccine (oldterm) 10/01/03 Given 1Location History: [facility] AmosKxi1Xfoxdi Comment: [05/10/2016] RECI[facility]ED AT [facility] [id number] Comment: [07/21/2015] at [id number] Comment: [12/08/2014] pt received at tiyt7Eqqdtyri History: [facility] employer, [employer]ena solomon6Admin Note: [facility] [id number] Note: #2 Medications Acetaminophen = 1,000 mg, By Mouth, 2 times a day, PRN Pain, 0 Refills, Maintenance, 09/17/18 16:04:26 EST Start Date: 09/17/18 Status: Orderedcetirizine 10 mg oral tablet 1 tablet, By Mouth, Daily, # 90 tablet, 1 Refills, Maintenance, 10/16/20 11:32:00 EST, [facility] #[id number], 166, cm, 10/11/20 9:24:00 EST, Height Start [...] each, 11 Refills, Maintenance, 01/31/21 7:27:00 EDT, [facility] #[id number], 166, cm, 12/31/20 8:54:00 EDT, Height Start Date: 01/31/21 Status: Orderedferrous sulfate 325 mg oral enteric coated tablet 325 mg, 1, tablet, By Mouth, 3 times a day, may take with food to minimize abdominal discomfort takesip mihir wells, # 90 tablet, Refills 3, Tot. Refills 3, Maintenance, 10/11/20 17:24:00 EST, Route to Pharmacy Electronically, [facility] Start Date: 10/11/20 Status: Orderedgabapentin 300 mg oral capsule 600 mg, 2, capsule, By Mouth, Daily at bedtime, at bed, # 60 each, Refills 2, Tot. Refills 2, Maintenance, 12/17/20 15:08:00 EDT, Route to Pharmacy Electronically, [facility] #[id number], 166, cm,12/17/20 14:53:00 EDT, Height Start Date: [...] 0 Refills, Maintenance, 01/11/21 8:43:00 EDT, Tablet, [facility] #[id number],Partial fill upon patient request if the prescri... [...] 0 Refills, Maintenance, 03/02/20 9:02:00 EDT, Capsule, [facility] #[id number], 168, cm, 12/05/19 10:30:00 EST, Height Start [...] Active Vitamin D deficiency(Confirmed) Active 1normal renin/jeremiah/neg rzviosspvbslcp3TUG noted followed by neurosurgery Dr. Woodall. no surgery advised at this neqi6hpmbxh spine sports; mri yrlwxmh2gqcbwke given,comprehensive Social History Social History Type Response Smoking Status Never smoker; Tobacco user i n household: No entered on: 12/08/14 Sex Female
--- OUTSIDE RECORDS SUMMARY | 2022-10-18 01:14 | XMS_ITS | Continuity of Care Document ---
:1975 Author Organization [facility] Adult Address [address] [place] [address]- Care Team Providers Name Role Phone Anais MENDEZ, Jose Miguel Morgan Primary Care Physician [facility] 08[facility]22 - 08/14/22 [facility] Adult [address] [place] [address]- Encounter Diagnosis Physical exam (Discharge Diagnosis) - 07/24/22 Chronic Migraines (Discharge Diagnosis) - 07/24/22 Adenoma of right adrenal gland neg labs 2017 (Discharge Diagnosis) - 07/24/22 Cervical disc disease C6-7 MRI 2020/C5-7 (two level) ACDF. (Discharge Diagnosis) - 07/24/22 Fibromyalgia (Discharge Diagnosis) - 07/24/22 Lumbar disc disease (Discharge Diagnosis) - 07/24/22 Vitamin D deficiency (Discharge Diagnosis) - 07/24/22 Major depression in full remission (Discharge Diagnosis) - 08/07/22 Vasomotor symptoms due to menopause (Discharge Diagnosis) - 08/07/22 Attending Physician: Solo MENDEZ, Mack Boyd Allergies, Adverse Reactions, Alerts Substance Reaction Severity [...] Toxoid Vaccine (oldterm) 10/01/03 Given 1Result Comment: [facility]-[id number] History: [facility] AmosZbi9Savlay Comment: [05/10/2016] RECIEVED AT [facility] AMOS [id number] Comment: [07/21/2015] at work5 Result Comment: [12/08/2014] pt received at [id number] History: [facility] employer, [employer]7Admin Note: [facility] employer8 Admin Note: #2 Medications Acetaminophen = 1,000 mg, By Mouth, 2 times a day, PRN Pain, 0 Refills, Maintenance, 09/17/18 16:04:26 EST Start Date: 09/17/18 Status: Orderedcetirizine 10 mg oral tablet 1 tablet, By Mouth, Daily, # 90 tablet, 1 Refills, 06/26/22 13:49:00 EDT, [facility] #[id number], 167.64, cm, 03/29/22 9:37:00 EDT, Height, 80.2, kg, 04/19/21 6:20:00 EDT, Dry Weight Start Date: 06/26/22 Status: Orderedduloxetine 60 mg oral enteric coated capsule 1 capsule = 60 mg, By Mouth, 2 times a day, # 60 capsule, 1 Refills, Maintenance, 06/26/22 13:49:00 EDT, EC Capsule, [facility] #[id number], 167.64, cm, 03/29/22 9:37:00 EDT, Height, 80.2, kg, 04/19/21 6:20:00 EDT, Dry Weight Start Date: 06/26/22 Status: Orderedgabapentin 300 mg oral capsule See Instructions, Take 1 capsule in AM, 1 at 3PM and 2 capsules at bedtime, # 120 tablet, Refills 1,Tot. Refills 1, Maintenance, 07/06/22 12:17:00 EDT, Instructions Replace Required Details, Route to Pharmacy Electronically, [id number]... Start Date: 07/06/22 Status: OrderedLORazepam 0.5 mg oral tablet 1 tablet = 0.5 mg, By Mouth, Daily at bedtime, # 30 tablet, 2 Refills, Maintenance, 05/15/22 15:39:00 EDT, [facility] #[id number], 167.64, cm, 03/29/22 9:37:00 EDT, Height, 80.2, kg, 04/19/21 6:20:00 EDT, Dry Weight Start Date: 05/15/22 Status: OrderedNuLYTELY with Flavor Packs oral powder for reconstitution 240 mL, By Mouth, Every 10 minutes, split prep method, take 1st half of prep evening before procedure, 2nd half 6 hrs prior to procedure., # 1 each, 0 Refills, Maintenance, 01/01/23 17:00:00 EDT, REC Powder, [facility]/pharmacy #[id number], test date 01/02 . C... Start Date: 01/01/23 Status: OrderedtiZANidine 2 mg oral capsule 1 capsule = 2 mg, By Mouth, Daily at bedtime, # 30 capsule, 2 Refills, Maintenance, 04/18/22 13:24:00 EDT, [facility] #[id number], Partial fill upon patient request if the prescription is for a schedule II opioid drug., 167.64, cm, 03/29/22 9:37:... Start Date: 04/18/22 Status: OrderedUbrelvy 50 mg oral tablet 1 tablet = 50 mg, By Mouth, Once, PRN as needed for migraine headache, may repeat dose in 2 hours ifneeded, # 30 tablet, 11 Refills, Soft Stop, 06/26/22 13:48:00 EDT, Tablet, [facility] #[id number], Partial fill upon patient request if the presc... Start Date: 06/26/22 Status: Ordered Problem List Condition Confirmation Course Effective Dates Status Health Stat us Informant Adenoma of right Confirmed Active adrenal gland neg labs Anxiety Confirmed Active [place] cardiac Confirmed 04/13/21 Active risk <10% in next 10 years 2.0% Cervical disc Confirmed Active disease C6-7 MRI 2020/C5-7 (two level) ACDF. Fibromyalgia Confirmed Active Impingement Confirmed 09/17/18 Active syndrome, shoulder, left Insomnia Confirmed Active Lumbar disc Confirmed Active disease2, 3 Depression, major, Confirmed Active Chronic Migraines4 Confirmed 11/19/08 Active Vitamin D Confirmed Active deficiency 1normal renin/jeremiah/neg [id number] noted followed by neurosurgery Dr. Woodall. no surgery advised at this peeq0etuahe spine sports; mri wyyrwct5ysqmsyo given,comprehensive Diagnosis Diagnosis Type Effective Dates Health Clinical Infor [facility] Status Service Physical exam Discharge 07/24/22 Diagnosis Chronic Migraines Discharge 07/24/22 Diagnosis Adenoma of right Discharge 07/24/22 adrenal gland neg Diagnosis labs 2017 Cervical disc Discharge 07/24/22 disease C6-7 MRI Diagnosis 2020/C5-7 (two level) ACDF. Fibromyalgia Discharge 07/24/22 Diagnosis Lumbar disc disease Discharge 07/24/22 Diagnosis Vitamin D Discharge 07/24/22 deficiency Diagnosis Major depression in Discharge 08/07/22 full remission Diagnosis Vasomotor symptoms Discharge 08/07/22 due to menopause Diagnosis Vital Signs Most recent to oldest [Reference Range]: 1 2 Height 167.64 cm 167.64 cm (08/07/22 2:32 PM) (08/07/22 2:06 PM) Weight 83.8 kg (08/07/22 2:06 PM) Oxygen Saturation [94-100 %] 98 % (08/07/22 2:06 PM) Pulse Rate [55-90 bpm] 75 bpm (08/07/22 2:06 PM) Body Mass Index [18.5-24.99 kg/m2] 29.82 kg/m2 *H* (08/07/22 2:06 PM) Blood Pressure [90-138/55-84 mm Hg] 116/82 mm Hg 137/ 88 mm Hg (08/07/22 2:32 PM) (08/07/22 2:06 PM) Respiratory Rate [16-30 br/min] 16 br/min (08/07/22 2:06 PM) Temperature [96.8-100.4 DegF] 97.9 DegF (08/07/22 2:06 PM) Mode of Delivery (Oxygen) Room air (08/07/22 2:06 PM) Blood pressure sites Arm, left Arm, left (08/07/22 2:32 PM) (08/07/22 2:06 PM) Temperature Route Oral (08/07/22 2:06 PM) Weight Obtained Via Standing scale (08/07/22 2:06 PM) Social History Social History Type Response Smoking Status Never smoker; Tobacco user i n household: No entered on: 12/08/14 Sex Female Note Marilyn Raymond: PERFORM, SIGN, VERIFY Event Display: Patient Education/Instruction Authored Date: [id number] [facility] *BMP Radha Tobin Clinical Summary Name EMMA AYALA Age 47 Years 1975 PCP Solo MENDEZ, Mack Boyd PCP Visit Date 08/07/2022 13:51:00 Patient Instructions walk more sttretch before bed new covid vaccine;I recommend refer colonoscopy fasting blood DR Manzo 6 months Additional Instructions: Scheduled Appointments?? Future Appointments ?No Future Appointments Scheduled Follow-Up Instructions ?? With: Address: When: Anais MENDEZ, Jose Miguel Morgan In 6 months Diagnosis Fibromyalgia; Migraine, unspecified, not intractable, without status migrainosus; Encounter for general adult medical examination without abnormal findings; Menopausal and female climacteric states; Vitamin D deficiency, unspecified; Benign neoplasm of right adrenal gland; Major depressive disorder, single episode, in full remission; Unspecified thoracic, thoracolumbar and lumbosacral intervertebral disc disorder; Cervical disc disorder, unspecified, unspecified cervical region Medications: Please continue your medications until treatment is completed or stopped by your provider. Discuss any questions related to medications with your provider. Medications to Continue with No Changes These medications were not printed or sent to your pharmacy Acetaminophen 1,000 Milligram Oral twice a day as needed Pain. Next Dose: Cetirizine (cetirizine 10 mg oral tablet) 1 tab(s) Oral Daily. Refills: 1. Next Dose: Duloxetine (duloxetine 60 mg oral enteric coated capsule) 1 capsule Oral twice a day. Refills: 1. Next Dose: Gabapentin (gabapentin 300 mg oral capsule) Take 1 capsule in AM, 1 at 3PM and 2 capsules at bedtime. Refills: 1. Next Dose: Lorazepam (LORazepam 0.5 mg oral tablet) 1 tab(s) Oral Daily at Bedtime. Refills: 2. Next Dose: Tizanidine (tiZANidine 2 mg oral capsule) 1 capsule Oral Daily at Bedtime. Refills: 2. Next Dose: ubrogepant (Ubrelvy 50 mg oral tablet) 1 tab(s) Oral once as needed as needed for migraine headache.may repeat dose in 2 hours if needed. Refills: 11. Next Dose: No Longer Take the Following Medications Omeprazole (omeprazole 20 mg oral delayed release tablet) 1 tab(s) Oral Daily in the morning. 30 minutes prior first meal of day. Refills: 1. Allergy Info:?? Dogs; Cats; citalopram; mirtazapine Medications Given This Visit Medication Dose Route influenza virus vaccine, inactivated (influenza virus, inactivated vacc) 0.5 mL Intramuscular Future Orders ?Vitamin D 25 Hydroxy Level? Order Date:08/07/22?- Complete on or after?08/07/22 ?Basic Metabolic Panel? Order Date:08/07/22?- Complete on or after?08/07/22 ?Lipid Panel? Order Date:08/07/22?- Complete on or after?08/07/22 ?LH? Order Date:08/07/22?- Complete on or after?08/07/22 ?FSH? Order Date:08/07/22?- Complete on or after?08/07/22 ?Estradiol (Female >= 16yrs)? Order Date:08/07/22?- Complete on or after?08/07/22 ?CBC w/ Differential? Order Date:08/07/22?- Complete on or after?08/07/22 ?Thyroid Panel? Order Date:08/07/22?- Complete on or after?08/07/22 Vital Signs Height 167.64 cm Weight 83.8 kg BMI 29.82 kg/m2 Blood Pressure 116 mm Hg/82 mm Hg Temperature 97.9 DegF Pulse Rate 75 bpm Respiratory Rate 16 br/min 02 Sat Mode of Delivery 98 %/Room air You can now view a summary of your hospital visit from the comfort of your home through a free online portal called [employer]. [employer] is a website that allows you to securely view yourmedical information including discharge summary, medications and follow-up visits. ??You can also send a secure electronic message to your doctor???s office to request appointments, renew medications or just ask a question. You can enroll at [email or web address] or register during your next office visit. Disclaimer:?? The information provided is of a general nature and is intended to be used in conjunction with the recommendations and advice of your health care practitioner. ??Every effort has been made to ensure that the information provided is accurate and complete at the time it is provided to you however, as your needs change, or, as new ??information becomes available, different or additional instructions may be required. If you have questions, please consult with your primary care provider or pharmacist, as appropriate.??This information is not intended to serve as substitution for assessment and evaluation by a qualified health care provider. If you do not have a primary care provider, you may find a [facility] provider by calling [facility] at [phone]. For information about the plan of care including goals and instructions for your diagnosis, please see the patient education orders section of this document. Patient Education Materials?? The content of this educational material or handout may have been modified, supplemented, or adaptedfrom its original content and format to support your individualized medical care. Colonoscopy Colonoscopy??is used to view the inside of your lower digestive tract (colon and rectum). It can help screen for colon cancer and can help find the source of abdominal pain,??bleeding,??and changes in bowel habits. The test is usually done in the hospital on an outpatient basis. During the exam, the doctor can remove a small tissue sample ( a biopsy) for testing. Small growths, such as polyps, may also be removed during colonoscopy. A camera attached to a flexible tube with a viewing lens is used to take video pictures. Getting ready ??? Be sure to tell your doctor about any medications you take. Also??tell your doctor about any health conditions you may have. ??? Discuss the risks of the test with your doctor. These include??bleeding and bowel puncture. ??? Your rectum and colon must be empty for the test. So be sure to??follow the diet and bowel prep instructions exactly. If you don???t, the test may need to be rescheduled. ??? Ask your doctor whether you need to have a friend or family member prepared to drive you home after the test. Colonoscopy provides an inside view of the entire colon. During the test ??? You are given sedating (relaxing) medication through an IV line.??You may be drowsy or completely asleep. ??? The procedure takes 30??minutes or longer. ??? The doctor performs a digital rectal exam to check for anal and??rectal problems. The rectum is lubricated and the scope inserted. ??? If you are awake, you may have a feeling similar to needing to have a bowel??movement. You may also feel pressure as air is pumped into the colon. It???s??OK to pass gas during the procedure. After the test ??? You may discuss the results with your doctor right away or at a future visit. ??? Try to pass all the gas right after the test to help prevent bloating and cramping. ??? After the test, you can go back to your normal eating and??other activities. Risks and possible complications include: Bleeding A puncture or tear in the colon Risks of anesthesia ?? [id number] [employer]. [address] [place] [address]. All rights reserved. This information is not intended as a substitute for professional medical care. Always follow your healthcare professional's instructions. Patient Care team information Care Team PersonnelName: Daja Vanegas RN Position: [facility] RN Member Role: Primary Care Nurse Name: Yamilet Frank NP Position: [facility] PCO Associate Professional Member Role: [employer] Provider Address: Address: [address] [place] [address]- Name: Jose Miguel Manzo MD Position: [facility] Primary Care Physician Member Role: PCP Address: Address: [address] [place] [address]- Care Team Related PersonsName: CORY AYALA Address: [address] [place] [address] Name: ROBERT AYALA Address: [address] [place] [address]
--- OUTSIDE RECORDS SUMMARY | 2022-10-18 01:14 | XMS_ITS | Continuity of Care Document ---
:1975 Author Organization [facility] Adult Address [address] [place] [address]- Care Team Providers Name Role Phone Solo MENDEZ, Mack Boyd Primary Care Physician [facility] 12/24/20 - 01/23/21 [facility] Adult [address] [place] [address]- Allergies, Adverse Reactions, Alerts Substance Reaction Severity [...] Vaccine (oldterm) 10/01/03 Given 1Location History: [facility] Comment: [05/10/2016] RECIEVED AT [employer] [id number] Comment: [07/21/2015] at btsn1Cykqdh Comment: [12/08/2014] pt received at [id number] History: [facility] employer, [employer]6Admin Note: [facility] [id number] Note: #2 Medications Acetaminophen = 1,000 mg, By Mouth, 2 times a day, PRN Pain, 0 Refills, Maintenance, 09/17/18 16:04:26 EST Start Date: 09/17/18 Status: Orderedcetirizine 10 mg oral tablet 1 tablet, By Mouth, Daily, # 90 tablet, 1 Refills, Maintenance, 10/16/20 11:32:00 EST, [facility] #[id number], 166, cm, 10/11/20 9:24:00 EST, Height Start Date: 10/16/20 Status: Orderedduloxetine 60 mg oral enteric coated capsule 1 capsule = 60 mg, By Mouth, 2 times a day, # 180 capsule, 1 Refills, Maintenance, 10/05/20 7:18:00 EST, EC Capsule, [facility], 166, cm, 09/30/20 15:22:00 EST, Height Start Date: 10/05/20 Status: OrderedEmgality Prefilled Pen 120 mg/mL subcutaneous solution = 120 mg, Subcutaneous Infusion, Every 28 days, # 1 each, 0 Refills, Maintenance, 12/17/20 15:18:00 EDT, [facility] #[id number], 166, cm, 12/17/20 14:53:00 EDT, Height Start Date: 12/17/20 Status: Orderedferrous sulfate 325 mg oral enteric coated tablet 325 mg, 1, tablet, By Mouth, 3 times a day, may take with food to minimize abdominal discomfort marielle wells, # 90 tablet, Refills 3, Tot. Refills 3, Maintenance, 10/11/20 17:24:00 EST, Route to Pharmacy Electronically, [facility] Start Date: 10/11/20 Status: Orderedgabapentin 300 mg oral capsule 600 mg, 2, capsule, By Mouth, Daily at bedtime, at bed, # 60 each, Refills 2, Tot. Refills 2, Maintenance, 12/17/20 15:08:00 EDT, Route to Pharmacy Electronically, [facility] #[id number], 166, cm,12/17/20 14:53:00 EDT, Height Start Date: [...] 0 Refills, Maintenance, 01/11/21 8:43:00 EDT, Tablet, [facility] #[id number],Partial fill upon patient request if the prescri... Start Date: 01/11/21 Status: OrderedtraZODone 50 mg oral tablet 25 mg, 0.5, tablet, By Mouth, 2 times a day, # 90 tablet, Refills 1, Tot. Refills 1, Maintenance, 10/05/20 7:19:00 EST, Route to Pharmacy Electronically, [facility], 166, cm, 09/30/20 15:22:00 EST, Height Start Date: 10/05/20 Status: OrderedVitamin D3 5000 intl units oral capsule See Instructions, 1 capsule By Mouth twice per week, # 50 capsule, 0 Refills, Maintenance, 03/02/20 9:02:00 EDT, Capsule, [facility] #[id number], 168, cm, 12/05/19 10:30:00 EST, Height Start [...] Active Vitamin D deficiency(Confirmed) Active 1normal renin/jeremiah/neg [id number] noted followed by neurosurgery Dr. Woodall. no surgery advised at this [id number] spine sports; mri swrqkpn5yajvulc given,comprehensive Social History Social History Type Response Smoking Status Never smoker; Tobacco user i n household: No entered on: 12/08/14 Sex Female
--- OUTSIDE RECORDS SUMMARY | 2022-10-18 01:14 | XMS_ITS | Continuity of Care Document ---
:1975 Author Organization [facility] Adult Address [address] [place] [address]- Care Team Providers Name Role Phone Solo MENDEZ, Mack Boyd Primary Care Physician [facility] 09[facility]15/21 - 10/15/21 [facility] Adult [address] [place] [address]- Allergies, Adverse Reactions, Alerts Substance Reaction Severity [...] Vaccine (oldterm) 10/01/03 Given 1Location History: [facility] AmosDze3Svrfvt Comment: [05/10/2016] RECIEVED AT [facility] [id number] Comment: [07/21/2015] at [id number] Comment: [12/08/2014] pt received at [id number] History: [facility] employer, [employer]6Admin Note: [facility] [id number] Note: #2 Medications Acetaminophen = 1,000 mg, By Mouth, 2 times a day, PRN Pain, 0 Refills, Maintenance, 09/17/18 16:04:26 EST Start Date: 09/17/18 Status: Orderedcetirizine 10 mg oral tablet 1 tablet, By Mouth, Daily, # 90 tablet, 1 Refills, [facility] #[id number], 167.64, cm, 07/11/2116:24:00 EDT, Height, 80.2, kg, 04/19/21 6:20:00 EDT, Dry Weight Start Date: 07/26/21 Status: Orderedduloxetine 60 mg oral enteric coated capsule 1 capsule = 60 mg, By Mouth, 2 times a day, # 180 capsule, 1 Refills, Maintenance, 07/26/21 11:03:00EDT, EC Capsule, [facility] #[id number], 167.64, cm, 07/11/21 16:24:00 EDT, Height, 80.2, kg, 04/19/21 6:20:00 EDT, Dry Weight Start Date: 07/26/21 Status: OrderedEmgality Prefilled Pen 120 mg/mL subcutaneous solution = 120 mg, Subcutaneous Infusion, Every 28 days, # 1 each, 11 Refills, Maintenance, 01/31/21 7:27:00 EDT, [facility] #[id number], 166, cm, 12/31/20 8:54:00 EDT, Height Start Date: 01/31/21 Status: Orderedgabapentin 300 mg oral capsule 2, capsule, By Mouth, Daily at bedtime, # 180 capsule, Refills 0, Tot. Refills 0, 08/26/21 11:00:00 EST, Route to Pharmacy Electronically, [facility] #[id number], 167.64, cm, 07/11/21 16:24:00 EDT, Height, 80.2, kg, 04/19/21 6:20:00 EDT, Dry Weight Start Date: 08/26/21 Status: OrderedLORazepam 0.5 mg oral tablet 1 tablet = 0.5 mg, By Mouth, Daily at bedtime, # 30 tablet, 0 Refills, Maintenance, 09/15/21 11:32:00 EST, [facility] #[id number], Partial fill upon patient request if the prescription is for a schedule II opioid drug., 167.64, cm, 07/11/21 16:24... Start Date: 09/15/21 Status: Orderedomeprazole 20 mg oral delayed release tablet 1 tablet = 20 mg, By Mouth, Daily in AM, 30 minutes prior first meal of day, # 30 tablet, 1 Refills,Maintenance, 03/01/21 16:21:00 EDT, EC Tablet, [facility] #[id number], Partial fill upon patient request if the [...] Refills, Soft Stop, 06/17/21 14:54:00 EDT, Tablet, [facility] #[id number], Partial fill upon patient request if the prescr... Start Date: 06/17/21 Status: Ordered Problem List Condition Effective Dates Status Health Status Informant Adenoma of right adrenal Active gland(Confirmed)1 Anxiety(Confirmed) Active [place] cardiac risk <10% in next 04/13/21 Active 10 years 2.0%(Confirmed) Cervical disc disease C6-7 MRI Active 2020/C5-7 (two level) ACDF.(Confirmed) Fibromyalgia(Confirmed) Active Impingement syndrome, shoulder, 09/17/18 Active left(Confirmed) Insomnia(Confirmed) Active Lumbar disc disease(Confirmed)2, 3 Active Depression, major,(Confirmed) Active Migraine failed dukloxetine gabapentin 11/19/08 Active TCA(Confirmed)4 Lesion of nasal septum rt;refer Active dermatology(Confirmed) Vitamin D deficiency(Confirmed) Active 1normal renin/jeremiah/neg hxtocjfglzklle3OST noted followed by neurosurgery Dr. Woodall. no surgery advised at this [id number] spine sports; mri zrfaowr8wffsysy given,comprehensive Social History Social History Type Response Smoking Status Never smoker; Tobacco user i n household: No entered on: 12/08/14 Sex Female
--- OUTSIDE RECORDS SUMMARY | 2022-10-18 01:14 | XMS_ITS | Continuity of Care Document ---
:1975 Author Organization [facility] Address [address] [place] [address]- Care Team Providers Name Role Phone Solo MENDEZ, Mack Boyd Primary Care Physician [facility] 12[facility]19 - 12/15/19 [facility] [address] [place] [address]- [facility] Attending Physician: Srikanth Romero Admitting Physician: AdmSrikanth jernigan Referring Physician: Admtr, Ar8 Allergies, Adverse Reactions, Alerts [...] Vaccine (oldterm) 10/01/03 Given 1Location History: [id number] Comment: [05/10/2016] RECIEVED AT [facility] [id number] Comment: [07/21/2015] at kqtt9Equeld Comment: [12/08/2014] pt received at [id number] History: [facility] [employer] employer, [employer]6Admin Note: [facility] [id number] Note: #2 Medications Acetaminophen = 1,000 mg, By Mouth, 2 times a day, PRN Pain, 0 Refills, Maintenance, 09/17/18 16:04:26 EST Start Date: 09/17/18 Status: Orderedcetirizine 10 mg oral tablet 1 tablet = 10 mg, By Mouth, Daily, # 90 tablet, 1 Refills, Maintenance, 10/08/19 14:04:00 EST, Tablet, [facility] [address], 168, cm, 07/09/19 14:49:00 EDT, Height Start Date: 10/08/19 Status: Orderedduloxetine 60 mg oral enteric coated capsule 1 capsule = 60 mg, By Mouth, 2 times a day, # 180 capsule, 1 Refills, Maintenance, 12/05/19 11:05:00EST, EC Capsule, [facility] #[id number], 168, cm, 12/05/19 10:30:00 EST, Height Start Date: 12/05/19 Status: Orderedgabapentin 300 mg oral capsule 600 mg, 2, capsule, By Mouth, Daily at bedtime, # 180 capsule, Refills 1, Tot. Refills 1, Maintenance, 12/05/19 11:05:00 EST, Route to Pharmacy Electronically, [facility] #[id number], 168, cm, 12/05/19 10:30:00 EST, Height Start [...] 04/10/20 11:00:00 EDT, Route to Pharmacy Electronically, [facility] #[id number], 168, cm, 12/04/2009:30:00 EST, Height Start Date: 04/10/20 Status: OrderedValium 5 mg oral tablet See Instructions, 1 tab PO @ HS the night before Procedure and 1 tab 1 hr. prior to procedure, # 2 tablet, Refills 0, Tot. Refills 0, Maintenance, 12/04/19 16:29:00 EST, Instructions Replace Required Details, Route to Pharmacy Electronically, [facility] Start Date: 12/04/19 Status: OrderedVitamin D3 5000 [...] Active Vitamin D deficiency(Confirmed) Active 1normal renin/jeremiah/neg rolrevgdyfwscg9NLD noted followed by neurosurgery Dr. Woodall. no surgery advised at this ryuk7jljmzt spine sports; mri piyflin0ohrqtyl given,comprehensive Social History Social History Type Response Smoking Status Never smoker; Tobacco user i n household: No entered on: 12/08/14 Sex Female
--- OUTSIDE RECORDS SUMMARY | 2022-10-18 01:14 | XMS_ITS | Continuity of Care Document ---
:1975 Author Organization [facility] pt Address [address] [place] [address]- Care Team Providers Name Role Phone Mack Banda MD Primary Care Physician Encounter [facility] Date(s): 01/02/22 - 01/09/22 [facility] [address] [place] [address]- Encounter Diagnosis Lip swelling (Discharge Diagnosis) - 01/02/22 Lip pain (Discharge Diagnosis) - 01/02/22 Attending Physician: Not on Staff, Attending MD Referring Physician: Mack Banda MD Allergies, [...] Vaccine (oldterm) 10/01/03 Given 1Location History: [facility] AmosCjf4Gjhbfy Comment: [05/10/2016] RECIEVED AT [facility] [id number] Comment: [07/21/2015] at [id number] Comment: [12/08/2014] pt received at atns4Axtwjzjq History: [employer] employer, magdalena ay6Xauul Note: [facility] [id number] Note: #2 Medications Acetaminophen = 1,000 mg, By Mouth, 2 times a day, PRN Pain, 0 Refills, Maintenance, 09/17/18 16:04:26 EST Start Date: 09/17/18 Status: Orderedamoxicillin 875 mg oral tablet 1 tablet = 875 mg, By Mouth, 2 times a day, for 10 days, # 20 tablet, 0 Refills, Acute 01/12/22 17:13:00 EDT, 01/02/22 17:13:00 EDT, Tablet, [facility] #[id number], Partial fill upon patient request if the prescription is for a schedule II opioid... Start Date: 01/02/22 Stop Date: 01/12/22 Status: Orderedcetirizine 10 mg oral tablet 1 tablet, By Mouth, Daily, # 90 tablet, 1 Refills, 11/25/21 10:17:00 EST, [facility] #[id number], 167.64, cm, 11/08/21 16:30:00 EST, Height, 80.2, kg, 04/19/21 6:20:00 EDT, Dry Weight Start Date: 11/25/21 Status: Orderedduloxetine 60 mg oral enteric coated capsule 1 capsule = 60 mg, By Mouth, 2 times a day, # 180 capsule, 1 Refills, Maintenance, 07/26/21 11:03:00EDT, EC Capsule, [facility] #[id number], 167.64, cm, 07/11/21 16:24:00 EDT, Height, 80.2, kg, 04/19/21 6:20:00 EDT, Dry Weight Start Date: 07/26/21 Status: OrderedEmgality Prefilled Pen 120 mg/mL subcutaneous solution = 120 mg, Subcutaneous Infusion, Every 28 days, # 1 each, 11 Refills, Maintenance, 01/31/21 7:27:00 EDT, [facility] #[id number], 166, cm, 12/31/20 8:54:00 EDT, Height Start Date: 01/31/21 Status: Orderedgabapentin 300 mg oral capsule 2, capsule, By Mouth, Daily at bedtime, # 180 capsule, Refills 0, Tot. Refills 0, 08/26/21 11:00:00 EST, Route to Pharmacy Electronically, [facility] #[id number], 167.64, cm, 07/11/21 16:24:00 EDT, Height, 80.2, kg, 04/19/21 6:20:00 EDT, Dry Weight Start Date: 08/26/21 Status: OrderedLORazepam 0.5 mg oral tablet See Instructions, TAKE 1 TABLET BY MOUTH DAILY AT BEDTIME, # 30 tablet, 0 Refills, Maintenance, 10/18/21 15:26:00 EST, [facility] #[id number], 167.64, cm, 07/11/21 16:24:00 EDT, Height, 80.2, kg, 04/19/21 6:20:00 EDT, Dry Weight Start Date: 10/18/21 Status: OrderedLORazepam 0.5 mg oral tablet 1 tablet = 0.5 mg, By Mouth, Daily at bedtime, # 30 tablet, 0 Refills, Maintenance, 12/20/21 15:47:00 EDT, [facility] #[id number], Partial fill upon patient request if the prescription is for a schedule II opioid drug., 167.64, cm, 11/08/21 16:30... Start Date: 12/20/21 Status: Orderedomeprazole 20 mg oral delayed release tablet 1 tablet = 20 mg, By Mouth, Daily in AM, 30 minutes prior first meal of day, # 30 tablet, 1 Refills,Maintenance, 03/01/21 16:21:00 EDT, EC Tablet, [facility] #[id number], Partial fill upon patient request if the prescription is for a schedule II... Start Date: 03/01/21 Status: OrderedtiZANidine 2 mg oral capsule 1 capsule = 2 mg, By Mouth, Daily at bedtime, # 30 capsule, 2 Refills, Maintenance, 12/07/21 10:59:00 EST, [facility] #[id number], Partial fill upon patient request if the prescription is for a schedule II opioid drug., 167.64, cm, 11/08/21 16:30... Start Date: 12/07/21 Status: OrderedUbrelvy 50 mg oral tablet 1 tablet = 50 mg, By Mouth, Once, PRN as needed for migraine headache, may repeat dose in 2 hours ifneeded, # 2 tablet, 11 Refills, Soft Stop, 06/17/21 14:54:00 EDT, Tablet, [facility] #[id number], Partial fill upon patient request if the prescr... Start Date: 06/17/21 Status: Ordered Problem List Condition Effective Dates Status Health Status Informant Adenoma of right adrenal gland neg Active labs 2017(Confirmed)1 Anxiety(Confirmed) Active [place] cardiac risk <10% in next 04/13/21 Active 10 years 2.0%(Confirmed) Cervical disc disease C6-7 MRI Active 2020/C5-7 (two level) ACDF.(Confirmed) Fibromyalgia(Confirmed) Active Impingement syndrome, shoulder, 09/17/18 Active left(Confirmed) Insomnia(Confirmed) Active Lumbar disc disease(Confirmed)2, 3 Active Depression, major,(Confirmed) Active Migraine failed(Confirmed)4 11/19/08 Active Vitamin D deficiency(Confirmed) Active 1normal renin/jeremiah/neg vcwwuwakjnlyux7AHX noted followed by neurosurgery Dr. Woodall. no surgery advised at this xlyh8xencsy spine sports; mri oqhefpg0gntquqv given,comprehensive Diagnosis Diagnosis Type Effective Dates Health Status Clinical In formant Service Lip swelling Discharge 01/02/22 Diagnosis Lip pain Discharge 01/02/22 Diagnosis Social History Social History Type Response Smoking Status Never smoker; Tobacco user i n household: No entered on: 12/08/14 Sex Female
--- OUTSIDE RECORDS SUMMARY | 2022-10-18 01:14 | XMS_ITS | Continuity of Care Document ---
:1975 Author Organization [facility] Adult Address [address] [place] [address]- Care Team Providers Name Role Phone Solo MENDEZ, Mack Boyd Primary Care Physician Encounter [facility] Date(s): 01/11/21 - 02/10/21 [facility] [address] [place] [address]- Allergies, Adverse Reactions, Alerts Substance Reaction Severity [...] Vaccine (oldterm) 10/01/03 Given 1Location History: [facility] Aoe2Jxqvyo Comment: [05/10/2016] RECI[facility]ED AT [facility] [id number] Comment: [07/21/2015] at pqai8Cnblbe Comment: [12/08/2014] pt received at zfto4Qzvjmeyn History: [facility] [employer] employer, magdalena solomon6Admin Note: [facility] [id number] Note: #2 Medications Acetaminophen = 1,000 mg, By Mouth, 2 times a day, PRN Pain, 0 Refills, Maintenance, 09/17/18 16:04:26 EST Start Date: 09/17/18 Status: Orderedcetirizine 10 mg oral tablet 1 tablet, By Mouth, Daily, # 90 tablet, 1 Refills, Maintenance, 10/16/20 11:32:00 EST, [facility] #[id number], 166, cm, 10/11/20 9:24:00 EST, Height Start [...] each, 11 Refills, Maintenance, 01/31/21 7:27:00 EDT, [facility] #[id number], 166, cm, 12/31/20 8:54:00 EDT, Height Start Date: 01/31/21 Status: Orderedferrous sulfate 325 mg oral enteric coated tablet 325 mg, 1, tablet, By Mouth, 3 times a day, may take with food to minimize abdominal discomfort takesip mihir wells, # 90 tablet, Refills 3, Tot. Refills 3, Maintenance, 10/11/20 17:24:00 EST, Route to Pharmacy Electronically, [facility]... Start Date: 10/11/20 Status: Orderedgabapentin 300 mg oral capsule 600 mg, 2, capsule, By Mouth, Daily at bedtime, at bed, # 60 each, Refills 2, Tot. Refills 2, Maintenance, 12/17/20 15:08:00 EDT, Route to Pharmacy Electronically, [facility] #[id number], 166, cm,12/17/20 14:53:00 EDT, Height Start Date: [...] 0 Refills, Maintenance, 01/11/21 8:43:00 EDT, Tablet, [facility] #[id number],Partial fill upon patient request if the prescri... [...] 0 Refills, Maintenance, 03/02/20 9:02:00 EDT, Capsule, [facility] #[id number], 168, cm, 12/05/19 10:30:00 EST, Height Start [...] Active Vitamin D deficiency(Confirmed) Active 1normal renin/jeremiah/neg oobtetlftqovwn3GGN noted followed by neurosurgery Dr. Woodall. no surgery advised at this nkbs4ihbpan spine sports; mri iiojfxu4jxhqequ given,comprehensive Social History Social History Type Response Smoking Status Never smoker; Tobacco user i n household: No entered on: 12/08/14 Sex Female
--- OUTSIDE RECORDS SUMMARY | 2022-10-18 01:14 | XMS_ITS | Continuity of Care Document ---
:1975 Author Organization [facility] Adult Address [address] [place] [address]- Care Team Providers Name Role Phone Mack Banda MD Primary Care Physician Encounter [facility] Date(s): 01/28/20 - 02/27/20 [facility] [address] [place] [address]- [place] Encounter Diagnosis Close exposure to COVID-19 virus (Discharge Diagnosis) - 01/28/20 Attending Physician: Mack Banda MD Allergies, Adverse [...] Vaccine (oldterm) 10/01/03 Given 1Location History: [facility] Idp4Kytzjj Comment: [05/10/2016] RECIEVED AT [employer] [id number] Comment: [07/21/2015] at imrm6Bulsav Comment: [12/08/2014] pt received at aeja6Llefsdkd History: [facility] employer, magdalena solomon6Admin Note: [facility] [id number] Note: #2 Medications Acetaminophen = 1,000 mg, By Mouth, 2 times a day, PRN Pain, 0 Refills, Maintenance, 09/17/18 16:04:26 EST Start Date: 09/17/18 Status: Orderedcetirizine 10 mg oral tablet 1 tablet = 10 mg, By Mouth, Daily, # 90 tablet, 1 Refills, Maintenance, 10/08/19 14:04:00 EST, Tablet, [facility] [address] [facility], 168, cm, 07/09/19 14:49:00 EDT, Height Start Date: 10/08/19 Status: Orderedduloxetine 60 mg oral enteric coated capsule 1 capsule = 60 mg, By Mouth, 2 times a day, # 180 capsule, 1 Refills, Maintenance, 12/05/19 11:05:00EST, EC Capsule, [facility] #[id number], 168, cm, 12/05/19 10:30:00 EST, Height Start Date: 12/05/19 Status: Orderedgabapentin 300 mg oral capsule 600 mg, 2, capsule, By Mouth, Daily at bedtime, # 180 capsule, Refills 1, Tot. Refills 1, Maintenance, 12/05/19 11:05:00 EST, Route to Pharmacy Electronically, [facility] #[id number], 168, cm, 12/05/19 10:30:00 EST, Height Start [...] 04/10/20 11:00:00 EDT, Route to Pharmacy Electronically, [facility] #[id number], 168, cm, 12/04/2009:30:00 EST, Height Start Date: 04/10/20 Status: OrderedValium 5 mg oral tablet See Instructions, 1 tab PO @ HS the night before Procedure and 1 tab 1 hr. prior to procedure, # 2 tablet, Refills 0, Tot. Refills 0, Maintenance, 12/04/19 16:29:00 EST, Instructions Replace Required Details, Route to Pharmacy Electronically, [facility] Start Date: 12/04/19 Status: OrderedVitamin D3 5000 [...] Active Vitamin D deficiency(Confirmed) Active 1normal renin/jeremiah/neg xwyqcklovovyyx3MEM noted followed by neurosurgery Dr. Woodall. no surgery advised at this xqwv5bwmifh spine sports; mri iqhjkqb1uowglqi given,comprehensive Diagnosis Diagnosis Type Effective Dates Health Status Clinical In formant Service Close exposure Discharge 01/28/20 to COVID-19 Diagnosis virus Social History Social History Type Response Smoking Status Never smoker; Tobacco user i n household: No entered on: 12/08/14 Sex Female
--- OUTSIDE RECORDS SUMMARY | 2022-10-18 01:14 | XMS_ITS | Continuity of Care Document ---
:1975 Author Organization [facility] Adult Address [address] [place] [address]- Care Team Providers Name Role Phone Solo MENDEZ, Mack Boyd Primary Care Physician Encounter [facility] Date(s): 10/05/20 - 11/04/20 [facility] Adult [address] [place] [address]- Allergies, Adverse Reactions, Alerts Substance Reaction Severity [...] Vaccine (oldterm) 10/01/03 Given 1Location History: [facility] Cyj7Ipuzhe Comment: [05/10/2016] [facility] [id number] Comment: [07/21/2015] at meui4Ngyess Comment: [12/08/2014] pt received at egsh3Qucjkilu History: [facility] employmagdalena cosme pq6Uquxq Note: [facility]Wpoyi Note: #2 Medications Acetaminophen = 1,000 mg, By Mouth, 2 times a day, PRN Pain, 0 Refills, Maintenance, 09/17/18 16:04:26 EST Start Date: 09/17/18 Status: Orderedcetirizine 10 mg oral tablet 1 tablet, By Mouth, Daily, # 90 tablet, 1 Refills, Maintenance, 10/16/20 11:32:00 EST, [facility] #[id number], 166, cm, 10/11/20 9:24:00 EST, Height Start Date: 10/16/20 Status: Orderedduloxetine 60 mg oral enteric coated capsule 1 capsule = 60 mg, By Mouth, 2 times a day, # 180 capsule, 1 Refills, Maintenance, 10/05/20 7:18:00 EST, EC Capsule, [facility], 166, cm, 09/30/20 15:22:00 EST, Height Start Date: 10/05/20 Status: Orderedferrous sulfate 325 mg oral enteric coated tablet 325 mg, 1, tablet, By Mouth, 3 times a day, may take with food to minimize abdominal discomfort takesip mihir jing priscilla, # 90 tablet, Refills 3, Tot. Refills 3, Maintenance, 10/11/20 17:24:00 EST, Route to Pharmacy Electronically, [facility]... Start Date: 10/11/20 Status: Orderedgabapentin 300 mg oral capsule 300 mg, 1, capsule, By Mouth, Daily, at bed, # 30 each, Refills 2, Tot. Refills 2, Maintenance, 10/05/20 7:19:00 EST, Route to Pharmacy Electronically, [facility], 166, cm, 09/30/20 15:22:00 EST, Height Start Date: 10/05/20 Status: Orderedibuprofen 600 mg oral tablet 600 mg, 1, tablet, By Mouth, 2 times a day, Refills 0, Maintenance, 12/05/19 11:08:00 EST Start Date: 12/05/19 Status: Orderedtopiramate 25 mg oral capsule 2 capsule, By Mouth, Daily at bedtime, # 60 capsule, 5 Refills, Maintenance, 09/05/20 15:41:00 EST, [facility] #[id number], 168, cm, 08/16/20 8:23:00 EST, Height Start Date: 09/05/20 Status: OrderedtraZODone 50 mg oral tablet 25 mg, 0.5, tablet, By Mouth, 2 times a day, # 90 tablet, Refills 1, Tot. Refills 1, Maintenance, 10/05/20 7:19:00 EST, Route to Pharmacy Electronically, [facility], 166, cm, 09/30/20 15:22:00 EST, Height Start Date: 10/05/20 Status: OrderedVitamin D3 5000 intl units oral capsule See Instructions, 1 capsule By Mouth twice per week, # 50 capsule, 0 Refills, Maintenance, 03/02/20 9:02:00 EDT, Capsule, [facility] #[id number], 168, cm, 12/05/19 10:30:00 EST, Height Start [...] Active Vitamin D deficiency(Confirmed) Active 1normal renin/jeremiah/neg larrqrkokglitb9ZDY noted followed by neurosurgery Dr. Woodall. no surgery advised at this rtgw7jtnirm spine sports; mri asrvopf8fwnuqxw given,comprehensive Social History Social History Type Response Smoking Status Never smoker; Tobacco user i n household: No entered on: 12/08/14 Sex Female
--- OUTSIDE RECORDS SUMMARY | 2022-10-18 01:14 | XMS_ITS | Continuity of Care Document ---
:1975 Author Organization [facility] Adult Address [address] [place] [address]- Care Team Providers Name Role Phone Solo MENDEZ, Mack Boyd Primary Care Physician Encounter [facility] Date(s): 04/13/20 - 05/13/20 [facility] Adult [address] [place] [address]- [facility] Allergies, Adverse Reactions, Alerts Substance Reaction [...] Vaccine (oldterm) 10/01/03 Given 1Location History: [facility] [id number] Comment: [05/10/2016] RECIEVED AT [facility] [place] [id number] Comment: [07/21/2015] at tidq6Zukuba Comment: [12/08/2014] pt received at tjvg6Lhgbkbyj History: [facility] employer, magdalena solomon6Admin Note: [facility] ufyezwvn8Goreg Note: #2 Medications Acetaminophen = 1,000 mg, By Mouth, 2 times a day, PRN Pain, 0 Refills, Maintenance, 09/17/18 16:04:26 EST Start Date: 09/17/18 Status: Orderedcetirizine 10 mg oral tablet 1 tablet = 10 mg, By Mouth, Daily, # 90 tablet, 1 Refills, Maintenance, 10/08/19 14:04:00 EST, Tablet, [facility] [address], 168, cm, 07/09/19 14:49:00 EDT, Height Start Date: 10/08/19 Status: Orderedduloxetine 60 mg oral enteric coated capsule 1 capsule = 60 mg, By Mouth, 2 times a day, # 180 capsule, 1 Refills, Maintenance, 04/13/20 11:50:00EDT, EC Capsule, [facility] #[id number], 168, cm, 03/19/20 9:21:00 EDT, Height Start Date: 04/13/20 Status: Orderedgabapentin 300 mg oral capsule 300 mg, 1, capsule, By Mouth, Daily, at bed, # 30 each, Refills 2, Tot. Refills 2, Maintenance, 04/13/20 13:38:00 EDT, Route to Pharmacy Electronically, [facility] #[id number], 168, cm, 03/19/20 9:21:00 EDT, Height Start [...] Refills, Soft Stop, 05/13/20 13:31:00 EDT, Tablet, [facility] #[id number], 168, cm, 05/13/20 13:13:00 EDT, Height Start Date: 05/13/20 Status: OrderedRhinocort Aqua 32 mcg/inh nasal spray 2 sprays, Nares, Both, Daily in AM, # 9 mL, 5 Refills, Maintenance, 06/06/17 11:14:50 Start Date: 06/06/17 Status: Orderedtopiramate 25 mg oral capsule 2 capsule = 50 mg, By Mouth, Daily at bedtime, # 60 capsule, 1 Refills, Maintenance, 05/13/20 13:31:00 EDT, Capsule, [facility] #[id number], 168, cm, 05/13/20 13:13:00 EDT, Height Start Date: 05/13/20 Status: OrderedtraZODone 50 mg oral tablet 25 mg, 0.5, tablet, By Mouth, 2 times a day, # 90 tablet, Refills 1, Tot. Refills 1, Maintenance, 04/10/20 11:00:00 EDT, Route to Pharmacy Electronically, [facility] #[id number], 168, cm, 12/04/2009:30:00 EST, Height Start Date: 04/10/20 Status: OrderedUbrelvy 50 mg oral tablet 1 tablet = 50 mg, By Mouth, Once, PRN as needed for migraine headache, may repeat dose in 2 hours ifneeded, # 10 tablet, 2 Refills, Soft Stop, 05/13/20 15:21:00 EDT, Tablet, [facility] #[id number], 168, cm, 05/13/20 13:13:00 EDT, Height Start Date: 05/13/20 Status: OrderedValium 5 mg oral tablet See Instructions, 1 tab PO @ HS the night before Procedure and 1 tab 1 hr. prior to procedure, # 2 tablet, Refills 0, Tot. Refills 0, Maintenance, 12/04/19 16:29:00 EST, Instructions Replace Required Details, Route to Pharmacy Electronically, [facility]... Start Date: 12/04/19 Status: OrderedVitamin D3 5000 intl units oral capsule See Instructions, 1 capsule By Mouth twice per week, # 50 capsule, 0 Refills, Maintenance, 03/02/20 9:02:00 EDT, Capsule, [facility] #[id number], 168, cm, 12/05/19 10:30:00 EST, Height Start [...] Active Vitamin D deficiency(Confirmed) Active 1normal renin/jeremiah/neg suxhrxrxwzauam4SAW noted followed by neurosurgery Dr. Woodall. no surgery advised at this xuwj0wkfrzp spine sports; mri ogpkttn4uiheguh given,comprehensive Social History Social History Type Response Smoking Status Never smoker; Tobacco user i n household: No entered on: 12/08/14 Sex Female
--- OUTSIDE RECORDS SUMMARY | 2022-10-18 01:14 | XMS_ITS | Continuity of Care Document ---
:1975 Author Organization [facility] Adult Address [address] [place] [address]- Care Team Providers Name Role Phone Mack Banda MD Primary Care Physician [place] [facility] [place]s): 10/23/19 - 11/22/19 [facility] Adult [address] [place] [address]- [facility] Attending Physician: Mack Banda MD Allergies, [...] Vaccine (oldterm) 10/01/03 Given 1Location History: [facility] Dgn9Mocbqc Comment: [05/10/2016] RECIEVED AT [facility] [id number] Comment: [07/21/2015] at skoh7Isiocc Comment: [12/08/2014] pt received at qtwp4Xzltzwag History: [employer] [facility] employer, magdalena solomon6Admin Note: [facility] dpbgjolr5Xdveu Note: #2 Medications Acetaminophen = 1,000 mg, By Mouth, 2 times a day, 0 Refills, Maintenance, 09/17/18 16:04:26 EST Start Date: 09/17/18 Status: Orderedcetirizine 10 mg oral tablet 1 tablet = 10 mg, By Mouth, Daily, # 90 tablet, 1 Refills, Maintenance, 10/08/19 14:04:00 EST, Tablet, [facility] [address], 168, cm, 07/09/19 14:49:00 EDT, Height [...] capsule, Refills 1, Tot. Refills 1, Maintenance, 10/14/19 10:45:00 EST, Route to Pharmacy Electronically, [facility] [address], 168, cm, 07/09/19 14:49:00 EDT, Height Start Date: 10/14/19 Status: OrderedIbuprofen 200 mg, By Mouth, Every [...] Pharmacy Electronically, [facility] [address], 168, cm, 07/09/19 14:49:00 EDT, Height [...] Active Vitamin D deficiency(Confirmed) Active 1normal renin/jeremiah/neg jsrcuzdxzprvcq3VMV noted followed by neurosurgery Dr. Woodall. no surgery advised at this knqa1othxqg spine sports; mri tkyirls8hwwomhp given,comprehensive Social History Social History Type Response Smoking Status Never smoker; Tobacco user i n household: No entered on: 12/08/14 Sex Female
--- OUTSIDE RECORDS SUMMARY | 2022-10-18 01:14 | XMS_ITS | Continuity of Care Document ---
:1975 Author Organization [facility] Adult Address [address] [place] [address]- Care Team Providers Name Role Phone Solo MENDEZ, Mack Boyd Primary Care Physician Encounter [facility] Date(s): 04/13/20 - 05/13/20 [facility] [address] [place] [address]- [facility] Allergies, Adverse Reactions, Alerts Substance Reaction Severity [...] Vaccine (oldterm) 10/01/03 Given 1Location History: [facility] Bqh5Vbaigk Comment: [05/10/2016] RECIEVED AT [facility] [id number] Comment: [07/21/2015] at nnje2Vgkzvx Comment: [12/08/2014] pt received at olmr4Lxrvfjrs History: [facility] employer, magdalena solomon6Admin Note: [facility] pzxiwwfd0Vgccf Note: #2 Medications Acetaminophen = 1,000 mg, By Mouth, 2 times a day, PRN Pain, 0 Refills, Maintenance, 09/17/18 16:04:26 EST Start Date: 09/17/18 Status: Orderedcetirizine 10 mg oral tablet 1 tablet = 10 mg, By Mouth, Daily, # 90 tablet, 1 Refills, Maintenance, 10/08/19 14:04:00 EST, Tablet, [facility] [address], 168, cm, 07/09/19 14:49:00 EDT, Height Start Date: 10/08/19 Status: Orderedduloxetine 60 mg oral enteric coated capsule 1 capsule = 60 mg, By Mouth, 2 times a day, # 180 capsule, 1 Refills, Maintenance, 04/13/20 11:50:00EDT, EC Capsule, [facility] #[id number], 168, cm, 03/19/20 9:21:00 EDT, Height Start Date: 04/13/20 Status: Orderedgabapentin 300 mg oral capsule 300 mg, 1, capsule, By Mouth, Daily, at bed, # 30 each, Refills 2, Tot. Refills 2, Maintenance, 04/13/20 13:38:00 EDT, Route to Pharmacy Electronically, [facility] #[id number], 168, cm, 03/19/20 9:21:00 EDT, Height Start [...] Refills, Soft Stop, 05/13/20 13:31:00 EDT, Tablet, [facility] #[id number], 168, cm, 05/13/20 13:13:00 EDT, Height Start Date: 05/13/20 Status: OrderedRhinocort Aqua 32 mcg/inh nasal spray 2 sprays, Nares, Both, Daily in AM, # 9 mL, 5 Refills, Maintenance, 06/06/17 11:14:50 Start Date: 06/06/17 Status: Orderedtopiramate 25 mg oral capsule 2 capsule = 50 mg, By Mouth, Daily at bedtime, # 60 capsule, 1 Refills, Maintenance, 05/13/20 13:31:00 EDT, Capsule, [facility] #[id number], 168, cm, 05/13/20 13:13:00 EDT, Height Start Date: 05/13/20 Status: OrderedtraZODone 50 mg oral tablet 25 mg, 0.5, tablet, By Mouth, 2 times a day, # 90 tablet, Refills 1, Tot. Refills 1, Maintenance, 04/10/20 11:00:00 EDT, Route to Pharmacy Electronically, [facility] #[id number], 168, cm, 12/04/2009:30:00 EST, Height Start Date: 04/10/20 Status: OrderedUbrelvy 50 mg oral tablet 1 tablet = 50 mg, By Mouth, Once, PRN as needed for migraine headache, may repeat dose in 2 hours ifneeded, # 10 tablet, 2 Refills, Soft Stop, 05/13/20 15:21:00 EDT, Tablet, [facility] #[id number], 168, cm, 05/13/20 13:13:00 EDT, Height Start Date: 05/13/20 Status: OrderedValium 5 mg oral tablet See Instructions, 1 tab PO @ HS the night before Procedure and 1 tab 1 hr. prior to procedure, # 2 tablet, Refills 0, Tot. Refills 0, Maintenance, 12/04/19 16:29:00 EST, Instructions Replace Required Details, Route to Pharmacy Electronically, [facility] Start Date: 12/04/19 Status: OrderedVitamin D3 5000 intl units oral capsule See Instructions, 1 capsule By Mouth twice per week, # 50 capsule, 0 Refills, Maintenance, 03/02/20 9:02:00 EDT, Capsule, [facility] #[id number], 168, cm, 12/05/19 10:30:00 EST, Height Start [...] Active Vitamin D deficiency(Confirmed) Active 1normal renin/jeremiah/neg nbjxxdqqvjjilk7IUL noted followed by neurosurgery Dr. Woodall. no surgery advised at this plmz9lmbwyk spine sports; mri vupheuk4cmxbjbz given,comprehensive Social History Social History Type Response Smoking Status Never smoker; Tobacco user i n household: No entered on: 12/08/14 Sex Female
--- OUTSIDE RECORDS SUMMARY | 2022-10-18 01:14 | XMS_ITS | Continuity of Care Document ---
:1975 Author Organization [facility] Address Unavailable , Care Team Providers Name Role Phone Solo MENDEZ, Mack Boyd Primary Care Physician [facility]counter [facility] Date(s): 07/13/21 - 08/12/21 [facility] Allergies, Adverse Reactions, Alerts Substance Reaction [...] Vaccine (oldterm) 10/01/03 Given 1[facility] History: [id number] Comment: [05/10/2016] RECIEVED AT [facility] [id number] Comment: [07/21/2015] at syiz6Jzystj Comment: [12/08/2014] pt received at [id number] History: [facility] employer, [employer]dalena solomon6Admin Note: [facility] [id number] Note: #2 Medications Acetaminophen = 1,000 mg, By Mouth, 2 times a day, PRN Pain, 0 Refills, Maintenance, 09/17/18 16:04:26 EST Start Date: 09/17/18 Status: Orderedcetirizine 10 mg oral tablet 1 tablet, By Mouth, Daily, # 90 tablet, 1 Refills, [facility] #[id number], 167.64, cm, 07/11/2116:24:00 EDT, Height, 80.2, kg, 04/19/21 6:20:00 EDT, Dry Weight Start Date: 07/26/21 Status: Orderedduloxetine 60 mg oral enteric coated capsule 1 capsule = 60 mg, By Mouth, 2 times a day, # 180 capsule, 1 Refills, Maintenance, 07/26/21 11:03:00EDT, EC Capsule, [facility] #[id number], 167.64, cm, 07/11/21 16:24:00 EDT, Height, 80.2, kg, 04/19/21 6:20:00 EDT, Dry Weight Start Date: 07/26/21 Status: OrderedEmgality Prefilled Pen 120 mg/mL subcutaneous solution = 120 mg, Subcutaneous Infusion, Every 28 days, # 1 each, 11 Refills, Maintenance, 01/31/21 7:27:00 EDT, [facility] #[id number], 166, cm, 12/31/20 8:54:00 EDT, Height Start Date: 01/31/21 Status: Orderedgabapentin 300 mg oral capsule 2, capsule, By Mouth, Daily at bedtime, # 180 capsule, Refills 0, Route to Pharmacy Electronically, [facility] #[id number], 167.64, cm, 07/11/21 16:24:00 EDT, Height, 80.2, kg, 04/19/21 6:20:00 EDT, Dry Weight Start Date: 07/26/21 Status: OrderedLORazepam 0.5 mg oral tablet 1 tablet = 0.5 mg, By Mouth, Daily at bedtime, # 30 tablet, 0 Refills, Maintenance, 08/10/21 13:57:00 EST, [facility] #[id number], Partial fill upon patient request if the prescription is for a schedule II opioid drug., 167.64, cm, 07/11/21 16:24... Start Date: 08/10/21 Status: Orderedomeprazole 20 mg oral delayed release tablet 1 tablet = 20 mg, By Mouth, Daily in AM, 30 minutes prior first meal of day, # 30 tablet, 1 Refills,Maintenance, 03/01/21 16:21:00 EDT, EC Tablet, [facility] #[id number], Partial fill upon patient request if the [...] Refills, Soft Stop, 06/17/21 14:54:00 EDT, Tablet, [id number], Partial fill upon patient request if the prescr... 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 Woodall. no surgery advised at this yaxx0yjacxj spine sports; mri ctwalwa6rfvlqyt given,comprehensive Social History Social History Type Response Smoking Status Never smoker; Tobacco user i n household: No entered on: 12/08/14 Sex Female
--- OUTSIDE RECORDS SUMMARY | 2022-10-18 01:14 | XMS_ITS | Continuity of Care Document ---
:1975 Author Organization [facility] [place] [facility] Address [address] [place] [address]- Care Team Providers Name Role Phone Mack Banda MD Primary Care Physician Encounter [facility] Date(s): 07/25/19 - 11/26/19 [facility] [place] [facility] [address] [place] [address]- [facility] Encounter Diagnosis Depression, major, in remission (Discharge Diagnosis) - 10/21/19 Fibromyalgia (Discharge Diagnosis) - 10/21/19 Migraine (Discharge Diagnosis) - 10/21/19 Vitamin D deficiency (Discharge Diagnosis) - 10/21/19 Attending Physician: Mack Banda MD Allergies, Adverse [...] Vaccine (oldterm) 10/01/03 Given 1Location History: [id number] Comment: [05/10/2016] RECIEVED AT [facility] [id number] Comment: [07/21/2015] at lqlc3Oglqob Comment: [12/08/2014] pt received at [id number] History: [facility] employer, [employer]ena solomon6Admin Note: [facility] [id number] Note: #2 Medications Acetaminophen = 1,000 mg, By Mouth, 2 times a day, 0 Refills, Maintenance, 09/17/18 16:04:26 EST Start Date: 09/17/18 Status: Orderedcetirizine 10 mg oral tablet 1 tablet = 10 mg, By Mouth, Daily, # 90 tablet, 1 Refills, Maintenance, 10/08/19 14:04:00 EST, Tablet, [facility] [address], 168, cm, 07/09/19 [...] 10/14/19 10:45:00 EST, Route to Pharmacy Electronically, [facility] [address], 168, cm, 07/09/19 [...] to Pharmacy Electronically, [facility] - [address] [place] [address], 168, cm, 07/09/19 14:49:00 EDT, Height Start [...] Active Vitamin D deficiency(Confirmed) Active 1normal renin/jeremiah/neg dqkmmbvaqssblg5HXE noted followed by neurosurgery Dr. Woodall. no surgery advised at this dygf6lppoww spine sports; mri zzdvvuf4poisjug given,comprehensive Diagnosis Diagnosis Type Effective Dates Health Clinical Infor mant Status Service Depression, major, Discharge 10/21/19 in remission Diagnosis Fibromyalgia Discharge 10/21/19 Diagnosis Migraine Discharge 10/21/19 Diagnosis Vitamin D Discharge 1/21/20 deficiency Diagnosis Social History Social History Type Response Smoking Status Never smoker; Tobacco user i n household: No entered on: 12/08/14 Sex Female
--- OUTSIDE RECORDS SUMMARY | 2022-10-18 01:15 | XMS_ITS | Continuity of Care Document ---
:1975 Author Organization [facility] Address [address] [place] [address]- Care Team Providers Name Role Phone Solo MENDEZ, Mack Boyd Primary Care Physician [facility]counter [facility] Date(s): 02/14/21 - 03/16/21 [facility] [address] [place] [address]- Allergies, Adverse Reactions, Alerts Substance Reaction Severity [...] Vaccine (oldterm) 10/01/03 Given 1Location History: [facility] AmosExt3Zackds Comment: [05/10/2016] [facility] [id number] Comment: [07/21/2015] at gpsh8Mbmhtc Comment: [12/08/2014] pt received at ozsl1Abknwcsx History: [facility] employer, magdalena solomon6Admin Note: [facility] [id number] Note: #2 Medications Acetaminophen = 1,000 mg, By Mouth, 2 times a day, PRN Pain, 0 Refills, Maintenance, 09/17/18 16:04:26 EST Start Date: 09/17/18 Status: Orderedcetirizine 10 mg oral tablet 1 tablet, By Mouth, Daily, # 90 tablet, 1 Refills, Maintenance, 10/16/20 11:32:00 EST, [facility] #[id number], 166, cm, 10/11/20 9:24:00 EST, Height Start Date: 10/16/20 Status: Orderedduloxetine 60 mg oral enteric coated capsule 1 capsule = 60 mg, By Mouth, 2 times a day, # 180 capsule, 1 Refills, Maintenance, 10/05/20 7:18:00 EST, EC Capsule, [facility], 166, cm, 09/30/20 15:22:00 EST, Height Start Date: 10/05/20 Status: OrderedEmgality Prefilled Pen 120 mg/mL subcutaneous solution = 120 mg, Subcutaneous Infusion, Every 28 days, # 1 each, 11 Refills, Maintenance, 01/31/21 7:27:00 EDT, [facility] #[id number], 166, cm, 12/31/20 8:54:00 EDT, Height Start Date: 01/31/21 Status: Orderedferrous sulfate 325 mg oral enteric coated tablet 325 mg, 1, tablet, By Mouth, 3 times a day, may take with food to minimize abdominal discomfort takesip mihir wells, # 90 tablet, Refills 3, Tot. Refills 3, Maintenance, 10/11/20 17:24:00 EST, Route to Pharmacy Electronically, [facility]... Start Date: 10/11/20 Status: Orderedgabapentin 300 mg oral capsule 600 mg, 2, capsule, By Mouth, Daily at bedtime, at bed, # 60 each, Refills 2, Tot. Refills 2, Maintenance, 12/17/20 15:08:00 EDT, Route to Pharmacy Electronically, [facility] #[id number], 166, cm,12/17/20 14:53:00 EDT, Height Start Date: [...] 1 Refills,Maintenance, 03/01/21 16:21:00 EDT, EC Tablet, [facility] #[id number], Partial fill upon patient request if the prescription is for a schedule II... Start Date: 03/01/21 Status: OrderedtraZODone 50 mg oral tablet 25 mg, 0.5, tablet, By Mouth, 2 times a day, # 90 tablet, Refills 1, Tot. Refills 1, Maintenance, 10/05/20 7:19:00 EST, Route to Pharmacy Electronically, [facility], 166, cm, 09/30/20 15:22:00 EST, [...] 0 Refills, Maintenance, 03/01/21 16:04:00 EDT, Tablet, [facility] #[id number], Partial fill upon patient request if the... [...] Active Vitamin D deficiency(Confirmed) Active 1normal renin/jeremiah/neg [id number] noted followed by neurosurgery Dr. Woodall. no surgery advised at this nlhn1wcogtl spine sports; mri kjshklb2aqogwdn given,comprehensive Social History Social History Type Response Smoking Status Never smoker; Tobacco user i n household: No entered on: 12/08/14 Sex Female
--- OUTSIDE RECORDS SUMMARY | 2022-10-18 01:15 | XMS_ITS | Continuity of Care Document ---
:1975 Author Organization [facility] Address [address] [place] [address]- Care Team Providers Name Role Phone Solo MENDEZ, Mack Boyd Primary Care Physician [facility] Date(s): 03/20/21 - 04/19/21 [facility] [address] [place] [address]- Allergies, Adverse Reactions, Alerts Substance Reaction Severity [...] Vaccine (oldterm) 10/01/03 Given 1Location History: [facility] AmosKen0Vezqor Comment: [05/10/2016] [facility] AT [facility] [id number] Comment: [07/21/2015] at zziv2Nvezzx Comment: [12/08/2014] pt received at [id number] History: [facility] employer, [employer]ena solomon6Admin Note: [facility] [id number] Note: #2 Medications Acetaminophen = 1,000 mg, By Mouth, 2 times a day, PRN Pain, 0 Refills, Maintenance, 09/17/18 16:04:26 EST Start Date: 09/17/18 Status: Orderedcetirizine 10 mg oral tablet 1 tablet, By Mouth, Daily, # 90 tablet, 1 Refills, Maintenance, 03/21/21 7:23:00 EDT, [id number], 167.64, cm, 03/18/21 6:28:00 EDT, Height, 80, kg, 03/18/21 6:28:00 EDT, Dry Weight Start Date: 03/21/21 Status: Orderedduloxetine 60 mg oral enteric coated capsule 1 capsule = 60 mg, By Mouth, 2 times a day, # 180 capsule, 1 Refills, Maintenance, 10/05/20 7:18:00 EST, EC Capsule, [facility], 166, cm, 09/30/20 15:22:00 EST, Height Start Date: 10/05/20 Status: OrderedEmgality Prefilled Pen 120 mg/mL subcutaneous solution = 120 mg, Subcutaneous Infusion, Every 28 days, # 1 each, 11 Refills, Maintenance, 01/31/21 7:27:00 EDT, [facility] #[id number], 166, cm, 12/31/20 8:54:00 EDT, Height Start Date: 01/31/21 Status: Orderedgabapentin 300 mg oral capsule 600 mg, 2, capsule, By Mouth, Daily at bedtime, at bed, # 60 each, Refills 2, Tot. Refills 2, Maintenance, 12/17/20 15:08:00 EDT, Route to Pharmacy Electronically, [facility] #[id number], 166, cm,12/17/20 14:53:00 EDT, Height Start Date: 12/17/20 Status: Orderedomeprazole 20 mg oral delayed release tablet 1 tablet = 20 mg, By Mouth, Daily in AM, 30 minutes prior first meal of day, # 30 tablet, 1 Refills,Maintenance, 03/01/21 16:21:00 EDT, EC Tablet, [facility] #[id number], Partial fill upon patient request if the [...] of right adrenal Active gland(Confirmed)1 Anxiety(Confirmed) Active [place] cardiac risk <10% in next 04/13/21 Active 10 years 2.0%(Confirmed) Cervical disc disease C6-7 MRI Active 2020(Confirmed) Fibromyalgia(Confirmed) Active Impingement syndrome, shoulder, 09/17/18 Active left(Confirmed) Insomnia(Confirmed) Active Lumbar disc disease(Confirmed)2, 3 Active Depression, major,(Confirmed) Active Migraine failed dukloxetine gabapentin 11/19/08 Active TCA(Confirmed)4 Lesion of nasal septum rt;refer Active dermatology(Confirmed) Vitamin D deficiency(Confirmed) Active 1normal renin/jeremiah/neg dnivubfscjktvs4NQM noted followed by neurosurgery Dr. Woodall. no surgery advised at this gnmy6vubffx spine sports; mri fadyxrx8mhreinq given,comprehensive Social History Social History Type Response Smoking Status Never smoker; Tobacco user i n household: No entered on: 12/08/14 Sex Female
--- OUTSIDE RECORDS SUMMARY | 2022-10-18 01:15 | XMS_ITS | Continuity of Care Document ---
:1975 Author Organization [facility] Address [address] [place] [address]- Care Team Providers Name Role Phone Solo MENDEZ, Mack Boyd Primary Care Physician [facility] Date(s): 07/26/21 - 08/25/21 [facility] [address] [place] [address]- Allergies, Adverse Reactions, Alerts Substance Reaction Severity [...] Vaccine (oldterm) 10/01/03 Given 1Location History: [facility] AmosBkp6Ewlsls Comment: [05/10/2016] [facility] AT [facility] [id number] Comment: [07/21/2015] at [id number] Comment: [12/08/2014] pt received at cpwq3Yrpudbvi History: [facility] employer, [employer]omon6Admin Note: [facility] croyxhjf8Ningr Note: #2 Medications Acetaminophen = 1,000 mg, By Mouth, 2 times a day, PRN Pain, 0 Refills, Maintenance, 09/17/18 16:04:26 EST Start Date: 09/17/18 Status: Orderedcetirizine 10 mg oral tablet 1 tablet, By Mouth, Daily, # 90 tablet, 1 Refills, [facility] #[id number], 167.64, cm, 07/11/2116:24:00 EDT, Height, 80.2, kg, 04/19/21 6:20:00 EDT, Dry Weight Start Date: 07/26/21 Status: Orderedduloxetine 60 mg oral enteric coated capsule 1 capsule = 60 mg, By Mouth, 2 times a day, # 180 capsule, 1 Refills, Maintenance, 07/26/21 11:03:00EDT, EC Capsule, [facility] #[id number], 167.64, cm, 07/11/21 16:24:00 EDT, Height, 80.2, kg, 04/19/21 6:20:00 EDT, Dry Weight Start Date: 07/26/21 Status: OrderedEmgality Prefilled Pen 120 mg/mL subcutaneous solution = 120 mg, Subcutaneous Infusion, Every 28 days, # 1 each, 11 Refills, Maintenance, 01/31/21 7:27:00 EDT, [facility] #[id number], 166, cm, 12/31/20 8:54:00 EDT, Height Start Date: 01/31/21 Status: Orderedgabapentin 300 mg oral capsule 2, capsule, By Mouth, Daily at bedtime, # 180 capsule, Refills 0, Route to Pharmacy Electronically, [facility] #[id number], 167.64, cm, 07/11/21 16:24:00 EDT, Height, 80.2, kg, 04/19/21 6:20:00 EDT, Dry Weight Start Date: 07/26/21 Status: OrderedLORazepam 0.5 mg oral tablet 1 tablet = 0.5 mg, By Mouth, Daily at bedtime, # 30 tablet, 0 Refills, Maintenance, 08/10/21 13:57:00 EST, [facility] #[id number], Partial fill upon patient request if the prescription is for a schedule II opioid drug., 167.64, cm, 07/11/21 16:24... Start Date: 08/10/21 Status: Orderedomeprazole 20 mg oral delayed release tablet 1 tablet = 20 mg, By Mouth, Daily in AM, 30 minutes prior first meal of day, # 30 tablet, 1 Refills,Maintenance, 03/01/21 16:21:00 EDT, EC Tablet, [facility] #[id number], Partial fill upon patient request if the [...] Refills, Soft Stop, 06/17/21 14:54:00 EDT, Tablet, [facility] #[id number], Partial fill upon patient request if the prescr... Start Date: 06/17/21 Status: Ordered Problem List Condition Effective Dates Status Health Status Informant Adenoma of right adrenal Active gland(Confirmed)1 Anxiety(Confirmed) Active [place] cardiac risk <10% in next 04/13/21 Active 10 years 2.0%(Confirmed) Cervical disc disease C6-7 MRI Active 2020/C5-7 (two level) ACDF.(Confirmed) Fibromyalgia(Confirmed) Active Impingement syndrome, shoulder, 09/17/18 Active left(Confirmed) Insomnia(Confirmed) Active Lumbar disc disease(Confirmed)2, 3 Active Depression, major,(Confirmed) Active Migraine failed dukloxetine gabapentin 11/19/08 Active TCA(Confirmed)4 Lesion of nasal septum rt;refer Active dermatology(Confirmed) Vitamin D deficiency(Confirmed) Active 1normal renin/jeremiah/neg txwkqkayhtkvog6EUC noted followed by neurosurgery Dr. Woodall. no surgery advised at this pnkw3wcnsjo spine sports; mri kdnwdet2radailw given,comprehensive Social History Social History Type Response Smoking Status Never smoker; Tobacco user i n household: No entered on: 12/08/14 Sex Female
--- OUTSIDE RECORDS SUMMARY | 2022-10-18 01:15 | XMS_ITS | Continuity of Care Document ---
:1975 Author Organization [facility] Address [address] [place] [address]- Care Team Providers Name Role Phone Solo MENDEZ, Mack Boyd Primary Care Physician [facility] Date(s): 02/20/22 - 03/22/22 [facility] [address] [place] [address]- Allergies, Adverse Reactions, Alerts Substance Reaction Severity [...] Vaccine (oldterm) 10/01/03 Given 1Location History: [facility] AmosEjf2Emxbnt Comment: [05/10/2016] RECIEVED AT [facility] [id number] Comment: [07/21/2015] at aasd5Pcnrpj Comment: [12/08/2014] pt received at fkxt1Noxpwnfx History: [facility] employer, [employer]dalena solomon6Admin Note: [facility] rfxhtmgv5Hskwr Note: #2 Medications Acetaminophen = 1,000 mg, By Mouth, 2 times a day, PRN Pain, 0 Refills, Maintenance, 09/17/18 16:04:26 EST Start Date: 09/17/18 Status: Orderedcetirizine 10 mg oral tablet 1 tablet, By Mouth, Daily, # 90 tablet, 1 Refills, 02/26/22 13:25:00 EDT, [facility] #[id number], 167.64, cm, 11/08/21 16:30:00 EST, Height, 80.2, kg, 04/19/21 6:20:00 EDT, Dry Weight Start Date: 02/26/22 Status: Orderedduloxetine 60 mg oral enteric coated capsule 1 capsule = 60 mg, By Mouth, 2 times a day, # 60 capsule, 1 Refills, Maintenance, 03/22/22 8:34:00 EDT, EC Capsule, [facility] #[id number], 167.64, cm, 11/08/21 16:30:00 EST, Height, 80.2, kg, 04/19/21 6:20:00 EDT, Dry Weight Start Date: 03/22/22 Status: OrderedEmgality Prefilled Pen 120 mg/mL subcutaneous solution = 120 mg, Subcutaneous Infusion, Every 28 days, # 1 each, 11 Refills, Maintenance, 01/31/21 7:27:00 EDT, [facility] #[id number], 166, cm, 12/31/20 8:54:00 EDT, Height Start Date: 01/31/21 Status: Orderedfluconazole 150 mg oral tablet 1 tablet = 150 mg, By Mouth, Once, # 1 tablet, 0 Refills, Soft Stop, 02/20/22 11:33:00 EDT, Tablet, [facility] #[id number], Partial fill upon patient request if the prescription is for a schedule II opioid drug., 167.64, cm, 11/08/21 16:30:00 EST... Start Date: 02/20/22 Status: Orderedgabapentin 300 mg oral capsule 2, capsule, By Mouth, Daily at bedtime, # 180 capsule, Refills 1, Tot. Refills 1, Maintenance, 01/18/22 15:08:00 EDT, Route to Pharmacy Electronically, [facility] #[id number], 167.64, cm, 11/08/2215:30:00 EST, Height, 80.2, kg, 04/19/21 6:20:00... Start Date: 01/18/22 Status: OrderedLORazepam 0.5 mg oral tablet 1 tablet = 0.5 mg, By Mouth, Daily at bedtime, # 30 tablet, 0 Refills, Maintenance, 03/15/22 11:57:00 EDT, [facility] #[id number], 167.64, cm, 11/08/21 16:30:00 EST, Height, 80.2, kg, 04/19/21 6:20:00 EDT, Dry Weight Start Date: 03/15/22 Status: Orderedomeprazole 20 mg oral delayed release tablet 1 tablet = 20 mg, By Mouth, Daily in AM, 30 minutes prior first meal of day, # 30 tablet, 1 Refills,Maintenance, 03/01/21 16:21:00 EDT, EC Tablet, [facility] #[id number], Partial fill upon patient request if the prescription is for a schedule II... Start Date: 03/01/21 Status: OrderedtiZANidine 2 mg oral capsule 1 capsule = 2 mg, By Mouth, Daily at bedtime, # 30 capsule, 2 Refills, Maintenance, 02/28/22 11:07:00 EDT, [facility] #[id number], Partial fill upon patient request if the prescription is for a schedule II opioid drug., 167.64, cm, 11/08/21 16:30... Start Date: 02/28/22 Status: OrderedUbrelvy 50 mg oral tablet 1 tablet = 50 mg, By Mouth, Once, PRN as needed for migraine headache, may repeat dose in 2 hours ifneeded, # 2 tablet, 11 Refills, Soft Stop, 06/17/21 14:54:00 EDT, Tablet, [facility] #[id number], Partial fill upon patient request if the prescr... Start Date: 06/17/21 Status: Ordered Problem List Condition Effective Dates Status Health Status Informant Acute COVID-19(Confirmed) 02/22/22 Active Adenoma of right adrenal gland neg Active labs 2017(Confirmed)1 Anxiety(Confirmed) Active [place] cardiac risk <10% in next 04/13/21 Active 10 years 2.0%(Confirmed) Cervical disc disease C6-7 MRI Active 2020/C5-7 (two level) ACDF.(Confirmed) Fibromyalgia(Confirmed) Active Impingement syndrome, shoulder, 09/17/18 Active left(Confirmed) Insomnia(Confirmed) Active Lumbar disc disease(Confirmed)2, 3 Active Depression, major,(Confirmed) Active Migraine failed(Confirmed)4 11/19/08 Active Vitamin D deficiency(Confirmed) Active 1normal renin/jeremiah/neg puqecncudjrznk8UYL noted followed by neurosurgery Dr. Woodall. no surgery advised at this lxlj0zbytul spine sports; mri ynrbvnm3alaksup given,comprehensive Social History Social History Type Response Smoking Status Never smoker; Tobacco user i n household: No entered on: 12/08/14 Sex Female
--- OUTSIDE RECORDS SUMMARY | 2022-10-18 01:15 | XMS_ITS | Continuity of Care Document ---
:1975 Author Organization [facility] Adult Address [address] [place] [address]- Care Team Providers Name Role Phone Solo MENDEZ, Mack Boyd Primary Care Physician Encounter [facility] Date(s): 06/15/22 - 07/15/22 [facility] [address] [place] [address]- Allergies, Adverse Reactions, Alerts Substance Reaction Severity [...] Vaccine (oldterm) 10/01/03 Given 1Location History: [facility] AmosJzd7Dnterw Comment: [05/10/2016] RECIEVED AT [facility] [id number] Comment: [07/21/2015] at [id number] Comment: [12/08/2014] pt received at fynp9Rxrswlea History: [facility] employer, magdalena solomon6Admin Note: [facility] [id number] Note: #2 Medications Acetaminophen = 1,000 mg, By Mouth, 2 times a day, PRN Pain, 0 Refills, Maintenance, 09/17/18 16:04:26 EST Start Date: 09/17/18 Status: Orderedcetirizine 10 mg oral tablet 1 tablet, By Mouth, Daily, # 90 tablet, 1 Refills, 06/26/22 13:49:00 EDT, [facility] #[id number], 167.64, cm, 03/29/22 9:37:00 EDT, Height, 80.2, kg, 04/19/21 6:20:00 EDT, Dry Weight Start Date: 06/26/22 Status: Orderedduloxetine 60 mg oral enteric coated capsule 1 capsule = 60 mg, By Mouth, 2 times a day, # 60 capsule, 1 Refills, Maintenance, 06/26/22 13:49:00 EDT, EC Capsule, [facility] #[id number], 167.64, cm, 03/29/22 9:37:00 EDT, Height, 80.2, kg, 04/19/21 6:20:00 EDT, Dry Weight Start Date: 06/26/22 Status: Orderedgabapentin 300 mg oral capsule See Instructions, Take 1 capsule in AM, 1 at 3PM and 2 capsules at bedtime, # 120 tablet, Refills 1,Tot. Refills 1, Maintenance, 07/06/22 12:17:00 EDT, Instructions Replace Required Details, Route to Pharmacy Electronically, [facility][id number]... Start Date: 07/06/22 Status: OrderedLORazepam 0.5 mg oral tablet 1 tablet = 0.5 mg, By Mouth, Daily at bedtime, # 30 tablet, 2 Refills, Maintenance, 05/15/22 15:39:00 EDT, [facility] #[id number], 167.64, cm, 03/29/22 9:37:00 EDT, Height, 80.2, kg, 04/19/21 6:20:00 EDT, Dry Weight Start Date: 05/15/22 Status: Orderedomeprazole 20 mg oral delayed release tablet 1 tablet = 20 mg, By Mouth, Daily in AM, 30 minutes prior first meal of day, # 30 tablet, 1 Refills,Maintenance, 03/01/21 16:21:00 EDT, EC Tablet, [facility] #[id number], Partial fill upon patient request if the prescription is for a schedule II... Start Date: 03/01/21 Status: OrderedtiZANidine 2 mg oral capsule 1 capsule = 2 mg, By Mouth, Daily at bedtime, # 30 capsule, 2 Refills, Maintenance, 04/18/22 13:24:00 EDT, [facility] #[id number], Partial fill upon patient request if the prescription is for a schedule II opioid drug., 167.64, cm, 03/29/22 9:37:... Start Date: 04/18/22 Status: OrderedUbrelvy 50 mg oral tablet 1 tablet = 50 mg, By Mouth, Once, PRN as needed for migraine headache, may repeat dose in 2 hours ifneeded, # 30 tablet, 11 Refills, Soft Stop, 06/26/22 13:48:00 EDT, Tablet, [facility] #[id number], Partial fill upon patient request if the presc... 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 Fibromyalgia Confirmed Active Impingement Confirmed 09/17/18 Active syndrome, shoulder, left Insomnia Confirmed Active Lumbar disc Confirmed Active disease2, 3 Depression, major, Confirmed Active Chronic Migraines4 Confirmed 11/19/08 Active Vitamin D Confirmed Active deficiency 1normal renin/jeremiah/neg [id number] noted followed by neurosurgery Dr. Woodall. no surgery advised at this ulbx0vgboeu spine sports; mri qmcfghs1psmesqm given,comprehensive Social History Social History Type Response Smoking Status Never smoker; Tobacco user i n household: No entered on: 12/08/14 Sex Female Patient Care team information PersonnelName: Solo MENDEZ, Mack Boyd Address: Address: [address] [place] [address]
--- OUTSIDE RECORDS SUMMARY | 2022-10-18 01:15 | XMS_ITS | Continuity of Care Document ---
:1975 Author Organization [facility] Address [address] [place] [address]- Care Team Providers Name Role Phone Solo MENDEZ, Mack Boyd Primary Care Physician Encounter [facility] Date(s): 09/03/19 - 10/22/19 [facility] [address] [place] [id number]- [facility] Attending Physician: Neisha Gama MD Admitting Physician: Neisha Gama MD Allergies, Adverse Reactions, Alerts Substance Reaction [...] Vaccine (oldterm) 10/01/03 Given 1Location History: [facility] Jdk1Veoeht Comment: [05/10/2016] RECIEVED AT [facility] [id number] Comment: [07/21/2015] at tgnz7Xvhnuv Comment: [12/08/2014] pt received at byts1Kcbcyxbb History: [facility] employer, magdalena solomon6Admin Note: [facility] wxpaprei3Hvcrv Note: #2 Medications Acetaminophen = 1,000 mg, [...] Pharmacy Electronically, [facility] [address], 168, cm, 07/09/19 14:49:00 EDT, [...] Active Vitamin D deficiency(Confirmed) Active 1normal renin/jeremiah/neg ehcilzmbsevlxm9VSC noted followed by neurosurgery Dr. Woodall. no surgery advised at this fhjz5gculwa spine sports; mri gsbozpv1vbgcjzb given,comprehensive Social History Social History Type Response Smoking Status Never smoker; Tobacco user i n household: No entered on: 12/08/14 Sex Female
--- OUTSIDE RECORDS SUMMARY | 2022-10-18 01:15 | XMS_ITS | Continuity of Care Document ---
:1975 Author Organization [facility] Address [address] [place] [address]- Care Team Providers Name Role Phone Solo MENDEZ, Mack Boyd Primary Care Physician Encounter [facility] Date(s): 10/19/20 - 11/18/20 [facility] [address] [place] [address]- Allergies, Adverse Reactions, Alerts Substance Reaction Severity [...] Vaccine (oldterm) 10/01/03 Given 1Location History: [facility] Zlw0Rfcdyw Comment: [05/10/2016] RECIEVED AT [facility] [id number] Comment: [07/21/2015] at ycxz4Incrss Comment: [12/08/2014] pt received at sxhl9Ykxupjqj History: [facility] employer, magdalena solomon6Admin Note: [facility] [id number] Note: #2 Medications Acetaminophen = 1,000 mg, By Mouth, 2 times a day, PRN Pain, 0 Refills, Maintenance, 09/17/18 16:04:26 EST Start Date: 09/17/18 Status: Orderedcetirizine 10 mg oral tablet 1 tablet, By Mouth, Daily, # 90 tablet, 1 Refills, Maintenance, 10/16/20 11:32:00 EST, [facility] #[id number], 166, cm, 10/11/20 9:24:00 EST, Height Start [...] 10/11/20 17:24:00 EST, Route to Pharmacy Electronically, [facility]... Start Date: 10/11/20 Status: Orderedgabapentin 300 mg [...] capsule, 5 Refills, Maintenance, 09/05/20 15:41:00 EST, [facility] #[id number], 168, cm, 08/16/20 8:23:00 EST, Height Start [...] 0 Refills, Maintenance, 03/02/20 9:02:00 EDT, Capsule, [facility] #[id number], 168, cm, 12/05/19 10:30:00 EST, Height Start [...] Active Vitamin D deficiency(Confirmed) Active 1normal renin/jeremiah/neg sqaahoyyfyezhl6NRF noted followed by neurosurgery Dr. Woodall. no surgery advised at this dfjr9vcenuc spine sports; mri ezthjre2fkrmmhs given,comprehensive Social History Social History Type Response Smoking Status Never smoker; Tobacco user i n household: No entered on: 12/08/14 Sex Female
--- OUTSIDE RECORDS SUMMARY | 2022-10-18 01:15 | XMS_ITS | Continuity of Care Document ---
:1975 Author Organization [facility] Address [address] [place] [address]- Care Team Providers Name Role Phone Mack Banda MD Primary Care Physician Encounter [facility] Date(s): 02/07/22 - 06/07/22 [facility] [address] [place] [address]- Attending Physician: Mack Banda MD Allergies, Adverse [...] Vaccine (oldterm) 1/1/04 Given 1Location History: [facility] Dko1Wdylil Comment: [05/10/2016] RECIEVED AT [facility] [id number] Comment: [07/21/2015] at nmhr7Lqbhxq Comment: [12/08/2014] pt received at dnkw2Rwnjozmp History: [facility] employer, magdalena solomon6Admin Note: [facility] hledsfdh2Bwucj Note: #2 Medications Acetaminophen = 1,000 mg, By Mouth, 2 times a day, PRN Pain, 0 Refills, Maintenance, 09/17/18 16:04:26 EST Start Date: 09/17/18 Status: Orderedcetirizine 10 mg oral tablet 1 tablet, By Mouth, Daily, # 90 tablet, 1 Refills, 02/26/22 13:25:00 EDT, [facility] #[id number], 167.64, cm, 11/08/21 16:30:00 EST, Height, 80.2, kg, 04/19/21 6:20:00 EDT, Dry Weight Start Date: 02/26/22 Status: Orderedduloxetine 60 mg oral enteric coated capsule 1 capsule = 60 mg, By Mouth, 2 times a day, # 60 capsule, 1 Refills, Maintenance, 03/22/22 8:34:00 EDT, EC Capsule, [facility] #[id number], 167.64, cm, 11/08/21 16:30:00 EST, Height, 80.2, kg, 04/19/21 6:20:00 EDT, Dry Weight Start Date: 03/22/22 Status: Orderedgabapentin 300 mg oral capsule See Instructions, Take 1 capsule in AM, 1 at 3PM and 2 capsules at bedtime, # 120 tablet, Refills 1,Tot. Refills 1, Maintenance, 03/29/22 9:45:00 EDT, Instructions Replace Required Details, Route to Pharmacy Electronically, [facility] #[id number]... Start Date: 03/29/22 Status: OrderedLORazepam 0.5 mg oral tablet 1 tablet = 0.5 mg, By Mouth, Daily at bedtime, # 30 tablet, 2 Refills, Maintenance, 05/15/22 15:39:00 EDT, [facility] #[id number], 167.64, cm, 03/29/22 9:37:00 EDT, Height, 80.2, kg, 04/19/21 6:20:00 EDT, Dry Weight Start Date: 05/15/22 Status: Orderedomeprazole 20 mg oral delayed release tablet 1 tablet = 20 mg, By Mouth, Daily in AM, 30 minutes prior first meal of day, # 30 tablet, 1 Refills,Maintenance, 03/01/21 16:21:00 EDT, EC Tablet, [facility] #[id number], Partial fill upon patient request if the prescription is for a schedule II... Start Date: 03/01/21 Status: OrderedtiZANidine 2 mg oral capsule 1 capsule = 2 mg, By Mouth, Daily at bedtime, # 30 capsule, 2 Refills, Maintenance, 04/18/22 13:24:00 EDT, [facility] #[id number], Partial fill upon patient request if the prescription is for a schedule II opioid drug., 167.64, cm, 03/29/22 9:37:... Start Date: 04/18/22 Status: OrderedUbrelvy 50 mg oral tablet 1 tablet = 50 mg, By Mouth, Once, PRN as needed for migraine headache, may repeat dose in 2 hours ifneeded, # 2 tablet, 11 Refills, Soft Stop, 06/17/21 14:54:00 EDT, Tablet, [facility] #[id number], Partial fill upon patient request if the prescr... Start Date: 06/17/21 Status: Ordered Problem List Condition Effective Dates Status Health Status Informant Adenoma of right adrenal gland neg Active labs 2017(Confirmed)1 Anxiety(Confirmed) Active [place] cardiac risk <10% in next 04/13/21 Active 10 years 2.0%(Confirmed) Cervical disc disease C6-7 MRI Active 2020/C5-7 (two level) ACDF.(Confirmed) Fibromyalgia(Confirmed) Active Impingement syndrome, shoulder, 09/17/18 Active left(Confirmed) Insomnia(Confirmed) Active Lumbar disc disease(Confirmed)2, 3 Active Depression, major,(Confirmed) Active Chronic Migraines(Confirmed)4 11/19/08 Active Vitamin D deficiency(Confirmed) Active 1normal renin/jeremiah/neg ixukmkomhdsyeh2GCW noted followed by neurosurgery Dr. Woodall. no surgery advised at this iumc6qezmah spine sports; mri luakkyb3ymyxkbr given,comprehensive Social History Social History Type Response Smoking Status Never smoker; Tobacco user i n household: No entered on: 12/08/14 Sex Female Care Team PersonnelName: Solo MENDEZ, Mack Boyd Address: [address] [place] [id number]
--- OUTSIDE RECORDS SUMMARY | 2022-10-18 01:15 | XMS_ITS | Continuity of Care Document ---
:1975 Author Organization [facility] Address [address] [place] [address]- Care Team Providers Name Role Phone Solo MENDEZ, Mack Boyd Primary Care Physician Encounter [facility] Date(s): 01/31/21 - 03/02/21 [facility] [address] [place] [address]- Allergies, Adverse Reactions, Alerts Substance Reaction Severity [...] Vaccine (oldterm) 10/01/03 Given 1Location History: [facility] AmosAmf1Vgejhh Comment: [05/10/2016] [facility] [id number] Comment: [07/21/2015] at iily5Msbflj Comment: [12/08/2014] pt received at zoov2Oodbbxlk History: [facility] employer, magdalena solomon6Admin Note: [facility] uatprgwf9Muvkq Note: #2 Medications Acetaminophen = 1,000 mg, By Mouth, 2 times a day, PRN Pain, 0 Refills, Maintenance, 09/17/18 16:04:26 EST Start Date: 09/17/18 Status: Orderedcetirizine 10 mg oral tablet 1 tablet, By Mouth, Daily, # 90 tablet, 1 Refills, Maintenance, 10/16/20 11:32:00 EST, [facility] #[id number], 166, cm, 10/11/20 9:24:00 EST, Height Start Date: 10/16/20 Status: Orderedduloxetine 60 mg oral enteric coated capsule 1 capsule = 60 mg, By Mouth, 2 times a day, # 180 capsule, 1 Refills, Maintenance, 10/05/20 7:18:00 EST, EC Capsule, [facility], 166, cm, 09/30/20 15:22:00 EST, Height Start Date: 10/05/20 Status: Ordered[facility] Prefilled Pen 120 mg/mL subcutaneous solution = 120 mg, Subcutaneous Infusion, Every 28 days, # 1 each, 11 Refills, Maintenance, 01/31/21 7:27:00 EDT, [facility] #[id number], 166, cm, 12/31/20 8:54:00 EDT, Height Start Date: 01/31/21 Status: Orderedferrous sulfate 325 mg oral enteric coated tablet 325 mg, 1, tablet, By Mouth, 3 times a day, may take with food to minimize abdominal discomfort takesip mihir wells, # 90 tablet, Refills 3, Tot. Refills 3, Maintenance, 10/11/20 17:24:00 EST, Route to Pharmacy Electronically, [facility] Start Date: 10/11/20 Status: Orderedgabapentin 300 mg oral capsule 600 mg, 2, capsule, By Mouth, Daily at bedtime, at bed, # 60 each, Refills 2, Tot. Refills 2, Maintenance, 12/17/20 15:08:00 EDT, Route to Pharmacy Electronically, [facility] #[id number], 166, cm,12/17/20 14:53:00 EDT, Height Start Date: [...] 1 Refills,Maintenance, 03/01/21 16:21:00 EDT, EC Tablet, [facility] #[id number], Partial fill upon patient request if the prescription is for a schedule II... Start Date: 03/01/21 Status: OrderedtraZODone 50 mg oral tablet 25 mg, 0.5, tablet, By Mouth, 2 times a day, # 90 tablet, Refills 1, Tot. Refills 1, Maintenance, 10/05/20 7:19:00 EST, Route to Pharmacy Electronically, [facility], 166, cm, 09/30/20 15:22:00 EST, Height [...] 0 Refills, Maintenance, 03/02/20 9:02:00 EDT, Capsule, [facility] #[id number], 168, cm, 12/05/19 10:30:00 EST, Height Start Date: 03/02/20 Status: OrderedZOLMitriptan 2.5 mg oral tablet 1 tablet = 2.5 mg, By Mouth, Daily, PRN for migraine headache, may repeat dose after 2 hours up to amaximum of 1, # 6 tablet, 0 Refills, Maintenance, 03/01/21 16:04:00 EDT, Tablet, [facility] #[id number], Partial fill upon patient request if the... [...] Active Vitamin D deficiency(Confirmed) Active 1normal renin/jeremiah/neg zicndfohkowbwc5GYW noted followed by neurosurgery Dr. Woodall. no surgery advised at this jvpl1vqysue spine sports; mri vbcmohe2wqbrhaf given,comprehensive Social History Social History Type Response Smoking Status Never smoker; Tobacco user i n household: No entered on: 12/08/14 Sex Female
--- OUTSIDE RECORDS SUMMARY | 2022-10-18 01:15 | XMS_ITS | Continuity of Care Document ---
:1975 Author Organization [facility] Address [address] [place] [address]- Care Team Providers Name Role Phone Solo MENDEZ, Mack Boyd Primary Care Physician Encounter [facility] Date(s): 11/22/21 - 12/22/21 [facility] [address] [place] [address]- Allergies, Adverse Reactions, Alerts Substance Reaction Severity [...] Vaccine (oldterm) 10/01/03 Given 1Location History: [facility] AmosXjx4Iokqcy Comment: [05/10/2016] [facility] [id number] Comment: [07/21/2015] at jqld1Qwttnn Comment: [12/08/2014] pt received at vxlg3Ptkmoqis History: [facility] employer, magdalena solomon6Admin Note: [facility] iigtacrh3Paeae Note: #2 Medications Acetaminophen = 1,000 mg, By Mouth, 2 times a day, PRN Pain, 0 Refills, Maintenance, 09/17/18 16:04:26 EST Start Date: 09/17/18 Status: Orderedcetirizine 10 mg oral tablet 1 tablet, By Mouth, Daily, # 90 tablet, 1 Refills, 11/25/21 10:17:00 EST, [facility] #[id number], 167.64, cm, 11/08/21 16:30:00 EST, Height, 80.2, kg, 04/19/21 6:20:00 EDT, Dry Weight Start Date: 11/25/21 Status: Orderedduloxetine 60 mg oral enteric coated capsule 1 capsule = 60 mg, By Mouth, 2 times a day, # 180 capsule, 1 Refills, Maintenance, 07/26/21 11:03:00EDT, EC Capsule, [facility] #[id number], 167.64, cm, 07/11/21 16:24:00 EDT, Height, 80.2, kg, 04/19/21 6:20:00 EDT, Dry Weight Start Date: 07/26/21 Status: OrderedEmgality Prefilled Pen 120 mg/mL subcutaneous solution = 120 mg, Subcutaneous Infusion, Every 28 days, # 1 each, 11 Refills, Maintenance, 01/31/21 7:27:00 EDT, [facility] #[id number], 166, cm, 12/31/20 8:54:00 EDT, Height Start Date: 01/31/21 Status: Orderedgabapentin 300 mg oral capsule 2, capsule, By Mouth, Daily at bedtime, # 180 capsule, Refills 0, Tot. Refills 0, 08/26/21 11:00:00 EST, Route to Pharmacy Electronically, [facility] #[id number], 167.64, cm, 07/11/21 16:24:00 EDT, Height, 80.2, kg, 04/19/21 6:20:00 EDT, Dry Weight Start Date: 08/26/21 Status: OrderedLORazepam 0.5 mg oral tablet See Instructions, TAKE 1 TABLET BY MOUTH DAILY AT BEDTIME, # 30 tablet, 0 Refills, Maintenance, 10/18/21 15:26:00 EST, [facility] #[id number], 167.64, cm, 07/11/21 16:24:00 EDT, Height, 80.2, kg, 04/19/21 6:20:00 EDT, Dry Weight Start Date: 10/18/21 Status: OrderedLORazepam 0.5 mg oral tablet 1 tablet = 0.5 mg, By Mouth, Daily at bedtime, # 30 tablet, 0 Refills, Maintenance, 12/20/21 15:47:00 EDT, [facility] #[id number], Partial fill upon patient request if the prescription is for a schedule II opioid drug., 167.64, cm, 11/08/21 16:30... Start Date: 12/20/21 Status: Orderedomeprazole 20 mg oral delayed release tablet 1 tablet = 20 mg, By Mouth, Daily in AM, 30 minutes prior first meal of day, # 30 tablet, 1 Refills,Maintenance, 03/01/21 16:21:00 EDT, EC Tablet, [facility] #[id number], Partial fill upon patient request if the prescription is for a schedule II... Start Date: 03/01/21 Status: OrderedtiZANidine 2 mg oral capsule 1 capsule = 2 mg, By Mouth, Daily at bedtime, # 30 capsule, 2 Refills, Maintenance, 12/07/21 10:59:00 EST, [facility] #[id number], Partial fill upon patient request if the prescription is for a schedule II opioid drug., 167.64, cm, 11/08/21 16:30... Start Date: 12/07/21 Status: OrderedUbrelvy 50 mg oral tablet 1 tablet = 50 mg, By Mouth, Once, PRN as needed for migraine headache, may repeat dose in 2 hours ifneeded, # 2 tablet, 11 Refills, Soft Stop, 06/17/21 14:54:00 EDT, Tablet, [facility] #[id number], Partial fill upon patient request if the prescr... Start Date: 06/17/21 Status: Ordered Problem List Condition Effective Dates Status Health Status Informant Adenoma of right adrenal gland neg Active labs 2017(Confirmed)1 Anxiety(Confirmed) Active [place] cardiac risk <10% in next 04/13/21 Active 10 years 2.0%(Confirmed) Cervical disc disease C6-7 MRI Active 2020/C5-7 (two level) ACDF.(Confirmed) Fibromyalgia(Confirmed) Active Impingement syndrome, shoulder, 09/17/18 Active left(Confirmed) Insomnia(Confirmed) Active Lumbar disc disease(Confirmed)2, 3 Active Depression, major,(Confirmed) Active Migraine failed(Confirmed)4 11/19/08 Active Vitamin D deficiency(Confirmed) Active 1normal renin/jeremiah/neg rmgyhyxrnoumyn3AUE noted followed by neurosurgery Dr. Woodall. no surgery advised at this ankq5woxjkv spine sports; mri kjcoloz2hxzfqkk given,comprehensive Social History Social History Type Response Smoking Status Never smoker; Tobacco user i n household: No entered on: 12/08/14 Sex Female
--- OUTSIDE RECORDS SUMMARY | 2022-10-18 01:15 | XMS_ITS | Continuity of Care Document ---
:1975 Author Organization [facility] Address [address] [place] [address]- Care Team Providers Name Role Phone Solo MENDEZ, Mack Boyd Primary Care Physician Encounter [facility] Date(s): 10/05/20 - 11/04/20 [facility] [address] [place] [address]- Allergies, Adverse Reactions, Alerts Substance Reaction Severity [...] Vaccine (oldterm) 10/01/03 Given 1Location [facility]: [facility] Gxc9Lwqugl Comment: [05/10/2016] [facility] [id number] Comment: [07/21/2015] at vfzk9Xfogdz Comment: [12/08/2014] pt received at awbk4Wossnron History: [facility] employmagdalena cosme wt6Vyuvx Note[facility]Httkf Note: #2 Medications Acetaminophen = 1,000 mg, By Mouth, 2 times a day, PRN Pain, 0 Refills, Maintenance, 09/17/18 16:04:26 EST Start Date: 09/17/18 Status: Orderedcetirizine 10 mg oral tablet 1 tablet, By Mouth, Daily, # 90 tablet, 1 Refills, Maintenance, 10/16/20 11:32:00 EST, [facility] #[id number], 166, cm, 10/11/20 9:24:00 EST, Height Start Date: 10/16/20 Status: Orderedduloxetine 60 mg oral enteric coated capsule 1 capsule = 60 mg, By Mouth, 2 times a day, # 180 capsule, 1 Refills, Maintenance, 10/05/20 7:18:00 EST, EC Capsule, [facility], 166, cm, 09/30/20 15:22:00 EST, Height Start Date: 10/05/20 Status: Orderedferrous sulfate 325 mg oral enteric coated tablet 325 mg, 1, tablet, By Mouth, 3 times a day, may take with food to minimize abdominal discomfort takesip mihir jing priscilla, # 90 tablet, Refills 3, Tot. Refills 3, Maintenance, 10/11/20 17:24:00 EST, Route to Pharmacy Electronically, [facility]... Start Date: 10/11/20 Status: Orderedgabapentin 300 mg oral capsule 300 mg, 1, capsule, By Mouth, Daily, at bed, # 30 each, Refills 2, Tot. Refills 2, Maintenance, 10/05/20 7:19:00 EST, Route to Pharmacy Electronically, [facility], 166, cm, 09/30/20 15:22:00 EST, Height Start Date: 10/05/20 Status: Orderedibuprofen 600 mg oral tablet 600 mg, 1, tablet, By Mouth, 2 times a day, Refills 0, Maintenance, 12/05/19 11:08:00 EST Start Date: 12/05/19 Status: Orderedtopiramate 25 mg oral capsule 2 capsule, By Mouth, Daily at bedtime, # 60 capsule, 5 Refills, Maintenance, 09/05/20 15:41:00 EST, [facility] #[id number], 168, cm, 08/16/20 8:23:00 EST, Height Start Date: 09/05/20 Status: OrderedtraZODone 50 mg oral tablet 25 mg, 0.5, tablet, By Mouth, 2 times a day, # 90 tablet, Refills 1, Tot. Refills 1, Maintenance, 10/05/20 7:19:00 EST, Route to Pharmacy Electronically, [facility], 166, cm, 09/30/20 15:22:00 EST, Height Start Date: 10/05/20 Status: OrderedVitamin D3 5000 intl units oral capsule See Instructions, 1 capsule By Mouth twice per week, # 50 capsule, 0 Refills, Maintenance, 03/02/20 9:02:00 EDT, Capsule, [facility] #[id number], 168, cm, 12/05/19 10:30:00 EST, Height Start [...] Active Vitamin D deficiency(Confirmed) Active 1normal renin/jeremiah/neg sqrgzsqpoogwps8XOP noted followed by neurosurgery Dr. Woodall. no surgery advised at this eemd9ocixnn spine sports; mri jdolvuc4nwjlmwm given,comprehensive Social History Social History Type Response Smoking Status Never smoker; Tobacco user i n household: No entered on: 12/08/14 Sex Female
--- OUTSIDE RECORDS SUMMARY | 2022-10-18 01:15 | XMS_ITS | Continuity of Care Document ---
:1975 Author Organization [facility] Address [address] [place] [phone]- Care Team Providers Name Role Phone Solo MENDEZ, Mack Boyd Primary Care Physician [facility]counter [facility] Date(s): 10/27/19 - 01/04/[facility] [address] [place] [address]- [facility] Attending Physician: Not on Staff, Attending MD Allergies, Adverse Reactions, Alerts Substance Reaction [...] Vaccine (oldterm) 10/01/03 Given 1Location History: [id number] Comment: [05/10/2016] [facility] [id number] Comment: [07/21/2015] at [id number] Comment: [12/08/2014] pt received at evyf2Xjmueoyz History: [facility] employmagdalena cosme [id number] Note[facility]: #2 Medications Acetaminophen = 1,000 mg, By Mouth, 2 times a day, PRN Pain, 0 Refills, Maintenance, 09/17/18 16:04:26 EST Start Date: 09/17/18 Status: Orderedcetirizine 10 mg oral tablet 1 tablet = 10 mg, By Mouth, Daily, # 90 tablet, 1 Refills, Maintenance, 10/08/19 14:04:00 EST, Tablet, [facility] [address] [place] [address] ST, 168, cm, 07/09/19 14:49:00 EDT, Height Start Date: 10/08/19 Status: Orderedduloxetine 60 mg oral enteric coated capsule 1 capsule = 60 mg, By Mouth, 2 times a day, # 180 capsule, 1 Refills, Maintenance, 12/05/19 11:05:00EST, EC Capsule, [facility] #[id number], 168, cm, 12/05/19 10:30:00 EST, Height Start Date: 12/05/19 Status: Orderedgabapentin 300 mg oral capsule 600 mg, 2, capsule, By Mouth, Daily at bedtime, # 180 capsule, Refills 1, Tot. Refills 1, Maintenance, 12/05/19 11:05:00 EST, Route to Pharmacy Electronically, [facility] #[id number], 168, cm, 12/05/19 10:30:00 EST, Height Start [...] 04/10/20 11:00:00 EDT, Route to Pharmacy Electronically, [facility] #[id number], 168, cm, 12/04/2009:30:00 EST, Height Start Date: 04/10/20 Status: OrderedValium 5 mg oral tablet See Instructions, 1 tab PO @ HS the night before Procedure and 1 tab 1 hr. prior to procedure, # 2 tablet, Refills 0, Tot. Refills 0, Maintenance, 12/04/19 16:29:00 EST, Instructions Replace Required Details, Route to Pharmacy Electronically, [email or web address] Start Date: 12/04/19 Status: OrderedVitamin D3 5000 [...] Active Vitamin D deficiency(Confirmed) Active 1normal renin/jeremiah/neg mpglcyvjxnpkdj7NWH noted followed by neurosurgery Dr. Woodall. no surgery advised at this [id number] spine sports; mri zlhmofr0tnwtjvc given,comprehensive Social History Social History Type Response Smoking Status Never smoker; Tobacco user i n household: No entered on: 12/08/14 Sex Female
--- OUTSIDE RECORDS SUMMARY | 2022-10-18 01:15 | XMS_ITS | Continuity of Care Document ---
:1975 Author Organization [facility] Address [address] [place] [phone]- Care Team Providers Name Role Phone Mack Banda MD Primary Care Physician Encounter [facility] Date(s): 12/05/19 - 01/15/20 [facility] [address] [place] [address]- [facility] Attending Physician: Antonino Rodriguez MD Admitting Physician: Antonino Rodriguez MD Referring Physician: Mack Banda MD Allergies, [...] Vaccine (oldterm) 10/01/03 Given 1Location History: [facility] AmosPzf7Wkjrff Comment: [05/10/2016] RECIEVED AT [facility] [employer] [id number] Comment: [07/21/2015] at udxx4Ezylgn Comment: [12/08/2014] pt received at [id number] History: [facility] employer, magdalena solomon6Admin Note: [facility] qjmkiuso9Lgcny Note: #2 Medications Acetaminophen = 1,000 mg, By Mouth, 2 times a day, PRN Pain, 0 Refills, Maintenance, 09/17/18 16:04:26 EST Start Date: 09/17/18 Status: Orderedcetirizine 10 mg oral tablet 1 tablet = 10 mg, By Mouth, Daily, # 90 tablet, 1 Refills, Maintenance, 10/08/19 14:04:00 EST, Tablet, [facility] [address], 168, cm, 07/09/19 14:49:00 EDT, Height Start Date: 10/08/19 Status: Orderedduloxetine 60 mg oral enteric coated capsule 1 capsule = 60 mg, By Mouth, 2 times a day, # 180 capsule, 1 Refills, Maintenance, 12/05/19 11:05:00EST, EC Capsule, [facility] #[id number], 168, cm, 12/05/19 10:30:00 EST, Height Start Date: 12/05/19 Status: Orderedgabapentin 300 mg oral capsule 600 mg, 2, capsule, By Mouth, Daily at bedtime, # 180 capsule, Refills 1, Tot. Refills 1, Maintenance, 12/05/19 11:05:00 EST, Route to Pharmacy Electronically, [facility] #[id number], 168, cm, 12/05/19 10:30:00 EST, Height Start [...] 04/10/20 11:00:00 EDT, Route to Pharmacy Electronically, [facility] #[id number], 168, cm, 12/04/2009:30:00 EST, Height Start Date: 04/10/20 Status: OrderedValium 5 mg oral tablet See Instructions, 1 tab PO @ HS the night before Procedure and 1 tab 1 hr. prior to procedure, # 2 tablet, Refills 0, Tot. Refills 0, Maintenance, 12/04/19 16:29:00 EST, Instructions Replace Required Details, Route to Pharmacy Electronically, [facility] Start Date: 12/04/19 Status: OrderedVitamin D3 5000 [...] Active Vitamin D deficiency(Confirmed) Active 1normal renin/jeremiah/neg pwzfpktcrhahyl1TCZ noted followed by neurosurgery Dr. Woodall. no surgery advised at this sbtj1zrznmc spine sports; mri cvoptid3zhnhpjv given,comprehensive Social History Social History Type Response Smoking Status Never smoker; Tobacco user i n household: No entered on: 12/08/14 Sex Female
--- OUTSIDE RECORDS SUMMARY | 2022-10-18 01:15 | XMS_ITS | Continuity of Care Document ---
:1975 Author Organization [facility] Address [address] [place] [address]- Care Team Providers Name Role Phone Solo MENDEZ, Mack Boyd Primary Care Physician [facility]counter [facility] Date(s): 02/08/21 - 03/10/21 [facility] [address] [place] [address]- Allergies, Adverse Reactions, Alerts Substance Reaction Severity [...] Vaccine (oldterm) 10/01/03 Given 1Location History: [facility] AmosSyo7Dwgcny Comment: [05/10/2016] REC[facility]EVED AT [facility] [id number] Comment: [07/21/2015] at zfgh9Egiktd Comment: [12/08/2014] pt received at ashy4Gwzyoxvd History: [facility] employer, magdalena solomon6Admin Note: [facility] zytmwuua8Duwjt Note: #2 Medications Acetaminophen = 1,000 mg, By Mouth, 2 times a day, PRN Pain, 0 Refills, Maintenance, 09/17/18 16:04:26 EST Start Date: 09/17/18 Status: Orderedcetirizine 10 mg oral tablet 1 tablet, By Mouth, Daily, # 90 tablet, 1 Refills, Maintenance, 10/16/20 11:32:00 EST, [facility] #[id number], 166, cm, 10/11/20 9:24:00 EST, Height Start Date: 10/16/20 Status: Orderedduloxetine 60 mg oral enteric coated capsule 1 capsule = 60 mg, By Mouth, 2 times a day, # 180 capsule, 1 Refills, Maintenance, 10/05/20 7:18:00 EST, EC Capsule, [facility], 166, cm, 09/30/20 15:22:00 EST, Height Start Date: 10/05/20 Status: OrderedEmgality Prefilled Pen 120 mg/mL subcutaneous solution = 120 mg, Subcutaneous Infusion, Every 28 days, # 1 each, 11 Refills, Maintenance, 01/31/21 7:27:00 EDT, [facility] #[id number], 166, cm, 12/31/20 8:54:00 EDT, Height Start Date: 01/31/21 Status: Orderedferrous sulfate 325 mg oral enteric coated tablet 325 mg, 1, tablet, By Mouth, 3 times a day, may take with food to minimize abdominal discomfort [facility], # 90 tablet, Refills 3, Tot. Refills 3, Maintenance, 10/11/20 17:24:00 EST, Route to Pharmacy Electronically, [facility] Start Date: 10/11/20 Status: Orderedgabapentin 300 mg oral capsule 600 mg, 2, capsule, By Mouth, Daily at bedtime, at bed, # 60 each, Refills 2, Tot. Refills 2, Maintenance, 12/17/20 15:08:00 EDT, Route to Pharmacy Electronically, [facility] #[id number], 166, cm,12/17/20 14:53:00 EDT, Height Start Date: [...] 1 Refills,Maintenance, 03/01/21 16:21:00 EDT, EC Tablet, [facility] #[id number], Partial fill upon patient request if the prescription is for a schedule II... Start Date: 03/01/21 Status: OrderedtraZODone 50 mg oral tablet 25 mg, 0.5, tablet, By Mouth, 2 times a day, # 90 tablet, Refills 1, Tot. Refills 1, Maintenance, 10/05/20 7:19:00 EST, Route to Pharmacy Electronically, [facility], 166, cm, 09/30/20 15:22:00 EST, [...] 0 Refills, Maintenance, 03/01/21 16:04:00 EDT, Tablet, [facility] #[id number], Partial fill upon patient request if the... [...] Active Vitamin D deficiency(Confirmed) Active 1normal renin/jeremiah/neg srszasddkalhvh5DLU noted followed by neurosurgery Dr. Woodall. no surgery advised at this knva8xinayi spine sports; mri seinknp6cwrucal given,comprehensive Social History Social History Type Response Smoking Status Never smoker; Tobacco user i n household: No entered on: 12/08/14 Sex Female
--- OUTSIDE RECORDS SUMMARY | 2022-10-18 01:15 | XMS_ITS | Continuity of Care Document ---
:1975 Author Organization [facility] Address [address] [place] [phone]- Care Team Providers Name Role Phone Solo MENDEZ, Mack Boyd Primary Care Physician Encounter [facility] Date(s): 04/19/21 - 04/20/[address] [address]- Encounter Diagnosis Gastroesophageal reflux disease with hiatal hernia (Discharge Diagnosis) - 04/19/21 Discharge Disposition: A-D/C Home Attending Physician: Elijah Lynn MD Admitting Physician: Elijha Lynn MD Referring Physician: Elijah Lynn MD Allergies, [...] Vaccine (oldterm) 10/01/03 Given 1Location History: [facility] AmosEwj9Uzsewy Comment: [05/10/2016] RECIEVED AT [facility] [id number] Comment: [07/21/2015] at epip2Ibjyor Comment: [12/08/2014] pt received at livq2Gsfyoiqh History: [facility] employer, magdalena gx4Jeuwf Note: [facility] hvsyifor2Rxnxg Note: #2 Medications Acetaminophen = 1,000 mg, [...] tablet, 1 Refills, Maintenance, 03/21/21 7:23:00 EDT, [facility] #[id number], 167.64, cm, 03/18/21 6:28:00 EDT, Height, 80, [...] each, 11 Refills, Maintenance, 01/31/21 7:27:00 EDT, [facility] #[id number], 166, cm, 12/31/20 8:54:00 EDT, Height Start Date: 01/31/21 Status: Orderedgabapentin 300 mg oral capsule 600 mg, 2, capsule, By Mouth, Daily at bedtime, at bed, # 60 each, Refills 2, Tot. Refills 2, Maintenance, 12/17/20 15:08:00 EDT, Route to Pharmacy Electronically, [facility] #[id number], 166, cm,12/17/20 14:53:00 EDT, Height Start Date: 12/17/20 Status: Orderedomeprazole 20 mg oral delayed release tablet 1 tablet = 20 mg, By Mouth, Daily in AM, 30 minutes prior first meal of day, # 30 tablet, 1 Refills,Maintenance, 03/01/21 16:21:00 EDT, EC Tablet, [facility] #[id number], Partial fill upon patient request if the prescription is for a schedule II... Start Date: 03/01/21 Status: OrderedPercocet-5 Tablet 1 tablet, Tablet, By Mouth, Every 4 hours, PRN for Pain , Moderate, Not to exceed 4 GM of Tylenol per 24 hour period, Routine, 04/19/21 10:11:00 EDT Start Date: 04/19/21 Stop Date: 04/20/21 Status: DiscontinuedtiZANidine 2 mg oral tablet 2 mg, 1, [...] of right adrenal Active gland(Confirmed)1 Anxiety(Confirmed) Active [place] cardiac risk <10% in next 04/13/21 Active 10 years 2.0%(Confirmed) Cervical disc disease C6-7 MRI Active 2020(Confirmed) Fibromyalgia(Confirmed) Active Impingement syndrome, shoulder, 09/17/18 Active left(Confirmed) Insomnia(Confirmed) Active Lumbar disc disease(Confirmed)2, 3 Active Depression, major,(Confirmed) Active 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 Woodall. no surgery advised at this iinu5gjempx spine sports; mri prnrrnj9xuseaix given,comprehensive Diagnosis Diagnosis Type Effective Health Clinical Informant Dates Status Service Gastroesophageal Discharge 04/19/21 reflux disease with Diagnosis hiatal hernia Results Radiology Reports Exam Date Time Procedure Performing Provider Status 04/19/21 10:00 AM C-Arm > 1 Hour Zarina Cleveland; Michael (Verified ) Notes:(C-Arm > 1 Hour) Reason For Exam: ACDFRESULT: C-Arm > 1 Hour Clinical history: Preop examination prior to cervical spine fusion. EXAMINATION: Fluoroscopy provided during anterior cervical spine fusion. FINDINGS: Multiple lateral views of the cervical spine obtained by the portable image intensifier in the operating room are available for interpretation. There are multiple metallic instruments pointing at the C5-C6 disc anteriorly as well as to the C5 vertebral body anteriorly. The patient is intubated. Successful fusion at C5-C6 has been performed. Total fluoroscopy time was 4 seconds. Total technologist time was 1 hour 55 minutes. No radiologist was present. IMPRESSION: As above. WSN: [id number] Ordering Physician: Elijah Lynn Dictated By: Emmanuel Hein MD, V Dictated Date/Time: 04/19/21 10:14 a Reviewed By: Emmanuel Hein MD, V Signed By: Emmanuel Hein MD, V Signed Date/Time: 04/19/21 10:14 am Transcribed By: FRAN Transcribed Date/Time: 04/19/21 10:11 am Exam Date Time Procedure Performing Provider Status 04/19/21 10:00 AM Spine Single View Zarina Cleveland; Michael ([facility] ed) Notes:(Spine Single View) Reason For Exam: ACDFRESULT: Spine Single View Clinical history: Preop examination prior to cervical spine fusion. EXAMINATION: Fluoroscopy provided during anterior cervical spine fusion. FINDINGS: Multiple lateral views of the cervical spine obtained by the portable image intensifier in the operating room are available for interpretation. There are multiple metallic instruments pointing at the C5-C6 disc anteriorly as well as to the C5 vertebral body anteriorly. The patient is intubated. Successful fusion at C5-C6 has been performed. Total fluoroscopy time was 4 seconds. Total technologist time was 1 hour 55 minutes. No radiologist was present. IMPRESSION: As above. WSN: [id number] Ordering Physician: Elijah Lynn Dictated By: Emmanuel Hein MD, V Dictated Date/Time: 04/19/21 10:14 a Reviewed By: Emmanuel Hein MD, V Signed By: Emmanuel Hein MD, V Signed Date/Time: 04/19/21 10:14 am Transcribed By: FRAN Transcribed Date/Time: 04/19/21 10:11 am Vital Signs Most recent to oldest 1 2 3 [Reference Range]: Height 167.64 cm 167.64 cm 167.64 cm (04/20/21 7:36 AM) (04/20/21 4:00 AM) (04/20/21 12: 15 AM) Weight 82 kg 80.2 kg 80 kg (04/19/21 1:45 PM) (04/19/21 6:20 AM) (04/01/21 9:11 AM) Oxygen Saturation 96 % 96 % 96 % [94-100 %] (04/20/21 7:36 AM) (04/20/21 4:00 AM) (04/20/21 12: 15 AM) Pulse Rate [55-90 bpm] 87 bpm 76 bpm 88 bpm (04/20/21 7:36 AM) (04/20/21 4:00 AM) (04/20/21 12: 15 AM) Body Mass Index 29.18 28.54 28.47 [18.5-24.99] *H* *H* *H* (04/19/21 1:45 PM) (04/19/21 6:20 AM) (04/01/21 9:11 AM) Blood Pressure 114/61 mm Hg 104/74 mm Hg 129/77 mm Hg [90-138/55-84 mm Hg] (04/20/21 7:36 AM) (04/20/21 4:00 AM) ( 1 12:15 AM) Respiratory Rate [16-30 18 br/min 17 br/min 18 br/mi n br/min] (04/20/21 9:42 AM) (04/20/21 7:36 AM) (04/20/21 4:0 0 AM) Temperature [96.8-100.4 98.5 DegF 97.9 DegF 98.0 Deg F DegF] (04/20/21 7:36 AM) (04/20/21 4:00 AM) (04/20/21 12: 15 AM) Liters per Minute 2 L/min 6 L/min (04/19/21 10:30 AM) (04/19/21 10:15 AM) Mode of Delivery Room air Room air Room air (Oxygen) (04/20/21 7:36 AM) (04/20/21 4:00 AM) (04/20/21 12: 15 AM) Blood pressure sites Arm, left Arm, right Arm, left (04/20/21 7:36 AM) (04/20/21 4:00 AM) (04/20/21 12: 15 AM) Temperature Route Axillary Oral Oral (04/20/21 7:36 AM) (04/20/21 4:00 AM) (04/20/21 12: 15 AM) Dry Weight 80.2 kg 80 kg (04/19/21 6:20 AM) (04/01/21 9:11 AM) Weight Obtained Via Patient/family stated Standing scale Patien t/family stated (04/19/21 1:45 PM) (04/19/21 6:20 AM) (04/01/21 9:11 AM) Dry Weight Obtained Via Standing scale Patient/family stated (04/19/21 6:20 AM) (04/01/21 9:11 AM) Social History Social History Type Response Smoking Status Never smoker; Tobacco user i n household: No entered on: 12/08/14 Sex Female
--- OUTSIDE RECORDS SUMMARY | 2022-10-18 01:15 | XMS_ITS | Continuity of Care Document ---
:1975 Author Organization [facility] Address [address] [place] [address]- Care Team Providers Name Role Phone Anais MENDEZ, Jose Miguel Morgan Primary Care Physician [facility] Date(s): 08/16/22 - 09/15/22 [facility] [address] [place] [address]- Allergies, Adverse Reactions, Alerts Substance Reaction Severity [...] Toxoid Vaccine (oldterm) 10/01/03 Given 1Result Comment: [facility]-[id number] History: [facility] Comment: [05/10/2016] RECIEVED AT [facility] RAM[facility]4Result Comment: [07/21/2015] at work5 Result Comment: [12/08/2014] pt received at qmea6Hfmegrow History: [facility] employer, [employer]dalena [id number] Note: [facility] [employer] employer8 Admin Note: #2 Medications Acetaminophen = 1,000 mg, By Mouth, 2 times a day, PRN Pain, 0 Refills, Maintenance, 09/17/18 16:04:26 EST Start Date: 09/17/18 Status: Orderedcetirizine 10 mg oral tablet 1 tablet, By Mouth, Daily, # 90 tablet, 1 Refills, 06/26/22 13:49:00 EDT, [facility] #[id number], 167.64, cm, 03/29/22 9:37:00 EDT, Height, 80.2, kg, 04/19/21 6:20:00 EDT, Dry Weight Start Date: 06/26/22 Status: Orderedduloxetine 60 mg oral enteric coated capsule 1 capsule = 60 mg, By Mouth, 2 times a day, # 60 capsule, 1 Refills, Maintenance, 09/06/22 9:31:00 EST, EC Capsule, [facility] #0693, 167.64, cm, 08/07/22 14:32:00 EST, Height, 80.2, kg, 04/19/21 6:20:00 EDT, Dry Weight Start Date: 09/06/22 Status: Orderedgabapentin 300 mg oral capsule See Instructions, Take 1 capsule in AM, 1 at 3PM and 2 capsules at bedtime, # 120 tablet, Refills 1,Tot. Refills 1, Maintenance, 07/06/22 12:17:00 EDT, Instructions Replace Required Details, Route to Pharmacy Electronically, [facility][id number]... Start Date: 07/06/22 Status: OrderedLORazepam 0.5 mg oral tablet 1 tablet = 0.5 mg, By Mouth, Daily at bedtime, # 30 tablet, 2 Refills, Maintenance, 08/21/22 6:30:00EST, [facility] #0693, 167.64, cm, 08/07/22 14:32:00 EST, Height, 80.2, kg, 04/19/21 6:20:00 EDT, Dry Weight Start Date: 08/21/22 Status: OrderedNuLYTELY with Flavor Packs oral powder for reconstitution 240 mL, By Mouth, Every 10 minutes, split prep method, take 1st half of prep evening before procedure, 2nd half 6 hrs prior to procedure., # 1 each, 0 Refills, Maintenance, 01/01/23 17:00:00 EDT, REC Powder, [facility]/pharmacy #[id number], test date 01/02 . C... Start Date: 01/01/23 Status: OrderedtiZANidine 2 mg oral capsule 1 capsule = 2 mg, By Mouth, Daily at bedtime, # 30 capsule, 2 Refills, Maintenance, 08/21/22 6:28:00EST, [facility]/pharmacy #[id number], Partial fill upon patient request [...] Refills, Soft Stop, 06/26/22 13:48:00 EDT, Tablet, [facility] #[id number], Partial fill upon patient request if the presc... 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 Fibromyalgia Confirmed Active Impingement Confirmed 09/17/18 Active syndrome, shoulder, left Insomnia Confirmed Active Lumbar disc Confirmed Active disease2, 3 Depression, major, Confirmed Active Chronic Migraines4 Confirmed 11/19/08 Active Vitamin D Confirmed Active deficiency 1normal renin/jeremiah/neg ifsbifteghjaas9OBH noted followed by neurosurgery Dr. Woodall. no surgery advised at this zelm2wkamfw spine sports; mri jnzwcwg7ozjkfsm given,comprehensive Social History Social History Type Response Smoking Status Never smoker; Tobacco user i n household: No entered on: 12/08/14 Sex Female Patient Care team information Care Team PersonnelName: Daja Vanegas RN Position: [facility] RN Member Role: Primary Care Nurse Name: Yamilet Frank NP Position: [facility] PCO Associate Professional Member Role: [employer] Provider Address: Address: [address] [place] [address]- Name: Jose Miguel Manzo MD Position: [facility] Primary Care Physician Member Role: PCP Address: Address: [address] [place] [address]- Care Team Related PersonsName: CORY AYALA Address: [address] [place] [address] Name: ROBERT AYALA Address: [address] [place] [address]
--- OUTSIDE RECORDS SUMMARY | 2022-10-18 01:15 | XMS_ITS | Continuity of Care Document ---
:1975 Author Organization [facility] Adult Address [address] [place] [address]- Care Team Providers Name Role Phone Solo MENDEZ, Mack Boyd Primary Care Physician Encounter [facility] Date(s): 02/14/22 - 03/16/22 [facility] [address] [place] [address]- Attending Physician: Admtr, Ar8 Allergies, Adverse Reactions, [...] Vaccine (oldterm) 10/01/03 Given 1Location History: Radha [id number] Comment: [05/10/2016] RECIEVED AT [facility] [id number] Comment: [07/21/2015] at [id number] Comment: [12/08/2014] pt received at [id number] History: [facility] employer, magdalena solomon6Admin Note: [facility] [id number] Note: #2 Medications Acetaminophen = 1,000 mg, By Mouth, 2 times a day, PRN Pain, 0 Refills, Maintenance, 09/17/18 16:04:26 EST Start Date: 09/17/18 Status: Orderedcetirizine 10 mg oral tablet 1 tablet, By Mouth, Daily, # 90 tablet, 1 Refills, 02/26/22 13:25:00 EDT, [facility] #[id number], 167.64, cm, 11/08/21 16:30:00 EST, Height, 80.2, kg, 04/19/21 6:20:00 EDT, Dry Weight Start Date: 02/26/22 Status: Orderedduloxetine 60 mg oral enteric coated capsule 1 capsule = 60 mg, By Mouth, 2 times a day, # 180 capsule, 1 Refills, Maintenance, 07/26/21 11:03:00EDT, EC Capsule, [facility] #[id number], 167.64, cm, 07/11/21 16:24:00 EDT, Height, 80.2, kg, 04/19/21 6:20:00 EDT, Dry Weight Start Date: 07/26/21 Status: OrderedEmgality Prefilled Pen 120 mg/mL subcutaneous solution = 120 mg, Subcutaneous Infusion, Every 28 days, # 1 each, 11 Refills, Maintenance, 01/31/21 7:27:00 EDT, [facility] #[id number], 166, cm, 12/31/20 8:54:00 EDT, Height Start Date: 01/31/21 Status: Orderedfluconazole 150 mg oral tablet 1 tablet = 150 mg, By Mouth, Once, # 1 tablet, 0 Refills, Soft Stop, 02/20/22 11:33:00 EDT, Tablet, [facility] #[id number], Partial fill upon patient request if the prescription is for a schedule II opioid drug., 167.64, cm, 11/08/21 16:30:00 EST... Start Date: 02/20/22 Status: Orderedgabapentin 300 mg oral capsule 2, capsule, By Mouth, Daily at bedtime, # 180 capsule, Refills 1, Tot. Refills 1, Maintenance, 01/18/22 15:08:00 EDT, Route to Pharmacy Electronically, [facility] #[id number], 167.64, cm, 11/08/2215:30:00 EST, Height, 80.2, kg, 04/19/21 6:20:00... Start Date: 01/18/22 Status: OrderedLORazepam 0.5 mg oral tablet 1 tablet = 0.5 mg, By Mouth, Daily at bedtime, # 30 tablet, 0 Refills, Maintenance, 03/15/22 11:57:00 EDT, [facility] #[id number], 167.64, cm, 11/08/21 16:30:00 EST, Height, 80.2, kg, 04/19/21 6:20:00 EDT, Dry Weight Start Date: 03/15/22 Status: Orderedomeprazole 20 mg oral delayed release tablet 1 tablet = 20 mg, By Mouth, Daily in AM, 30 minutes prior first meal of day, # 30 tablet, 1 Refills,Maintenance, 03/01/21 16:21:00 EDT, EC Tablet, [facility] #[id number], Partial fill upon patient request if the prescription is for a schedule II... Start Date: 03/01/21 Status: OrderedtiZANidine 2 mg oral capsule 1 capsule = 2 mg, By Mouth, Daily at bedtime, # 30 capsule, 2 Refills, Maintenance, 02/28/22 11:07:00 EDT, [facility] #[id number], Partial fill upon patient request if the prescription is for a schedule II opioid drug., 167.64, cm, 11/08/21 16:30... Start Date: 02/28/22 Status: OrderedUbrelvy 50 mg oral tablet 1 tablet = 50 mg, By Mouth, Once, PRN as needed for migraine headache, may repeat dose in 2 hours ifneeded, # 2 tablet, 11 Refills, Soft Stop, 06/17/21 14:54:00 EDT, Tablet, [facility] #[id number], Partial fill upon patient request if the prescr... Start Date: 06/17/21 Status: Ordered Problem List Condition Effective Dates Status Health Status Informant Acute COVID-19(Confirmed) 02/22/22 Active [place]en[place] of right adrenal gland neg Active labs 2017(Confirmed)1 Anxiety(Confirmed) Active [place] cardiac risk <10% in next 04/13/21 Active 10 years 2.0%(Confirmed) Cervical disc disease C6-7 MRI Active 2020/C5-7 (two level) ACDF.(Confirmed) Fibromyalgia(Confirmed) Active Impingement syndrome, shoulder, 09/17/18 Active left(Confirmed) Insomnia(Confirmed) Active Lumbar disc disease(Confirmed)2, 3 Active Depression, major,(Confirmed) Active Migraine failed(Confirmed)4 11/19/08 Active Vitamin D deficiency(Confirmed) Active 1normal renin/jeremiah/neg [id number] noted followed by neurosurgery Dr. Woodall. no surgery advised at this [id number] spine sports; mri [id number] given,comprehensive Social History Social History Type Response Smoking Status Never smoker; Tobacco user i n household: No entered on: 12/08/14 Sex Female
--- NOTE | 2022-10-18 02:08 | ED_ITS ---
HPI - Nausea/Vomiting/Diarrhea General Chief complaint: Nausea/Vomiting/Diarrhea Stated complaint: n/v/d Time Seen by Provider: 10/18/22 01:55 Source: patient and family ( , [place]) Mode of arrival: EMS Limitations: no limitations History of Present Illness HPI Narrative: 47-year-old female who presents emergency department by ambulance for evaluation of sudden onset of nausea, vomiting, diarrhea and a syncopal episode. The patient states she took her usual nighttime medicines at around 20:00 yesterday. She states she woke up around midnight and was having trouble sleeping and she took an Ativan. Just prior to coming to the emergency department she woke up again not feeling well. She states she felt hot and cold. She then developed multiple episodes of vomiting and diarrhea. She felt lightheaded, dizzy and had a syncopal episode. Patient states that 1 week prior she was sick with a cold and had rhinorrhea and a cough but the symptoms resolved. She has not been on antibiotics recently she has not traveled anywhere. She is not aware of any sick contacts. At the time my evaluation she is complaining of chest pain, abdominal pain, nausea, weakness and fatigue. Related Data Previous Rx's Medication Instructions Recorded diazepam 5 mg tablet (Valium) 5 mg PO TID PRN muscle spasm #10 01/04/21 tabs lidocaine 4 % topical patch 1 patch topical DAILY PRN pain #10 01/04/21 ea cyclobenzaprine 10 mg tablet 10 mg PO TID PRN muscle spasm #8 09/14/21 tabs gabapentin 300 mg capsule 300 mg PO DAILY #10 caps 03/24/22 prednisone 20 mg tablet 40 mg PO DAILY 4 days #8 tabs 03/24/22 ondansetron 4 mg disintegrating 4 mg PO Q6-8H PRN nausea and 10/18/22 tablet vomiting #14 tabs Allergies Allergy/AdvReac Type Severity Reaction Status Date / Time citalopram [CITALOPRAM] Allergy Intermediate BLOODY Unverified 06/17/20 15:05 STOOLS amoxicillin [AMOXICILLIN] Allergy Unknown Rash Unverified 10/18/22 01:07 mirtazapine Allergy Numbness Verified 10/18/22 01:08 Review of Systems Review of Systems: Yes all other systems are reviewed and are negative [facility] Past Medical History [facility] Narrative: Past medical history: Reviewed below, anxiety, depression. Social history: She denies tobacco, alcohol and drug use. Medical History Fibromyalgia Herniated disc, cervical Migraine Social History Social History (Updated 03/24/22 @ 16:11 by Izzy Olivera DO) Alcohol intake: never Patient Tobacco Use Status: Never used Tobacco Smoked in Last 30 Days: No Use of substances other than those prescribed or required for medical reasons: No Advance Directives: No Advance Directives Information Provided: No Physical Exam Vital Signs: Vital Signs: Last Vital Signs Temp 97.7 F 10/18/22 02:53 Pulse 68 10/18/22 02:53 Resp 16 10/18/22 02:53 BP 126/54 L 10/18/22 02:53 Pulse Ox 99 10/18/22 02:53 O2 Del Method 10/18/22 02:53 BMI result Body Mass Index 29.0 Const: General: cooperative and no acute distress Orientation/consciousness: oriented to person and oriented to place Limitations: no limitations HEENT: Head: Yes normal to inspection, Yes normocephalic and Yes atraumatic Ears: external ears normal General nose exam: Normal external nose present Face and sinus: Yes normal facial exam Mouth: Normal oral and palatal mucosa present Throat: Yes posterior oropharynx normal Eyes: General: appearance normal, both eyes and all related structures Pupils: Equal, round and reactive pupils present Neck: Neck: Yes normal visual inspection, Yes no lymphadenopathy, Yes trachea midline and Yes supple Chest: Chest palpation & inspection: normal inspection of the chest and normal palpation of entire chest wall Resp: Effort & Inspection: normal respiratory effort and able to speak in complete sentences Auscultation: clear to auscultation bilaterally Cardio: Rate: regular rate Rhythm: regular rhythm Heart sounds: S1 normal heart sound present, S2 normal heart sound present and no murmurs GI: Inspection: Yes normal to inspection Palpation (GI): Soft to palpation, Tenderness to palpation present (GI) ( Diffuse abdominal tenderness, no rebound) and no guarding Auscultation: normal bowel sounds : General: Yes no CVA tenderness Back/Spine/Pelvis: Back: no CVA tenderness Skin: General skin exam: no rashes or lesions noted Neuro: General: oriented to person and oriented to place Cranial nerves: Yes CN's II-XII intact bilaterally and Yes Equal, round and reactive pupils present Cognition (Neuro): normal cognition Motor exam (neuro): 5/5 motor strength present throughout Extrem: General: Yes normal to inspection Psych: Appearance: grossly normal Speech and movement: Normal speech and movement present Affect: normal affect Attitude: cooperative Thought process: Normal thought process present Thought content: Normal thought content present Medications Administered Discontinued Medications Generic Name Dose Route Start Last Admin Trade Name Rory PRN Reason Stop Dose Admin Sodium Chloride 1,000 mls @ 999 mls/hr 10/18/22 02:04 10/18/22 02:39 Ns IV 10/18/22 03:04 999 mls/hr .Q1H1M STA Administration Ketorolac Tromethamine 15 mg 10/18/22 02:04 10/18/22 02:42 Ketorolac Tromethamine 15 Mg/Ml Vial IVPUSH 10/18/22 02:05 15 mg ONCE STA Administration Ondansetron HCl 4 mg 10/18/22 02:04 10/18/22 02:42 Ondansetron Hcl 4 Mg/2 Ml Vial IVPUSH 10/18/22 02:05 4 mg ONCE ONE Administration Medical Decision Making Medical Decision Making MDM Narrative: 47-year-old female who presents emergency department for evaluation of sudden onset of nausea, vomiting, diarrhea and abdominal pain which started just prior to coming to the emergency department. The patient did have a syncopal episode at was well is most likely vasovagal due to her nausea , vomiting and diarrhea. Vital signs revealed a blood pressure of 103/39 otherwise were unremarkable. Physical examination did reveal diffuse abdominal tenderness with no localizing tenderness. I ordered a CBC, CMP, lipase, C diff , COVID-19, RSV, influenza. The patient was ordered to get normal saline x1 L, Zofran 4 mg IV for nausea and Toradol 15 mg IV for her pain. 0352: My interpretation of laboratory evaluation is as follows: Elevated w josef blood count 22237. Elevated glucose 132. COVID-19, influenza and RSV were negative. Laboratory evaluation is nonspecific, elevated white blood cell count just suggests that she has an infectious process, most likely a viral syndrome. Patient is feeling better after the above treatment. The patient will be discharged home with a prescription for Zofran ODT 4 mg every 8 hours as needed for nausea and vomiting. She was advised to take Tylenol and ibuprofen for pain and fever. She was advised to stay on a KADEN diet. I also think the patient would benefit from Imodium to help suppress her diarrhea and I did discuss this with her. Differential Diagnosis differential diagnosis includes was not limited to RSV, COVID, influenza, viral syndrome, dehydration, vasovagal syncope Lab Data MDM Lab Attestation statement: I reviewed the patient's lab results. please see MDM from my discussion of patient's labs 10/18/22 02:19 10/18/22 02:19 Labs: Lab Results 10/18/22 10/18/22 10/18/22 Range/Units 02:19 02:19 02:19 WBC 13.1 H (4.8-10.8) X10*3/uL RBC 4.90 (4.20-5.50) X10*6/uL Hgb 12.3 (12.0-16.0) g/dl Hct 39.2 (37.0-47.0) % MCV 80.0 (80.0-98.0) fL MCH 25.1 L (27.0-33.0) pg MCHC 31.4 (31.0-35.0) g/dl RDW 14.0 (11.0-16.0) % Plt Count 254 (160-400) X10*3/uL MPV 10.6 (9.4-12.3) fL Immature Gran % (Auto) 0.6 H (0.0-0.4) % Neut % (Auto) 86.2 H (45-73) % Lymph % (Auto) 7.7 L (20-40) % Eaton % (Auto) 4.8 (2-11) % Eos % (Auto) 0.4 (0-4) % Baso % (Auto) 0.3 (0-2) % Lymph # (Auto) 1.0 L (1.2-4.9) X10*3/uL Eaton # (Auto) 0.6 (0.1-1.2) X10*3/uL Eos # (Auto) 0.1 (0.0-0.4) X10*3/uL Baso # (Auto) 0.0 (0.0-0.2) X10*3/uL Abs Immat Gran (auto) 0.08 H (0.00-0.03) X10*3/uL Absolute Neuts (auto) 11.3 H (2.0-8.3) x10*3/uL Absolute Nucleated RBC 0.000 (0.0-0.012) X10*3/uL Nucleated RBC % (auto) 0.0 (0.0-0.2) /100WBC Sodium 143 (135-145) mmol/L Potassium 4.0 (3.3-5.1) mmol/L Chloride 106 (96-108) mmol/L Carbon Dioxide 25 (22-29) mmol/L Anion Gap 16 (12-20) BUN 14 (9-16) mg/dL Creatinine 1.01 (0.5-1.4) mg/dL Estim Creat Clear Calc 75.7 Estimated GFR 59 Random Glucose 132 H (60-115) mg/dL Calcium 9.7 (8.4-10.2) mg/dL Total Bilirubin 0.5 (0.0-1.0) mg/dL AST 13 (5-31) U/L ALT 12 (0-31) U/L Alkaline Phosphatase 67 (39-117) U/L Total Protein 6.6 (6.5-8.0) g/dL Albumin 4.2 (3.5-5.0) g/dL Lipase 19 (8-78) U/L Influenza Type A (PCR) NEGATIVE (Negative) Influenza Type B (PCR) NEGATIVE (Negative) RSV RNA Qual (PCR) NEGATIVE (Negative) SARS-CoV-2 RNA (RT-PCR) NEGATIVE (Negative) Independent Historian Clinical information obtained from an independent historian. History obtained from or confirmed by: Spouse Discharge Plan Discharge Clinical Impression: Vasovagal syncope, Acute dehydration Vomiting Qualifiers: Vomiting type: unspecified Nausea presence: with nausea Qualified Code(s): R11.2 - Nausea with vomiting, unspecified Diarrhea Qualifiers: Diarrhea type: unspecified type Qualified Code(s): R19.7 - Diarrhea, unspecified Patient Disposition: Home, Self-Care Instructions: Viral Syndrome (ED) Additional Instructions: Your laboratory evaluation was unremarkable [place] [address] and elevated glucose of 132. Your COVID-19, influenza and RSV tests were negative. Take Zofran ODT 4 mg pills, 1 pill dissolved in your mouth every 8 hours as needed for nausea and vomiting. For diarrhea I want you to take Imodium 2 mg pills. Take 2 pills after the 1st loose, diarrheal stool then 1 pill after each loose, diarrheal stool up to 8 pills per day. This usually stops diarrhea within 24 hours. Take ibuprofen 200 mg pills, 3 pills every 6 hours as needed for pain. Take Tylenol (acetaminophen) 500 mg pills, 2 pills every 4 to 6 hours as needed for pain. For the next 24 hours stay on a KADEN diet (bananas, rice, applesauce, tea and toast). Follow-up with your doctor in 2 days. Please return to the emergency department if your symptoms get worse or if you develop any symptoms that are concerning to you. Prescriptions: New ondansetron 4 mg tablet,disintegrating 4 mg PO Q6-8H PRN (Reason: nausea and vomiting) Qty: 14 0RF No Action lidocaine 4 % adhesive patch,medicated 1 patch topical DAILY PRN (Reason: pain) Qty: 10 0RF Rx Instructions: may leave on for up to 12 hrs diazepam [Valium] 5 mg tablet 5 mg PO TID PRN (Reason: muscle spasm) Qty: 10 0RF cyclobenzaprine 10 mg tablet 10 mg PO TID PRN (Reason: muscle spasm) Qty: 8 0RF prednisone 20 mg tablet 40 mg PO DAILY 4 Days Qty: 8 0RF gabapentin 300 mg capsule 300 mg PO DAILY Qty: 10 0RF Rx Instructions: take in AM
[2022-10-18 02:11] VITALS: BP 112/71; PULSE 85; RESP 16; TEMP 36.4; O2SAT 100
[2022-10-18 02:27] LABS: MANUAL DIFF FLAG NO
[2022-10-18 02:30] LABS: Basophils Percent Auto 0.3 % (0-2); Eosinophils Absolute Auto 0.1 X10*3/uL (0.0-0.4); Eosinophils Percent Auto 0.4 % (0-4); Hematocrit 39.2 % (37.0-47.0); Hemoglobin 12.3 g/dl (12.0-16.0); Imm Gran Abs Auto 0.08 X10*3/uL (0.00-0.03); Imm Gran Pct Auto 0.6 % (0.0-0.4); Lymphocytes Percent Auto 7.7 % (20-40); Mean Corpuscular HGB Conc 31.4 g/dl (31.0-35.0); Mean Corpuscular Hemoglobin 25.1 pg (27.0-33.0); Mean Platelet Volume 10.6 fL (9.4-12.3); Monocytes Absolute Auto 0.6 X10*3/uL (0.1-1.2); Monocytes Percent Auto 4.8 % (2-11); Neutrophils Absolute Auto 11.3 x10*3/uL (2.0-8.3); Neutrophils Percent Auto 86.2 % (45-73); Platelet Count 254 X10*3/uL (160-400); White Blood Count 13.1 X10*3/uL (4.8-10.8)
[2022-10-18] MEDS: 0.9 % Sodium Chloride 1,000 ML 999 ML IV (02:39)
[2022-10-18] MEDS: Ketorolac Tromethamine 15 MG/ML VIAL IVPUSH (02:42)
[2022-10-18] MEDS: ondansetron HCL 4 MG/2 ML VIAL IVPUSH (02:42)
[2022-10-18 02:45] LABS: Alanine Aminotransferase 12 U/L (0-31); Albumin Level 4.2 g/dL (3.5-5.0); Alkaline Phosphatase 67 U/L (39-117); Anion Gap 16 (12-20); Aspartate Amino Transferase 13 U/L (5-31); Bilirubin Total 0.5 mg/dL (0.0-1.0); Blood Urea Nitrogen 14 mg/dL (9-16); Calcium 9.7 mg/dL (8.4-10.2); Carbon Dioxide 25 mmol/L (22-29); Chloride 106 mmol/L (96-108); Creatinine Clr Calc Pharmacy 75.7; Estimated Glomerular Filt Rate 59; Glucose Random 132 mg/dL (60-115); Lipase 19 U/L (8-78); Sodium 143 mmol/L (135-145); Total Protein 6.6 g/dL (6.5-8.0)
[2022-10-18 02:53] VITALS: BP 126/54; PULSE 68; RESP 16; TEMP 36.5; O2SAT 99
[2022-10-18 03:04] LABS: Influenza A PCR NEGATIVE (Negative); Influenza B PCR NEGATIVE (Negative); Resp Syncy Virus RNA Qual PCR NEGATIVE (Negative); SARS COV2 PCR INHOUSE NEGATIVE (Negative)
[2022-10-18 05:11] VITALS: BP 123/69; PULSE 94; RESP 18; TEMP 36.8
[2022-10-18 05:12] VITALS: BP 123/69; PULSE 98; RESP 18; TEMP 36.8; O2SAT 98
== END 2022-10-18 05:27 | disposition home or self-care (01) ==
PROVIDERS: Emergency Provider Emergency Medicine Emergency Medical Services
DX: R55 Syncope and collapse (principal); E86.0 Dehydration; R11.2 Nausea with vomiting, unspecified; R19.7 Diarrhea, unspecified; Z20.822 Contact with and (suspected) exposure to COVID-19; Z20.828 Contact with and (suspected) exposure to other viral communicable diseases
CPT/HCPCS: 0241U; 36415; 80053; 83690; 85025; 96374; 96375; 99284; J1885; J2405